=== PATIENT | female | born 1940 | race Caucasian/White ===

== ENCOUNTER → 2020-07-03 14:51 | Outpatient (CLI) | payer MEDICARE, SELFPAY ==
--- NOTE | ~2020-07-03 | XR_ITS ---
XR hip RT min 3V w AP pelvis DATE: 07/03/2020 15:17 INDICATION: Unspecified hip pain for 2 weeks, worsening. No known injury. TECHNIQUE: AP views of the pelvis. AP, lateral and crosstable lateral views of right hip. COMPARISON: None FINDINGS: There is mild dextro scoliosis and severe degenerative disc disease throughout the lumbar a nd lumbosacral spine. The pubic symphysis and sacroiliac joints are normally aligned. No pelvic fracture or bone destructio n is detected. Hip joint spaces are symmetric and relatively preserved. No fracture or dislocation, avascular necrosis or bone destruction of the right hip is detected. IMPRESSION: Mild dextro scoliosis and severe degenerative disease throughout the lumbar and lumbosacr al spine Reviewed, dictated and finalized at location A. L WORD PROCESSOR IMPRESSION: Mild dextro scoliosis and severe degenerative disease throughout th e lumbar and lumbosacral spine
== END ==
PROVIDERS: PCP Family Medicine; Visit Provider Family Medicine
DX: M47.817 Spondylosis without myelopathy or radiculopathy, lumbosacral region (principal); M41.9 Scoliosis, unspecified
CPT/HCPCS: 73502

== ENCOUNTER 2020-07-11 12:27 | Outpatient (CLI) | payer MEDICARE, SELFPAY ==
--- NOTE | ~2020-07-11 | MR_ITS ---
EXAMINATION: MR hip RT wo con DATE: 07/11/2020 14:11 INDICATION: Right hip pain TECHNIQUE: Magnetic resonance imaging (MRI) of the right hip was performed without intravenous contr ast. Sequences included full-field axial PD-weighted FS FSE and T1-weighted FSE, coronal of the pelvi s with PD-weighted FS FSE, small field of view of the right hip with axial PD-weighted FS FSE, sagit jack PD-weighted FS FSE and coronal PD weighted FS FSE. Additional radial T1-weighted FGR oriented ort hogonal to the acetabular rim were obtained for evaluation of the labrum. COMPARISON: None FINDINGS: Bones/labrum/cartilage: Alignment is normal. No fracture, avascular necrosis or pathologic marrow replacing process. Degener ation of the posterior superior right acetabular labrum which demonstrates a rounded free edge, irreg ular margins and mild increased signal and which is partially replaced by marginal osteophyte arising from the rim of the acetabulum. There is mild osteoarthritis at the right hip with mild partial thic kness cartilage loss with smooth chondral surface. Minimal subarticular cystic change along the poste rior inferior aspect of the acetabulum. Severe lumbar spondylosis. Mild bilateral sacroiliac osteoart hritis. Fluid: Symmetric physiologic amount of fluid within both hip joints. There is mild right gluteus medius medi us bursitis. Small amount of likely physiologic free fluid in the cul-de-sac. Soft tissues: There is a mild partial thickness tear along the deep aspect of the superior facet footplate of the r ight gluteus medias tendon with corresponding small region of mild fatty atrophy at the deep central portion of the muscle belly. Mild tendinopathy without discrete tear at the ischial tuberosity origin s of the bilateral proximal hamstring tendons. The bilateral iliopsoas tendons are normal. Limited ev aluation of visceral organs of the pelvis is unremarkable. No pathologically enlarged pelvic/inguina l lymphadenopathy. IMPRESSION: 1. Mild right hip osteoarthritis with degeneration of the posterosuperior acetabular labrum. 2. Mild partial-thickness undersurface tear of the distal right gluteus medius tendon with mild assoc iated gluteus medius bursitis. 3. Severe lumbar spondylosis. Reviewed, dictated and finalized at location H. AL CARETAKER SUPERVISOR IMPRESSION: 1. Mild right hip osteoarthritis with degeneration of the posterosuperior aceta bular labrum. 2. Mild partial-thickness undersurface tear of the distal right gluteus medius tendon with mild associated gluteus medius bursitis. 3. Severe lumbar spondylosis.
== END 2020-07-11 12:28 | disposition home or self-care (01) ==
PROVIDERS: PCP Family Medicine; Visit Provider Family Medicine
DX: M16.11 Unilateral primary osteoarthritis, right hip (principal); S76.911A Strain of unspecified muscles, fascia and tendons at thigh level, right thigh, initial encounter; M47.816 Spondylosis without myelopathy or radiculopathy, lumbar region
CPT/HCPCS: 73721

== ENCOUNTER 2021-12-12 11:19 | Emergency (ER) | payer MEDICARE, SELFPAY ==
--- NOTE | ~2021-12-12 | XR_ITS ---
EXAMINATION: XR finger 2nd RT min 2V DATE: 12/12/2021 12:16 INDICATION: Right hand second digit pain. Fall. TECHNIQUE: 4 views of right hand second digit were obtained. COMPARISON: None. FINDINGS: Bone alignment is normal. No fracture. There is mild osteoarthritis of second metacarpophal angeal joint and proximal interphalangeal joint and moderate osteoarthritis of distal interphalangeal joint. IMPRESSION: 1. Polyarticular osteoarthritis. Reviewed, dictated and finalized at location B.
--- NOTE | ~2021-12-12 | XR_ITS ---
EXAMINATION: XR hand LT min 3V DATE: 12/12/2021 12:16 INDICATION: Left hand pain. TECHNIQUE: 3 views of left hand were obtained. COMPARISON: None. FINDINGS: There is an oblique fracture of diaphysis of fifth metacarpal. The distal fracture fragment demonstrates 3 mm radial displacement and 4 mm shortening. There is moderate osteoarthritis of trisc aphe joint and mild osteoarthritis of first carpometacarpal joint and most of the metacarpophalangeal joints and interphalangeal joints. IMPRESSION: 1. Oblique fracture of diaphysis of fifth metacarpal. Reviewed, dictated and finalized at location B.
--- NOTE | 2021-12-12 11:36 | ED.UPPEXIN ---
HPI - Extremity Injury (Upper) General Chief Complaint: Extremity Injury, Upper Stated Complaint: fall/bilateral hand injury Time Seen by Provider: 12/12/21 11:58 Source: patient and RN notes reviewed Mode of arrival: ambulatory Limitations: no limitations History of Present Illness HPI narrative: 81-year-old female resents with concern for injury to the left hand and right second digit. She reports yesterday she was pulling wild onions by [employer] when she slipped and fell on rocks on her outstretched hands. She reports pain and bruising to the distal second digit of the right hand, reports left hand pain. She reports she used ice. She denies decreased sensation, strength, range of motion in the hands or digits. She denies lacerations or abrasions. She reports swelling and bruising to the left hand MD complaint: injury to: left (Hand) and right (Finger) Related Data Home Medications Medication Instructions Recorded Confirmed aspirin 325 mg PO DAILY 12/12/21 12/12/21 fluoxetine [Prozac] 10 mg PO DAILY 12/12/21 12/12/21 glimepiride 4 mg PO DAILY 12/12/21 12/12/21 levothyroxine 125 mcg PO DAILY 12/12/21 12/12/21 lisinopril 20 mg PO DAILY 12/12/21 12/12/21 lovastatin 40 mg PO DAILY 12/12/21 12/12/21 metformin 100 mg PO BID 12/12/21 12/12/21 Allergies Allergy/AdvReac Type Severity Reaction Status Date / Time prednisone Allergy Unknown nauseated, Verified 12/12/21 12:20 felt bad, bp up, sugar up, Review of Systems Review of Systems: CONSTITUTIONAL: Denies malaise, chills, sweats, or fever. CARDIOVASCULAR: Denies chest pain, palpitations, or edema. RESPIRATORY: Denies cough or dyspnea. SKIN: Denies rash or itching, redness, laceration, abrasion, warmth MUSCULOSKELETAL: Reports pain, swelling and bruising to the distal end of the second digit of the right hand. Reports pain, swelling and bruising to the left hand NEUROLOGIC: Denies numbness, weakness All systems reviewed & are unremarkable except as noted in HPI and below PMFSH Surgical History Surgical History Hx of appendectomy Family History Family History Father Family history of cardiovascular disease Mother Family history of cardiovascular disease Diabetes mellitus Sibling Family history of malignant neoplasm of cervix Social History Social History Smoking status: Smoker, status unknown Alcohol intake: current Gender identity (if verbalized by the patient): Female Comments At time of signature, agree with nursing past medical, surgical, social and family history. There is no relevant family history pertinent to the presenting complaint Exam Narrative: GENERAL: Well-appearing, well-nourished, and in no acute distress. HEAD: Normocephalic, atraumatic. EYES: PERRLA, conjunctivae clear NECK: Supple. CHEST: Speaks in full sentences. No respiratory distress. HEART: Regular rate and rhythm. Normal and equal peripheral pulses. EXTREMITIES: Right & Left hands and digits of hand have normal strength and sensation. 5/5 strength with digit flexion, extension. Range of motion normal. No clubbing, cyanosis, noted. Tenderness, swelling, bruising noted to the lateral left hand beneath the fifth digit. Swelling, bruising noted to the distal second digit of the right hand. Skin intact. Normal digital cascade with flexion of fingers, median, ulnar and radial nerve intact. Normal sensation of each side of finger. Can perform 'okay' sign, 'cross over finger test of index and middle fingers' and 'thumbs up' sign. No scissoring. Normal thumb opposition. Good capillary refill and radial pulse. Distal capillary refill less than 3 seconds. SKIN: Warm, dry, no rash. NEURO: Alert and oriented x3. PSYCH: Normal mood and affect Course Course Emergency Course: Patient is aware of diagnosis, unde
[2021-12-12 11:47] VITALS: BP 166/58; PULSE 60; RESP 18; TEMP 36.4; O2SAT 100
== END 2021-12-12 12:58 | disposition home or self-care (01) ==
PROVIDERS: Emergency Provider Nurse Practitioner; PCP Family Medicine
DX: S62.307A Unspecified fracture of fifth metacarpal bone, left hand, initial encounter for closed fracture (principal); S63.610A Unspecified sprain of right index finger, initial encounter; W01.0XXA Fall on same level from slipping, tripping and stumbling without subsequent striking against object, initial encounter; Z79.82 Long term (current) use of aspirin; I10 Essential (primary) hypertension; E11.9 Type 2 diabetes mellitus without complications
CPT/HCPCS: 29125; 29130; 73130; 73140; 99214; A4565; G0463

== ENCOUNTER 2021-12-17 08:25 | Outpatient (CLI) | payer MEDICARE, SELFPAY ==
--- NOTE | 2021-12-17 08:40 | ECG_ITS ---
Measurements Intervals Kinsey Rate: 63 P: -80 WI: 170 QRS: 22 QRSD: 101 T: 66 QT: 430 QTc: 443 Interpretive Statements SINUS RHYTHM POOR R-WAVE PROGRESSION MINOR ST-T AFTER ABNORMAL ECG NO PREVIOUS ECG AVAILABLE FOR COMPARISON Electronically Signed On 12-17-2021 16:21:41 CDT by Dhruv Coleman M.D.
[2021-12-17 09:20] LABS: Anion Gap 8 mmol/L (8-16); Blood Urea Nitrogen 13 mg/dL (7-17); Calcium 9.4 mg/dL (8.4-10.2); Carbon Dioxide 23 mmol/L (22-30); Chloride 106 mmol/L (98-107); Estimated Glomerular Filt Rate > 60; Glucose 190 mg/dL (65-110); Potassium 4.2 mmol/L (3.4-5.0); Sodium 137 mmol/L (137-145)
== END 2021-12-17 08:26 | disposition home or self-care (01) ==
PROVIDERS: Anesthesiology; PCP Family Medicine; Visit Provider Plastic Surgery
DX: E11.9 Type 2 diabetes mellitus without complications (principal); I10 Essential (primary) hypertension; Z01.812 Encounter for preprocedural laboratory examination
CPT/HCPCS: 36415; 80048; 93005

== ENCOUNTER 2021-12-19 01:37 | Day surgery (SDC) | payer MEDICARE, SELFPAY ==
[2021-12-14 13:00] VITALS: BMI 25.2
--- NOTE | 2021-12-14 13:13 | PC.NURSE ---
Report to the Outpatient Waiting Room, entrance under the green pavilion located off [facility], at time _0700_ on date _12/19/21_. OR Time: _0900_. - You and your visitor will be asked a series of questions to screen for COVID 19 for your protection. - A mask is required within the hospital. One visitor will be allowed to accompany the patient into the hospital. Patients visitor will be instructed to remain with patient at all times or leave the building. We will allow the visitor to come back to the postoperative area when patient is ready. Preoperative COVID Testing Requirements: NONE Patients may have clear liquids (water, carbonated beverages, clear teas, apple juice) until 3 hours prior to surgery (0600 AM) with a maximum of 20 ounces. - No food from midnight until time of surgery Take the following medications with a SIP of water the morning of surgery: _FLUOXETINE, LEVOTHYROXINE_ Medications to discontinue _ ASPIRIN 5 DAYS PRIOR TO SURGERY PER DR. GOODWIN, Date to take last dose 12/13/21_ Please no make-up, nail lithuanian, hairspray, perfume, deodorant, or body powder the day of surgery. No jewelry (including any body piercings) or valuables the day of surgery, leave them at home. Please take a shower or bath the night before, or the morning of, surgery with an antibacterial soap. Wear comfortable, loose fitting clothing. - Jewelry must be removed prior to entering the operating room. Rings and piercings that are not removed may be cut off. - The hospital will not accept responsibility for valuables. - Please leave all valuables, including medications, at home the day of surgery. If you are going home after surgery, a licensed commercial driver must drive you home. - NO public transportation without another adult. - We recommend that an adult stay with you for 24 hours following discharge. - We also recommend that you do not drive, make important decision, drink alcoholic beverages, or take any drugs that were not prescribed by your health care provider for at least 24 hours after your discharge time. Follow any additional instructions given to you from your surgeon. Telephone instructions given to ___PT and asked if any additional questions and then verbalized understanding. Patient advised to call surgeon office or pre surgery nurse liaison [phone] if any additional questions.
--- NOTE | 2021-12-18 10:51 | P.PNAN_ITS ---
Anes - Initial Pre Proc Eval Procedure: Operation Date: 12/19/21 09:00 Proposed Procedures p Open Reduction Internal Fixation Left Fifth Metacarpal Shaft Fracture - Dino Rm MD Date/Time: 12/18/21 10:51 Surgeon: Dino Rm MD Pre Op Diagnosis: Lt Fifth Metacarpal Shaft Fx Patient Data Age: 81 Gender: F Height: 1.74 m Weight: 76.36 kg Allergies Allergy/AdvReac Type Severity Reaction Status Date / Time prednisone Allergy Unknown nauseated, Verified 12/19/21 06:29 felt bad, bp up, sugar up, Home Medications Medication Instructions Recorded Confirmed Type aspirin 325 mg PO DAILY 12/12/21 12/19/21 History glimepiride 4 mg PO DAILY 12/12/21 12/19/21 History levothyroxine 125 mcg PO DAILY 12/12/21 12/19/21 History lisinopril 20 mg PO DAILY 12/12/21 12/19/21 History lovastatin 40 mg PO DAILY 12/12/21 12/19/21 History metformin 100 mg PO BID 12/12/21 12/19/21 History fluoxetine 10 mg DAILY 12/14/21 12/19/21 History Patient hx anesthesia problems: none Family hx anesthesia problems: none Results Review: All pre-operative results and documents have been reviewed as part of the pre-operative evaluation. [facility] Past Medical History Medical History (Updated 12/18/21 @ 10:52 by Raul Christianson MD) Anxiety disorder, unspecified Benign essential HTN Depression Hypothyroidism Mixed hyperlipidemia Type 2 diabetes mellitus without complications Surgical History Surgical History Hx of appendectomy Family History Family History Father Family history of cardiovascular disease Mother Family history of cardiovascular disease Diabetes mellitus Sibling Family history of malignant neoplasm of cervix Social History Social History Smoking status: Smoker, status unknown Tobacco type: cigarettes Second hand tobacco smoke exposure: No Additional smoking assessment comments: PT STATE SMOKED YEARS & YEARS AGO , UNALBE TO RECALL HOW MUCH OR HOW LONG Alcohol intake: current Substance use: never Living arrangements: alone Gender identity (if verbalized by the patient): Female Spiritual care concerns: No Anes - Eval Final PreProcedure Day of Procedure 12/18/21 10:51 Patient weight: normal Heart: regular rate and rhythm Lungs: clear to auscultation and normal air movement Airway: Mallampati scale Neurological: alert and oriented Last oral intake: >/= 8 hours ASA classification: III Emergent: no Anesthetic plan: proceed Anesthesia type and monitoring: general LMA Results Review: All pre-operative results and documents have been reviewed as part of the pre-operative evaluation. Informed Consent: The patient's anesthetic plan and its attendant risks and benefits were discussed with the patient/family/POA. Questions were solicited and answers provided to the satisfaction of the patient/family/POA.
[2021-12-19] VITALS (9 sets, daily range): BP systolic 124–176; BP diastolic 47–74; PULSE 60–68; RESP 14–18; TEMP 36.2–36.8; O2SAT 94–100
--- NOTE | ~2021-12-19 | XR_ITS ---
EXAMINATION: XR surgery orthopedic DATE: 12/19/2021 09:49 INDICATION: ORIF of a fracture of the left fifth metatarsal TECHNIQUE: 3 fluoroscopic images of the left hand were obtained during procedure performed by Dr. Bo shields. Radiologist was not present for the imaging or procedure. The amount of fluoroscopy time used dur ing this procedure was 1.3 minutes. COMPARISON: 12/12/2021 FINDINGS: Interval open reduction and internal fixation of the oblique extra articular metaphyseal fracture of the fifth metacarpal with a single screw. Alignment post fixation appears essentially anatomic. Expec jessica small amount of postoperative gas in the surrounding soft tissues. Moderate osteoarthritis at the triscaphe joint. IMPRESSION: 1. Essentially anatomic alignment post open reduction internal fixation of a diaphyseal fracture of t he left fifth metacarpal. Reviewed, dictated and finalized at location B. IMPRESSION: 1. Essentially anatomic alignment post open reduction internal fixation of a di aphyseal fracture of the left fifth metacarpal.
[2021-12-19] MEDS: ACETAMINOPHEN 500 MG TABLET 1000 MG PO (06:34)
[2021-12-19] MEDS: KETOROLAC 15 MG/ML VIAL (*BKC) IV PUSH (06:46)
[2021-12-19] MEDS: LACTATED RINGERS 1,000 ML 30 ML IV CONT ×2 (06:47→09:55)
[2021-12-19 06:50] LABS: Glucose Point of Care 100 mg/dl (65-105)
--- NOTE | 2021-12-19 07:04 | WPDHPUPDATE1 ---
History and Physical Update Update Date/Time: 12/19/21 07:04 History and Physical has been reviewed, including an updated exam of the patient. There are NO changes in the patient's condition. Risks, benefits, and alternatives have been discussed and questions answered. Patient agrees to proceed with procedure.
[2021-12-19] MEDS: ceFAZolin 2 GM/D5W 50 ML 2 GM/50 ML BAG IVPB (07:28)
[2021-12-19] MEDS: LIDO 1%/EPINEPHRINE 1:100,000 50 ML VIAL 30 ML INFILTRATE (07:51)
[2021-12-19] MEDS: BUPIVACAINE HCL 0.5% PF 30 ML VIAL INFILTRATE (09:39)
[2021-12-19] MEDS: BACITRACIN OINTMENT 15 GM TUBE 1 APPLIC TOPICAL (09:40)
[2021-12-19 10:41] LABS: Glucose Point of Care 103 mg/dl (65-105)
--- NOTE | 2021-12-19 10:47 | W.PM.PROC2 ---
Procedure Note - Detailed Date of Procedure 12/19/21 Pre-op Diagnosis Lt Fifth Metacarpal Shaft Fx Post-op Diagnosis Same Procedure Performed Open reduction and internal fixation of closed displaced left 5th metacarpal shaft fracture Surgeon Dino Rm MD Surgical First Assistant Bri S Anesthesia General Description of Procedure The left 5th metacarpal was marked on the patient's hand in the holding area. She was then taken to the operating room where she was placed supine on the operating table. She was given general endotracheal anesthesia and the left upper extremity was prepped and draped in usual fashion. The site was marked for incision and locally infiltrated with 1% lidocaine with epinephrine. The tourniquet was inflated to 250 mmHg. The image intensifier was brought in and the fracture site visualized. The incision was made as marked and dissection ulnar to the extensor tendons was performed to expose the fracture site. The periosteum was dissected away from the fracture line, the fracture gap was cleared of clot. There was noted a small amount of comminution at the ulnar distal tip the proximal fracture fragment. The bone of the shaft more distally was fairly soft and cracked in a place or 2. A bone tenaculum was placed after reduction. A drill hole roughly perpendicular to the fracture line near the proximal extent of the fracture was placed planning for a lag screw technique. This utilized a 1.5 mm glide hole and a 1.3 mm threaded hole. The lateral cortex was countersunk. The measured length was 9 mm. The screw was fairly easily positioned. It however did not hold very well and was removed 3 times and finally replaced with a 2 mm x 10 mm screw that in the end provided all of the stability for this repair. It was not possible to position a 2nd screw due to the soft bone and the position of the 1st screw. We went ahead to irrigate the site and close the skin wound with running 5 0 nylon. Soft bandage was applied and the ring and small fingers were marito taped with 1 in pliable tape. The region had been infiltrated with 0.5% Marcaine prior to application of the bandage. The tourniquet was up for 90 minutes Estimated Blood Loss -2.02 Tourniquet Time 9 Drains No Packing No Pathology None sent Complications No immediate complications Condition Stable Disposition PACU
== END 2021-12-19 12:23 | disposition home or self-care (01) ==
PROVIDERS: PCP Family Medicine; Visit Provider Plastic Surgery
PROC: (CPT 26615; principal; 2021-12-19 07:30)
DX: S62.327A Displaced fracture of shaft of fifth metacarpal bone, left hand, initial encounter for closed fracture (principal); W01.0XXA Fall on same level from slipping, tripping and stumbling without subsequent striking against object, initial encounter; I10 Essential (primary) hypertension; E78.2 Mixed hyperlipidemia; E11.9 Type 2 diabetes mellitus without complications; E03.9 Hypothyroidism, unspecified; F41.8 Other specified anxiety disorders; Z79.84 Long term (current) use of oral hypoglycemic drugs; Z79.82 Long term (current) use of aspirin; Z87.891 Personal history of nicotine dependence
CPT/HCPCS: 26615; 36415; 80048; 82948; 93005; A9270; C1713; J0690; J1885; J2405; J2704; J3010; J7120

== ENCOUNTER 2022-04-11 17:22 | Emergency (ER) | payer MEDICARE, SELFPAY ==
--- NOTE | ~2022-04-11 | XR_ITS ---
EXAMINATION: XR hand RT 2V DATE: 04/11/2022 17:44 INDICATION: Right hand injury. TECHNIQUE: 2 views of right hand were obtained. COMPARISON: None. FINDINGS: There is medial dislocation of fourth middle phalanx with respect to the proximal phalanx. No fracture. There is severe osteoarthritis of triscaphe joint and mild osteoarthritis of most of the metacarpophalangeal joints and interphalangeal joints. IMPRESSION: 1. Dislocation of fourth proximal interphalangeal joint. Reviewed, dictated and finalized at location A.
--- NOTE | ~2022-04-11 | XR_ITS ---
EXAMINATION: XR finger 4th RT min 2V DATE: 04/11/2022 18:06 INDICATION: Right hand fourth digit dislocation status post reduction. TECHNIQUE: 3 views of right hand fourth digit were obtained. COMPARISON: Right hand radiographs 5:40 PM FINDINGS: Bone alignment is normal. There is an old avulsion fracture of radial sided base of fourth middle phalanx with 2.5 mm distraction. There is mild osteoarthritis of fourth metacarpophalangeal mary int. There is soft tissue swelling. IMPRESSION: 1. Avulsion fracture of radial sided base of fourth middle phalanx. Reviewed, dictated and finalized at location A.
[2022-04-11 17:23] VITALS: BP 159/114; PULSE 72; RESP 18; TEMP 36.4
--- NOTE | 2022-04-11 17:58 | ED.GENADULT ---
HPI - General Adult General Chief complaint: Extremity Injury, Upper Stated complaint: R. finger injury Time Seen by Provider: 04/11/22 17:30 History of Present Illness HPI narrative: 81-year-old female presented to the emergency department for evaluation of a right hand injury. Patient states she tripped and fell and injured her fourth right finger. Finger was displaced upon arrival to the ED. Related Data Home Medications Medication Instructions Recorded Confirmed aspirin 325 mg tablet 325 mg PO DAILY 12/12/21 03/13/22 glimepiride 4 mg tablet 4 mg PO DAILY 12/12/21 03/13/22 levothyroxine 125 mcg tablet 125 mcg PO DAILY 12/12/21 03/13/22 lisinopril 20 mg tablet 20 mg PO DAILY 12/12/21 03/13/22 lovastatin 40 mg tablet 40 mg PO DAILY 12/12/21 03/13/22 fluoxetine 10 mg capsule 10 mg DAILY 12/14/21 03/13/22 vitamins A,C,B-[id number] 14,320 1 cap PO BID 03/13/22 03/13/22 unit-226 mg-200 unit capsule (PreserVision AREDS) Allergies Allergy/AdvReac Type Severity Reaction Status Date / Time prednisone Allergy Unknown nauseated, Verified 03/13/22 14:29 felt bad, bp up, sugar up, Review of Systems Review of Systems: CONSTITUTIONAL: Denies fever, chills, or sweats. EYES: Denies visual changes, redness, or discharge. ENT: Denies rhinorrhea, congestion, sore throat, or otalgia. CARDIOVASCULAR: Denies chest pain, palpitations, or edema. RESPIRATORY: Denies cough or dyspnea. GASTROINTESTINAL: Denies abdominal pain, nausea, vomiting, or diarrhea. GENITOURINARY: Denies dysuria or hematuria. SKIN: Denies rash or itching. MUSCULOSKELETAL: See HPI NEUROLOGIC: Denies headache, numbness, or weakness. PSYCHIATRIC: Denies anxiety or depression. [facility] Past Medical History Medical History Anxiety disorder, unspecified Benign essential HTN Depression Hypothyroidism Mixed hyperlipidemia Type 2 diabetes mellitus without complications Surgical History Surgical History Hx of appendectomy Family History Family History Father Family history of cardiovascular disease Mother Family history of cardiovascular disease Diabetes mellitus Sibling Family history of malignant neoplasm of cervix Social History Social History Smoking status: Former smoker Tobacco type: cigarettes Second hand tobacco smoke exposure: No Additional smoking assessment comments: PT STATE SMOKED YEARS & YEARS AGO , UNALBE TO RECALL HOW MUCH OR HOW LONG Alcohol intake: current Substance use: never Gender identity (if verbalized by the patient): Female Spiritual care concerns: No Exam Narrative: APPEARANCE: Well appearing, no pain, no distress, well-nourished. HEAD: normocephalic, atraumatic. EYES: PERRLA/EOMI, conjunctivae clear. NOSE: Normal no drainage EARS:TMS clear with good light reflex. THROAT: Pharynx clear, no exudate. NECK: Supple. No adenopathy, no masses. RESPIRATORY: Airway patent, respirations nonlabored. Clear to auscultation bilaterally, no rales, rhonchi, wheezing. CARDIOVASCULAR: Regular rate and rhythm without murmurs rubs or gallops. ABDOMINAL: Soft, nontender, nondistended, normal bowel sounds MUSCULOSKELETAL: Moves all extremities. Deformity of right fourth finger. Normal anatomy after reduction. NEURO: Alert. Cranial nerves II through XII intact. Grossly intact SKIN: Warm, dry. Normal Color PSYCHIATRIC: Normal affect/mood. Course Vital Signs Vital signs: Vital Signs Temperature 97.6 F 04/11/22 17:23 Pulse Rate 72 04/11/22 17:23 Respiratory Rate 18 04/11/22 17:23 Blood Pressure 159/114 H 04/11/22 17:23 Temperature 97.6 F 04/11/22 17:23 Pulse Rate 72 04/11/22 17:23 Respiratory Rate 18 04/11/22 17:23 Blood Pressure 159/114 H 04/11/22 17:23
== END 2022-04-11 18:30 | disposition home or self-care (01) ==
PROVIDERS: Emergency Provider Emergency Medicine; PCP Family Medicine
DX: S62.624A Displaced fracture of middle phalanx of right ring finger, initial encounter for closed fracture (principal); E03.9 Hypothyroidism, unspecified; E78.2 Mixed hyperlipidemia; E11.9 Type 2 diabetes mellitus without complications; F41.9 Anxiety disorder, unspecified; F32.A Depression, unspecified; Z79.84 Long term (current) use of oral hypoglycemic drugs; Z79.82 Long term (current) use of aspirin; Z87.891 Personal history of nicotine dependence; W01.0XXA Fall on same level from slipping, tripping and stumbling without subsequent striking against object, initial encounter
CPT/HCPCS: 26755; 26770; 73120; 73140; 99285

== ENCOUNTER 2022-04-19 13:20 | Outpatient (CLI) | payer MEDICARE, SELFPAY ==
--- NOTE | 2022-04-19 13:32 | ECHO_ITS ---
Patient Info Name: Beverly Castro Age: 81 years : 1940 Gender: Female Ht: 67 in Wt: 165 lbs BSA: 1.89 m2 HR: 69 bpm BP: 189 / 76 mmHg Technical Quality: Good Exam Date: 04/19/2022 1:52 PM Exam Location: [facility] Patient Status: Outpatient Admit Date: 04/19/2022 Staff Ordering Physician: Julia Brandon DO Agronomy Research Manager: Whitley Kendall RDCS Attending Provider: Julia Brandon DO Referring Physician: Aleksandr ARMENTA; Exam Type: CA echo doppler color flow Study Info Indications R01.1 - Cardiac murmur, unspecified Complete two-dimensional, color flow and Doppler transthoracic echocardiogram is performed. Summary 1. Complete two-dimensional, color flow and Doppler transthoracic echocardiogram is performed. 2. Left ventricular chamber dimension is normal. 3. Left ventricular systolic function is normal, estimated at 60-65%. 4. There is mildly increased left ventricular wall thickness. 5. The left ventricular diastolic function is grade II diastolic dysfunction. 6. E/e' 16 is elevated. 7. Global longitudinal strain is abnormal at -12.5%. 8. Left atrial chamber dimension is moderately enlarged. 9. There is moderate mitral valve regurgitation. 10. No pulmonary hypertension, estimated pulmonary arterial systolic pressure is 34 mmHg. Left Ventricle E/e' 16 is elevated. Global longitudinal strain is abnormal at -12.5%. Left ventricular chamber dimension is normal. Left ventricular systolic function is normal, estimated at 60-65%. There is mildly increased left ventricular wall thickness. The left ventricular diastolic function is grade II diastolic dysfunction. Right Ventricle Right ventricular systolic function is normal and with normal TAPSE 2.8 cm. Right ventricular chamber dimension is normal. Left Atria Left atrial chamber dimension is moderately enlarged. Right Atria Right atrial chamber dimension is normal. Aortic Valve The aortic valve is trileaflet. There is no aortic valve stenosis. There is no aortic valve regurgitation. Pulmonic Valve There is no pulmonic regurgitation. Mitral Valve There is no mitral valve stenosis. There is moderate mitral valve regurgitation. Tricuspid Valve There is no tricuspid valve regurgitation. No pulmonary hypertension, estimated pulmonary arterial systolic pressure is 34 mmHg. Pericardium/Pleural There is no pericardial effusion. Inferior Vena Cava Normal inferior vena cava with >50% collapse upon inspiration consistent with normal right atrial pressure, 5 mmHg. Aorta The aortic root size at the sinus of Valsalva is normal. Left Ventricular Outflow Tract Name Value Normal LVOT 2D LVOT Diameter 1.9 cm LVOT Doppler LVOT Peak Gradient 6 mmHg LVOT Mean Gradient 4 mmHg LVOT VTI 29 cm LVOT VTI/AV VTI Ratio 0.8 LVOT Stroke Volume 82 ml LVOT CO 5.4 l/min LVOT CI 2.9 l/min/m2 Pulmonic Valve
== END 2022-04-19 13:21 | disposition home or self-care (01) ==
PROVIDERS: PCP Family Medicine; Visit Provider Family Medicine
DX: R01.1 Cardiac murmur, unspecified (principal); I34.0 Nonrheumatic mitral (valve) insufficiency
CPT/HCPCS: 93306

== ENCOUNTER 2022-12-18 13:15 | Outpatient (RCR) | payer MEDICARE, SELFPAY ==
--- NOTE | 2022-10-22 17:16 | PTOPEVAL1 ---
Assessment and note entered by Jamie Orozco, PT, DPT Evaluation Information Assessment Status Evaluation Diagnosis repeated fall, decreased mobility Subjective Information Pt states her balance is off, she reports 7-8 large falls in the last 2 years, the last one about a month ago. Pt states she does a lot of sitting and watching television. Reported Pain Level Pain Score 0: Self Report Assessment PT Clinical Summary Beverly presents to therapy today for her initial evaluation with a diagnosis of repeated falls. Today she reports no pain, demonstrates good LE ROM, and fair LE strength. She has decreased functional endurance and decreased balance with functional tasks. Her scores on both the Tinetti balance assessment and the 5xSTS place her at an increased risk of falls. Skilled physical therapy services are indicated to address the deficits noted above, to introduce a regular exercise program, to minimize fall risk, and to improve functional mobility. Plan of Care Interventions Gait Training,Manual Therapy,Neuro Re-education, Patient/Caregiver Educati,Therapeutic Activities, Therapeutic Exercise PT Services Indicated Yes Treatment Frequency and 2x/wk for 4 wks Duration These treatments will address the objective and functional deficits as defined above. The patient will be advanced safely and appropriately in order for the patient to progress towards his/her prior level of function. Additional exercises will be introduced and as well as a comprehensive home exercise program upon discharge, if needed, ?to ensure carryover of functional gains achieved in the clinic. This treatment plan has been reviewed and agreement upon by the patient.
--- NOTE | 2022-11-20 15:25 | PTOPPROG ---
Assessment and note entered by Jamie Orozco, PT, DPT Evaluation Information Assessment Status Discharge Diagnosis repeated fall, decreased mobility Subjective Information Pt states she thinks she is doing really well with therapy. She states she went to the gym yesterday and did some walking and biking. She states she has been going to the gym 2 days a week in addition to therapy and also does a few exercises at home. Pt states she feels 100% better but knows that is not a realistic number. She states she feels more secure, more independent, and less fearful of falling. Assessment PT Clinical Summary Beverly presents to therapy today for her progress report following 8 visits of skilled therapy to treat her balance deficits leading to increased falls. She reports 1 fall in the last month. Today she demonstrates a decreased gait speed during the 2 min walk test, and requires increased time to complete the 5xSTS test, she does demonstrate an improved score on the Tinetti from 22/28 to 26/28. Pt demonstrates good days and bad days during therapy. At times she requires additional cueing and redirection to remember what task she is doing and well as demonstrates differing amount of effort with exercises. It is recommended that she continue with therapy to further address her balance deficits and safety concerns. Plan of Care Interventions Gait Training,Manual Therapy,Neuro Re-education, Patient/Caregiver Educati,Therapeutic Activities, Therapeutic Exercise PT Services Indicated No Treatment Frequency and to be discharged Duration These treatments will address the objective and functional deficits as defined above. The patient will be advanced safely and appropriately in order for the patient to progress towards his/her prior level of function. Additional exercises will be introduced and as well as a comprehensive home exercise program upon discharge, if needed, ?to ensure carryover of functional gains achieved in the clinic. This treatment plan has been reviewed and agreement upon by the patient.
--- NOTE | 2022-12-18 13:58 | PTOPDC ---
Assessment and note entered by Jamie Orozco, PT, DPT Evaluation Information Assessment Status Discharge Diagnosis repeated fall, decreased mobility Subjective Information Pt states she is feeling good, she feels like her balance has improved. She states occasionally she will feel a little off balance but is able to regain without assist. She states she has not followed up at the [facility] like previously discussed. Reported Pain Level Pain Score 0: Self Report Assessment PT Clinical Summary Beverly presents to therapy today for her progress report following 12 visits of skilled therapy to treat her gait and balance deficts. Today she demonstrates improved LE strength with functional assessments and has decreased her 5xSTS time from 26s to 17s. She increased her gait speed as well with less deviations. She has progressed well towards her therapy goals. It was recommended that she continue silver sneakers classes at the [facility], continue her HEP, and start a low walking program. She is to be discharged from skilled therapy services at this time. Plan of Care PT Services Indicated No
== END 2022-12-18 16:10 | disposition home or self-care (01) ==
LOC: ANHGOSHPT 13:15
PROVIDERS: PCP Family Medicine; Visit Provider Family Medicine
DX: R26.81 Unsteadiness on feet (principal); R53.81 Other malaise; R29.6 Repeated falls
CPT/HCPCS: 97110; 97112; 97161; 97530

== ENCOUNTER → 2023-04-10 14:44 | Outpatient (CLI) | payer MEDICARE, SELFPAY ==
--- NOTE | ~2023-04-10 | MR_ITS ---
EXAMINATION: MR brain/brain stem wo con DATE: 04/10/2023 15:28 INDICATION: Multiple falls. Prior transient ischemic episode. TECHNIQUE: Magnetic resonance imaging (MRI) of the brain and brainstem was performed without intraven ous contrast. Sequences included sagittal and axial T1-weighted SE, axial diffusion-weighted FS SE, a xial T2*-weighted GRE, axial T2-weighted FLAIR, and axial T2-weighted FSE. Postcontrast axial and cor onal T1-weighted SE was obtained. Apparent diffusion coefficient (ADC) maps were created. COMPARISON: Brain MR dated 05/21/2018 FINDINGS: There are no areas of restricted diffusion to suggest acute infarction. No intracranial hemorrhage or abnormal intracranial mass lesion. There are scattered areas of nonspecific increased T2-weighted si gnal intensity in the cerebral white matter, predominantly involving the deep and periventricular whi te matter which is within normal limits for age. There are no intraparenchymal signal abnormalities s een on the other pulse sequences. The ventricles are symmetric and normal in size. There are no abnor mal extra-axial fluid collections. Flow voids are seen in the cerebral arteries on the T2-weighted se quences consistent with their expected patency. Persistent right mastoid effusion. Changes of bilater al intraocular lens replacement. Visualized orbits and soft tissues are otherwise unremarkable. IMPRESSION: 1. Normal aging brain. No acute intracranial process. Reviewed, dictated and finalized at location A.
== END ==
PROVIDERS: PCP Family Medicine; Visit Provider Family Medicine
DX: R29.6 Repeated falls (principal); Z86.73 Personal history of transient ischemic attack (TIA), and cerebral infarction without residual deficits
CPT/HCPCS: 70551

== ENCOUNTER 2023-04-11 11:16 | Emergency (ER) | payer MEDICARE, SELFPAY ==
--- NOTE | ~2023-04-11 | CT_ITS ---
EXAMINATION: CT brain wo con DATE: 04/11/2023 13:02 INDICATION: Head injury. TECHNIQUE: Computed tomography (CT) of the head was performed without intravenous contrast. The mA wa s adjusted according to patient size. Iterative reconstruction technique was employed. The dose-lengt h product was 605.33 mGy-cm. COMPARISON: Brain MRI 04/10/2023 FINDINGS: There are scattered areas of low attenuation in the cerebral white matter, which is within normal limits for the patient's age. There is no intracranial hemorrhage, acute infarction, or abnorm al intracranial mass lesion. The ventricles are normal in size. There are likely changes of ocular le ns replacement surgeries. There is a right frontal lateral scalp hematoma. There is a small right mas toid effusion. IMPRESSION: 1. Normal aging brain. Reviewed, dictated and finalized at location A. IMPRESSION: 1. Normal aging brain.
--- NOTE | ~2023-04-11 | CT_ITS ---
EXAMINATION: CT facial & cervical spine wo DATE: 04/11/2023 13:02 INDICATION: Head injury. TECHNIQUE: Computed tomography (CT) of the maxillofacial region and cervical spine was performed with out intravenous contrast. Automated exposure control and iterative reconstruction technique were empl oyed. The dose-length product was 401.97 mGy-cm. COMPARISON: None FINDINGS: MAXILLOFACIAL CT: There is a right frontal lateral scalp hematoma. There are likely changes of ocular lens replacement surgeries. There is mild mucosal thickening in the paranasal sinuses. There is a small right mastoid effusion. There is leftward deviation of the nasal septum. CERVICAL SPINE CT: There is mild emphysema. There is a 10 x 17 mm left supraclavicular lymph node bone alignment is norm al. Vertebral body heights are normal. There is mildly decreased disc height at C4-C5. The following disc levels are specifically discussed: C2-C3: There is no uncovertebral joint osteoarthritis. There is mild right and moderate left facet mary int osteoarthritis. There is no neural foraminal stenosis. There is no central canal stenosis. C3-C4: There is mild left uncovertebral joint osteoarthritis. There is mild right and moderate left f acet joint osteoarthritis. There is mild left neural foraminal stenosis. There is no central canal st enosis. C4-C5: There is mild bilateral uncovertebral joint osteoarthritis. There is mild bilateral facet join t osteoarthritis. There is no neural foraminal stenosis. There is no central canal stenosis. C5-C6: There is severe right uncovertebral joint osteoarthritis. There is mild bilateral facet joint osteoarthritis. There is mild right neural foraminal stenosis. There is no central canal stenosis. C6-C7: There is no uncovertebral joint osteoarthritis. There is severe right and mild left facet join t osteoarthritis. There is mild right neural foraminal stenosis. There is no central canal stenosis. C7-T1: There is mild left uncovertebral joint osteoarthritis. There is severe bilateral facet joint o steoarthritis. There is mild bilateral neural foraminal stenosis. There is no central canal stenosis. IMPRESSION: 1. No fracture. 2. Mild cervical spondylosis. 3. Mildly enlarged left supraclavicular lymph node. Reviewed, dictated and finalized at location A.
[2023-04-11 11:41] VITALS: BP 199/62; PULSE 65; RESP 14; TEMP 36.6; O2SAT 99
[2023-04-11 11:59] VITALS: BP 179/87; PULSE 56; RESP 15; O2SAT 100
[2023-04-11 12:31] VITALS: BP 157/145; PULSE 57; RESP 15; O2SAT 100
--- NOTE | 2023-04-11 12:38 | ECG_ITS ---
Measurements Intervals [place] Rate: 60 P: 24 WI: 227 QRS: -6 QRSD: 106 T: 76 QT: 455 QTc: 456 Interpretive Statements SINUS RHYTHM WITH SINUS ARRHYTHMIA WITH FIRST DEGREE AV BLOCK LEFT VENTRICULAR HYPERTROPHY AND ST-T CHANGE [VOLTAGE CRITERIA PLUS ST/T ABNORMALITY] POSSIBLE ANTERIOR MYOCARDIAL INFARCTION , OF INDETERMINATE AGE [30 ms Q WAVE IN V3/V4, OR R < 0.2 mV IN V4] INFERIOR MYOCARDIAL INFARCTION , PROBABLY OLD [40+ ms Q WAVE AND/OR ST/T ABNORMALITY IN II/aVF] COMPARED TO ECG 12/17/2021 08:59:09 SINUS ARRHYTHMIA NOW PRESENT FIRST DEGREE AV BLOCK NOW PRESENT LEFT VENTRICULAR HYPERTROPHY NOW PRESENT Q-WAVE HIS SEEN IN LEAD AVF Electronically Signed On 04-11-2023 16:06:56 CDT by Dhruv Coleman M.D.
--- NOTE | 2023-04-11 12:40 | ED.GENADULT ---
HPI - General Adult General Chief complaint: Fall Stated complaint: fall Time Seen by Provider: 04/11/23 11:58 History of Present Illness HPI narrative: 82-year-old female presented the emergency department for evaluation after having a ground-level fall. Patient reports she had an MRI yesterday due to her having frequent falls. Patient states she did receive some Valium for the MRI. Patient reports going to bed early last night because she was still feeling the effects of the Valium. Patient remembers waking up last night but denies having any falls or injuries. Patient reports that she woke up this morning she noticed there was blood on her pillow and when she went to check herself in the mirror she saw that she had a laceration on her right forehead and contusion around the right eye. Patient states she does have some tenderness at the site of a laceration but denies any other pain or injury. Patient denies any change in vision out of the right eye. Patient states she does have frequent falls and has been told to use a walker but does not. Related Data Home Medications Medication Instructions Recorded Confirmed vitamins A,C,P-fcen-raazzo 4,296 1 cap PO BID 03/13/22 02/19/23 mcg-226 mg-90 mg capsule (PreserVision AREDS) ascorbic acid (vitamin C) 500 mg mg PO 10/03/22 02/19/23 capsule Allergies Allergy/AdvReac Type Severity Reaction Status Date / Time prednisone Allergy Unknown nauseated, Verified 04/11/23 12:26 felt bad, bp up, sugar up, Review of Systems Review of Systems: All systems reviewed & are unremarkable except as noted in HPI and below PMFSH Past Medical History Medical History Anxiety disorder, unspecified Benign essential HTN Depression Hypothyroidism Mixed hyperlipidemia Type 2 diabetes mellitus without complications Surgical History Surgical History Hx of appendectomy Family History Family History Father Family history of cardiovascular disease Mother Family history of cardiovascular disease Diabetes mellitus Sibling Family history of malignant neoplasm of cervix Social History Social History Smoking status: Former smoker Tobacco type: cigarettes Second hand tobacco smoke exposure: No Additional smoking assessment comments: PT STATE SMOKED YEARS & YEARS AGO , UNALBE TO RECALL HOW MUCH OR HOW LONG Alcohol intake: current Substance use: never Lack of Transportation: No Lack of Food: Never True Current Housing: I Have Housing Concerned About Future Housing: No Difficulty Paying Gas/Electric Bills: No Difficulty Paying for Meds: No Currently Unemployed: No Education: High School Diploma/GED Difficulty w/ Childcare or Family Care: No Living arrangements: alone Occupation/Education: retired Gender identity (if verbalized by the patient): Female Spiritual care concerns: No Exam Narrative: APPEARANCE: Well appearing, no pain, no distress, well-nourished. HEAD: normocephalic, atraumatic. EYES: PERRLA/EOMI, conjunctivae clear. NOSE: Normal no drainage EARS:TMS clear with good light reflex. THROAT: Pharynx clear, no exudate. NECK: Supple. No adenopathy, no masses. RESPIRATORY: Airway patent, respirations nonlabored. Clear to auscultation bilaterally, no rales, rhonchi, wheezing. CARDIOVASCULAR: Regular rate and rhythm without murmurs rubs or gallops. ABDOMINAL: Soft, nontender, nondistended, normal bowel sounds MUSCULOSKELETAL: Moves all extremities. Strength/ROM intact, No edema, No calf tenderness. NEURO: Alert. Cranial nerves II through XII intact. Good gait. Good coordination SKIN: Right-sided facial contusion and laceration Course Course Emergency Course: 82-year-old female presente
[2023-04-11 12:47] VITALS: BP 158/64; PULSE 57; RESP 13; O2SAT 99
[2023-04-11 13:00] LABS: Basophils Percent Auto 0.5 % (0.2-1.2); Eosinophils Absolute Auto 0.2 K/mm3 (0-0.3); Eosinophils Percent Auto 3.4 % (0-4.4); Hematocrit 36.5 % (37.0-47.0); Hemoglobin 11.5 g/dL (12.0-15.0); Immature Granulocyte Absolute 0.01 K/mm3 (0.00-0.031); Immature Granulocyte Percent A 0.2 % (0-0.5); Lymphocytes Absolute Auto 1.02 K/mm3 (0.9-3.2); Lymphocytes Percent Auto 23.2 % (18.3-44.2); Mean Corpuscular HGB Conc 31.5 g/dl (32-36); Mean Corpuscular Hemoglobin 29.1 pg (26-34); Mean Corpuscular Volume 92.4 fl (80-100); Mean Platelet Volume 11.5 fl (7.4-10.4); Monocytes Absolute Auto 0.5 K/mm3 (0.1-0.6); Monocytes Percent Auto 11.2 % (2.6-8.5); Neutrophils Absolute Auto 2.7 K/mm3 (1.3-6.7); Neutrophils Percent Auto 61.5 % (45.5-73.1); Platelet Count Result 107 k/mm3 (150-375); Red Blood Count 3.95 M/mm3 (4.2-5.4); Red Cell Distribution Width 15.3 % (11.5-14.5); White Blood Count 4.4 K/mm3 (4.5-10.0)
[2023-04-11 13:11] LABS: Alanine Aminotransferase 28 U/L (6-35); Albumin Level 3.4 g/dL (3.5-5.1); Alkaline Phosphatase 72 U/L (38-126); Anion Gap 5 mmol/L (8-16); Aspartate Amino Transferase 35 U/L (14-36); Bilirubin,Total 1.2 mg/dL (0.2-1.3); Blood Urea Nitrogen 14 mg/dL (7-17); Calcium 9.6 mg/dL (8.4-10.2); Carbon Dioxide 26 mmol/L (22-30); Chloride 107 mmol/L (98-107); Estimated CRCL calculation 48 ml/min; Estimated Glomerular Filt Rate > 60; Glucose 103 mg/dL (65-110); Potassium 4.7 mmol/L (3.4-5.0); Sodium 138 mmol/L (137-145)
== END 2023-04-11 14:42 | disposition home or self-care (01) ==
PROVIDERS: Emergency Provider Emergency Medicine; PCP Family Medicine
DX: S01.81XA Laceration without foreign body of other part of head, initial encounter (principal); S00.11XA Contusion of right eyelid and periocular area, initial encounter; R29.6 Repeated falls; I10 Essential (primary) hypertension; E03.9 Hypothyroidism, unspecified; E78.2 Mixed hyperlipidemia; E11.9 Type 2 diabetes mellitus without complications; Z87.891 Personal history of nicotine dependence; Z79.84 Long term (current) use of oral hypoglycemic drugs; Z79.82 Long term (current) use of aspirin; M47.812 Spondylosis without myelopathy or radiculopathy, cervical region; I49.3 Ventricular premature depolarization; I44.0 Atrioventricular block, first degree; R94.31 Abnormal electrocardiogram [ECG] [EKG]; W18.30XA Fall on same level, unspecified, initial encounter
CPT/HCPCS: 36415; 70450; 70486; 72125; 80053; 85025; 93005; 99284

== ENCOUNTER 2023-11-12 12:19 | Outpatient (CLI) | payer MEDICARE, SELFPAY ==
--- NOTE | 2023-11-12 12:29 | ECHO_ITS ---
Patient Info Name: Beverly Castro Age: 83 years : 1940 Gender: Female Ht: 68 in Wt: 163 lbs BSA: 1.89 m2 HR: 56 bpm BP: 140 / 80 mmHg Technical Quality: Good Exam Date: 11/12/2023 12:36 PM Exam Location: [facility] Patient Status: Outpatient Admit Date: 11/12/2023 Staff Ordering Physician: Julia Brandon DO Scientologist: Attending Provider: Julia Brandon DO Referring Physician: Aleksandr ARMENTA; Exam Type: CA echo doppler color flow Study Info Indications - lightheadedness Summary 1. Left ventricular chamber dimension is normal. 2. Left ventricular systolic function is normal, estimated at 65-70%. 3. There is moderate concentric increased left ventricular wall thickness. 4. The left ventricular diastolic function is abnormal. 5. E/e' 24 is elevated. 6. Left atrial chamber dimension is moderately enlarged. 7. Right atrial chamber dimension is mildly enlarged. 8. There is mild aortic valve sclerosis. 9. There is trace aortic valve regurgitation. 10. The mitral valve has moderately calcified leaflets and mildly calcified annulus. 11. There is moderate mitral valve regurgitation. 12. There is mild tricuspid valve regurgitation. 13. Mild pulmonary hypertension, estimated pulmonary arterial systolic pressure is 42 mmHg. 14. Dilated inferior vena cava with >50% collapse upon inspiration consistent with elevated right atrial pressure, 10 mmHg. Left Ventricle E/e' 24 is elevated. Left ventricular chamber dimension is normal. Left ventricular systolic function is normal, estimated at 65-70%. There is moderate concentric increased left ventricular wall thickness. The left ventricular diastolic function is abnormal. Right Ventricle Right ventricular chamber dimension is normal. Right ventricular systolic function is normal. Left Atria Left atrial chamber dimension is moderately enlarged. Right Atria Right atrial chamber dimension is mildly enlarged. Aortic Valve The aortic valve is trileaflet. There is mild aortic valve sclerosis. There is no aortic valve stenosis. There is trace aortic valve regurgitation. Pulmonic Valve There is no pulmonic regurgitation. Mitral Valve The mitral valve has moderately calcified leaflets and mildly calcified annulus. There is no mitral valve stenosis. There is moderate mitral valve regurgitation. Tricuspid Valve There is mild tricuspid valve regurgitation. Mild pulmonary hypertension, estimated pulmonary arterial systolic pressure is 42 mmHg. Pericardium/Pleural There is no pericardial effusion. Inferior Vena Cava Dilated inferior vena cava with >50% collapse upon inspiration consistent with elevated right atrial pressure, 10 mmHg. Aorta The aortic root size at the sinus of Valsalva is normal. Left Ventricular Outflow Tract Name Value Normal LVOT 2D LVOT Diameter 1.9 cm LVOT Doppler LVOT Peak Gradient 4 mmHg LVOT Mean Gradient 2 mmHg LVOT VTI 23 cm LVOT VTI/AV VTI Ratio 0.5 LVOT Stroke Volume 69 ml LVOT CO 4.5 l/min LVOT CI
== END 2023-11-12 12:20 | disposition home or self-care (01) ==
PROVIDERS: PCP Family Medicine; Visit Provider Family Medicine
DX: R01.1 Cardiac murmur, unspecified (principal); R29.6 Repeated falls; R26.81 Unsteadiness on feet
CPT/HCPCS: 93306

== ENCOUNTER 2023-12-27 17:19 | Inpatient (IN) | payer MEDICARE, SELFPAY ==
--- NOTE | ~2023-12-27 | XR_ITS ---
EXAMINATION: XR chest 1V portable Exam Date/Time: 12/27/2023 18:52 CDT HISTORY: fall Comparison: None. RESULT: Lines, tubes, and devices: None. Lungs and pleura: Mild diffuse reticular opacities. Granulomatous calcifications. Cardiomediastinal silhouette: Stable. Other: No acute osseous or upper abdominal finding. IMPRESSION: Mild interstitial edema and/or senescent change. Reviewed, dictated and finalized at location K.
--- NOTE | ~2023-12-27 | XR_ITS ---
EXAM: XR wrist RT min 3V DATE: 12/27/2023 19:05 HISTORY: fall . COMPARISON: X-ray right hand 04/11/2022. FINDINGS: Decreased mineralization. No fracture or dislocation. No lytic or blastic lesion. Moderate degenerative change at the first CMC joint and triscaphe joint. No erosion or periosteal change. Sof t tissues within normal limits. IMPRESSION: No acute osseous finding in the right wrist. Reviewed, dictated and finalized at location K.
--- NOTE | ~2023-12-27 | CT_ITS ---
EXAMINATION: CT brain wo con DATE: 12/27/2023 18:53 INDICATION: fall . TECHNIQUE: Computed tomography (CT) of the head was performed without intravenous contrast. The mA wa s adjusted according to patient size. Iterative reconstruction technique was employed. The dose-lengt h product was 605.33 mGy-cm. COMPARISON: 04/11/2023. FINDINGS: No acute intracranial hemorrhage or extra-axial fluid collection. No hydrocephalus, mass, or herniation. No acute ischemic infarct. Unremarkable dural venous sinus attenuation. No acute osseous abnormality. Right mastoid fluid, the remaining aerated spaces are clear. Mild atrophy and chronic white matter change. Atherosclerotic intracranial calcification. Bilateral l ens replacements. IMPRESSION: No acute intracranial process. Reviewed, dictated and finalized at location K.
--- NOTE | ~2023-12-27 | XR_ITS ---
EXAMINATION: XR hip RT min 2V DATE: 12/28/2023 13:04 INDICATION: Bipolar right hip hemiarthroplasty. Postop. TECHNIQUE: 2 views of right hip were obtained. COMPARISON: Right hip radiographs 12/27/2023 FINDINGS: There is a bipolar right hip hemiarthroplasty in near-anatomic alignment. No fracture. Ther e is gas in the soft tissues, consistent with recent surgery. Skin adair are noted. IMPRESSION: 1. Bipolar right hip hemiarthroplasty in near-anatomic alignment. Reviewed, dictated and finalized at location A.
--- NOTE | ~2023-12-27 | CT_ITS ---
EXAMINATION: CT cervical spine wo con DATE: 12/27/2023 18:53 INDICATION: fall TECHNIQUE: Computed tomography (CT) of the cervical spine was performed without intravenous contrast. Automated exposure control and iterative reconstruction technique were employed. The dose-length pro duct was 401.07 mGy-cm. COMPARISON: 04/11/2023. FINDINGS: Vertebral Body Alignment: Intact. Craniocervical and atlantoaxial alignment: Moderate degenerative change. Alignment intact. Osseous structures/fracture: No evidence of a lytic or blastic process in the visualized spine. No e vidence of acute fracture. Cervical soft tissues: The paraspinal soft tissues planes are maintained. Left supraclavicular lympha denopathy. Emphysematous changes in the lung apices. Degenerative changes: Degenerative changes, without severe neural foraminal or central canal narrowin g. IMPRESSION: No acute fracture or traumatic malalignment in the cervical spine. Persistent left supraclavicular lymphadenopathy. Reviewed, dictated and finalized at location K.
--- NOTE | ~2023-12-27 | XR_ITS ---
EXAM: XR hip RT 2V w AP pelvis DATE: 12/27/2023 19:05 HISTORY: fall . COMPARISON: None available. FINDINGS: Decreased mineralization. Obliquely oriented transcervical fracture of the right femoral n corbin, with 1.5 cm superior displacement. No lytic or blastic lesion. Lumbar degenerative disc disease. Mild bilateral hip osteoarthritis. Scattered enthesopathy. No erosion or periosteal change. Soft tis sues within normal limits. IMPRESSION: Mildly displaced transcervical right femoral neck fracture. Reviewed, dictated and finalized at location K.
[2023-12-27 17:21] VITALS: BP 178/71; PULSE 68; RESP 18; TEMP 36.3; O2SAT 100
--- NOTE | 2023-12-27 18:03 | ECG_ITS ---
SEE SCANNED COPY FOR CONFIRMED REPORT MTDD
--- NOTE | 2023-12-27 18:03 | ED.FALL ---
HPI - Fall General Chief Complaint: Fall Stated Complaint: fall Time Seen by Provider: 12/27/23 17:47 Source: patient Mode of arrival: ambulatory Limitations: no limitations History of Present Illness HPI Narrative: This is an 83-year-old female with PMH of T2DM, hypothyroid, HLD, HTN who presents to the ED with chief complaint of a fall that occurred around 1530 today. Patient reports that she was going out of the kitchen door with her leaf blower to blow the deck when this happened. She reports that she stumbled on the lip of the door and fell onto her right side. Patient reports significant right hip pain and difficulty with weight-bearing due to the fall. She reports minor right wrist pain. Denies preceding chest pain, shortness of breath, weakness or dizziness. Reports she has a resting tremor at baseline but has been told that she does not have Parkinson's. Denies LOC, neck pain, numbness, focal weakness, fevers, chills, abdominal pain, chest pain, back pain. Reports patient's granddaughter is here and reports that patient has had multiple falls over the last year. She states that when the patient tries to over do it she is more prone to fall. She is supposed to use her walker however, it she has not been very consistent with this. She did not have the walker when she fell today. Related Data Home Medications Medication Instructions Recorded Confirmed vitamins A,C,X-xarl-ihvpdv 4,296 1 cap PO BID 03/13/22 12/27/23 mcg-226 mg-90 mg capsule (PreserVision AREDS) ascorbic acid (vitamin C) 500 mg 500 mg PO DAILY 10/03/22 12/27/23 capsule Allergies Allergy/AdvReac Type Severity Reaction Status Date / Time No Known Allergies Allergy Verified 12/27/23 22:40 Review of Systems Review of Systems: All systems as dictated in [facility] Past Medical History Medical History (Updated 12/27/23 @ 23:58 by Jasbir Mariscal PA-C) Anxiety disorder, unspecified Benign essential HTN Depression Diabetic nephropathy Diabetic peripheral neuropathy Diastolic dysfunction Femoral neck fracture Hypothyroidism Mixed hyperlipidemia Moderate mitral valve regurgitation Pulmonary hypertension Type 2 diabetes mellitus without complications Surgical History Surgical History Hx of appendectomy Family History Family History Father Family history of cardiovascular disease Mother Family history of cardiovascular disease Diabetes mellitus Sibling Family history of malignant neoplasm of cervix Social History Social History Smoking packs per day: 0.5 Smoking cigarettes per day: 10.0 Years smoked: 35 Smoking pack-years: 17.50 Smoking status: Former smoker Tobacco type: cigarettes Second hand tobacco smoke exposure: No Smoking end date: 08/25/94 Additional smoking assessment comments: PT STATE SMOKED YEARS & YEARS AGO , UNALBE TO RECALL HOW MUCH OR HOW LONG Alcohol intake: never Substance use: never Do You Feel Safe in your Home?: Yes Lack of Transportation: No Lack of Food: Never True Current Housing: I Have Housing Concerned About Future Housing: No Difficulty Paying Gas/Electric Bills: No Difficulty Paying for Meds: No Currently Unemployed: No Education: High School Diploma/GED Difficulty w/ Childcare or Family Care: No Living arrangements: alone Occupation/Education: retired Gender identity (if verbalized by the patient): Female Spiritual care concerns: No Exam Narrative: GENERAL: Well-appearing, well-nourished, and in no acute distress. HEAD: Normocephalic, atraumatic. EYES: PERRLA and EOMI. ENT: Nares clear, no rhinorrhea or epistaxis. Mucous membranes moist. Oropharynx without tonsillar hypertrophy exudate or other lesions. NECK: Supple. No adenopathy or masses. CHEST: No respirator
[2023-12-27 18:34] LABS: Basophils Percent Auto 0.3 % (0.2-1.2); Eosinophils Absolute Auto 0.1 K/mm3 (0-0.3); Eosinophils Percent Auto 0.9 % (0-4.4); Hematocrit 38.9 % (37.0-47.0); Hemoglobin 12.5 g/dL (12.0-15.0); Immature Granulocyte Absolute 0.06 K/mm3 (0.00-0.031); Immature Granulocyte Percent A 0.6 % (0-0.5); Immature Platelet Fraction Pct 3.9 % (0.9-11.2); Lymphocytes Percent Auto 7.4 % (18.3-44.2); Mean Corpuscular HGB Conc 32.1 g/dl (32-36); Mean Corpuscular Hemoglobin 29.3 pg (26-34); Mean Corpuscular Volume 91.1 fl (80-100); Mean Platelet Volume 11.5 fl (7.4-10.4); Monocytes Absolute Auto 0.7 K/mm3 (0.1-0.6); Monocytes Percent Auto 7.6 % (2.6-8.5); Neutrophils Absolute Auto 7.9 K/mm3 (1.3-6.7); Neutrophils Percent Auto 83.2 % (45.5-73.1); Platelet Count Result 117 k/mm3 (150-375); Red Blood Count 4.27 M/mm3 (4.2-5.4); Red Cell Distribution Width 15.1 % (11.5-14.5); White Blood Count 9.5 K/mm3 (4.5-10.0)
--- NOTE | 2023-12-27 18:39 | PC.NURSE ---
Bruising & abrasions to right hip & right flank. no right leg rotation noted. Skin tear to right forearm
[2023-12-27 18:42] LABS: INR 1.1; Prothrombin Time 15.3 Seconds (11.1-14.7)
[2023-12-27 18:43] LABS: Alanine Aminotransferase 29 U/L (6-35); Alkaline Phosphatase 109 U/L (38-126); Anion Gap 7 mmol/L (4-12); Aspartate Amino Transferase 41 U/L (14-36); Bilirubin,Total 1.9 mg/dL (0.2-1.3); Blood Urea Nitrogen 17 mg/dL (7-17); Calcium 10.2 mg/dL (8.4-10.2); Carbon Dioxide 21 mmol/L (22-30); Chloride 107 mmol/L (98-107); Estimated CRCL calculation 42 ml/min; Estimated Glomerular Filt Rate 60; Glucose 115 mg/dL (65-110); Partial Thromboplastin Time 33.9 Seconds (22.3-36.8); Potassium 4.3 mmol/L (3.4-5.0); Sodium 135 mmol/L (137-145)
--- NOTE | 2023-12-27 19:12 | PC.NURSE ---
Assumed care of pt from DONAL Roe at this time. Pt placed on bedpan by this RN. Pt to call out when done. Call light within reach.
[2023-12-27 20:32] LABS: Appearance Urine Clear (Clear); Bacteria Urine None Seen /hpf; Bilirubin Urine Negative (Negative); Blood Urine Negative (Negative); Color Urine Dark Yellow (Yellow); Glucose Urine UA Negative (Negative); Ketones Urine 1+ mg/dL (Negative); Leukocyte Esterase Ur Negative LEU/UL (Negative); Need Manual Microscopic Reviewed; Nitrate Urine Negative (Negative); Non Pathogenic Casts 0-2; Protein Urine 3+ mg/dL (Negative); RBC Urine 0-2 /hpf (0-2); Specific Grav Ur 1.021 (1.001-1.035); Squamous Epithelial Cell Urine None Seen /hpf (Few); WBC Urine 0-5 /hpf (0-3); pH Urine 5.5 (5.0-9.0)
[2023-12-27 20:33] LABS: Add Urine Microscopic? YES
--- NOTE | 2023-12-27 20:48 | PM.IMHP ---
H&P: HPI History of Present Illness Date/Time: 12/27/23 20:48 Chief Complaint: Falll, unable to stand Narrative: 83-year-old female past medical history of essential hypertension, diabetes, hyperlipidemia, diastolic dysfunction, mild pulmonary hypertension, moderate mitral valve regurgitation and hypothyroidism who presented to the ER from home via EMS after fall none of was unable to stand due to right hip pain. The patient reports that she was going outside to blow off her porch with a leaf blower. She thinks that she may have tripped over the ledge of the door frame. She did not hit her head but did have an abrasion to her right wrist. She complained of right hip pain and was unable to stand due to the pain in her hip. X-rays in the ER demonstrated mildly displaced transcervical right femoral neck fracture. The patient does live alone. She does not have a history of osteoporosis or osteopenia her last DEXA scan was approximately 5 years ago and she is due to have a repeat DEXA scan soon. She denies any headache or vision changes since the fall. Her pain is a 3/10 in intensity if she is still but with any movement of the right lower extremity she reports severe pain. She was unable to produce a urine specimen in ER in [place] catheter was placed. She her family reports the patient has a long history of gait instability and has had 3 falls in the last 3 weeks. She does have a diabetic peripheral neuropathy which is likely contributing to her falls. She did have a fall previously that resulted in a left wrist fracture that required surgery. She has also had a fall not too long after that that resulted in dislocation of the fingers of her right hand which all occurred in 2001.She denies any history of dyspnea on exertion, chest pain or palpitations. She occasionally will have minimal bilateral lower extremity edema that has not been an issue recently. She is independent activities of daily living at home and her goal is to return to home after rehabilitation. The patient's daughter and granddaughter were at bedside. They help provide history and information with the patient's permission. All questions were answered. Review of Systems Review of Systems: 12 systems were reviewed with pertinent positives and negatives per HPI. Except as documented in the HPI, all other systems were reviewed and are negative. [facility] Past Medical History Medical History (Updated 12/28/23 @ 03:28 by Adali Moy DO) Anxiety disorder, unspecified Benign essential HTN Depression Diabetic nephropathy Diabetic peripheral neuropathy Diastolic dysfunction Femoral neck fracture Hypothyroidism Mixed hyperlipidemia Moderate mitral valve regurgitation Pulmonary hypertension Type 2 diabetes mellitus without complications Surgical History Surgical History (Updated 12/28/23 @ 03:20 by Adali Moy DO) History of tubal ligation Hx of appendectomy Status post open reduction with internal fixation of fracture (~2021) Left wrist fracture and 5th metatarsal fracture Family History Family History Father Family history of cardiovascular disease Mother Family history of cardiovascular disease Diabetes mellitus Sibling Family history of malignant neoplasm of cervix Social History Social History (Updated 12/28/23 @ 03:21 by Adali Moy DO) Social History: Code status: DNR/DNI (per patient request) Surrogate decision maker: Faith Gloria (daughter) Smoking packs per day: 0.5 Smoking cigarettes per day: 10.0 Years smoked: 35 Smoking pack-years: 17.50 Smoking status: Former smoker Tobacco type: cigarettes Second hand tobacco smoke exposure: No Smoking end date: 08/25/94 Additional smoking assessment comments: PT STATE SMOKED YEARS & YEARS AGO , UNALBE TO RECALL HOW MUCH OR HOW LONG Alcohol intake: never Substance use: never Do You Feel Safe in your
[2023-12-27] MEDS: SODIUM CHLORIDE 0.9% IV 1,000 ML 125 ML IV CONT (21:42)
[2023-12-27] MEDS: KETOROLAC 15 MG/ML VIAL (*BKC) IV PUSH (21:43)
[2023-12-27 22:01] VITALS: BP 167/72; PULSE 91; RESP 20; O2SAT 96
[2023-12-27] MEDS: MORPHINE SULFATE (*CRX) 2 MG/ML INJ IV PUSH (22:15)
--- NOTE | 2023-12-27 22:17 | PM.CNOR ---
Assessment and Plan Assessment and plan (1) Femoral neck fracture: Qualifiers: Encounter type: initial encounter Fracture type: closed Laterality: right Qualified Code(s): S72.001A - Fracture of unspecified part of neck of right femur, initial encounter for closed fracture Code(s): S72.009A - Fracture of unspecified part of neck of unspecified femur, initial encounter for closed fracture Status: Acute Assessment and Plan: New patient evaluation for chief complaint right hip fracture. History, physical exam and radiographs reviewed with the patient. Discussed the condition, nature, etiology and course of natural history with the patient. Treatment options including surgical and nonoperative treatment were reviewed. Risks and benefits of each as well as alternatives reviewed. The patient's questions were answered. Conservative treatment ice, pain control, SCDs Plan Discussed nonoperative and operative treatment options with the patient. Risks and benefits of each as well as alternatives were reviewed. All of the patient's questions were answered. The risks of surgery reviewed including but not limited to: Neurovascular damage, wound complication, infection, blood clot, pulmonary embolus, stroke, myocardial infarction, and anesthetic risks up to and including . Continued pain and possible dysfunction were explained. Specific risks of the procedure including later recurrence of deformity. No guarantees were offered. If hardware used, discussed risk of failure/ breakage and possible need for removal. If complications occur, the patient understands the need for further treatment, possible further surgery. Patient verbalizes understanding and wishes to proceed. PLAN: RT hip pinning History of Present Illness HPI Consult date: 12/28/23 Requesting physician: Jasbir Mariscal PA-C Chief complaint: Right hip fracture Narrative: 83yo woman fall at home after tripping. Right hip fracture. Denies other injury. Denies LOC. Lives alone. Independent ambulator with walker. No prior hip complaints/ problems Review of Systems Constitutional: Constitutional: Denies fever(s) Eyes: Eyes: Denies blurry vision ENT: Reports Normal hearing present Cardiovascular: Cardiovascular: Denies chest pain and Denies dyspnea Respiratory: Respiratory: Denies dyspnea and Denies wheezing Gastrointestinal: Gastrointestinal: Denies abdominal pain Genitourinary: Genitourinary: Denies urinary urgency Musculoskeletal: Musculoskeletal: Reports as per HPI and Denies numbness Integumentary/Breasts: Skin/Breast: Denies changing lesions and Denies sores Neurologic: Reports Normal hearing present, Denies behavioral changes, Denies confusion, Denies numbness and Denies convulsions Psychiatric: Psychiatric: Denies behavioral changes, Denies confusion and Denies hallucinations Endocrine: Endocrine: Denies heat intolerance Hematologic/Lymphatic: Hematologic/Lymphatic: Denies easy bleeding Allergic/Immunologic: Allergic/Immunologic: Denies wheezing [facility] Past Medical History Medical History Anxiety disorder, unspecified Benign essential HTN Depression Diabetic nephropathy Diabetic peripheral neuropathy Diastolic dysfunction Femoral neck fracture Hypothyroidism Mixed hyperlipidemia Moderate mitral valve regurgitation Pulmonary hypertension Type 2 diabetes mellitus without complications Surgical History Surgical History History of tubal ligation Hx of appendectomy Status post open reduction with internal fixation of fracture (~2021) Left wrist fracture and 5th metatarsal fracture Family History Family History Father Family history of cardiovascular disease Mother Family history of cardiovascular disease Diabetes mellitus Sibling Family history of ma
[2023-12-27 22:19] VITALS: BP 158/72; PULSE 72; RESP 19; O2SAT 96
--- NOTE | 2023-12-27 22:24 | ADMGEN ---
This patient, Beverly Castro, was admitted to 2 Medical Room 254-01. Patient/family oriented to hospital policies and general routines including ID bracelet, bed and alarms, visiting hours, pain management, procedures, bathroom and other care routines, personal items, smoking policy, room service/diet, and visiting hours. Information on how to activate the Rapid Response Team has been discussed. Patient/Family are encouraged to report perceived risks to care and to ask questions if they do not understand what they are told or what they should do.
[2023-12-27 22:35] VITALS: BMI 24.8
[2023-12-27 22:38] VITALS: BP 182/62; PULSE 81; RESP 20; TEMP 36.4; O2SAT 95; BMI 24.8
[2023-12-27 22:40] VITALS: BP 182/62; PULSE 81; RESP 20; TEMP 36.4; O2SAT 95
[2023-12-28] VITALS (15 sets, daily range): BP systolic 138–171; BP diastolic 49–73; PULSE 69–666; RESP 12–20; TEMP 36.2–36.7; O2SAT 94–100
[2023-12-28] MEDS: LEVOTHYROXINE SODIUM INJ 100 MCG/5 ML VIAL 62.5 MCG IV PUSH (05:40)
[2023-12-28 07:52] LABS: Glucose Point of Care 130 mg/dl (65-105)
[2023-12-28] MEDS: FLUoxetine HCL 10 MG CAPSULE PO (08:23)
--- NOTE | 2023-12-28 08:24 | P.PNIM_ITS ---
Progress Note: A&P Assessment and Plan (1) Femoral neck fracture: Qualifiers: Encounter type: initial encounter Fracture type: closed Laterality: right Qualified Code(s): S72.001A - Fracture of unspecified part of neck of right femur, initial encounter for closed fracture Code(s): S72.009A - Fracture of unspecified part of neck of unspecified femur, initial encounter for closed fracture Status: Acute Assessment and Plan: 12/28/23: * Status post ground level fall onto right hip * X-ray of the hip and pelvis showed minimally displaced transcervical right femoral neck fracture * Orthopedic surgeon consulted * Plan for OR today * Continue NPO status * Continue pain control with tramadol * Continue maintenance IV fluids * Continue fall precautions * PT and OT will be ordered for evaluation and treatment tomorrow * SCDs for DVT prophylaxis * Incentive spirometry q.2 hours immediately postop * Continue SCDs for DVT prophylaxis * Continue urinary catheter until tomorrow (2) Gait instability: Code(s): R26.81 - Unsteadiness on feet Status: Acute Assessment and Plan: See above (3) Multiple falls: Code(s): R29.6 - Repeated falls Status: Acute Assessment and Plan: See above (4) Hypothyroidism: Qualifiers: Hypothyroidism type: unspecified Qualified Code(s): E03.9 - Hypothyroidism, unspecified Code(s): E03.9 - Hypothyroidism, unspecified Status: Acute Assessment and Plan: 12/28/23: * Continue Synthroid * Will order a TSH for the morning (5) Type 2 diabetes mellitus without complications: Qualifiers: Diabetes mellitus termite inspector insulin use: without termite inspector use Qualifie d Code(s): E11.9 - Type 2 diabetes mellitus without complications Code(s): E11.9 - Type 2 diabetes mellitus without complications Status: Acute Assessment and Plan: 12/28/23: * Blood sugars ranging 115-130 * Hemoglobin A1c 6.3 on 10/20/2023 * Accu-Cheks q.6 hours while NPO, may switch to AC/ HS Accu-Cheks immediately postop * Moderate dose sliding scale insulin ordered * Hypoglycemic protocol in place * Will start diabetic diet after surgery today (6) Benign essential HTN: Code(s): I10 - Essential (primary) hypertension Status: Acute Assessment and Plan: 12/28/23: * Blood pressure ranging 142/60 to 182/62 * Continue lisinopril and hydralazine (7) Diastolic dysfunction: Code(s): I51.89 - Other ill-defined heart diseases Status: Acute Assessment and Plan: 12/28/23: * Echo from 11/12/2023 reviewed and showed normal LV systolic function with an estimated EF of 65-70%, with abnormal diastolic function and mild pulmonary hypertension, normal RV systolic function, moderate mitral valve regurgitation. (8) Hyperlipidemia: Code(s): E78.5 - Hyperlipidemia, unspecified Status: Acute Assessment and Plan: 12/28/23: * Continue lovastatin Time Spent With Patient Time with patient: Greater than 35 minutes Subjective Date/time seen: 12/28/23 08:24 Interval history: This is an 83-year-old female who presented to the hospital on 12/27/2023 her sustaining a fall. She was brought to the ER for via EMS and was found not to be able to stand up due to right hip pain. Patient states that she was outside trying to blow seeds off of her porch with a leaf blower and she tripped over the edge of the door frame causing her fall. She does have abrasions to her right wrist and right knee which are open t
--- NOTE | 2023-12-28 08:24 | PM.IMPN ---
Progress Note: A&P Assessment and Plan (1) Femoral neck fracture: Qualifiers: Encounter type: initial encounter Fracture type: closed Laterality: right Qualified Code(s): S72.001A - Fracture of unspecified part of neck of right femur, initial encounter for closed fracture Code(s): S72.009A - Fracture of unspecified part of neck of unspecified femur, initial encounter for closed fracture Status: Acute Assessment and Plan: 12/28/23: Status post ground level fall onto right hip X-ray of the hip and pelvis showed minimally displaced transcervical right femoral neck fracture Orthopedic surgeon consulted Plan for OR today Continue NPO status Continue pain control with tramadol Continue maintenance IV fluids Continue fall precautions PT and OT will be ordered for evaluation and treatment tomorrow SCDs for DVT prophylaxis Incentive spirometry q.2 hours immediately postop Continue SCDs for DVT prophylaxis Continue urinary catheter until tomorrow (2) Gait instability: Code(s): R26.81 - Unsteadiness on feet Status: Acute Assessment and Plan: See above (3) Multiple falls: Code(s): R29.6 - Repeated falls Status: Acute Assessment and Plan: See above (4) Hypothyroidism: Qualifiers: Hypothyroidism type: unspecified Qualified Code(s): E03.9 - Hypothyroidism, unspecified Code(s): E03.9 - Hypothyroidism, unspecified Status: Acute Assessment and Plan: 12/28/23: Continue Synthroid Will order a TSH for the morning (5) Type 2 diabetes mellitus without complications: Qualifiers: Diabetes mellitus correction insulin use: without intermediate card tender use Qualified Code(s): E11.9 - Type 2 diabetes mellitus without complications Code(s): E11.9 - Type 2 diabetes mellitus without complications Status: Acute Assessment and Plan: 12/28/23: Blood sugars ranging 115-130 Hemoglobin A1c 6.3 on 10/20/2023 Accu-Cheks q.6 hours while NPO, may switch to AC/ HS Accu-Cheks immediately postop Moderate dose sliding scale insulin ordered Hypoglycemic protocol in place Will start diabetic diet after surgery today (6) Benign essential HTN: Code(s): I10 - Essential (primary) hypertension Status: Acute Assessment and Plan: 12/28/23: Blood pressure ranging 142/60 to 182/62 Continue lisinopril and hydralazine (7) Diastolic dysfunction: Code(s): I51.89 - Other ill-defined heart diseases Status: Acute Assessment and Plan: 12/28/23: Echo from 11/12/2023 reviewed and showed normal LV systolic function with an estimated EF of 65-70%, with abnormal diastolic function and mild pulmonary hypertension, normal RV systolic function, moderate mitral valve regurgitation. (8) Hyperlipidemia: Code(s): E78.5 - Hyperlipidemia, unspecified Status: Acute Assessment and Plan: 12/28/23: Continue lovastatin Time Spent With Patient Time with patient: Greater than 35 minutes Subjective Date/time seen: 12/28/23 08:24 Interval history: This is an 83-year-old female who presented to the hospital on 12/27/2023 her sustaining a fall. She was brought to the ER for via EMS and was found not to be able to stand up due to right hip pain. Patient states that she was outside trying to blow seeds off of her porch with a leaf blower and she tripped over the edge of the door frame causing her fall. She does have abrasions to her right wrist and right knee which are open to air at this time. She also has bruising to her right hip and buttock. Workup in the hospital includes chest x-ray which showed mild interstitial edema. Hip and pelvis x-ray which showed mildly displaced transcervical right femoral neck fracture. Right wrist x-ray was negative for any fracture. Cervical spine CT shown persistent left supraclavicular lymphedema [place], no acute fracture or malalignment. Head CT was negative for any acut
--- NOTE | 2023-12-28 08:26 | WPDANESEPPF ---
Anes - Initial Pre Proc Eval Procedure: Right Bipolar Date/Time: 12/28/23 08:26 Surgeon: Samantha Pre Op Diagnosis: right hip fracture Pre Op Diagnosis: Right hip fracture Patient Data Age: 83 Gender: F Height: 1.73 m Weight: 74.2 kg Last Vital Signs Temp 36.6 C 12/28/23 07:00 Pulse 72 12/28/23 07:00 Resp 16 12/28/23 07:00 BP 142/60 H 12/28/23 07:00 Pulse Ox 98 12/28/23 07:00 O2 Del Method Room Air 12/27/23 17:21 Allergies Allergy/AdvReac Type Severity Reaction Status Date / Time No Known Allergies Allergy Verified 12/27/23 22:40 Home Medications Medication Instructions Recorded Confirmed Type vitamins A,C,[id number] 4,296 1 cap PO BID 03/13/22 12/27/23 History mcg-226 mg-90 mg capsule (PreserVision AREDS) aspirin 81 mg tablet,delayed 81 mg PO DAILY #90 tabs 07/29/22 12/27/23 Rx release (Adult Low Dose Aspirin) ascorbic acid (vitamin C) 500 mg 500 mg PO DAILY 10/03/22 12/27/23 History capsule ergocalciferol (vitamin D2) 1,250 See Rx Instructions .Route 03/26/23 12/27/23 Rx mcg (50,000 unit) capsule .COMPLEX #12 caps Walker #1 ea 06/03/23 12/27/23 Rx fluoxetine 10 mg capsule 10 mg PO DAILY #90 caps 07/14/23 12/27/23 Rx levothyroxine 125 mcg tablet See Rx Instructions .Route 07/14/23 12/27/23 Rx .COMPLEX #90 tabs metformin 1,000 mg tablet 1,000 mg PO BID #180 tabs 07/14/23 12/27/23 Rx lovastatin 40 mg tablet 40 mg PO QPM #90 tabs 07/15/23 12/27/23 Rx blood sugar diagnostic (OneTouch #100 strips 09/09/23 12/27/23 Rx Ultra Test strips) glimepiride 4 mg tablet 4 mg PO QAM #90 tabs 09/15/23 12/27/23 Rx lisinopril 20 mg tablet 20 mg PO DAILY #90 tabs 10/06/23 12/27/23 Rx Laboratory Tests 12/27/23 12/27/23 12/27/23 18:25 20:10 22:56 WBC 9.5 K/mm3 (4.5-10.0) RBC 4.27 M/mm3 (4.2-5.4) Hgb 12.5 g/dL (12.0-15.0) Hct 38.9 % (37.0-47.0) MCV 91.1 fl (80-100) MCH 29.3 pg (26-34) MCHC 32.1 g/dl (32-36) RDW 15.1 H % (11.5-14.5) Plt Count 117 L k/mm3 (150-375) MPV 11.5 H fl (7.4-10.4) Immature Gran % (Auto) 0.6 H % (0-0.5) Neut % (Auto) 83.2 H % (45.5-73.1) Lymph % (Auto) 7.4 L % (18.3-44.2) [place] % (Auto) 7.6 % (2.6-8.5) Eos % (Auto) 0.9 % (0-4.4) Baso % (Auto) 0.3 % (0.2-1.2) Lymph # (Auto) 0.70 L K/mm3 (0.9-3.2) [place] # (Auto) 0.7 H K/mm3 (0.1-0.6) Eos # (Auto) 0.1 K/mm3 (0-0.3) Baso # (Auto) 0.0 K/mm3 (0.0-0.1) Abs Immat Gran (auto) 0.06 H K/mm3 (0.00-0.031) Absolute Neuts (auto) 7.9 H K/mm3 (1.3-6.7) Absolute Nucleated RBC 0.000 K/mm3 (0.0-0.012) Nucleated RBC % 0.0 % (0.0-0.2) % Immature Plt Fraction 3.9 % (0.9-11.2) PT 15.3 H Seconds (11.1-14.7) INR 1.1 APTT 33.9 Seconds (22.3-36.8) Sodium 135 L mmol/L (137-145) Potassium 4.3 mmol/L (3.4-5.0) Chloride 107 mmol/L (98-107) Carbon Dioxide 21 L mmol/L (22-30) Anion Gap 7 mmol/L (4-12) BUN 17 mg/dL (7-17) Creatinine 0.90 mg/dL (0.7-1.0) Estim Creat Clear Calc 42 ml/min Estimated GFR 60 (59 - ) Glucose 115 H mg/dL (65-110) POC Capillary Glucose Calcium 10.2 mg/dL (8.4-10.2) Total Bilirubin 1.9 H mg/dL (0.2-1.3) AST 41 H U/L (14-36) ALT 29 U/L (6-35) Alkaline Phosphatase 109 U/L (38-126) Total Protein 7.0 g/dL (6.3-8.2) Albumin 4.0 g/dL (3.5-5.1) Urine Color Dark yellow (Yellow) Urine Appearance Clear (Clear) Urine pH 5.5 (5.0-9.0) Ur Specific [place] 1.021 (1.001-1.035) Urine Protein 3+ H mg/dL (Negative) Urin
--- NOTE | 2023-12-28 08:40 | PC.NURSE ---
Patient taken down to surgery
[2023-12-28] MEDS: ACETAMINOPHEN 500 MG TABLET 1000 MG PO (09:14)
[2023-12-28] MEDS: KETOROLAC 15 MG/ML VIAL (*BKC) IV PUSH (09:15)
[2023-12-28] MEDS: TRANEXAMIC ACID 1,000MG/ISO100 1,000 MG/100 ML BAG 200 MG IVPB (09:16)
--- NOTE | 2023-12-28 10:10 | WPDHPUPDATE1 ---
History and Physical Update Update Date/Time: 12/28/23 10:10 History and Physical has been reviewed, including an updated exam of the patient. There are NO changes in the patient's condition. Risks, benefits, and alternatives have been discussed and questions answered. Patient agrees to proceed with procedure. plan for right hip bipolar arthroplasty
--- NOTE | 2023-12-28 10:27 | W.PM.PROC2 ---
Procedure Note - Detailed Date of Procedure 12/28/23 Pre-op Diagnosis Right hip fracture Post-op Diagnosis Same Procedure Performed Right hip bipolar Surgeon Mateo Singh MD Product Test Engineer 1st assistant foreman Anesthesia General Indications 83-year-old woman who fell onto her right hip. Sustained a femoral neck fracture. Presents now for bipolar hemiarthroplasty. Description of Procedure After informed consent was given, the operative extremity was marked in the preoperative holding area. The patient received intravenous antibiotics. Patient was brought to the operating room where they underwent a general anesthetic. Positioned in the lateral decubitus position nonop side down and the operative hip up. The right hip was then prepped and draped in the usual sterile surgical fashion using ChloraPrep skin solution. Time-out performed confirming the patient, side of the surgery, and the plan. A longitudinal incision was then made over the lateral side of the hip with the 10-blade knife. Hemostasis was controlled with electrocautery. Dissection was carried down through the fascia, which was incised in line with the skin incision. Subfascial retractor was placed. The abductor musculature was then elevated off the lateral side of the femur leaving a cuff of tissue for repair. The short abductor musculature was then elevated off the capsule and retention sutures were placed at the corner. The capsule was then incised in line with the femoral neck and T'd at the base. This allowed exposure of the fracture. The fracture hematoma was evacuated. Proximal femoral cutting guide was used to make a femoral neck cut at 2 cm above the lesser trochanter. This bone was removed with a rongeur. We then removed the head with a corkscrew. This was measured on the back table. Trialing of the acetabulum was done and a size 46 mm had excellent fit. The acetabulum was thoroughly irrigated and suctioned. Part of the fovea was removed with cautery. The rest of the acetabulum was inspected and noted to be with minimal degenerative changes. The proximal femur was then prepared. A posterior femoral retractor elevator was placed and a box cutting chisel was used to enter the femoral canal. We then used the canal finder. Broaching was then performed sequentially in 1 mm increments from a size 5 up to a size 14. This was noted to have excellent fit. We then trialed the hip. Excellent fit, stability with external and internal rotation at full extension and flexion of his hip and leg shuck were noted. The trial components were then removed. There was thorough irrigation with antibiotic solution of the proximal femur, acetabulum, and the wound. The femoral stem was then impacted into place. Good fit was noted. Trialing was once again performed and a -3 stem with a 46mm acetabular cup had excellent stability and range of motion. The trial components were removed and the 28 mm head acetabular cup were then impacted onto the femoral stem. The hip was then reduced once again, taken through full range of motion and noted to be stable with the leg extended in full external and internal rotation with the hip flexed to 90 degrees with internal and external rotation. There was equal leg length noted. Wound was thoroughly irrigated with antibiotic solution. The capsule was repaired with #1 Vicryl interrupted suture. The abductors were repaired back with #1 Vicryl interrupted suture. The fascia was repaired with 0 Vicryl running suture. Subcutaneous tissue was repaired in layers with 2-0 Vicryl interrupted suture. Skin repaired with adair. A sterile dressing was placed. A hip abduction stave T pillow was applied. The patient was then returned supine, extubated after awakening from anesthesia, and taken to the recovery room in stable condition. All sponge and instrument counts were correct at the end of the case. Implants Biomet Press-Fit size 14 femoral stem, 28mm -3
[2023-12-28] MEDS: ceFAZolin 2 GM/D5W 50 ML 2 GM/50 ML BAG IVPB ×2 (10:52→18:29)
[2023-12-28] MEDS: BUPIVACAINE/EPINEPHRINE 0.5% 50 ML VIAL 30 ML INFILTRATE (11:41)
--- NOTE | 2023-12-28 12:51 | SUR.OPER ---
75mL clear yellow urine drained from weinstein, intraop
[2023-12-28] MEDS: LACTATED RINGERS 1,000 ML 30 ML IV CONT ×2 (12:56)
[2023-12-28 13:20] LABS: Glucose Point of Care 136 mg/dl (65-105)
--- NOTE | 2023-12-28 14:18 | PC.NURSE ---
pt returned to room from surgery. Report received from Kalpesh MANSFIELD
--- NOTE | 2023-12-28 15:14 | PCOTNOTE ---
Attempted OT evaluation 1:30pm; pt. out of room still in surgery. Will attempt tomorrow as able.
--- NOTE | 2023-12-28 15:16 | PCPTNOTE ---
OT spoke with nursing at 1:30, pt was not up on the floor yet. PT will re-attempt evaluation at a later time.
[2023-12-28 16:41] LABS: Glucose Point of Care 168 mg/dl (65-105)
[2023-12-28] MEDS: lisinopriL 20 MG TABLET PO (18:25)
[2023-12-28] MEDS: SENNA/DOCUSATE SODIUM TABLET 2 TAB PO (18:25)
[2023-12-28] MEDS: LOVASTATIN 20 MG TABLET 40 MG PO (18:25)
[2023-12-28] MEDS: SODIUM CHLORIDE 0.9% IV 1,000 ML 75 ML IV CONT (18:26)
[2023-12-28] MEDS: OPTI-GEN TAB 1 TABLET PO (18:26)
[2023-12-28] MEDS: INSULIN ASPART (*BKC) 100 UNITS/ML SUB-Q (20:53)
[2023-12-28] MEDS: ASPIRIN 325 MG ENTERIC TABLET PO (20:54)
[2023-12-28 21:31] LABS: Glucose Point of Care 202 mg/dl (65-105)
[2023-12-29] VITALS: BP 123/55; PULSE 69; RESP 20; TEMP 36.1; O2SAT 97
[2023-12-29] MEDS: ceFAZolin 2 GM/D5W 50 ML 2 GM/50 ML BAG IVPB ×2 (02:42→10:06)
[2023-12-29 04:50] LABS: Basophils Percent Auto 0.2 % (0.2-1.2); Eosinophils Absolute Auto 0.1 K/mm3 (0-0.3); Eosinophils Percent Auto 1.2 % (0-4.4); Hematocrit 29.5 % (37.0-47.0); Hemoglobin 9.2 g/dL (12.0-15.0); Immature Granulocyte Absolute 0.03 K/mm3 (0.00-0.031); Immature Granulocyte Percent A 0.3 % (0-0.5); Lymphocytes Absolute Auto 0.86 K/mm3 (0.9-3.2); Lymphocytes Percent Auto 9.9 % (18.3-44.2); Mean Corpuscular HGB Conc 31.2 g/dl (32-36); Mean Corpuscular Hemoglobin 29.2 pg (26-34); Mean Corpuscular Volume 93.7 fl (80-100); Mean Platelet Volume 11.7 fl (7.4-10.4); Monocytes Absolute Auto 0.9 K/mm3 (0.1-0.6); Monocytes Percent Auto 10.5 % (2.6-8.5); Neutrophils Absolute Auto 6.8 K/mm3 (1.3-6.7); Neutrophils Percent Auto 77.9 % (45.5-73.1); Platelet Count Result 119 k/mm3 (150-375); Red Blood Count 3.15 M/mm3 (4.2-5.4); Red Cell Distribution Width 15.1 % (11.5-14.5); White Blood Count 8.7 K/mm3 (4.5-10.0)
[2023-12-29 05:00] VITALS: BP 143/56; PULSE 72; RESP 18; TEMP 36.4; O2SAT 96
[2023-12-29 05:11] LABS: Anion Gap 4 mmol/L (4-12); Blood Urea Nitrogen 24 mg/dL (7-17); Calcium 8.7 mg/dL (8.4-10.2); Carbon Dioxide 22 mmol/L (22-30); Chloride 108 mmol/L (98-107); Estimated CRCL calculation 35 ml/min; Estimated Glomerular Filt Rate 47; Glucose 123 mg/dL (65-110); Potassium 4.8 mmol/L (3.4-5.0); Sodium 134 mmol/L (137-145)
[2023-12-29] MEDS: LEVOTHYROXINE SODIUM 125 MCG TABLET PO (05:59)
[2023-12-29 08:02] LABS: Glucose Point of Care 112 mg/dl (65-105)
--- NOTE | 2023-12-29 08:17 | P.PNIM_ITS ---
Progress Note: A&P Assessment and Plan (1) Femoral neck fracture: Qualifiers: Encounter type: initial encounter Fracture type: closed Laterality: right Qualified Code(s): S72.001A - Fracture of unspecified part of neck of right femur, initial encounter for closed fracture Code(s): S72.009A - Fracture of unspecified part of neck of unspecified femur, initial encounter for closed fracture Status: Acute Assessment and Plan: 12/28/23: * Status post ground level fall onto right hip * X-ray of the hip and pelvis showed minimally displaced transcervical right femoral neck fracture * Orthopedic surgeon consulted * Plan for OR today * Continue NPO status * Continue pain control with tramadol * Continue maintenance IV fluids * Continue fall precautions * PT and OT will be ordered for evaluation and treatment tomorrow * SCDs for DVT prophylaxis * Incentive spirometry q.2 hours immediately postop * Continue SCDs for DVT prophylaxis * Continue urinary catheter until tomorrow 12/29/23: * Patient is postop day 1 from a right bipolar hip replacement * Continue pain control * PT and OT to see patient today * Continue with SCDs * Continue with incentive spirometry * Will start Lovenox today for DVT prophylaxis * Will discontinue urinary catheter today (2) Gait instability: Code(s): R26.81 - Unsteadiness on feet Status: Acute Assessment and Plan: See above (3) Multiple falls: Code(s): R29.6 - Repeated falls Status: Acute Assessment and Plan: See above (4) Hypothyroidism: Qualifiers: Hypothyroidism type: unspecified Qualified Code(s): E03.9 - Hypothyroidism, unspecified Code(s): E03.9 - Hypothyroidism, unspecified Status: Acute Assessment and Plan: 12/28/23: * Continue Synthroid * Will order a TSH for the morning 12/29/23: * No change to current treatment plan (5) Type 2 diabetes mellitus without complications: Qualifiers: Diabetes mellitus longterm insulin use: without longterm use Qualified Code(s): E11.9 - Type 2 diabetes mellitus without complications Code(s): E11.9 - Type 2 diabetes mellitus without complications Status: Acute Assessment and Plan: 12/28/23: * Blood sugars ranging 115-130 * Hemoglobin A1c 6.3 on 10/20/2023 * Accu-Cheks q.6 hours while NPO, may switch to AC/ HS Accu-Cheks immediately postop * Moderate dose sliding scale insulin ordered * Hypoglycemic protocol in place * Will start diabetic diet after surgery today 12/29/23: * Continue with current treatment plan (6) Benign essential HTN: Code(s): I10 - Essential (primary) hypertension Status: Acute Assessment and Plan: 12/28/23: * Blood pressure ranging 142/60 to 182/62 * Continue lisinopril and hydralazine 12/29/23: * Blood pressures ranging 123/55-143/56 * Continue with current treatment plan (7) Diastolic dysfunction: Code(s): I51.89 - Other ill-defined heart diseases Status: Acute Assessment and Plan: 12/28/23: * Echo from 11/12/2023 reviewed and showed normal LV systolic function with an estimated EF of 65-70%, with abnormal diastolic function and mild pulmonary hypertension, normal RV systolic function, moderate mitral valve regurgitation. 12/29/23: * No change (8) Hyperlipidemia: Code(s): E78.5 - Hyperlipidemia, unspecified Status: Acute Assessment and Plan: 12/28/23: * Continue lovastatin 12/29/23: * No change to cur
--- NOTE | 2023-12-29 08:17 | PM.IMPN ---
Progress Note: A&P Assessment and Plan (1) Femoral neck fracture: Qualifiers: Encounter type: initial encounter Fracture type: closed Laterality: right Qualified Code(s): S72.001A - Fracture of unspecified part of neck of right femur, initial encounter for closed fracture Code(s): S72.009A - Fracture of unspecified part of neck of unspecified femur, initial encounter for closed fracture Status: Acute Assessment and Plan: 12/28/23: Status post ground level fall onto right hip X-ray of the hip and pelvis showed minimally displaced transcervical right femoral neck fracture Orthopedic surgeon consulted Plan for OR today Continue NPO status Continue pain control with tramadol Continue maintenance IV fluids Continue fall precautions PT and OT will be ordered for evaluation and treatment tomorrow SCDs for DVT prophylaxis Incentive spirometry q.2 hours immediately postop Continue SCDs for DVT prophylaxis Continue urinary catheter until tomorrow 12/29/23: Patient is postop day 1 from a right bipolar hip replacement Continue pain control PT and OT to see patient today Continue with SCDs Continue with incentive spirometry Will start Lovenox today for DVT prophylaxis Will discontinue urinary catheter today (2) Gait instability: Code(s): R26.81 - Unsteadiness on feet Status: Acute Assessment and Plan: See above (3) Multiple falls: Code(s): R29.6 - Repeated falls Status: Acute Assessment and Plan: See above (4) Hypothyroidism: Qualifiers: Hypothyroidism type: unspecified Qualified Code(s): E03.9 - Hypothyroidism, unspecified Code(s): E03.9 - Hypothyroidism, unspecified Status: Acute Assessment and Plan: 12/28/23: Continue Synthroid Will order a TSH for the morning 12/29/23: No change to current treatment plan (5) Type 2 diabetes mellitus without complications: Qualifiers: Diabetes mellitus correction insulin use: without correction use Qualified Code(s): E11.9 - Type 2 diabetes mellitus without complications Code(s): E11.9 - Type 2 diabetes mellitus without complications Status: Acute Assessment and Plan: 12/28/23: Blood sugars ranging 115-130 Hemoglobin A1c 6.3 on 10/20/2023 Accu-Cheks q.6 hours while NPO, may switch to AC/ HS Accu-Cheks immediately postop Moderate dose sliding scale insulin ordered Hypoglycemic protocol in place Will start diabetic diet after surgery today 12/29/23: Continue with current treatment plan (6) Benign essential HTN: Code(s): I10 - Essential (primary) hypertension Status: Acute Assessment and Plan: 12/28/23: Blood pressure ranging 142/60 to 182/62 Continue lisinopril and hydralazine 12/29/23: Blood pressures ranging 123/55-143/56 Continue with current treatment plan (7) Diastolic dysfunction: Code(s): I51.89 - Other ill-defined heart diseases Status: Acute Assessment and Plan: 12/28/23: Echo from 11/12/2023 reviewed and showed normal LV systolic function with an estimated EF of 65-70%, with abnormal diastolic function and mild pulmonary hypertension, normal RV systolic function, moderate mitral valve regurgitation. 12/29/23: No change (8) Hyperlipidemia: Code(s): E78.5 - Hyperlipidemia, unspecified Status: Acute Assessment and Plan: 12/28/23: Continue lovastatin 12/29/23: No change to current treatment plan Time Spent With Patient Time with patient: 15 - 25 minutes Subjective Date/time seen: 12/29/23 08:17 Interval history: 12/28/23: This is an 83-year-old female who presented to the hospital on 12/27/2023 her sustaining a fall. She was brought to the ER for via EMS and was found not to be able to stand up due to right hip pain. Patient states that she was outside trying to blow seeds off of her porch with a leaf blower and she tripped over the edge of the door frame ca
[2023-12-29] MEDS: ENOXAPARIN 40 MG/0.4 ML SYRINGE SUB-Q (08:48)
[2023-12-29] MEDS: FLUoxetine HCL 10 MG CAPSULE PO (08:48)
[2023-12-29] MEDS: ASCORBIC ACID 500 MG TABLET PO (08:48)
[2023-12-29] MEDS: ASPIRIN 325 MG ENTERIC TABLET PO ×2 (08:48→20:54)
[2023-12-29] MEDS: OPTI-GEN TAB 1 TABLET PO ×2 (08:48→16:42)
[2023-12-29] MEDS: lisinopriL 20 MG TABLET PO (08:48)
[2023-12-29] MEDS: SENNA/DOCUSATE SODIUM TABLET 2 TAB PO ×2 (08:48→16:41)
[2023-12-29] MEDS: CELECOXIB 200 MG CAPSULE PO (08:48)
[2023-12-29] MEDS: polyethylene glycoL 3350 17 GM POWD.PACK PO (08:49)
--- NOTE | 2023-12-29 11:34 | PM.PNORT ---
Progress Note: A&P Assessment and Plan (1) Closed fracture of right hip: Qualifiers: Encounter type: subsequent encounter Fracture healing: with routine healing Qualified Code(s): S72.001D - Fracture of unspecified part of neck of right femur, subsequent encounter for closed fracture with routine healing Code(s): S72.001A - Fracture of unspecified part of neck of right femur, initial encounter for closed fracture Status: Acute Assessment and Plan: Postoperative day 1 right hip hemiarthroplasty. Operative treatment findings reviewed with the patient. Patient up in chair, comfortable. PT/OT with weight-bearing as tolerated right leg. Lab stable at this time. Continue to monitor. Disposition when medically stable. Subjective Subjective Date/Time Seen: 12/29/23 11:34 Post Op day: 1 Principal diagnosis: Right hip fracture Interval history: Patient resting comfortably. Awake and alert. Less confused today. Oriented to person, place and time. Complains of minimal pain right hip. Up in chair Exam Const: General: comfortable; No acute distress Resp: Effort & Inspection: normal respiratory effort and no audible wheezes Extrem: Right lower extremity: lower leg ( Negative Homans sign), ankle Details: normal ROM ( dorsiflexion and plantar flexion intact) and foot Details: vascular exam Details: dorsalis pedis pulse present and normal capillary refill, tendon exam Details: active flexion normal and active extension normal and motor-sensory exam Details: light-touch normal Location: in all toes; no edema Left lower extremity: normal to inspection, ankle Details: normal ROM and foot Details: vascular exam Details: dorsalis pedis pulse present and normal capillary refill and motor-sensory exam light-touch normal in all toes; no edema Objective Data Vital Signs Vital Signs: Vital Signs - 24 hr 12/28/23 12:56 12/28/23 13:00 12/28/23 13:15 Temperature 97.1 F L Pulse Rate 81 83 88 Respiratory Rate 13 12 18 Blood Pressure 149/57 H 151/59 H 169/67 H Pulse Oximetry 100 100 100 Oxygen Delivery Simple Face Mask Simple Face Mask Simple Face Mask Oxygen Flow Rate 10 10 10 12/28/23 13:30 12/28/23 13:45 12/28/23 14:00 Temperature Pulse Rate 93 83 80 Respiratory Rate 20 15 16 Blood Pressure 162/73 H 162/65 H 159/65 H Pulse Oximetry 100 100 100 Oxygen Delivery Room Air Nasal Cannula Nasal Cannula Oxygen Flow Rate 2 2 12/28/23 14:21 12/28/23 14:36 12/28/23 15:06 Temperature 97.6 F 97.6 F 97.6 F Pulse Rate 82 82 77 Respiratory Rate 18 18 18 Blood Pressure 161/55 H 171/67 H 153/56 H Pulse Oximetry 99 100 100 Oxygen Delivery Oxygen Flow Rate 12/28/23 14:35 12/28/23 16:06 12/28/23 18:40 Temperature 97.6 F Pulse Rate 69 Respiratory Rate 14 Blood Pressure 138/54 L Pulse Oximetry 98 100 95 Oxygen Delivery Nasal Cannula Room Air Oxygen Flow Rate 2 12/28/23 19:00 12/28/23 20:36 12/29/23 00:00 Temperature 98.1 F 97.0 F L Pulse Rate 666 H 69 Respiratory Rate 16 20 Blood Pressure 145/49 H 123/55 L Pulse Oximetry 96 94 97 Oxygen Delivery Room Air Oxygen Flow Rate 12/29/23 05:00 12/29/23 09:20 12/29/23 08:00 Temperature 97.6 F Pulse Rate 72 Respiratory Rate 18 Blood Pressure 143/56 H Pulse Oximetry 96 Oxygen Delivery Room Air Room Air Oxygen Flow Rate Intake/Output Intake/Output: Intake & Output 12/26/23 12/27/23 12/28/23 12/29/23 23:59 23:59 23:59 23:59 Intake Total 68.8 1531.2 450 Output Total 400 250 Balance 68.8 1131.2 200 Meds/Results Medications: Active Medications Generic Name Dose Route Start Last Admin Trade Name Calvinq PRN Reason Stop Dose Admin Acetaminophen 650 mg 12/27/23 20:53 Acetaminophen 325 Mg Tablet PO Q4H PRN Mild Pain (1-3) or Fever Ascorbic Acid 500 mg 12/29/23 09:00 12/29/23 08:48 Ascorbic Acid 500 Mg Tablet PO 500 mg DAILY JESSICA Administration Aspirin 325
[2023-12-29 11:54] LABS: Glucose Point of Care 213 mg/dl (65-105)
[2023-12-29] MEDS: INSULIN ASPART (*BKC) 100 UNITS/ML SUB-Q ×2 (12:05→20:54)
[2023-12-29 13:24] LABS: Magnesium 1.8 mg/dL (1.6-2.3)
[2023-12-29 16:10] VITALS: BP 130/67; PULSE 76; RESP 18; TEMP 36.6; O2SAT 99
[2023-12-29] MEDS: LOVASTATIN 20 MG TABLET 40 MG PO (16:42)
[2023-12-29 17:05] LABS: Glucose Point of Care 181 mg/dl (65-105)
[2023-12-29 20:47] LABS: Glucose Point of Care 214 mg/dl (65-105)
[2023-12-29 20:55] VITALS: PULSE 82; RESP 16; O2SAT 100
[2023-12-29 20:57] VITALS: BP 151/61; PULSE 82; RESP 16; TEMP 36.8; O2SAT 100
[2023-12-30 00:20] VITALS: BP 149/51; PULSE 82; RESP 16; TEMP 36.8; O2SAT 97
[2023-12-30 05:40] LABS: Basophils Percent Auto 0.4 % (0.2-1.2); Eosinophils Absolute Auto 0.2 K/mm3 (0-0.3); Eosinophils Percent Auto 4.1 % (0-4.4); Hematocrit 25.7 % (37.0-47.0); Hemoglobin 7.9 g/dL (12.0-15.0); Immature Granulocyte Absolute 0.02 K/mm3 (0.00-0.031); Immature Granulocyte Percent A 0.4 % (0-0.5); Lymphocytes Absolute Auto 0.64 K/mm3 (0.9-3.2); Lymphocytes Percent Auto 11.9 % (18.3-44.2); Mean Corpuscular HGB Conc 30.7 g/dl (32-36); Mean Corpuscular Volume 94.5 fl (80-100); Mean Platelet Volume 11.5 fl (7.4-10.4); Monocytes Absolute Auto 0.7 K/mm3 (0.1-0.6); Monocytes Percent Auto 13.3 % (2.6-8.5); Neutrophils Absolute Auto 3.8 K/mm3 (1.3-6.7); Neutrophils Percent Auto 69.9 % (45.5-73.1); Platelet Count Result 86 k/mm3 (150-375); Red Blood Count 2.72 M/mm3 (4.2-5.4); Red Cell Distribution Width 15.3 % (11.5-14.5); White Blood Count 5.4 K/mm3 (4.5-10.0)
[2023-12-30 05:46] LABS: Alanine Aminotransferase 16 U/L (6-35); Albumin Level 2.6 g/dL (3.5-5.1); Alkaline Phosphatase 67 U/L (38-126); Anion Gap 3 mmol/L (4-12); Aspartate Amino Transferase 38 U/L (14-36); Blood Urea Nitrogen 26 mg/dL (7-17); Calcium 8.6 mg/dL (8.4-10.2); Carbon Dioxide 20 mmol/L (22-30); Chloride 110 mmol/L (98-107); Estimated CRCL calculation 42 ml/min; Estimated Glomerular Filt Rate 60; Glucose 149 mg/dL (65-110); Potassium 4.3 mmol/L (3.4-5.0); Sodium 133 mmol/L (137-145)
[2023-12-30 06:17] VITALS: BP 143/55; PULSE 72; RESP 18; TEMP 36.9; O2SAT 95
[2023-12-30] MEDS: LEVOTHYROXINE SODIUM 125 MCG TABLET PO (06:22)
[2023-12-30] MEDS: traMADol HCL (*CRX) 50 MG TABLET PO (06:42)
[2023-12-30 07:43] LABS: Glucose Point of Care 146 mg/dl (65-105)
--- NOTE | 2023-12-30 09:02 | PM.PNORT ---
Progress Note: A&P Assessment and Plan (1) Closed fracture of right hip: Qualifiers: Encounter type: subsequent encounter Fracture healing: with routine healing Qualified Code(s): S72.001D - Fracture of unspecified part of neck of right femur, subsequent encounter for closed fracture with routine healing Code(s): S72.001A - Fracture of unspecified part of neck of right femur, initial encounter for closed fracture Status: Acute Assessment and Plan: POD #2: Right hip hemiarthroplasty Continue PT/OT. WBAT. Walker. HIGH FALL RISK. Continue pain control. Ice Hip. Protect skin. DVT prophylaxis with Aspirin. SCDs. Incentive Spirometry Use reviewed. Monitor Dressing. Change today to Mepilex Silver. Bowel Regimen. Dispo: [facility] vs. SNF for PT/OT pending progress with PT/OT Time Spent With Patient Time: Reviewed history, exam, radiographs and current labs with attending MD and covering surgeon, Dr. Singh, who agrees with current plan as indicated above. No further recommendations from Dr. Singh at this time. Subjective Subjective Date/Time Seen: 12/30/23 09:02 Post Op day: 2 Principal diagnosis: Right hip fracture Interval history: POD #2: Right hip bipolar Patient working with PT/OT at time of exam. Slow progress. Pain of the right hip reported, well controlled however with medication. Alert and oriented. Review of Systems Constitutional: Constitutional: Denies fever(s) Eyes: Eyes: Denies blurry vision ENT: Reports Normal hearing present Cardiovascular: Cardiovascular: Denies chest pain and Denies dyspnea Respiratory: Respiratory: Denies dyspnea and Denies wheezing Gastrointestinal: Gastrointestinal: Denies abdominal pain Genitourinary: Genitourinary: Denies urinary urgency Musculoskeletal: Musculoskeletal: Reports as per HPI and Denies numbness Integumentary/Breasts: Skin/Breast: Denies changing lesions and Denies sores Neurologic: Reports Normal hearing present, Denies behavioral changes, Denies confusion, Denies numbness and Denies convulsions Psychiatric: Psychiatric: Denies behavioral changes, Denies confusion and Denies hallucinations Endocrine: Endocrine: Denies heat intolerance Hematologic/Lymphatic: Hematologic/Lymphatic: Denies easy bleeding Allergic/Immunologic: Allergic/Immunologic: Denies wheezing Exam Const: General: comfortable; No acute distress Resp: Effort & Inspection: normal respiratory effort and no audible wheezes Extrem: Right lower extremity: lower leg ( Negative Homans sign), ankle Details: normal ROM ( dorsiflexion and plantar flexion intact) and foot Details: vascular exam Details: dorsalis pedis pulse present and normal capillary refill, tendon exam Details: active flexion normal and active extension normal and motor-sensory exam Details: light-touch normal Location: in all toes; no edema Left lower extremity: normal to inspection, ankle Details: normal ROM and foot Details: vascular exam Details: dorsalis pedis pulse present and normal capillary refill and motor-sensory exam light-touch normal in all toes; no edema Other: Dressing right hip with sanguinous drainage. To be changed today. Objective Data Vital Signs Vital Signs: Vital Signs - 24 hr 12/29/23 09:20 12/29/23 16:10 12/29/23 20:57 Temperature 36.6 C 36.8 C Pulse Rate 76 82 Respiratory Rate 18 16 Blood Pressure 130/67 151/61 H Pulse Oximetry 99 100 Oxygen Delivery Room Air 12/29/23 20:55 12/30/23 00:20 12/30/23 06:17 Temperature 36.8 C 36.9 C Pulse Rate 82 82 72 Respiratory Rate 16 16 18 Blood Pressure 149/51 H 143/55 H Pulse Oximetry 100 97 95 Oxygen Delivery Room Air Intake/Output Intake/Output: Intake & Output 12/27/23 12/28/23 12/29/23 12/30/23 23:59 23:59 23:59 23:59 Intake Total 68.8 1531.2 930 700 Output Total 400 250 Balance 68.8 1131.2 680 700 Meds/Results Medications: Active Medications Generic Name Dose Route
[2023-12-30] MEDS: ASPIRIN 325 MG ENTERIC TABLET PO (09:19)
[2023-12-30] MEDS: CELECOXIB 200 MG CAPSULE PO (09:19)
[2023-12-30] MEDS: ASCORBIC ACID 500 MG TABLET PO (09:19)
[2023-12-30] MEDS: lisinopriL 20 MG TABLET PO (09:21)
[2023-12-30] MEDS: FLUoxetine HCL 10 MG CAPSULE PO (09:21)
[2023-12-30] MEDS: OPTI-GEN TAB 1 TABLET PO (09:21)
--- NOTE | 2023-12-30 10:23 | PM.DS ---
DS: Admitting Diagnosis Discharge Date 12/30/23 Admitting Diagnosis Femoral neck fracture Multiple falls Gait instability hypothyroidism Type 2 DM without complication Benign essential HTN moderate mitral valve regurgitation Diastolic dysfunction DS: Discharge Diagnosis Discharge Diagnosis (1) Femoral neck fracture: Qualifiers: Encounter type: initial encounter Fracture type: closed Laterality: right Qualified Code(s): S72.001A - Fracture of unspecified part of neck of right femur, initial encounter for closed fracture Code(s): S72.009A - Fracture of unspecified part of neck of unspecified femur, initial encounter for closed fracture Status: Acute (2) Gait instability: Code(s): R26.81 - Unsteadiness on feet Status: Acute (3) Multiple falls: Code(s): R29.6 - Repeated falls Status: Acute (4) Hypothyroidism: Qualifiers: Hypothyroidism type: unspecified Qualified Code(s): E03.9 - Hypothyroidism, unspecified Code(s): E03.9 - Hypothyroidism, unspecified Status: Acute (5) Type 2 diabetes mellitus without complications: Qualifiers: Diabetes mellitus remote computer terminal operator insulin use: without assisted use Qualified Code(s): E11.9 - Type 2 diabetes mellitus without complications Code(s): E11.9 - Type 2 diabetes mellitus without complications Status: Acute (6) Benign essential HTN: Code(s): I10 - Essential (primary) hypertension Status: Acute (7) Diastolic dysfunction: Code(s): I51.89 - Other ill-defined heart diseases Status: Acute (8) Hyperlipidemia: Code(s): E78.5 - Hyperlipidemia, unspecified Status: Acute DS: Summary Hospital Course Reason for hospitalization: Femoral neck fracture Multiple falls Gait instability hypothyroidism Type 2 DM without complication Benign essential HTN moderate mitral valve regurgitation Diastolic dysfunction Hospital Course: 12/28/23: This is an 83-year-old female who presented to the hospital on 12/27/2023 her sustaining a fall.? She was brought to the ER for via EMS and was found not to be able to stand up due to right hip pain.? Patient states that she was outside trying to blow seeds off of her porch with a leaf blower and she tripped over the edge of the door frame causing her fall.? She does have abrasions to her right wrist and right knee which are open to air at this time.? She also has bruising to her right hip and buttock.? Workup in the hospital includes chest x-ray which showed mild interstitial edema.? Hip and pelvis x-ray which showed mildly displaced transcervical right femoral neck fracture.? Right wrist x-ray was negative for any fracture.? Cervical spine CT shown persistent left supraclavicular lymphedema Passy, no acute fracture or malalignment.? Head CT was negative for any acute intracranial process.? Initial labs showed a normal white blood cell count of 9.5, INR 1.1, sodium 135, bicarb 21, AST 41, total bili 1.9.? A UA was also performed which showed 3+ urine protein, 1+ ketone, otherwise normal.? No cultures were obtained.? Patient was given pain medication, cefazolin, and tranexamic acid while in the ED. ortho was consulted for further evaluation. On examination today patient is alert oriented x3, lying in the bed.? She denies any pain at this time.? She also denies any fever, chills, nausea, vomiting, diarrhea, abdominal pain, chest pain, shortness a breath.? Her vital signs are stable, she is on room air, she is afebrile.? Plan today is for her to go to the OR with Orthopedic surgery.? She will remain NPO. 12/29/23: Patient denies any new complaints today.? She does rate her pain as a 7/10 whenever she is moving around with therapy otherwise she states her pain is 0. Labs today show a hemoglobin of 9.2, platelet count 119, sodium 134, creatinine 1.1, EGFR 47, blood sugars ranging 112 to 123.? Plan for PT and OT to evaluate today.? Continue with pain control.?
[2023-12-30 12:32] LABS: Glucose Point of Care 236 mg/dl (65-105)
[2023-12-30] MEDS: INSULIN ASPART (*BKC) 100 UNITS/ML SUB-Q (12:35)
[2023-12-30 14:33] VITALS: BP 138/44; PULSE 69; RESP 18; TEMP 36.3; O2SAT 93
[2023-12-30 16:20] LABS: SARS-CoV-2 RNA PCR Negative (Negative)
[2023-12-30 16:52] LABS: Glucose Point of Care 161 mg/dl (65-105)
== END 2023-12-30 17:13 | DRG 522 ==
LOC: ANHED 18:09 → ANH2MED 21:49
PROVIDERS: Orthopaedic Surgery; Admitting Provider Internal Medicine; Emergency Provider Physician Assistant; PCP Family Medicine; Visit Provider Nurse Practitioner Acute Care
PROC: 0SRR01A Replacement of Right Hip Joint, Femoral Surface with Metal Synthetic Substitute, Uncemented, Open Approach (ICD-10-PCS; CPT 27125; principal; 2023-12-28 11:00)
DX: S72.031A Displaced midcervical fracture of right femur, initial encounter for closed fracture (principal); W18.09XA Striking against other object with subsequent fall, initial encounter; E11.42 Type 2 diabetes mellitus with diabetic polyneuropathy; I10 Essential (primary) hypertension; E03.9 Hypothyroidism, unspecified; E78.2 Mixed hyperlipidemia; I34.0 Nonrheumatic mitral (valve) insufficiency; F41.9 Anxiety disorder, unspecified; E11.21 Type 2 diabetes mellitus with diabetic nephropathy; F32.A Depression, unspecified; I51.89 Other ill-defined heart diseases; R26.81 Unsteadiness on feet; R29.6 Repeated falls; Z90.49 Acquired absence of other specified parts of digestive tract; Z87.891 Personal history of nicotine dependence; Z79.82 Long term (current) use of aspirin; Z79.84 Long term (current) use of oral hypoglycemic drugs
CPT/HCPCS: 36415; 70450; 71045; 72125; 73110; 73502; 80048; 80053; 81001; 82948; 83735; 85025; 85055; 85610; 85730; 86850; 86900; 86901; 87635; 93005; 96374; 96375; 97110; 97116; 97161; 97166; 97530; 97535; 99285; A9270; C1776; G0378; J0650; J0690; J1100; J1170; J1650; J1815; J1885; J2270; J2405; J2704; J3010; J7030; J7120

== ENCOUNTER 2024-07-16 09:30 | Outpatient (RCR) | payer MEDICARE, SELFPAY ==
--- NOTE | 2024-07-01 16:12 | PTOPEVAL1 ---
Assessment and note entered by Jamie Orozco, PT, DPT Evaluation Information Assessment Status Evaluation Onset 12/28/23 Subjective Information Pt states she fell in December and broke her hip, she had a replacement secondary to this. Pt states her hip is doing well. She did therapy at [facility], and also did home health. Pt states she get occasional pain while she is walking but feels balance is a bigger issue for her. Pt is currently walking with a walker, she would like to get rid of this. Pt reports at least 5 falls since December. Reported Pain Level Pain Score 0: Self Report Assessment PT Clinical Summary Pt presents to therapy today for her initial evaluation following a fall with R hip fracture on 12/28/23. Today she demonstrates milla hip ROM that is WNL with only minor deficits on the R. Her strength is significantly limited globally, worse in her R hip. She ambulates with a significantly decreased gait speed and has lateral pelvic motion during R single leg stance. Her gait speed and Tinetti score place her at an increased risk for falls. Skilled therapy services are indicated to address the deficits noted above, to improved strength, and to minimize fall risk. Plan of Care Interventions Electrical Stimulation,Gait Training,Hot Pack/Cold Pack,Manual Therapy,Neuro Re-education,Patient/ Caregiver Educati,Therapeutic Activities, Therapeutic Exercise PT Services Indicated Yes Treatment Frequency and 2x/wk for 20 visits Duration These treatments will address the objective and functional deficits as defined above. The patient will be advanced safely and appropriately in order for the patient to progress towards his/her prior level of function. Additional exercises will be introduced and as well as a comprehensive home exercise program upon discharge, if needed, ?to ensure carryover of functional gains achieved in the clinic. This treatment plan has been reviewed and agreement upon by the patient.
--- NOTE | 2024-07-01 16:12 | OPREHPOC ---
Outpatient Therapy Plan of Care This is a Multidisciplinary Plan of Care that may contain components documented by all disciplines (PT, OT, and ST.) PT Problem 1 PT Problem #1 Knowledge Deficit PT Goal 1 Goal / Goal Update Pt to be IND with issued HEP Target Visit 10 PT Problem 2 PT Problem #2 Impaired Safety Awareness PT Goal 1 Goal / Goal Update 1. Pt to report no fall in the last month. 2. Pt to demonstrate good walker safety throughout therapy treatment. Target Visit 10 PT Problem 3 PT Problem #3 Impaired Strength PT Goal 1 Goal / Goal Update 1. Pt to demonstrate 5xSTS without UE support in 30s. 2. Pt to demonstrate lateral hip strength of 3/5. Target Visit 10 PT Problem 4 PT Problem #4 Impaired Gait PT Goal 1 Goal / Goal Update 1. Pt to improve 2 min walk distance from 70ft to 150ft. 2. Pt to maintain hip alignment during ambulation PT Problem 5 PT Problem #5 Impaired Balance PT Goal 1 Goal / Goal Update 1. Pt to improve Tinetti score from 06/21 to Target Visit 10
--- NOTE | 2024-07-20 08:32 | PCPTNOTE ---
Patient called & cancelled scheduled appointment this date due to being ill.
--- NOTE | 2024-07-23 10:11 | PCPTNOTE ---
Patient no showed to appointment this date. Called and left voicemail.
--- NOTE | 2024-07-23 10:16 | PCPTNOTE ---
Daughter called to say patient is in hospital and needs therapy to be on hold from here on out.
--- NOTE | 2024-08-02 09:48 | PCPTNOTE ---
Patient did not show up for scheduled appointment this date. Called and LVM for pt and her daughter to try to get an update as pt was recently hospitalized.
--- NOTE | 2024-08-02 09:56 | PTOPDC ---
Assessment and note entered by Jamie Orozco, PT, DPT Evaluation Information Assessment Status Discharge - Pt Not Presen Onset 12/28/23 Subjective Information Per chart review pt was admitted to the hospital from 07/20 to 07/29 and is currently admitted to a SNF. Pt will be discharged at this time from OP therapy services and when need a new order when she is able to resume OP therapy. Assessment PT Clinical Summary Discharge d/t decreased medical status.
== END 2024-08-02 10:13 | disposition home or self-care (01) ==
LOC: ANHGOSHPT 09:30
PROVIDERS: PCP Family Medicine; Visit Provider Family Medicine
DX: S72.001D Fracture of unspecified part of neck of right femur, subsequent encounter for closed fracture with routine healing (principal); R26.81 Unsteadiness on feet
CPT/HCPCS: 97110; 97161; 97530

== ENCOUNTER 2024-07-20 14:53 | Inpatient (IN) | payer MEDICARE, SELFPAY ==
--- NOTE | ~2024-07-20 | MR_ITS ---
EXAMINATION: MR shoulder RT wo con DATE: 07/26/2024 14:32 INDICATION: Right shoulder pain. TECHNIQUE: Magnetic resonance imaging (MRI) of the right shoulder was performed without intravenous c ontrast. Sequences included axial PD-weighted FS FSE, coronal oblique PD-weighted FS FSE and T2-weigh jessica FS FSE, and sagittal oblique T2-weighted FS FSE and T1-weighted FSE. COMPARISON: Right shoulder CT 07/24/2024 FINDINGS: Coracoacromial arch: The acromion undersurface is flat in morphology (type I). There is severe acromioclavicular joint ost eoarthritis. There is moderate subacromial/subdeltoid bursitis. Rotator cuff: There is a full-thickness tear of supraspinatus and infraspinatus tendons measuring 3.6 cm anterior t o posterior by 4.0 cm proximal to distal. Teres minor tendon is normal. There is mild subscapularis t endinopathy. There is mild fatty atrophy of supraspinatus muscle belly. Biceps tendon and glenoid labrum: Biceps tendon is in bicipital groove. There is mild intra-articular biceps tendinopathy. There is deg eneration of superior glenoid labrum without well-defined tear. Fluid: There is a small glenohumeral joint effusion. Bones/cartilage: There is partial-thickness cartilage loss of glenoid and humeral head. There is mild subchondral deb a-like marrow signal intensity of the glenoid. Osteophytes are noted. IMPRESSION: 1. Full-thickness rotator cuff tear. 2. Mild glenohumeral joint chondrosis. 3. Severe acromioclavicular joint osteoarthritis. 4. Mild intra-articular biceps tendinopathy. 5. Small glenohumeral joint effusion and moderate subacromial/subdeltoid bursitis. Reviewed, dictated and finalized at location A. ARE CASE WORKER IMPRESSION: 1. Full-thickness rotator cuff tear. 2. Mild glenohumeral joint chondrosis. 3. Severe acromioclavicular joint osteoarthritis. 4. Mild intra-articular biceps tendinopathy. 5. Small glenohumeral joint effusion and moderate subacromial/subdeltoid bursit is.
--- NOTE | ~2024-07-20 | XR_ITS ---
EXAMINATION: XR chest 1V portable DATE: 07/25/2024 09:56 INDICATION: Shortness of breath. TECHNIQUE: A single frontal view of the chest was obtained. COMPARISON: Chest 2 views 07/22/2024 FINDINGS: The patient is rotated to her left. There is mild atelectasis at left lung base. Calcified right lung nodules are consistent with old granulomatous disease. No pleural effusion or pneumothorax . Cardiomegaly is noted. IMPRESSION: 1. Mild atelectasis at left lung base. 2. Cardiomegaly. Reviewed, dictated and finalized at location A. DATION CONSULTANT
--- NOTE | ~2024-07-20 | US_ITS ---
EXAMINATION: US carotid duplex BI DATE: 07/26/2024 14:56 INDICATION: Left carotid bruit. TECHNIQUE: Grayscale, color Doppler, and pulsed Doppler images of the cervical carotid arteries were obtained. The degree of vessel stenosis is placed in one of the following categories: normal, <50%, 5 0-69%, >=70% but less than near-occlusion, near-occlusion, or total occlusion. Note that percent sten osis relative to normal distal artery lumen diameter is indirectly measured from velocity measurement s as described by Palomo, et al. Radiology 2003; 229:340-346. COMPARISON: Ultrasound 09/01/2017 FINDINGS: RIGHT: The right common carotid artery (CCA) peak systolic velocity (PSV) is 77 cm/s. The right internal car otid artery (ICA) PSV is 132 cm/s. The right ICA end-diastolic velocity (EDV) is 10 cm/s. The right I CA/CCA PSV ratio is 1.7. Grayscale and color Doppler images yield an estimate of <50% diameter reduct ion from plaque in the ICA. There is antegrade flow in the right vertebral artery. LEFT: The left CCA PSV is 72 cm/s. The left ICA PSV is 198 cm/s. The left ICA EDV is 21 cm/s. The left ICA/ CCA PSV ratio is 2.7. Grayscale and color Doppler images yield an estimate of <50% diameter reduction from plaque in the ICA. There is antegrade flow in the left vertebral artery. IMPRESSION: 1. <50% stenosis in the right internal carotid artery. 2. <50% stenosis in the left internal carotid artery. Reviewed, dictated and finalized at location A. LY INTERVENTION SPECIALIST
--- NOTE | ~2024-07-20 | XR_ITS ---
EXAMINATION: XR shoulder RT min 2V DATE: 07/20/2024 16:37 INDICATION: Right shoulder injury post fall TECHNIQUE: AP internally and externally rotated and transscapular Y views of the right shoulder were obtained. COMPARISON: None FINDINGS: Normal alignment. No fracture.Severe acromioclavicular osteoarthritis with small inferiorly directed osteophytes. There is also at least mild osteoarthritis at the right humeral joint with small margin al osteophytes along the posterior glenoid. Soft tissues are unremarkable. At the few small calcified nodules in the right lung consistent with old granulomatous disease. IMPRESSION: 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 No acute osseous abnormality . Reviewed, dictated and finalized at location A. K SEXER IMPRESSION: 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 No acu te osseous abnormality.
--- NOTE | ~2024-07-20 | MR_ITS ---
EXAMINATION: MR brain/brain stem wo/w con DATE: 07/26/2024 14:33 INDICATION: Confusion. TECHNIQUE: Magnetic resonance imaging (MRI) of the brain and brainstem was performed without and with 15 mL MultiHance intravenous contrast. COMPARISON: Brain MRI 04/10/2023, head CT 07/25/2024 FINDINGS: There is diffuse brain volume loss. There are scattered areas of nonspecific increased T2-w eighted signal intensity in the cerebral white matter, which is within normal limits for the patient' s age. There is an old lacunar infarct in the left basal ganglia. There is no intracranial hemorrhage , acute infarction, or abnormal intracranial mass lesion. The ventricles are normal in size. There ar e likely changes of ocular lens replacement surgeries. There is mild mucosal thickening in the parana darrion sinuses. There is a trace right mastoid effusion. IMPRESSION: 1. Old lacunar infarct in the left basal ganglia. Reviewed, dictated and finalized at location A. ONNEL SECURITY ASSISTANT
--- NOTE | ~2024-07-20 | XR_ITS ---
EXAMINATION: XR chest 2V DATE: 07/22/2024 11:46 INDICATION: Pneumonia TECHNIQUE: frontal and lateral views of the chest were obtained. COMPARISON: Chest radiograph dated 07/20/2024 FINDINGS: Small left pleural effusion and associated compressive atelectasis with blunting at the left costophr enic posterior sulcus. Linear opacities at the lateral left lung base likely related to associated at electasis. Cluster of small calcified nodule at the right midlung zone consistent with old granulomat ous disease. The prior mild interstitial pattern in the left mid and bilateral lower lung zones which could represent mild pulmonary edema or pneumonia has resolved. No pneumothorax or definitive right- sided pleural effusion. Cardiomegaly. IMPRESSION: 1. Improvement in the prior pulmonary edema or pneumonia in the left mid and bilateral lower lung zon es. 2. Small left pleural effusion with some compressive and streaky atelectasis at the left lung base. 3. Cardiomegaly. Reviewed, dictated and finalized at location A. PRESS OPERATOR IMPRESSION: 1. Improvement in the prior pulmonary edema or pneumonia in the left mid and bi lateral lower lung zones. 2. Small left pleural effusion with some compressive and streaky atelectasis at the left lung base. 3. Cardiomegaly.
--- NOTE | ~2024-07-20 | CT_ITS ---
EXAMINATION: CT brain wo con DATE: 07/25/2024 13:34 INDICATION: Confusion. TECHNIQUE: Computed tomography (CT) of the head was performed without intravenous contrast. The mA wa s adjusted according to patient size. Iterative reconstruction technique was employed. The dose-lengt h product was 605.33 mGy-cm. COMPARISON: Head CT 12/27/2023 FINDINGS: There are scattered areas of low attenuation in the cerebral white matter, which is within normal limits for the patient's age. There is no intracranial hemorrhage, acute infarction, or abnor mal intracranial mass lesion. The ventricles are normal in size. There are likely changes of ocular l ens replacement surgeries. There is mild mucosal thickening in the ethmoid sinuses. The mastoid air c ells are normal. IMPRESSION: 1. Normal aging brain. Reviewed, dictated and finalized at location A. MBLY ADJUSTER IMPRESSION: 1. Normal aging brain.
--- NOTE | ~2024-07-20 | CT_ITS ---
CT OF right shoulder EXAMINATION: CT shoulder RT wo con DATE: 07/24/2024 12:47 INDICATION: Pain. TECHNIQUE: Computed tomography (CT) of the right shoulder was performed without intravenous contrast. Automated exposure control and iterative reconstruction technique were employed. The dose-length pro duct was 213.01 mGy-cm. COMPARISON: X-ray right shoulder 07/20/2024 FINDINGS: Osteopenia. Moderate AC joint osteoarthritis. Mild osteoarthritis at the glenohumeral joint. No fract ure or dislocation. Mild subacromial narrowing. Granulomatous calcification in the right lung. Depend ent atelectasis. Moderate volume right pleural fluid collection. Mild septal thickening. IMPRESSION: No acute osseous finding in the right shoulder. Mild interstitial edema. Moderate right pleural effusion. Reviewed, dictated and finalized at location K. ISSIONING SPECIALIST
--- NOTE | ~2024-07-20 | XR_ITS ---
EXAMINATION: XR chest 2V Exam Date/Time: 07/20/2024 17:53 QUILL FIXER HISTORY: weakness, cough Comparison: 12/27/2023. RESULT: Lines, tubes, and devices: None. Lungs and pleura: Subsegmental left lower lobe airspace disease. Moderate diffuse reticulonodular op acities. Granulomatous calcifications Cardiomediastinal silhouette: Stable. Other: No acute osseous or upper abdominal finding. IMPRESSION: Subsegmental left basilar atelectasis/consolidation. Moderate interstitial edema versus respiratory b ronchiolitis. Reviewed, dictated and finalized at location K. L FIXER IMPRESSION: Subsegmental left basilar atelectasis/consolidation. Moderate interstitial deb a versus respiratory bronchiolitis.
[2024-07-20 15:01] VITALS: BP 143/67; PULSE 75; RESP 19; TEMP 36.3; O2SAT 99
--- NOTE | 2024-07-20 16:16 | ECG_ITS ---
Test Date: 2024-07-20 16:27:50 Measurements Intervals [place] Rate: 71 P: 0 OK: 0 QRS: 13 QRSD: 101 T: 27 QT: 372 QTc: 406 Interpretive Statements ATRIAL FIBRILLATION ANTEROSEPTAL INFARCT, AGE INDETERMINATE BORDERLINE ST-T WAVE ABNORMALITY- INF/LAT LEADS BASELINE ARTIFACT- I, II, III, AVR, AVL, AVF ABNORMAL ECG No previous ECG available for comparison Electronically Signed On 07-20-2024 19:03:09 STRANDING SUPERVISOR by Darien Robertson D.O.
--- NOTE | 2024-07-20 16:17 | ED_ITS ---
HPI - Extremity Injury (Upper) General Chief Complaint: Extremity Injury, Upper <Shannon Newton FACTORY ENGINEER - Last Filed: 07/21/24 15:03> Stated Complaint: R shoulder pain after fall <Shannon Newton APRN - Last Filed: 07/21/24 15:03> Time Seen by Provider: 07/20/24 16:00 <Shannon Newton APRN - Last Filed: 07/21/24 15:03> Focused HPI: patient is an 83-year-old female who presents to the ER with with right shoulder pain and weakness. Patient reports she started feeling weak and low energy approximately 3 days ago. She ended up falling she was walking up the steps and landed on her right shoulder. Patient continues to right shoulder pain. She reports she did hit her head but is not on blood thinners and does not have a headache or neck pain. Patient endorses having mild diarrhea over the last 3 days. She has also had decreased p.o. intake. Patient's family member reports she has had no mental status changes. She denies any neck pain, chest pain, shortness of breath, recent fevers, signs/ symptoms of infection. Patient does endorse a history of diabetes. GENERAL: Well-appearing, well-nourished, and in no acute distress. HEAD: Normocephalic, atraumatic. CHEST: Clear to auscultation. ?No respiratory distress. HEART: Regular rate and rhythm.? NEURO: ?Alert and oriented x3. Shoulder pain with any small amount of manipulation of R shoulder joint. Patient screened in triage and initial orders placed.? ?Additional care and disposition to be based upon?diagnostic testing and treatment. <Shannon Newton APRN - Last Filed: 07/21/24 15:03> Focused HPI: patient is an 83-year-old female who presents to the ER with with right shoulder pain and weakness. Patient reports she started feeling weak and low energy approximately 3 days ago. She ended up falling she was walking up the steps and landed on her right shoulder. Patient continues to right shoulder pain. She reports she did not hit her head, is not on blood thinners and does not have a headache or neck pain. Patient endorses having mild diarrhea over the last 3 days. She has also had decreased p.o. intake. Patient's family member reports she has had no mental status changes. She denies any neck pain, chest pain, shortness of breath, recent fevers, signs/ symptoms of infection. Patient does endorse a history of diabetes. GENERAL: Well-appearing, well-nourished, and in no acute distress. HEAD: Normocephalic, atraumatic. CHEST: Clear to auscultation. ?No respiratory distress. HEART: Regular rate and rhythm.? NEURO: ?Alert and oriented x3. Shoulder pain with any small amount of manipulation of R shoulder joint. Patient screened in triage and initial orders placed.? ?Additional care and disposition to be based upon?diagnostic testing and treatment. <Shantelle Mckeon PA-C - Last Filed: 07/21/24 18:13> Related Data Home Medications: Home Medications Medication Instructions Recorded Confirmed vitamins A,C,[id number] 4,296 1 cap PO BID 03/13/22 07/20/24 mcg-226 mg-90 mg capsule (PreserVision AREDS) ascorbic acid (vitamin C) 500 mg 500 mg PO DAILY 10/03/22 07/20/24 capsule levothyroxine 125 mcg tablet 125 mcg PO DAILY 07/20/24 07/20/24 <Shannon Newton APRN - Last Filed: 07/21/24 15:03> Allergies/Adverse Reactions: Allergies Allergy/AdvReac Type Severity Reaction Status Date / Time No Known Allergies Allergy Verified 07/16/24 15:02 <Shannon Newton APRN - Last Filed: 07/21/24 15:03> Review of Systems Review of Systems: CONSTITUTIONAL: Denies fever CARDIOVASCULAR: Denies chest pain, or edema. RESPIRATORY: Denies cough or dyspnea. GASTROINTESTINAL: Reports abdominal pain, and diarrhea. MUSCULOSKELETAL: Reports joint pain, and myalgia. NEUROLOGIC: Denies numbness, or weakness. <Shantelle Mckeon PA-C - Last Filed: 07/21/24 18:13> All systems reviewed & are unremarkable except as noted in HPI and below <Shantelle Mckeon PA-C - Last Filed: 07/21/24 18:13> PMFSH Past Medical History Medical History: Medical History Anxiety disorder, unspecified Benign essential HTN Depression Diabetic nephropathy Diabetic peripheral neuropathy Diastolic dysfunction Femoral neck fracture Hypothyroidism Lumbar spondylosis Mixed hyperlipidemia Moderate mitral valve regurgitation Pulmonary hypertension Type 2 diabetes mellitus without complications <Shannon Newton APRN - Last Filed: 07/21/24 15:03> Surgical History Surgical History: Surgical History History of tubal ligation Hx of appendectomy Status post open reduction with internal fixation of fracture (~2021) Left wrist fracture and 5th metatarsal fracture <Shannon Newton APRN - Last Filed: 07/21/24 15:03> Family History Family History: Family History Father Family history of cardiovascular disease Mother Family history of cardiovascular disease Diabetes mellitus Sibling Family history of malignant neoplasm of cervix <Shannon Newton APRN - Last Filed: 07/21/24 15:03> Social History Social History: Social History (Updated 07/21/24 @ 08:39 by Adali Moy DO) Social History: Code status: DNR/DNI Surrogate decision maker: Faith Castro (daughter) Smoking packs per day: 0.5 Smoking cigarettes per day: 10.0 Years smoked: 35 Smoking pack-years: 17.50 Smoking status: Former smoker Second hand tobacco smoke exposure: No Additional smoking assessment comments: PT STATE SMOKED YEARS & YEARS AGO , UNALBE TO RECALL HOW MUCH OR HOW LONG Alcohol intake: never Substance use: never Do You Feel Safe in your Home?: Yes Lack of Transportation: No Lack of Food: Never True Current Housing: I Have Housing Concerned About Future Housing: No Difficulty Paying Gas/Electric Bills: No Difficulty Paying for Meds: No Currently Unemployed: No Education: High School Diploma/GED Difficulty w/ Childcare or Family Care: No Living arrangements: alone Occupation/Education: retired Gender identity (if verbalized by the patient): Female Spiritual care concerns: No <Shannon Newton APRN - Last Filed: 07/21/24 15:03> Exam Narrative: GENERAL: Elderly, well-nourished, and in no acute distress. HEAD: Normocephalic, atraumatic. EYES: PERRLA and EOMI. ENT: Nares clear, no rhinorrhea or epistaxis. Mucous membranes moist. Oropharynx without tonsillar hypertrophy exudate or other lesions. Bilateral TMs pearly kendall non-bulging NECK: Supple. No adenopathy or masses. CHEST: No respiratory distress. Rales in the bilateral lower lobes. No wheezes or rhonchi HEART: Regular rate and rhythm. No murmur heard. Normal peripheral pulses. ABDOMEN: Soft, nontender, nondistended, normal active bowel sounds. EXTREMITIES: Normal range of motion. No edema or obvious deformity. SKIN: Warm, dry, no rash. NEURO: No focal deficits. Alert and oriented x3. CN II-XII grossly intact PSYCH: Normal mood and affect <Shantelle Mckeon PA-C - Last Filed: 07/21/24 18:13> Course Consultations Consultation #1: Spoke with hospitalist about patient and workup who accepts admit <Shantelle Mckeon PA-C - Last Filed: 07/21/24 18:13> Date: 07/20/24 <Shantelle Mckeon PA-C - Last Filed: 07/21/24 18:13> Vital Signs Vital signs: Vital Signs Temperature 97.4 F L 07/20/24 15:01 Pulse Rate 75 07/20/24 15:01 Respiratory Rate 19 07/20/24 15:01 Blood Pressure 143/67 H 07/20/24 15:01 Pulse Oximetry 99 07/20/24 15:01 Temperature 98.4 F 07/21/24 16:00 Pulse Rate 76 07/21/24 18:00 Respiratory Rate 2 L 07/21/24 16:00 Blood Pressure 172/78 H 07/21/24 16:00 Pulse Oximetry 98 07/21/24 16:00 Oxygen Delivery Room Air 07/21/24 16:00 Fraction of Inspired Oxygen 21 07/21/24 08:10 <Shannon Newton APRN - Last Filed: 07/21/24 15:03> Vital Signs Temperature 97.4 F L 07/20/24 15:01 Pulse Rate 75 07/20/24 15:01 Respiratory Rate 19 07/20/24 15:01 Blood Pressure 143/67 H 07/20/24 15:01 Pulse Oximetry 99 07/20/24 15:01 Temperature 98.4 F 07/21/24 16:00 Pulse Rate 76 07/21/24 18:00 Respiratory Rate 2 L 07/21/24 16:00 Blood Pressure 172/78 H 07/21/24 16:00 Pulse Oximetry 98 07/21/24 16:00 Oxygen Delivery Room Air 07/21/24 16:00 Fraction of Inspired Oxygen 21 07/21/24 08:10 <Shantelle Mckeon PA-C - Last Filed: 07/21/24 18:13> MDM - Extremity Injury (Upper) MDM Narrative Medical decision making narrative: Patient presents to the ER for generalized weakness, reporting a fall with shoulder injury. She is afebrile and nontoxic appearing. Her vitals are stable. CBC with leukocytosis to 11.6. Metabolic panel with some evidence of deh ydration. Chest x-ray showing possible pneumonia as well as interstitial edema. BNP is greater than 30,000, although patient does clinically seem dry. Baseline troponin elevated at 0.171, this did down trend. She is not having any chest pain. Right shoulder x-ray without acute osseous abnormalities. Influenza, RSV and COVID screens are negative. Patient and family updated on workup and recommendation for admission. Spoke with hospitalist about patient and workup who accepts admit <Shantelle Mckeon PA-C - Last Filed: 07/21/24 18:13> Differential Diagnosis Differential diagnosis: Likely dislocation of shoulder and other (shoulder sprain, contusion, proximal humerus fracture, viral syndrome, dehydration, electrolyte derangement, UTI, pneumonia) <Shantelle Mckeon PA-C - Last Filed: 07/21/24 18:13> Lab Data Attestation: I reviewed the patient's lab results. <Shantelle Mckeon PA-C - Last Filed: 07/21/24 18:13> Result diagrams: 07/21/24 04:24 07/21/24 04:25 <Shannon Newton APRN - Last Filed: 07/21/24 15:03> Labs: Lab Results 07/20/24 Range/Units 16:29 WBC 14.2 H (4.5-10.0) K/mm3 RBC 3.72 L (4.2-5.4) M/mm3 Hgb 11.4 L D (12.0-15.0) g/dL Hct 35.0 L (37.0-47.0) % MCV 94.1 (80-100) fl MCH 30.6 (26-34) pg MCHC 32.6 (32-36) g/dl RDW 14.7 H (11.5-14.5) % Plt Count 127 L (150-375) k/mm3 MPV 11.0 H (7.4-10.4) fl Immature Gran % (Auto) 0.2 (0-0.5) % Neut % (Auto) 91.1 H (45.5-73.1) % Lymph % (Auto) 3.2 L (18.3-44.2) % [place] % (Auto) 4.8 (2.6-8.5) % Eos % (Auto) 0.1 (0-4.4) % Baso % (Auto) 0.6 (0.2-1.2) % Lymph # (Auto) 0.46 L (0.9-3.2) K/mm3 [place] # (Auto) 0.7 H (0.1-0.6) K/mm3 Eos # (Auto) 0.0 (0-0.3) K/mm3 Baso # (Auto) 0.1 (0.0-0.1) K/mm3 Abs Immat Gran (auto) 0.03 (0.00-0.031) K/mm3 Absolute Neuts (auto) 13.0 H (1.3-6.7) K/mm3 Absolute Nucleated RBC 0.000 (0.0-0.012) K/mm3 Nucleated RBC % 0.0 (0.0-0.2) % PT 19.0 H (11.1-14.7) Seconds INR 1.6 APTT 34.8 (22.3-36.8) Seconds Sodium 129 L (137-145) mmol/L Potassium 4.1 (3.4-5.0) mmol/L Chloride 99 (98-107) mmol/L Carbon Dioxide 21 L (22-30) mmol/L Anion Gap 9 (4-12) mmol/L BUN 45 H D (7-17) mg/dL Creatinine 1.10 H (0.7-1.0) mg/dL Estim Creat Clear Calc Not Reportable Estimated GFR 47 L (59 - ) Glucose 239 H (65-110) mg/dL Calcium 9.2 (8.4-10.2) mg/dL Magnesium 1.6 (1.6-2.3) mg/dL Total Bilirubin 2.2 H (0.2-1.3) mg/dL AST 37 H (14-36) U/L ALT 30 (6-35) U/L Alkaline Phosphatase 107 (38-126) U/L Troponin I 0.171 H* (0.000-0.034) ng/mL NT-Pro-B Natriuret Pep > 51407 H (19.9-100) pg/mL Total Protein 6.0 L (6.3-8.2) g/dL Albumin 3.1 L (3.5-5.1) g/dL Influenza A (RT-PCR) Negative (Negative) Influenza B (RT-PCR) Negative (Negative) RSV (RT-PCR) Negative (Negative) SARS-CoV-2 RNA (RT-PCR) Negative (Negative) <Shannon Newton, FACTORY ENGINEER - Last Filed: 07/21/24 15:03> Lab Results 07/20/24 Range/Units 16:29 WBC 14.2 H (4.5-10.0) K/mm3 RBC 3.72 L (4.2-5.4) M/mm3 Hgb 11.4 L D (12.0-15.0) g/dL Hct 35.0 L (37.0-47.0) % MCV 94.1 (80-100) fl MCH 30.6 (26-34) pg MCHC 32.6 (32-36) g/dl RDW 14.7 H (11.5-14.5) % Plt Count 127 L (150-375) k/mm3 MPV 11.0 H (7.4-10.4) fl Immature Gran % (Auto) 0.2 (0-0.5) % Neut % (Auto) 91.1 H (45.5-73.1) % Lymph % (Auto) 3.2 L (18.3-44.2) % [place] % (Auto) 4.8 (2.6-8.5) % Eos % (Auto) 0.1 (0-4.4) % Baso % (Auto) 0.6 (0.2-1.2) % Lymph # (Auto) 0.46 L (0.9-3.2) K/mm3 [place] # (Auto) 0.7 H (0.1-0.6) K/mm3 Eos # (Auto) 0.0 (0-0.3) K/mm3 Baso # (Auto) 0.1 (0.0-0.1) K/mm3 Abs Immat Gran (auto) 0.03 (0.00-0.031) K/mm3 Absolute Neuts (auto) 13.0 H (1.3-6.7) K/mm3 Absolute Nucleated RBC 0.000 (0.0-0.012) K/mm3 Nucleated RBC % 0.0 (0.0-0.2) % PT 19.0 H (11.1-14.7) Seconds INR 1.6 APTT 34.8 (22.3-36.8) Seconds Sodium 129 L (137-145) mmol/L Potassium 4.1 (3.4-5.0) mmol/L Chloride 99 (98-107) mmol/L Carbon Dioxide 21 L (22-30) mmol/L Anion Gap 9 (4-12) mmol/L BUN 45 H D (7-17) mg/dL Creatinine 1.10 H (0.7-1.0) mg/dL Estim Creat Clear Calc Not Reportable Estimated GFR 47 L (59 - ) Glucose 239 H (65-110) mg/dL Calcium 9.2 (8.4-10.2) mg/dL Magnesium 1.6 (1.6-2.3) mg/dL Total Bilirubin 2.2 H (0.2-1.3) mg/dL AST 37 H (14-36) U/L ALT 30 (6-35) U/L Alkaline Phosphatase 107 (38-126) U/L Troponin I 0.171 H* (0.000-0.034) ng/mL NT-Pro-B Natriuret Pep > 91123 H (19.9-100) pg/mL Total Protein 6.0 L (6.3-8.2) g/dL Albumin 3.1 L (3.5-5.1) g/dL Influenza A (RT-PCR) Negative (Negative) Influenza B (RT-PCR) Negative (Negative) RSV (RT-PCR) Negative (Negative) SARS-CoV-2 RNA (RT-PCR) Negative (Negative) <Shantelle Mckeon PA-C - Last Filed: 07/21/24 18:13> Imaging Data Radiologist's impression: ITS Impressions Shoulder X-Ray 07/20/24 16:39 IMPRESSION: 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 No acute osseous abnormality. Chest X-Ray 07/20/24 18:03 IMPRESSION: Subsegmental left basilar atelectasis/consolidation. Moderate interstitial edema versus respiratory bronchiolitis. <Shantelle Mckeon PA-C - Last Filed: 07/21/24 18:13> Critical Care Time Critical Care Time Critical Care Time: Yes <Shantelle Mckeon PA-C - Last Filed: 07/21/24 18:13> Total Critical Care Time: 35 <Shantelle Mckeon PA-C - Last Filed: 07/21/24 18:13> Discharge Plan Discharge Clinical Impression: Ground-level fall Pneumonia Qualifiers: Pneumonia type: due to unspecified organism Laterality: left Lung location: lower lobe of lung Qualified Code(s): J18.9 - Pneumonia, unspecified organism <Shannon Newton APRN - Last Filed: 07/21/24 15:03> Patient Disposition: Still a Patient <Shannon Newton APRN - Last Filed: 07/21/24 15:03> Condition: Improved <Shannon Newton APRN - Last Filed: 07/21/24 15:03>
[2024-07-20 16:35] LABS: Basophils Absolute Auto 0.1 K/mm3 (0.0-0.1); Basophils Percent Auto 0.6 % (0.2-1.2); Eosinophils Percent Auto 0.1 % (0-4.4); Hemoglobin 11.4 g/dL (12.0-15.0); Immature Granulocyte Absolute 0.03 K/mm3 (0.00-0.031); Immature Granulocyte Percent A 0.2 % (0-0.5); Lymphocytes Absolute Auto 0.46 K/mm3 (0.9-3.2); Lymphocytes Percent Auto 3.2 % (18.3-44.2); Mean Corpuscular HGB Conc 32.6 g/dl (32-36); Mean Corpuscular Hemoglobin 30.6 pg (26-34); Mean Corpuscular Volume 94.1 fl (80-100); Monocytes Absolute Auto 0.7 K/mm3 (0.1-0.6); Monocytes Percent Auto 4.8 % (2.6-8.5); Neutrophils Percent Auto 91.1 % (45.5-73.1); Platelet Count Result 127 k/mm3 (150-375); Red Blood Count 3.72 M/mm3 (4.2-5.4); Red Cell Distribution Width 14.7 % (11.5-14.5); White Blood Count 14.2 K/mm3 (4.5-10.0)
[2024-07-20 16:48] LABS: INR 1.6; Partial Thromboplastin Time 34.8 Seconds (22.3-36.8)
[2024-07-20 16:51] LABS: Albumin Level 3.1 g/dL (3.5-5.1); Alkaline Phosphatase 107 U/L (38-126); Anion Gap 9 mmol/L (4-12); Aspartate Amino Transferase 37 U/L (14-36); Bilirubin,Total 2.2 mg/dL (0.2-1.3); Blood Urea Nitrogen 45 mg/dL (7-17); Calcium 9.2 mg/dL (8.4-10.2); Carbon Dioxide 21 mmol/L (22-30); Chloride 99 mmol/L (98-107); Estimated Glomerular Filt Rate 47; Glucose 239 mg/dL (65-110); Magnesium 1.6 mg/dL (1.6-2.3); Potassium 4.1 mmol/L (3.4-5.0); Sodium 129 mmol/L (137-145)
[2024-07-20 17:06] LABS: Troponin I 0.171 ng/mL (0.000-0.034)
[2024-07-20 17:07] LABS: NT Pro B Type Natriuretic Pept > 30000 pg/mL (19.9-100)
[2024-07-20 17:12] LABS: Influenza A QL RT-PCR Negative (Negative); Influenza B QL RT-PCR Negative (Negative); RSV RNA, RT-PCR Negative (Negative); SARS-CoV-2 RNA PCR Negative (Negative)
[2024-07-20 17:15] LABS: Alanine Aminotransferase 30 U/L (6-35)
[2024-07-20 18:31] VITALS: BP 146/71; PULSE 77; RESP 28; O2SAT 97
[2024-07-20] MEDS: SODIUM CHLORIDE 0.9% IV 500 ML 999 ML IV CONT (20:12)
[2024-07-20] MEDS: ACETAMINOPHEN 500 MG TABLET 1000 MG PO (20:21)
--- NOTE | 2024-07-20 20:38 | PC.NURSE ---
2nd set of cultures take from left AC from this RN. Tyree device used
[2024-07-20 21:00] VITALS: PULSE 68; RESP 17; O2SAT 99
--- NOTE | 2024-07-20 21:21 | PC.NURSE ---
received care and report from DONAL Underwood @[id number]. all questions answered.
[2024-07-20 21:45] VITALS: BP 143/74; PULSE 71; RESP 21; O2SAT 99
--- NOTE | 2024-07-20 21:48 | ECG_ITS ---
Test Date: 2024-07-20 21:58:37 Measurements Intervals [place] Rate: 68 P: 0 NC: 0 QRS: 16 QRSD: 98 T: -28 QT: 395 QTc: 421 Interpretive Statements ATRIAL FIBRILLATION WITH VENTRICULAR PREMATURE COMPLEX LEFT VENTRICULAR HYPERTROPHY WITH ST-T CHANGE ANTERIOR INFARCT, AGE INDETERMINATE CONSIDER INFERIOR INFARCT, AGE INDETERMINATE BORDERLINE ST-T WAVE ABNORMALITY- LATERAL LEADS BASELINE ARTIFACT- I, II, AVR ABNORMAL ECG Compared to ECG 07/20/2024 16:27:50 NO SIGNIFICANT CHANGE Electronically Signed On 07-21-2024 06:22:47 AGRICULTURAL SYSTEMS SPECIALIST by Darien Robertson D.O.
[2024-07-20] MEDS: AZITHROMYCIN 500 MG/NS 250 ML 500 MG/250 ML BAG 250 MG IVPB (21:52)
[2024-07-20 22:00] VITALS: TEMP 36.9
--- NOTE | 2024-07-20 22:31 | PC.NURSE ---
Admission report given to DONAL Shukla.
[2024-07-20 22:38] LABS: Troponin I 0.166 ng/mL (0.000-0.034)
[2024-07-20 22:41] VITALS: BP 150/60; PULSE 77; RESP 20; TEMP 36.6; O2SAT 99; BMI 23.0
[2024-07-21] VITALS (23 sets, daily range): BP systolic 143–179; BP diastolic 59–96; PULSE 68–102; RESP 2–24; TEMP 36.9–37.6; O2SAT 95–99; BMI 23.0
--- NOTE | 2024-07-21 | ECHO_ITS ---
Patient Info Name: Beverly Castro Age: 83 years : 1940 Gender: Female Ht: 68 in Wt: 151 lbs BSA: 1.82 m2 HR: 84 bpm BP: 179 / 96 mmHg Heart Rhythm: Atrial Fibrillation Technical Quality: Good Exam Date: 07/21/2024 2:01 PM Exam Location: Echo Lab Patient Status: Outpatient Admit Date: 07/20/2024 Staff Ordering Physician: Darien Robertson DO Managed Care Analyst: Amber Bernabe RDCS Attending Provider: Adali Moy DO Referring Physician: Marcelo MARTINEZ; Exam Type: CA echo doppler color flow Study Info Indications - elevated troponin, a fib Complete two-dimensional, color flow and Doppler transthoracic echocardiogram is performed. Summary 1. Complete two-dimensional, color flow and Doppler transthoracic echocardiogram is performed. 2. Left ventricular chamber dimension is normal. 3. Left ventricular systolic function is normal, estimated at 60-65%. 4. There is moderate concentric increased left ventricular wall thickness. 5. The left ventricular diastolic function is abnormal. 6. E/e' 32 is significantly elevated. 7. Atrial fibrillation. 8. Left atrial chamber dimension is moderately enlarged. 9. Right atrial chamber dimension is moderately enlarged. 10. There is mild aortic valve sclerosis. 11. There is mild aortic valve regurgitation. 12. The mitral valve has mildly calcified leaflets. 13. There is moderate mitral valve regurgitation. 14. There is moderate tricuspid valve regurgitation. 15. Moderate pulmonary hypertension, estimated pulmonary arterial systolic pressure is 51 mmHg. 16. There is mild pulmonic regurgitation. Left Ventricle E/e' 32 is significantly elevated. Atrial fibrillation. Left ventricular chamber dimension is normal. Left ventricular systolic function is normal, estimated at 60-65%. There is moderate concentric increased left ventricular wall thickness. The left ventricular diastolic function is abnormal. Right Ventricle Right ventricular systolic function is normal and with normal TAPSE 3.1 cm. Right ventricular chamber dimension is normal. Left Atria Left atrial chamber dimension is moderately enlarged. Right Atria Right atrial chamber dimension is moderately enlarged. Aortic Valve The aortic valve is trileaflet. There is mild aortic valve sclerosis. There is no aortic valve stenosis. There is mild aortic valve regurgitation. Pulmonic Valve There is mild pulmonic regurgitation. Mitral Valve The mitral valve has mildly calcified leaflets. There is no mitral valve stenosis. There is moderate mitral valve regurgitation. Tricuspid Valve There is moderate tricuspid valve regurgitation. Moderate pulmonary hypertension, estimated pulmonary arterial systolic pressure is 51 mmHg. Pericardium/Pleural There is no pericardial effusion. Inferior Vena Cava Normal inferior vena cava with >50% collapse upon inspiration consistent with normal right atrial pressure, 5 mmHg. Aorta The aortic root size at the sinus of Valsalva is normal. Left Ventricular Outflow Tract Name Value Normal LVOT 2D LVOT Diameter 2.0 cm LVOT Doppler LVOT Peak Gradient 5 mmHg LVOT Mean Gradient 3 mmHg LVOT VTI 20 cm LVOT VTI/AV VTI Ratio 1.0 LVOT Stroke Volume 60 ml LVOT CO 4.5 l/min LVOT CI 2.5 l/min/m2 Pulmonic Valve Name Value Normal PV Regurgitation Doppler MT Peak End Diastolic Velocity 96 cm/s Mitral Valve Name Value Normal MV Doppler MV Decel [place] 641 cm/s2 MV PHT 54 ms MV Area (PHT) 4.0 cm2 4.0-5.0 MV Regurgitation Doppler MR Peak Gradient 68 mmHg MV Diastolic Function MV E Peak Velocity 120 cm/s MV A Peak Velocity 85 cm/s MV E/A 1.4 MV Decel Time 188 ms MV Annular TDI MV E/e' (Septal) 58.9 <=8.0 MV E/e' (Lateral) 22.4 <=8.0 MV E/e' (Average) 40.6 Tricuspid Valve Name Value Normal TV Regurgitation Doppler TR Peak Velocity 341 cm/s TR Peak Gradient 46 mmHg Estimated PAP/RSVP RA Pressure 5 mmHg <=5 PA Systolic Pressure 51 mmHg <36 RV Systolic Pressure 51 mmHg <36 Aortic Valve Name Value Normal AV Doppler AV Peak Velocity 115 cm/s AV Peak Gradient 5 mmHg AV Mean Gradient 3 mmHg AV VTI 20 cm AV Area (Cont Eq VTI) 3.0 cm2 >=3.0 AV Area (Cont Eq Leif) 2.8 cm2 AV Regurgitation 2D LVOT Area 3.0 cm2 Ventricles Name Value Normal LV Dimensions 2D/MM IVS Diastolic Thickness (2D) 1.6 cm 0.6-1.0 LVID Diastole (2D) 5.1 cm 3.8-5.2 LVIW Diastolic Thickness (2D) 1.3 cm 0.6-0.9 LVID Systole (2D) 3.6 cm 2.2-3.5 LVOT Diameter 2.0 cm LV Mass (2D Cubed) 326.28 g 67.00-162.00 LV Mass Index (2D Cubed) 180 g/m2 43-95 Relative Wall Thickness (2D) 0.52 LV Fractional Shortening/Ejection Fraction 2D/MM LV Fractional Shortening (2D) 29 % 27-45 LV EF (2D Teicholz) 56 % 54-74 LV Diastolic Volume (4C MOD) 84 ml LV EF (4C MOD) 64 % LV Diastolic Volume (2C MOD) 144 ml LV EF (2C MOD) 68 % LV Diastolic Volume (BP MOD) 113 ml 46-106 LV Diastolic Volume Index (BP MOD) 62 ml/m2 29-61 LV Systolic Volume (BP MOD) 38 ml 14-42 LV Systolic Volume Index (BP MOD) 21 ml/m2 8-24 LV EF (BP MOD) 66 % 54-74 LV Diastolic Length (4C) 7.9 cm LV Systolic Length (4C) 5.8 cm LV Stroke Volume (4C MOD) 54 ml Atria Name Value Normal LA Dimensions LA Volume (4C A-L) 62 ml LA Volume (BP A-L) 65 ml RA Dimensions RA Area (4C) 21.2 cm2 <=18.0 Report Signatures
--- NOTE | 2024-07-21 01:28 | ADMGEN ---
This patient, Beverly Castro, was admitted to IMU Room 201-01. Patient/family oriented to hospital policies and general routines including ID bracelet, bed and alarms, visiting hours, pain management, procedures, bathroom and other care routines, personal items, smoking policy, room service/diet, and visiting hours. Information on how to activate the Rapid Response Team has been discussed. Patient/Family are encouraged to report perceived risks to care and to ask questions if they do not understand what they are told or what they should do.
--- NOTE | 2024-07-21 04:09 | PM.IMHP ---
H&P: HPI History of Present Illness Date/Time: 07/21/24 05:15 Chief Complaint: Right shoulder pain after falling Narrative: 83-year-old female known to me from prior hospitalization with past medical history of essential hypertension, hyperlipidemia, diabetes, diastolic dysfunction, mild pulmonary hypertension, moderate mitral valve regurgitation and hypothyroidism who presented to the ER after having intractable right shoulder pain after a fall. Majority information comes from review of past medical records, ER physician report and nursing report. The patient was lethargic at the time my evaluation and had to be woke up several times to answer questions. The patient reports severe 10/10 pain in her right shoulder but this does not seem to be reproducible on palpation. However patient guards the arm before I can attempt range of motion. Imaging in the ER did not demonstrate evidence of fracture. Patient's daughter reported the staff that the patient has had increasing number of falls in the patient states that she lives in a split-level home. The patient had a very flat affect and was answering questions in 1-2 word sentences. Patient's demeanor had changed compared to when I had seen the patient in December for hip fracture. On further questioning the patient does admit that she is quite depressed due to her decreased ability to take care of herself and her increasing number of falls. She states that she does not intend to hurt herself. She would not answer any further questions upon further questioning and avoided further eye contact. Imaging in the ER suggest patient may have pneumonia with associated leukocytosis and intermittent tachypnea. The patient's hemoglobin improved to 11.4 compared to prior values. 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 Patient reports just being generally fatigued and weak. She denies any dizziness, lightheadedness and denies sitting head or having any loss of consciousness. Imaging in the ER demonstrated no evidence of intercranial process, cervical fracture or fracture of the arm or shoulder. However did demonstrate marked osteoarthritis of the AC joint. The patient's family had reported the patient had been having diarrhea. The patient did not confirm the symptoms with me. She did report chronic low appetite and no desire to eat which she partially attributes to her mood. Review of Systems Review of Systems: Unable to obtain full review of systems is patient repeatedly fell asleep during evaluation. ON LICENSE OF [facility] Past Medical History Medical History Anxiety disorder, unspecified Benign essential HTN Depression Diabetic nephropathy Diabetic peripheral neuropathy Diastolic dysfunction Femoral neck fracture Hypothyroidism Lumbar spondylosis Mixed hyperlipidemia Moderate mitral valve regurgitation Pulmonary hypertension Type 2 diabetes mellitus without complications Surgical History Surgical History History of tubal ligation Hx of appendectomy Status post open reduction with internal fixation of fracture (~2021) Left wrist fracture and 5th metatarsal fracture Family History Family History Father Family history of cardiovascular disease Mother Family history of cardiovascular disease Diabetes mellitus Sibling Family history of malignant neoplasm of cervix Social History Social History (Updated 07/21/24 @ 08:39 by Adali Moy DO) Social History: Code status: DNR/DNI Surrogate decision maker: Faith Castro (daughter) Smoking packs per day: 0.5 Smoking cigarettes per day: 10.0 Years smoked: 35 Smoking pack-years: 17.50 Smoking status: Former smoker Second hand tobacco smoke exposure: No Additional smoking assessment comments: PT STATE SMOKED YEARS & YEARS AGO , UNALBE TO RECALL HOW MUCH OR HOW LONG Alcohol intake: never Substance use: never Do You Feel Safe in your Home?: Yes Lack of Transportation: No Lack of Food: Never True Current Housing: I Have Housing Concerned About Future Housing: No Difficulty Paying Gas/Electric Bills: No Difficulty Paying for Meds: No Currently Unemployed: No Education: High School Diploma/GED Difficulty w/ Childcare or Family Care: No Living arrangements: alone Occupation/Education: retired Gender identity (if verbalized by the patient): Female Spiritual care concerns: No Meds Home Medications and Allergies Home Medications Medication Instructions Recorded Confirmed Type vitamins A,C,W-dmzk-jzatzx 4,296 1 cap PO BID 03/13/22 07/20/24 History mcg-226 mg-90 mg capsule (PreserVision AREDS) aspirin 81 mg tablet,delayed 81 mg PO DAILY #90 tabs 07/29/22 07/20/24 Rx release (Adult Low Dose Aspirin) ascorbic acid (vitamin C) 500 mg 500 mg PO DAILY 10/03/22 07/20/24 History capsule Walker #1 ea 06/03/23 07/20/24 Rx blood sugar diagnostic (OneTouch #100 strips 09/09/23 07/20/24 Rx Ultra Test strips) glimepiride 4 mg tablet 4 mg PO QAM #90 tabs 09/15/23 07/20/24 Rx fluoxetine 10 mg capsule 10 mg PO DAILY #90 caps 01/06/24 07/20/24 Rx metformin 1,000 mg tablet 1,000 mg PO BID #180 tabs 01/06/24 07/20/24 Rx lovastatin 40 mg tablet 40 mg PO QPM #90 tabs 03/05/24 07/20/24 Rx lisinopril 20 mg tablet 20 mg PO BID #180 tabs 07/16/24 07/20/24 Rx levothyroxine 125 mcg tablet 125 mcg PO DAILY 07/20/24 07/20/24 History Allergies Allergy/AdvReac Type Severity Reaction Status Date / Time No Known Allergies Allergy Verified 07/16/24 15:02 Vital Signs Vital Signs - 24 hr 07/20/24 15:01 07/20/24 18:31 07/20/24 21:00 Temperature 97.4 F L Pulse Rate 75 77 68 Respiratory Rate 19 28 H 17 Blood Pressure 143/67 H 146/71 H Pulse Oximetry 99 97 99 Oxygen Delivery 07/20/24 21:45 07/20/24 22:00 07/20/24 22:41 Temperature 98.4 F 97.9 F Pulse Rate 71 77 Respiratory Rate 21 H 20 Blood Pressure 143/74 H 150/60 H Pulse Oximetry 99 99 Oxygen Delivery 07/21/24 00:31 07/21/24 00:00 07/21/24 00:00 Temperature 98.9 F Pulse Rate 72 68 68 Respiratory Rate 20 20 Blood Pressure 156/62 H Pulse Oximetry 99 99 Oxygen Delivery Room Air 07/21/24 02:00 07/21/24 03:56 07/21/24 03:56 Temperature Pulse Rate 78 68 68 Respiratory Rate 20 Blood Pressure Pulse Oximetry 99 Oxygen Delivery Room Air Exam Narrative: Weight 68.6 kg BMI 23 Const: Other: No acute distress, lying in bed with head of bed at 20? HENMT: Other: Head is normocephalic atraumatic, mucous membranes are tacky, no oral pharyngeal erythema Eyes: Other: Pupils are equal and reactive, extraocular movements seem to be intact but exam limited Neck: Other: No JVD, supple Resp: Other: Clear to auscultation bilaterally, no increased work of breathing Cardio: Other: Regular rate, regular rhythm, 2+ bilateral radial pedal pulses GI: Other: Soft, nontender, nondistended, positive bowel sounds Skin: Other: Generalized pallor, non jaundice, no large areas of bruising to posterior of skin Neuro: Other: Patient is alert oriented person place and time, speech is clear but limited responses, no localizing deficits noted during the course of limited exam Extrem: Other: Tenderness over the right AC joint and proximal humerus Psych: Other: Flat affect, depressed mood, avoids eye contact H&P: Results Labs Labs: Laboratory Tests 07/20/24 16:29 07/20/24 16:29 07/20/24 07/20/24 16:29 21:29 WBC 14.2 H RBC 3.72 L Hgb 11.4 L D Hct 35.0 L MCV 94.1 MCH 30.6 MCHC 32.6 RDW 14.7 H Plt Count 127 L MPV 11.0 H Immature Gran % (Auto) 0.2 Neut % (Auto) 91.1 H Lymph % (Auto) 3.2 L Ralls % (Auto) 4.8 Eos % (Auto) 0.1 Baso % (Auto) 0.6 Lymph # (Auto) 0.46 L Ralls # (Auto) 0.7 H Eos # (Auto) 0.0 Baso # (Auto) 0.1 Abs Immat Gran (auto) 0.03 Absolute Neuts (auto) 13.0 H Absolute Nucleated RBC 0.000 Nucleated RBC % 0.0 PT 19.0 H INR 1.6 APTT 34.8 Sodium 129 L Potassium 4.1 Chloride 99 Carbon Dioxide 21 L Anion Gap 9 BUN 45 H D Creatinine 1.10 H Estim Creat Clear Calc Not Reportable Estimated GFR 47 L Glucose 239 H Calcium 9.2 Magnesium 1.6 Total Bilirubin 2.2 H AST 37 H ALT 30 Alkaline Phosphatase 107 Troponin I 0.171 H* 0.166 H* NT-Pro-B Natriuret Pep > 52364 H Total Protein 6.0 L Albumin 3.1 L Influenza A (RT-PCR) Negative Influenza B (RT-PCR) Negative RSV (RT-PCR) Negative SARS-CoV-2 RNA (RT-PCR) Negative Impressions Shoulder X-Ray 07/20/24 16:39 IMPRESSION: 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 No acute osseous abnormality. Chest X-Ray 07/20/24 18:03 IMPRESSION: Subsegmental left basilar atelectasis/consolidation. Moderate interstitial edema versus respiratory bronchiolitis. Assessment and Plan Assessment and plan (1) Pneumonia: Qualifiers: Laterality: left Lung location: lower lobe of lung Pneumonia type: due to unspecified organism Qualified Code(s): J18.9 - Pneumonia, unspecified organism Code(s): J18.9 - Pneumonia, unspecified organism Status: Acute (2) Fall: Qualifiers: Encounter type: initial encounter Qualified Code(s): W19.XXXA - Unspecified fall, initial encounter Code(s): W19.XXXA - Unspecified fall, initial encounter Status: Acute (3) Elevated troponin: Code(s): R79.89 - Other specified abnormal findings of blood chemistry Status: Acute (4) Diastolic dysfunction: Code(s): I51.89 - Other ill-defined heart diseases Status: Acute (5) Diarrhea: Qualifiers: Diarrhea type: unspecified type Qualified Code(s): R19.7 - Diarrhea, unspecified Code(s): R19.7 - Diarrhea, unspecified Status: Acute (6) Acute hyponatremia: Code(s): E87.1 - Hypo-osmolality and hyponatremia Status: Acute (7) Acute uremia: Code(s): N19 - Unspecified kidney failure Status: Acute Plan Patient has had progressive weakness and multiple falls. She appears overall the condition. Will request PT and OT evaluation. Patient does have leukocytosis and abnormal x-ray findings with some tachypnea. She had some underlying pneumonia. Patient been started empiric antibiotic therapy with Rocephin and azithromycin. Blood cultures have been obtained and are pending. Given patient's report of loose stools will check urine Legionella antigen. For completeness sake will also check urine pneumococcal antigen. Patient also recently received antibiotics May 25 so will check C diff to rule out infectious colitis. Patient has mild worsening hyponatremia from baseline. Patient did receive 1 L of IV fluids as initially was thought the patient may be hemoconcentrated as she does have tacky mucous membranes and no evidence of peripheral edema or swelling despite a elevated BNP greater than 30,000. Will check urine electrolytes. Nursing staff reports that the patient has urinated but she is completely incontinent of urine. Nursing staff had been unable to obtain a urine specimen with pure wick. As the patient still has not had significant amount of urine output will attempt gentle IV fluid hydration. Patient's BUN has almost doubled from her baseline. Is on certain if this is due to low perfusion from volume status versus heart failure. Will repeat electrolyte panel in a.m. and obtain urine electrolytes as discussed. Patient does have diabetes with hyperglycemia. Will hold the patient's metformin given reported history of diarrhea. Initially I continued glimepiride but given that her a.m. glucoses were down below 150 will hold the patient's glimepiride. Will continue sliding scale insulin with Accu-Cheks a.c. HS and hypoglycemia protocol as needed. Quality VTE Prophylaxis VTE prophylaxis: pharmacologic ordered (Lovenox 30 mg subQ daily.) Hospitalist [facility] Advance Care Plan I have confirmed that the patient's Advanced Care Plan is present, code status is documented, or surrogate decision maker is listed in patient medical record.: Yes Medication Reconciliation I have utilized all available resources to obtain, update and review the patients current medications (includes all prescriptions, OTC, herbals, cannabis, and nutritional supplements).: Yes
[2024-07-21 04:36] LABS: Glucose Point of Care 142 mg/dl (65-105)
[2024-07-21 05:25] LABS: Basophils Absolute Auto 0.1 K/mm3 (0.0-0.1); Basophils Percent Auto 0.5 % (0.2-1.2); Eosinophils Absolute Auto 0.1 K/mm3 (0-0.3); Eosinophils Percent Auto 0.4 % (0-4.4); Hematocrit 34.4 % (37.0-47.0); Hemoglobin 11.4 g/dL (12.0-15.0); Immature Granulocyte Absolute 0.05 K/mm3 (0.00-0.031); Immature Granulocyte Percent A 0.4 % (0-0.5); Lymphocytes Absolute Auto 0.43 K/mm3 (0.9-3.2); Lymphocytes Percent Auto 3.7 % (18.3-44.2); Mean Corpuscular HGB Conc 33.1 g/dl (32-36); Mean Corpuscular Hemoglobin 30.3 pg (26-34); Mean Corpuscular Volume 91.5 fl (80-100); Mean Platelet Volume 11.3 fl (7.4-10.4); Monocytes Absolute Auto 0.7 K/mm3 (0.1-0.6); Monocytes Percent Auto 6.2 % (2.6-8.5); Neutrophils Absolute Auto 10.2 K/mm3 (1.3-6.7); Neutrophils Percent Auto 88.8 % (45.5-73.1); Platelet Count Result 114 k/mm3 (150-375); Red Blood Count 3.76 M/mm3 (4.2-5.4); Red Cell Distribution Width 14.5 % (11.5-14.5); White Blood Count 11.6 K/mm3 (4.5-10.0)
[2024-07-21 05:32] LABS: Alanine Aminotransferase 20 U/L (6-35); Albumin Level 2.6 g/dL (3.5-5.1); Alkaline Phosphatase 102 U/L (38-126); Anion Gap 4 mmol/L (4-12); Aspartate Amino Transferase 28 U/L (14-36); Bilirubin,Total 1.5 mg/dL (0.2-1.3); Blood Urea Nitrogen 43 mg/dL (7-17); Calcium 8.8 mg/dL (8.4-10.2); Carbon Dioxide 24 mmol/L (22-30); Chloride 101 mmol/L (98-107); Estimated CRCL calculation 35 ml/min; Estimated Glomerular Filt Rate 47; Glucose 146 mg/dL (65-110); Potassium 3.9 mmol/L (3.4-5.0); Sodium 129 mmol/L (137-145)
[2024-07-21] MEDS: ACETAMINOPHEN 325 MG TABLET 650 MG PO ×2 (05:56→21:29)
[2024-07-21] MEDS: LEVOTHYROXINE SODIUM 125 MCG TABLET PO (05:56)
[2024-07-21] MEDS: ASCORBIC ACID 500 MG TABLET PO (08:27)
[2024-07-21] MEDS: ASPIRIN 81 MG ENTERIC TABLET PO (08:27)
[2024-07-21] MEDS: FLUoxetine HCL 10 MG CAPSULE PO (08:27)
[2024-07-21] MEDS: GLIMEPIRIDE 2 MG TABLET 4 MG PO (08:27)
[2024-07-21] MEDS: lisinopriL 20 MG TABLET PO ×2 (08:27→17:14)
[2024-07-21] MEDS: OPTI-GEN TAB 1 TABLET PO ×2 (08:28→17:14)
[2024-07-21] MEDS: ENOXAPARIN 40 MG/0.4 ML SYRINGE SUB-Q (08:28)
[2024-07-21] MEDS: LIDOCAINE 5% PATCH 1 PATCH TRANSDERM (08:48)
[2024-07-21 08:59] LABS: Glucose Point of Care 148 mg/dl (65-105)
[2024-07-21] MEDS: SODIUM CHLORIDE 0.9% IV 1,000 ML 70 ML IV CONT (10:15)
--- NOTE | 2024-07-21 10:43 | PCPTNOTE ---
Attempted PT evaluation, pt with nursing at this time for bedside procedure. Will follow.
[2024-07-21 11:24] LABS: Add Urine Microscopic? YES; Appearance Urine Clear (Clear); Bacteria Urine None Seen /hpf; Bilirubin Urine 1+ (Negative); Blood Urine Negative (Negative); Color Urine Dark Yellow (Yellow); Glucose Urine UA Negative (Negative); Ketones Urine Trace mg/dL (Negative); Leukocyte Esterase Ur Negative LEU/UL (Negative); Nitrate Urine Negative (Negative); Protein Urine 2+ mg/dL (Negative); RBC Urine 0-2 /hpf (0-2); Specific Grav Ur 1.029 (1.001-1.035); Squamous Epithelial Cell Urine None Seen /hpf (Few); WBC Urine 0-5 /hpf (0-3); pH Urine 5.5 (5.0-9.0)
[2024-07-21 11:31] LABS: Creatinine Urine 193.2 mg/dL
[2024-07-21 11:33] LABS: Sodium Urine Random < 5 meq/L
[2024-07-21 12:57] LABS: Glucose Point of Care 162 mg/dl (65-105)
--- NOTE | 2024-07-21 13:09 | P.CONCA_ITS ---
Assessment and Plan Assessment and plan (1) PAF (paroxysmal atrial fibrillation): Code(s): I48.0 - Paroxysmal atrial fibrillation Status: Acute Assessment and Plan: Probably due to pneumonia and age. [id number]. Rate is normal. If no invasive procedures anticipated then recommend starting Eliquis or Xarelt o. (2) Pneumonia: Qualifiers: Pneumonia type: due to unspecified organism Laterality: left Lung location: lower lobe of lung Qualified Code(s): J18.9 - Pneumonia, unspecified organism Code(s): J18.9 - Pneumonia, unspecified organism Status: Acute Assessment and Plan: On antibiotics as per hospitalist. (3) Elevated troponin: Code(s): R79.89 - Other specified abnormal findings of blood chemistry Status: Acute Assessment and Plan: Moderately elevated and trending down at peak 0.171. Probably due to pneumonia. Obtain echo. (4) Diastolic dysfunction: Code(s): I51.89 - Other ill-defined heart diseases Status: Acute Assessment and Plan: Gentle hydration to prevent volume overload. (5) Moderate mitral valve regurgitation: Code(s): I34.0 - Nonrheumatic mitral (valve) insufficiency Status: Acute Assessment and Plan: Stable. (6) Benign essential HTN: Code(s): I10 - Essential (primary) hypertension Status: Acute Assessment and Plan: Stable. (7) Mixed hyperlipidemia: Code(s): E78.2 - Mixed hyperlipidemia Status: Acute Assessment and Plan: Check Lipid panel. History of Present Illness History of Present Illness Consult date/time: 07/21/24 13:10 Reason For Visit: Pneumonia Narrative: 83 yr old woman who is my cardiology patient and a patient of Dr. Brandon presents to ER for weakness. She has a history of mitral regurgitation, DM, hypertension, dyslipidemia. Reports she fell on Friday which was 5 days ago and injured her right shoulder and she has a lot of pain there. She had cough with sputum production. She was found to have pneumonia and new onset atrial fibrillation. No fever or chills. She is walking with a walker and has DÍAZ at walking short distance. She does fall 20 times in a year due to balance issues. Denies chest pain, sob, orthopnea, PND, edema, dizziness, palpitations. Previously, she fell and fractured her right hip and had surgery. Cardiovascular Procedures Echo/MUGA:: 11/12/23 Echo: EF 65-70%, mod LVH, mod LAE, mild ROEL, trace AI, mod MR, mild TR, RVSP 42 mmHg. Electrophysiology:: 10/09/23 EKG: Sinus rhythm, LVH with ST-T changes. Review of Systems Review of Systems: All systems reviewed & are unremarkable except as noted in HPI and below Constitutional: Constitutional: Denies chills and Denies fever(s) Cardiovascular: Cardiovascular: Reports as per HPI, Denies chest pain and Denies irregular heart rhythm Respiratory: Respiratory: Reports as per HPI, Reports cough and Reports excessive phlegm production Gastrointestinal: Gastrointestinal: Reports as per HPI and Denies abdominal pain Genitourinary: Genitourinary: Reports as per HPI Musculoskeletal: Musculoskeletal: Reports as per HPI and Reports arthralgias Neurologic: Reports as per HPI, Denies dizziness and Denies syncope [facility] Past Medical History Medical History Anxiety disorder, unspecified Benign essential HTN Depression Diabetic nephropathy Diabetic peripheral neuropathy Diastolic dysfunction Femoral neck fracture Hypothyroidism Lumbar spondylosis Mixed hyperlipidemia Moderate mitral valve regurgitation Pulmonary hypertension Type 2 diabetes mellitus without complications Surgical History Surgical History History of tubal ligation Hx of appendectomy Status post open reduction with internal fixation of fracture (~2021) Left wrist fracture and 5th metatarsal fracture Family History Family History Father Family history of cardiovascular disease Mother Family history of cardiovascular disease Diabetes mellitus Sibling Family history of malignant neoplasm of cervix Social History Social History (Updated 07/21/24 @ 08:39 by Adali Moy DO) Social History: Code status: DNR/DNI Surrogate decision maker: Faith Castro (daughter) Smoking packs per day: 0.5 Smoking cigarettes per day: 10.0 Years smoked: 35 Smoking pack-years: 17.50 Smoking status: Former smoker Second hand tobacco smoke exposure: No Additional smoking assessment comments: PT STATE SMOKED YEARS & YEARS AGO , UNALBE TO RECALL HOW MUCH OR HOW LONG Alcohol intake: never Substance use: never Do You Feel Safe in your Home?: Yes Lack of Transportation: No Lack of Food: Never True Current Housing: I Have Housing Concerned About Future Housing: No Difficulty Paying Gas/Electric Bills: No Difficulty Paying for Meds: No Currently Unemployed: No Education: High School Diploma/GED Difficulty w/ Childcare or Family Care: No Living arrangements: alone Occupation/Education: retired Gender identity (if verbalized by the patient): Female Spiritual care concerns: No Meds Home Medications and Allergies Home Medications Medication Instructions Recorded Confirmed Type vitamins A,C,H-ybxa-mzajdt 4,296 1 cap PO BID 03/13/22 07/20/24 History mcg-226 mg-90 mg capsule (PreserVision AREDS) aspirin 81 mg tablet,delayed 81 mg PO DAILY #90 tabs 07/29/22 07/20/24 Rx release (Adult Low Dose Aspirin) ascorbic acid (vitamin C) 500 mg 500 mg PO DAILY 10/03/22 07/20/24 History capsule Walker #1 ea 06/03/23 07/20/24 Rx blood sugar diagnostic (OneTouch #100 strips 09/09/23 07/20/24 Rx Ultra Test strips) glimepiride 4 mg tablet 4 mg PO QAM #90 tabs 09/15/23 07/20/24 Rx fluoxetine 10 mg capsule 10 mg PO DAILY #90 caps 01/06/24 07/20/24 Rx metformin 1,000 mg tablet 1,000 mg PO BID #180 tabs 01/06/24 07/20/24 Rx lovastatin 40 mg tablet 40 mg PO QPM #90 tabs 03/05/24 07/20/24 Rx lisinopril 20 mg tablet 20 mg PO BID #180 tabs 07/16/24 07/20/24 Rx levothyroxine 125 mcg tablet 125 mcg PO DAILY 07/20/24 07/20/24 History Allergies Allergy/AdvReac Type Severity Reaction Status Date / Time No Known Allergies Allergy Verified 07/16/24 15:02 Vital Signs Vital Signs - 24 hr 07/20/24 15:01 07/20/24 18:31 07/20/24 21:00 Temperature 97.4 F L Pulse Rate 75 77 68 Respiratory Rate 19 28 H 17 Blood Pressure 143/67 H 146/71 H Pulse Oximetry 99 97 99 Oxygen Delivery Fraction of Inspired Oxygen 07/20/24 21:45 07/20/24 22:00 07/20/24 22:41 Temperature 98.4 F 97.9 F Pulse Rate 71 77 Respiratory Rate 21 H 20 Blood Pressure 143/74 H 150/60 H Pulse Oximetry 99 99 Oxygen Delivery Fraction of Inspired Oxygen 07/21/24 00:31 07/21/24 00:00 07/21/24 00:00 Temperature 98.9 F Pulse Rate 72 68 68 Respiratory Rate 20 20 Blood Pressure 156/62 H Pulse Oximetry 99 99 Oxygen Delivery Room Air Fraction of Inspired Oxygen 07/21/24 02:00 07/21/24 03:56 07/21/24 03:56 Temperature Pulse Rate 78 68 68 Respiratory Rate 20 Blood Pressure Pulse Oximetry 99 Oxygen Delivery Room Air Fraction of Inspired Oxygen 07/21/24 04:14 07/21/24 06:00 07/21/24 08:10 Temperature 98.7 F Pulse Rate 75 68 Respiratory Rate 20 Blood Pressure 143/59 H Pulse Oximetry 96 95 Oxygen Delivery Room Air Fraction of Inspired Oxygen 21 07/21/24 08:00 07/21/24 08:00 07/21/24 12:00 Temperature 98.4 F 98.4 F Pulse Rate 68 75 Respiratory Rate 24 H 24 H Blood Pressure 152/64 H 179/96 H Pulse Oximetry 96 99 Oxygen Delivery Room Air Fraction of Inspired Oxygen 07/21/24 12:00 Temperature Pulse Rate Respiratory Rate Blood Pressure Pulse Oximetry Oxygen Delivery Room Air Fraction of Inspired Oxygen Exam Const: General: cooperative, healthy appearing and comfortable Resp: Auscultation: clear to auscultation bilaterally, no crackles, no rales, no rhonchi and no wheezes Cardio: Rate: regular rate Rhythm: abnormal rhythm Heart sounds: no murmurs Peripheral pulses: dorsalis pedis present GI: GI Palp: No abdominal tenderness and Yes Soft to palpation Neuro: General: oriented to person, oriented to place and oriented to time Extrem: Right lower extremity: no edema Left lower extremity: no edema Results Labs and Meds 07/21/24 04:24 07/21/24 04:25 Lab results: Cardiac Enzymes 07/20/24 07/20/24 07/21/24 Range/Units 16:29 21:29 04:25 AST 37 H 28 (14-36) U/L Troponin I 0.171 H* 0.166 H* (0.000-0.034) ng/mL Coagulation 07/20/24 Range/Units 16:29 PT 19.0 H (11.1-14.7) Seconds APTT 34.8 (22.3-36.8) Seconds CBC 07/20/24 07/21/24 Range/Units 16:29 04:24 WBC 14.2 H 11.6 H (4.5-10.0) K/mm3 RBC 3.72 L 3.76 L (4.2-5.4) M/mm3 Hgb 11.4 L D 11.4 L (12.0-15.0) g/dL Hct 35.0 L 34.4 L (37.0-47.0) % Plt Count 127 L 114 L (150-375) k/mm3 Lymph # (Auto) 0.46 L 0.43 L (0.9-3.2) K/mm3 [place] # (Auto) 0.7 H 0.7 H (0.1-0.6) K/mm3 Eos # (Auto) 0.0 0.1 (0-0.3) K/mm3 Baso # (Auto) 0.1 0.1 (0.0-0.1) K/mm3 Comprehensive Metabolic Panel 07/20/24 07/21/24 Range/Units 16:29 04:25 Sodium 129 L 129 L (137-145) mmol/L Potassium 4.1 3.9 (3.4-5.0) mmol/L Chloride 99 101 (98-107) mmol/L Carbon Dioxide 21 L 24 (22-30) mmol/L BUN 45 H D 43 H (7-17) mg/dL Creatinine 1.10 H 1.10 H (0.7-1.0) mg/dL Glucose 239 H 146 H (65-110) mg/dL Calcium 9.2 8.8 (8.4-10.2) mg/dL AST 37 H 28 (14-36) U/L ALT 30 20 (6-35) U/L Alkaline Phosphatase 107 102 (38-126) U/L Total Protein 6.0 L 5.0 L (6.3-8.2) g/dL Albumin 3.1 L 2.6 L (3.5-5.1) g/dL Intake and Output 07/20/24 07/21/24 07/21/24 23:59 07:59 15:59 Intake Total 800 240 Output Total 0 400 Balance 800 240 -400 Intake: IV 800 Sodium Chloride 0.9% IV 500 ml 500 @ 999 mls/hr IV CONT .Q31M STA Rx#:[id number] Azithromycin 500 mg/Ns 250 ml 250 500 mg In 250 ml @ 250 mls/hr IVPB ONCE STA Rx#:[id number] cefTRIAXone 1 GM/NS 50 ML 1 gm 50 In 50 ml @ 100 mls/hr IVPB ONCE STA Rx#:[id number] Oral 240 Output: Urine 0 Straight Cath Amount 400 Patient Weight 07/21/24 23:59 Weight 68.6 kg
--- NOTE | 2024-07-21 13:30 | PM.IMPN ---
Progress Note: A&P Assessment and Plan (1) Pneumonia: Qualifiers: Pneumonia type: due to unspecified organism Laterality: left Lung location: lower lobe of lung Qualified Code(s): J18.9 - Pneumonia, unspecified organism Code(s): J18.9 - Pneumonia, unspecified organism Status: Acute Assessment and Plan: Will continue with IV antibiotics. Repeat chest x-ray in the morning (2) Fall: Qualifiers: Encounter type: initial encounter Qualified Code(s): W19.XXXA - Unspecified fall, initial encounter Code(s): W19.XXXA - Unspecified fall, initial encounter Status: Acute Assessment and Plan: Start physical therapy when patient is more stable (3) Elevated troponin: Code(s): R79.89 - Other specified abnormal findings of blood chemistry Status: Acute Assessment and Plan: Cardiology consult (4) Diastolic dysfunction: Code(s): I51.89 - Other ill-defined heart diseases Status: Acute Assessment and Plan: Stable on current medication, continue current treatment (5) Diarrhea: Qualifiers: Diarrhea type: unspecified type Qualified Code(s): R19.7 - Diarrhea, unspecified Code(s): R19.7 - Diarrhea, unspecified Status: Acute Assessment and Plan: Better (6) Acute hyponatremia: Code(s): E87.1 - Hypo-osmolality and hyponatremia Status: Acute Assessment and Plan: Will monitor closely (7) Acute uremia: Code(s): N19 - Unspecified kidney failure Status: Acute Assessment and Plan: Repeat labs and monitor closely Plan Patient has had progressive weakness and multiple falls. She appears overall the condition. Will request PT and OT evaluation. Patient does have leukocytosis and abnormal x-ray findings with some tachypnea. She had some underlying pneumonia. Patient been started empiric antibiotic therapy with Rocephin and azithromycin. Blood cultures have been obtained and are pending. Given patient's report of loose stools will check urine Legionella antigen. For completeness sake will also check urine pneumococcal antigen. Patient also recently received antibiotics May 25 so will check C diff to rule out infectious colitis. Patient has mild worsening hyponatremia from baseline. Patient did receive 1 L of IV fluids as initially was thought the patient may be hemoconcentrated as she does have tacky mucous membranes and no evidence of peripheral edema or swelling despite a elevated BNP greater than 30,000. Will check urine electrolytes. Nursing staff reports that the patient has urinated but she is completely incontinent of urine. Nursing staff had been unable to obtain a urine specimen with pure wick. As the patient still has not had significant amount of urine output will attempt gentle IV fluid hydration. Patient's BUN has almost doubled from her baseline. Is on certain if this is due to low perfusion from volume status versus heart failure. Will repeat electrolyte panel in a.m. and obtain urine electrolytes as discussed. Patient does have diabetes with hyperglycemia. Will hold the patient's metformin given reported history of diarrhea. Initially I continued glimepiride but given that her a.m. glucoses were down below 150 will hold the patient's glimepiride. Will continue sliding scale insulin with Accu-Cheks a.c. HS and hypoglycemia protocol as needed. Subjective Date/time seen: 07/21/24 13:30 Patient was seen during the morning rounds today. Mild shortness of breath. No chest pain. No abdominal pain, nausea, no vomiting. Review of Systems Review of Systems: All systems reviewed & are unremarkable except as noted in HPI and below (the history and physical exam.) Exam Narrative: Weight 68.6 kg BMI 23 Const: Other: No acute distress, lying in bed with head of bed at 20? HENMT: Other: Head is normocephalic atraumatic, mucous membranes are tacky, no oral pharyngeal erythema Eyes: Other: Pupils are equal and reactive, extraocular movements seem to be intact but exam limited Neck: Other: No JVD, supple Resp: Other: Air entry is better Cardio: Other: irregular rate, irregular rhythm, 2+ bilateral radial pedal pulses GI: Other: Soft, nontender, nondistended, positive bowel sounds Skin: Other: Generalized pallor, non jaundice, no large areas of bruising to posterior of skin Neuro: Other: Patient is alert oriented person place and time, speech is clear but limited responses, no localizing deficits noted during the course of limited exam Extrem: Other: Tenderness over the right AC joint and proximal humerus Psych: Other: Flat affect, depressed mood, avoids eye contact Objective Data Vital Signs Vital Signs: Vital Signs - 24 hr 07/20/24 15:01 07/20/24 18:31 07/20/24 21:00 Temperature 36.3 C L Pulse Rate 75 77 68 Respiratory Rate 19 28 H 17 Blood Pressure 143/67 H 146/71 H Pulse Oximetry 99 97 99 Oxygen Delivery Fraction of Inspired Oxygen 07/20/24 21:45 07/20/24 22:00 07/20/24 22:41 Temperature 36.9 C 36.6 C Pulse Rate 71 77 Respiratory Rate 21 H 20 Blood Pressure 143/74 H 150/60 H Pulse Oximetry 99 99 Oxygen Delivery Fraction of Inspired Oxygen 07/21/24 00:31 07/21/24 00:00 07/21/24 00:00 Temperature 37.2 C Pulse Rate 72 68 68 Respiratory Rate 20 20 Blood Pressure 156/62 H Pulse Oximetry 99 99 Oxygen Delivery Room Air Fraction of Inspired Oxygen 07/21/24 02:00 07/21/24 03:56 07/21/24 03:56 Temperature Pulse Rate 78 68 68 Respiratory Rate 20 Blood Pressure Pulse Oximetry 99 Oxygen Delivery Room Air Fraction of Inspired Oxygen 07/21/24 04:14 07/21/24 06:00 07/21/24 08:10 Temperature 37.1 C Pulse Rate 75 68 Respiratory Rate 20 Blood Pressure 143/59 H Pulse Oximetry 96 95 Oxygen Delivery Room Air Fraction of Inspired Oxygen 21 07/21/24 08:00 07/21/24 08:00 07/21/24 12:00 Temperature 36.9 C 36.9 C Pulse Rate 68 75 Respiratory Rate 24 H 24 H Blood Pressure 152/64 H 179/96 H Pulse Oximetry 96 99 Oxygen Delivery Room Air Fraction of Inspired Oxygen 07/21/24 12:00 Temperature Pulse Rate Respiratory Rate Blood Pressure Pulse Oximetry Oxygen Delivery Room Air Fraction of Inspired Oxygen Intake/Output Intake/Output: Intake & Output 07/18/24 07/19/24 07/20/24 07/21/24 23:59 23:59 23:59 23:59 Intake Total 800 240 Output Total 400 Balance 800 -160 Meds/Results Medications: Active Medications Generic Name Dose Route Start Last Admin Trade Name Freq PRN Reason Stop Dose Admin Acetaminophen 650 mg 07/21/24 04:55 07/21/24 05:56 Acetaminophen 325 Mg Tablet PO 650 mg Q4H PRN Administration Pain Rated 1-3 Apixaban 2.5 mg 07/21/24 21:00 Apixaban 2.5 Mg Tablet PO Q12HR [facility] Ascorbic Acid 500 mg 07/21/24 09:00 07/21/24 08:27 Ascorbic Acid 500 Mg Tablet PO 500 mg DAILY JESSICA Administration Aspirin 81 mg 07/21/24 09:00 07/21/24 08:27 Aspirin 81 Mg Enteric Tablet PO 81 mg DAILY JESSICA Administration Azithromycin 250 mg 07/22/24 09:00 Azithromycin 250 Mg Tablet PO 07/25/24 09:01 DAILY JESSICA Dextrose 12.5 gm 07/21/24 04:23 Dextrose 50% 25 Gm/50 Ml Syringe IV PUSH PRN PRN Hypoglycemia Protocol Fluoxetine HCl 10 mg 07/21/24 09:00 07/21/24 08:27 Fluoxetine Hcl 10 Mg Capsule PO 10 mg DAILY JESSICA Administration Glucagon 1 mg 07/21/24 04:23 Glucagon For Inj 1 Mg Vial IM PRN PRN Hypoglycemia Protocol Glucose 15 gm 07/21/24 04:23 Glucose Oral Gel 15 Gm Of Glucse In 37.5 Gm Tube PO PRN PRN Hypoglycemia Protocol Dextrose 1,000 mls @ 100 mls/hr 07/21/24 04:23 Dextrose 5% 1,000 Ml IVPB PRN PRN Hypoglycemia Protocol Sodium Chloride 1,000 mls @ 70 mls/hr 07/21/24 08:50 07/21/24 10:15 Normal Saline Iv IV CONT 70 mls/hr .[id number] JESSICA Administration Ceftriaxone Sodium 1 gm in 50 mls @ 100 mls/hr 07/21/24 21:00 Rocephin 1 Gm/Ns 50 Ml IVPB Q24H [facility] Insulin Aspart 3 - 6 units 07/21/24 08:00 07/21/24 11:49 Insulin Aspart (*Bkc) 100 Units/Ml SUB-Q Not Given TIDWM [facility] Protocol Insulin Aspart 1 - 3 units 07/21/24 21:00 Insulin Aspart (*Bkc) 100 Units/Ml SUB-Q HS [facility] Protocol Levothyroxine Sodium 125 mcg 07/21/24 06:30 07/21/24 05:56 Levothyroxine Sodium 125 Mcg Tablet PO 125 mcg DAILY@0630 [facility] Administration Lidocaine 1 patch 07/21/24 09:00 07/21/24 08:48 Lidocaine 5% Patch TRANSDERM 1 patch DAILY JESSICA Administration Lisinopril 20 mg 07/21/24 09:00 07/21/24 08:27 Lisinopril 20 Mg Tablet PO 20 mg BID JESSICA Administration Lovastatin 40 mg 07/21/24 18:00 Lovastatin 20 Mg Tablet PO QPM [facility] Multivitamins/Minerals 1 tablet 07/21/24 09:00 07/21/24 08:28 Opti-Gen Tab PO 1 tablet BID JESSICA Administration Perflutren Lipid Microsphere 0 ml 07/21/24 13:17 Perflutren Lipid Microspheres 1.5 Ml Vial Diluted To 10 Ml Total Volume IV PUSH 07/24/24 13:17 ONCE PRN adequate visualization Protocol Radiology Results: ITS Impressions Shoulder X-Ray 07/20/24 16:39 IMPRESSION: 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 No acute osseous abnormality. Chest X-Ray 07/20/24 18:03 IMPRESSION: Subsegmental left basilar atelectasis/consolidation. Moderate interstitial edema versus respiratory bronchiolitis. Labs Labs: Laboratory Results - last 24 hr 07/20/24 07/20/24 07/21/24 16:29 21:29 04:24 WBC 14.2 H 11.6 H RBC 3.72 L 3.76 L Hgb 11.4 L D 11.4 L Hct 35.0 L 34.4 L MCV 94.1 91.5 MCH 30.6 30.3 MCHC 32.6 33.1 RDW 14.7 H 14.5 Plt Count 127 L 114 L MPV 11.0 H 11.3 H Immature Gran % (Auto) 0.2 0.4 Neut % (Auto) 91.1 H 88.8 H Lymph % (Auto) 3.2 L 3.7 L [place] % (Auto) 4.8 6.2 Eos % (Auto) 0.1 0.4 Baso % (Auto) 0.6 0.5 Lymph # (Auto) 0.46 L 0.43 L [place] # (Auto) 0.7 H 0.7 H Eos # (Auto) 0.0 0.1 Baso # (Auto) 0.1 0.1 Abs Immat Gran (auto) 0.03 0.05 H Absolute Neuts (auto) 13.0 H 10.2 H Absolute Nucleated RBC 0.000 0.000 Nucleated RBC % 0.0 0.0 PT 19.0 H INR 1.6 APTT 34.8 Sodium 129 L Potassium 4.1 Chloride 99 Carbon Dioxide 21 L Anion Gap 9 BUN 45 H D Creatinine 1.10 H Estim Creat Clear Calc Not Reportable Estimated GFR 47 L Glucose 239 H POC Capillary Glucose Calcium 9.2 Magnesium 1.6 Total Bilirubin 2.2 H AST 37 H ALT 30 Alkaline Phosphatase 107 Troponin I 0.171 H* 0.166 H* NT-Pro-B Natriuret Pep > 64454 H Total Protein 6.0 L Albumin 3.1 L Urine Color Urine Appearance Urine pH Ur Specific [place] Urine Protein Urine Glucose (UA) Urine Ketones Ur Blood (Man) Urine Nitrate Urine Bilirubin Urine Urobilinogen Leukocyte Esterase Rfl Urine RBC Urine WBC Ur Squamous Epith Cells Urine Bacteria Urine Casts Ur Random Sodium Urine Creatinine Influenza A (RT-PCR) Negative Influenza B (RT-PCR) Negative RSV (RT-PCR) Negative SARS-CoV-2 RNA (RT-PCR) Negative 07/21/24 07/21/24 07/21/24 04:25 04:32 08:03 WBC RBC Hgb Hct MCV MCH MCHC RDW Plt Count MPV Immature Gran % (Auto) Neut % (Auto) Lymph % (Auto) [place] % (Auto) Eos % (Auto) Baso % (Auto) Lymph # (Auto) [place] # (Auto) Eos # (Auto) Baso # (Auto) Abs Immat Gran (auto) Absolute Neuts (auto) Absolute Nucleated RBC Nucleated RBC % PT INR APTT Sodium 129 L Potassium 3.9 Chloride 101 Carbon Dioxide 24 Anion Gap 4 BUN 43 H Creatinine 1.10 H Estim Creat Clear Calc 35 Estimated GFR 47 L Glucose 146 H POC Capillary Glucose 142 H 148 H Calcium 8.8 Magnesium Total Bilirubin 1.5 H AST 28 ALT 20 Alkaline Phosphatase 102 Troponin I NT-Pro-B Natriuret Pep Total Protein 5.0 L Albumin 2.6 L Urine Color Urine Appearance Urine pH Ur Specific [place] Urine Protein Urine Glucose (UA) Urine Ketones Ur Blood (Man) Urine Nitrate Urine Bilirubin Urine Urobilinogen Leukocyte Esterase Rfl Urine RBC Urine WBC Ur Squamous Epith Cells Urine Bacteria Urine Casts Ur Random Sodium Urine Creatinine Influenza A (RT-PCR) Influenza B (RT-PCR) RSV (RT-PCR) SARS-CoV-2 RNA (RT-PCR) 07/21/24 07/21/24 07/21/24 11:14 11:15 11:27 WBC RBC Hgb Hct MCV MCH MCHC RDW Plt Count MPV Immature Gran % (Auto) Neut % (Auto) Lymph % (Auto) [place] % (Auto) Eos % (Auto) Baso % (Auto) Lymph # (Auto) [place] # (Auto) Eos # (Auto) Baso # (Auto) Abs Immat Gran (auto) Absolute Neuts (auto) Absolute Nucleated RBC Nucleated RBC % PT INR APTT Sodium Potassium Chloride Carbon Dioxide Anion Gap BUN Creatinine Estim Creat Clear Calc Estimated GFR Glucose POC Capillary Glucose 162 H Calcium Magnesium Total Bilirubin AST ALT Alkaline Phosphatase Troponin I NT-Pro-B Natriuret Pep Total Protein Albumin Urine Color Dark yellow Urine Appearance Clear Urine pH 5.5 Ur Specific [place] 1.029 Urine Protein 2+ H Urine Glucose (UA) Negative Urine Ketones Trace H Ur Blood (Man) Negative Urine Nitrate Negative Urine Bilirubin 1+ H Urine Urobilinogen 1.0 Leukocyte Esterase Rfl Negative Urine RBC 0-2 Urine WBC 0-5 Ur Squamous Epith Cells None seen Urine Bacteria None seen Urine Casts 3-5 Ur Random Sodium < 5 Urine Creatinine 193.2 Influenza A (RT-PCR) Influenza B (RT-PCR) RSV (RT-PCR) SARS-CoV-2 RNA (RT-PCR)
[2024-07-21 13:31] LABS: Cholesterol 108 mg/dL (0-200); HDL Direct 39 mg/dL; Magnesium 1.6 mg/dL (1.6-2.3); Triglycerides 108 mg/dL (<150)
[2024-07-21 14:07] LABS: LDL Cholesterol Direct < 30 mg/dL
[2024-07-21] MEDS: AMIODARONE 150 MG/D5W 100 ML 150 MG/100 ML BAG 600 MG IV CONT (14:54)
[2024-07-21] MEDS: AMIODARONE 360 MG/D5W 200 ML 360 MG/200 ML BAG 33.33 MG IV CONT (15:12)
[2024-07-21] MEDS: MAGNESIUM SULF 2 GM/WATER 50ML 2 GM/50 ML BAG IVPB (15:29)
[2024-07-21 16:52] LABS: Glucose Point of Care 194 mg/dl (65-105)
[2024-07-21] MEDS: LOVASTATIN 20 MG TABLET 40 MG PO (17:14)
[2024-07-21] MEDS: AMIODARONE 360 MG/D5W 200 ML 360 MG/200 ML BAG 16.67 MG IV CONT (20:34)
[2024-07-21] MEDS: APIXABAN 2.5 MG TABLET PO (20:35)
[2024-07-21 20:44] LABS: Glucose Point of Care 276 mg/dl (65-105)
[2024-07-21] MEDS: INSULIN ASPART (*BKC) 100 UNITS/ML SUB-Q (21:30)
[2024-07-22] VITALS (17 sets, daily range): BP systolic 151–176; BP diastolic 64–83; PULSE 6–80; RESP 12–22; TEMP 36.4–36.9; O2SAT 9–100
[2024-07-22] MEDS: ACETAMINOPHEN 325 MG TABLET 650 MG PO ×2 (05:15→20:50)
[2024-07-22] MEDS: LEVOTHYROXINE SODIUM 125 MCG TABLET PO (05:16)
[2024-07-22 05:30] LABS: Troponin I 0.078 ng/mL (0.000-0.034)
--- NOTE | 2024-07-22 08:00 | ECG_ITS ---
Test Date: 2024-07-22 08:24:43 Measurements Intervals Kite Rate: 67 P: 57 NV: 187 QRS: 31 QRSD: 97 T: 93 QT: 412 QTc: 437 Interpretive Statements SINUS RHYTHM LEFT VENTRICULAR HYPERTROPHY WITH ST-T CHANGE POSSIBLE ANTERIOR MYOCARDIAL INFARCTION , OF INDETERMINATE AGE BASELINE ARTIFACT- I, III, AVR, AVL ABNORMAL ECG Compared to ECG 07/20/2024 21:58:37 Atrial fibrillation no longer present Electronically Signed On 07-22-2024 11:57:46 NET DEVELOPER by Darien Robertson D.O.
--- NOTE | 2024-07-22 08:14 | PM.PNCARD ---
Progress Note: A&P Assessment and Plan (1) PAF (paroxysmal atrial fibrillation): Code(s): I48.0 - Paroxysmal atrial fibrillation Status: Acute Assessment and Plan: Back in sinus rhythm on Amiodarone drip. Probably due to pneumonia and age. [id number]. Rate is normal. On Eliquis. After 24 hours, change Amiodarone 200 mg daily. (2) Pneumonia: Qualifiers: Pneumonia type: due to unspecified organism Laterality: left Lung location: lower lobe of lung Qualified Code(s): J18.9 - Pneumonia, unspecified organism Code(s): J18.9 - Pneumonia, unspecified organism Status: Acute Assessment and Plan: On antibiotics as per hospitalist. (3) Elevated troponin: Code(s): R79.89 - Other specified abnormal findings of blood chemistry Status: Acute Assessment and Plan: Moderately elevated and trending down at peak 0.171. Probably due to pneumonia. 07/21/24 Echo: EF 60-65%, mod LVH, grade I diastolic dysfunction (E/e' 32, mod biatrial enlargement, mild AI/PI, mod MR/TR, RVSP 51 mmHg. (4) Diastolic dysfunction: Code(s): I51.89 - Other ill-defined heart diseases Status: Acute Assessment and Plan: Gentle hydration to prevent volume overload. (5) Moderate mitral valve regurgitation: Code(s): I34.0 - Nonrheumatic mitral (valve) insufficiency Status: Acute Assessment and Plan: Stable. (6) Benign essential HTN: Code(s): I10 - Essential (primary) hypertension Status: Acute Assessment and Plan: Stable. (7) PVT (paroxysmal ventricular tachycardia): Code(s): I47.20 - Ventricular tachycardia, unspecified Status: Acute Assessment and Plan: NSVT up to 16 beats. On Amiodarone drip and after 24 hours change to Amiodarone 200 mg daily. Check EKG this AM for QT interval. Subjective Date/time seen: 07/22/24 08:14 Interval history: Denies chest pain or sob. Exam Const: General: cooperative, healthy appearing and comfortable Orientation/consciousness: oriented to person, oriented to place and oriented to time Resp: Auscultation: clear to auscultation bilaterally, no crackles, no rales, no rhonchi and no wheezes Cardio: Rate: regular rate Rhythm: regular rhythm Heart sounds: no murmurs Peripheral pulses: dorsalis pedis present Neuro: General: oriented to person, oriented to place and oriented to time Extrem: Right lower extremity: no edema Left lower extremity: no edema Objective Data Vital Signs Vital Signs: Vital Signs - 24 hr 07/21/24 12:00 07/21/24 12:00 07/21/24 10:00 Temperature 98.4 F Pulse Rate 75 80 Respiratory Rate 24 H Blood Pressure 179/96 H Pulse Oximetry 99 Oxygen Delivery Room Air Fraction of Inspired Oxygen 07/21/24 12:00 07/21/24 14:00 07/21/24 14:54 Temperature Pulse Rate 98 83 79 Respiratory Rate Blood Pressure 155/75 H Pulse Oximetry Oxygen Delivery Fraction of Inspired Oxygen 07/21/24 15:12 07/21/24 15:12 07/21/24 16:00 Temperature 98.4 F Pulse Rate 79 79 78 Respiratory Rate 2 L Blood Pressure 172/78 H Pulse Oximetry 98 Oxygen Delivery Fraction of Inspired Oxygen 07/21/24 16:00 07/21/24 16:00 07/21/24 18:00 Temperature Pulse Rate 75 76 Respiratory Rate Blood Pressure Pulse Oximetry Oxygen Delivery Room Air Fraction of Inspired Oxygen 07/21/24 16:00 07/21/24 18:00 07/21/24 18:00 Temperature 99.2 F Pulse Rate 80 102 H 79 Respiratory Rate 22 H Blood Pressure 172/78 H 149/65 H 149/65 H Pulse Oximetry 96 Oxygen Delivery Fraction of Inspired Oxygen 07/21/24 20:00 07/21/24 20:34 07/21/24 20:00 Temperature 99.7 F H Pulse Rate 79 78 78 Respiratory Rate 20 20 Blood Pressure 161/71 H 167/71 H Pulse Oximetry 96 96 Oxygen Delivery Room Air Fraction of Inspired Oxygen 21 07/21/24 20:00 07/21/24 22:00 07/21/24 22:16 Temperature Pulse Rate 78 76 74 Respiratory Rate Blood Pressure 160/72 H Pulse Oximetry Oxygen Delivery Fraction of Inspired Oxygen 07/21/24 22:20 07/21/24 23:44 07/21/24 23:56 Temperature 99.5 F Pulse Rate 72 74 72 Respiratory Rate 20 20 Blood Pressure 160/72 H 157/61 H Pulse Oximetry 95 96 96 Oxygen Delivery Room Air Fraction of Inspired Oxygen 21 07/21/24 23:56 07/21/24 23:58 07/22/24 01:50 Temperature Pulse Rate 72 72 66 Respiratory Rate Blood Pressure 157/61 H 151/69 H Pulse Oximetry 96 Oxygen Delivery Fraction of Inspired Oxygen 07/22/24 02:00 07/22/24 02:00 07/22/24 04:00 Temperature 98.1 F Pulse Rate 66 66 68 Respiratory Rate 20 Blood Pressure 156/69 H 158/73 H Pulse Oximetry 97 Oxygen Delivery Fraction of Inspired Oxygen 07/22/24 04:00 07/22/24 04:00 07/22/24 04:00 Temperature Pulse Rate 70 70 70 Respiratory Rate 20 Blood Pressure 158/73 H Pulse Oximetry 97 Oxygen Delivery Room Air Fraction of Inspired Oxygen 07/22/24 06:00 07/22/24 06:00 Temperature Pulse Rate 68 68 Respiratory Rate Blood Pressure 157/65 H Pulse Oximetry Oxygen Delivery Fraction of Inspired Oxygen Intake/Output Intake/Output: Intake & Output 07/19/24 07/20/24 07/21/24 07/22/24 23:59 23:59 23:59 23:59 Intake Total 800 1215.0 307.2 Output Total 400 300 Balance 800 815.0 7.2 Meds/Results Medications: Active Medications Generic Name Dose Route Start Last Admin Trade Name Freq PRN Reason Stop Dose Admin Acetaminophen 650 mg 07/21/24 04:55 07/22/24 05:15 Acetaminophen 325 Mg Tablet PO 650 mg Q4H PRN Administration Pain Rated 1-3 Apixaban 2.5 mg 07/21/24 21:00 07/21/24 20:35 Apixaban 2.5 Mg Tablet PO 2.5 mg Q12HR JESSICA Administration Ascorbic Acid 500 mg 07/21/24 09:00 07/21/24 08:27 Ascorbic Acid 500 Mg Tablet PO 500 mg DAILY JESSICA Administration Azithromycin 250 mg 07/22/24 09:00 Azithromycin 250 Mg Tablet PO 07/25/24 09:01 DAILY JESSICA Dextrose 12.5 gm 07/21/24 04:23 Dextrose 50% 25 Gm/50 Ml Syringe IV PUSH PRN PRN Hypoglycemia Protocol Fluoxetine HCl 10 mg 07/21/24 09:00 07/21/24 08:27 Fluoxetine Hcl 10 Mg Capsule PO 10 mg DAILY JESSICA Administration Glucagon 1 mg 07/21/24 04:23 Glucagon For Inj 1 Mg Vial IM PRN PRN Hypoglycemia Protocol Glucose 15 gm 07/21/24 04:23 Glucose Oral Gel 15 Gm Of Glucse In 37.5 Gm Tube PO PRN PRN Hypoglycemia Protocol Dextrose 1,000 mls @ 100 mls/hr 07/21/24 04:23 Dextrose 5% 1,000 Ml IVPB PRN PRN Hypoglycemia Protocol Ceftriaxone Sodium 1 gm in 50 mls @ 100 mls/hr 07/21/24 21:00 07/21/24 21:05 Rocephin 1 Gm/Ns 50 Ml IVPB Infused Q24H JESSICA Infusion Amiodarone HCl/Dextrose 360 mg in 200 mls @ 16.667 mls/hr 07/21/24 19:54 07/22/24 04:00 Nexterone 360 Mg/D5w 200 Ml IV CONT 0.5 mg/min .Q12H JESSICA 16.67 mls/hr Infusion 0.5 MG/MIN Insulin Aspart 3 - 6 units 07/21/24 08:00 07/21/24 16:49 Insulin Aspart (*Bkc) 100 Units/Ml SUB-Q Not Given TIDWM JESSICA Protocol Insulin Aspart 1 - 3 units 07/21/24 21:00 07/21/24 21:30 Insulin Aspart (*Bkc) 100 Units/Ml SUB-Q 2 units HS JESSICA Administration Protocol Levothyroxine Sodium 125 mcg 07/21/24 06:30 07/22/24 05:16 Levothyroxine Sodium 125 Mcg Tablet PO 125 mcg DAILY@0630 JESSICA Administration Lidocaine 1 patch 07/21/24 09:00 07/21/24 08:48 Lidocaine 5% Patch TRANSDERM 1 patch DAILY JESSICA Administration Lisinopril 20 mg 07/21/24 09:00 07/21/24 17:14 Lisinopril 20 Mg Tablet PO 20 mg BID JESSICA Administration Lovastatin 40 mg 07/21/24 18:00 07/21/24 17:14 Lovastatin 20 Mg Tablet PO 40 mg QPM JESSICA Administration Multivitamins/Minerals 1 tablet 07/21/24 09:00 07/21/24 17:14 Opti-Gen Tab PO 1 tablet BID JESSICA Administration Perflutren Lipid Microsphere 0 ml 07/21/24 13:17 Perflutren Lipid Microspheres 1.5 Ml Vial Diluted To 10 Ml Total Volume IV PUSH 07/24/24 13:17 ONCE PRN adequate visualization Protocol Radiology Results: ITS Impressions Shoulder X-Ray 07/20/24 16:39 IMPRESSION: 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 No acute osseous abnormality. Chest X-Ray 07/20/24 18:03 IMPRESSION: Subsegmental left basilar atelectasis/consolidation. Moderate interstitial edema versus respiratory bronchiolitis. Labs Labs: Laboratory Results - last 24 hr 07/21/24 07/21/24 07/21/24 04:25 08:03 11:14 POC Capillary Glucose 148 H Magnesium 1.6 Troponin I Triglycerides 108 Cholesterol 108 LDL Cholesterol Direct < 30 HDL Direct 39 TSH 3.240 Urine Color Dark yellow Urine Appearance Clear Urine pH 5.5 Ur Specific [place] 1.029 Urine Protein 2+ H Urine Glucose (UA) Negative Urine Ketones Trace H Ur Blood (Man) Negative Urine Nitrate Negative Urine Bilirubin 1+ H Urine Urobilinogen 1.0 Leukocyte Esterase Rfl Negative Urine RBC 0-2 Urine WBC 0-5 Ur Squamous Epith Cells None seen Urine Bacteria None seen Urine Casts 3-5 Ur Random Sodium Urine Creatinine 07/21/24 07/21/24 07/21/24 11:15 11:27 16:26 POC Capillary Glucose 162 H 194 H Magnesium Troponin I Triglycerides Cholesterol LDL Cholesterol Direct HDL Direct TSH Urine Color Urine Appearance Urine pH Ur Specific [place] Urine Protein Urine Glucose (UA) Urine Ketones Ur Blood (Man) Urine Nitrate Urine Bilirubin Urine Urobilinogen Leukocyte Esterase Rfl Urine RBC Urine WBC Ur Squamous Epith Cells Urine Bacteria Urine Casts Ur Random Sodium < 5 Urine Creatinine 193.2 07/21/24 07/22/24 20:30 04:20 POC Capillary Glucose 276 H Magnesium Troponin I 0.078 H* Triglycerides Cholesterol LDL Cholesterol Direct HDL Direct TSH Urine Color Urine Appearance Urine pH Ur Specific [place] Urine Protein Urine Glucose (UA) Urine Ketones Ur Blood (Man) Urine Nitrate Urine Bilirubin Urine Urobilinogen Leukocyte Esterase Rfl Urine RBC Urine WBC Ur Squamous Epith Cells Urine Bacteria Urine Casts Ur Random Sodium Urine Creatinine
[2024-07-22 08:33] LABS: Glucose Point of Care 126 mg/dl (65-105)
[2024-07-22 08:37] LABS: Anion Gap 7 mmol/L (4-12); Blood Urea Nitrogen 34 mg/dL (7-17); Calcium 8.7 mg/dL (8.4-10.2); Carbon Dioxide 21 mmol/L (22-30); Chloride 101 mmol/L (98-107); Estimated CRCL calculation 47 ml/min; Estimated Glomerular Filt Rate > 60; Glucose 101 mg/dL (65-110); Potassium 3.8 mmol/L (3.4-5.0); Sodium 129 mmol/L (137-145)
[2024-07-22] MEDS: AMIODARONE 360 MG/D5W 200 ML 360 MG/200 ML BAG 16.67 MG IV CONT (09:47)
--- NOTE | 2024-07-22 09:57 | PM.IMPN ---
Progress Note: A&P Assessment and Plan (1) Bacterial UTI: Code(s): N39.0 - Urinary tract infection, site not specified; A49.9 - Bacterial infection, unspecified Status: Acute Assessment and Plan: Urine culture shows gram negative variable is. Antibiotic adjusted (2) Pneumonia: Qualifiers: Pneumonia type: due to unspecified organism Laterality: left Lung location: lower lobe of lung Qualified Code(s): J18.9 - Pneumonia, unspecified organism Code(s): J18.9 - Pneumonia, unspecified organism Status: Acute Assessment and Plan: Patient breathing is better. Plan is to continue current treatment. Monitor closely (3) Fall: Qualifiers: Encounter type: initial encounter Qualified Code(s): W19.XXXA - Unspecified fall, initial encounter Code(s): W19.XXXA - Unspecified fall, initial encounter Status: Acute Assessment and Plan: Start physical therapy when patient is more stable (4) Elevated troponin: Code(s): R79.89 - Other specified abnormal findings of blood chemistry Status: Acute Assessment and Plan: Cardiology consult noted. No intervention is needed. (5) Diastolic dysfunction: Code(s): I51.89 - Other ill-defined heart diseases Status: Acute Assessment and Plan: Stable on current medication, continue current treatment (6) Diarrhea: Qualifiers: Diarrhea type: unspecified type Qualified Code(s): R19.7 - Diarrhea, unspecified Code(s): R19.7 - Diarrhea, unspecified Status: Acute Assessment and Plan: Better (7) Acute hyponatremia: Code(s): E87.1 - Hypo-osmolality and hyponatremia Status: Acute Assessment and Plan: Will repeat sodium was 129 Will monitor closely (8) Acute uremia: Code(s): N19 - Unspecified kidney failure Status: Acute Assessment and Plan: Repeat labs and monitor closely Plan Patient is gradually improving. Patient urine culture shows Gram-negative variable bacilli. Ceftriaxone increase to 2 g. Will monitor cultures and sodium. Subjective Date/time seen: 07/22/24 09:57 Patient was seen during the morning rounds today. Patient is feeling slightly better. No shortness of breath or chest pain. Abdominal pain, nausea, no vomiting. Review of Systems Review of Systems: Unable to obtain full review of systems is patient repeatedly fell asleep during evaluation. All systems reviewed & are unremarkable except as noted in HPI and below (the history and physical exam.) Exam Narrative: Weight 68.6 kg BMI 23 Const: Other: No acute distress, lying in bed with head of bed at 20? HENMT: Other: Head is normocephalic atraumatic, mucous membranes are tacky, no oral pharyngeal erythema Eyes: Other: Pupils are equal and reactive, extraocular movements seem to be intact but exam limited Neck: Other: No JVD, supple Resp: Other: Air entry is better Cardio: Other: irregular rate, irregular rhythm, 2+ bilateral radial pedal pulses GI: Other: Soft, nontender, nondistended, positive bowel sounds Skin: Other: Generalized pallor, non jaundice, no large areas of bruising to posterior of skin Neuro: Other: Patient is alert oriented person place and time, speech is clear but limited responses, no localizing deficits noted during the course of limited exam Extrem: Other: Tenderness over the right AC joint and proximal humerus Psych: Other: Flat affect, depressed mood, avoids eye contact Objective Data Vital Signs Vital Signs: Vital Signs - 24 hr 07/21/24 12:00 07/21/24 12:00 07/21/24 10:00 Temperature 36.9 C Pulse Rate 75 80 Respiratory Rate 24 H Blood Pressure 179/96 H Pulse Oximetry 99 Oxygen Delivery Room Air Fraction of Inspired Oxygen 07/21/24 12:00 07/21/24 14:00 07/21/24 14:54 Temperature Pulse Rate 98 83 79 Respiratory Rate Blood Pressure 155/75 H Pulse Oximetry Oxygen Delivery Fraction of Inspired Oxygen 07/21/24 15:12 07/21/24 15:12 07/21/24 16:00 Temperature 36.9 C Pulse Rate 79 79 78 Respiratory Rate 2 L Blood Pressure 172/78 H Pulse Oximetry 98 Oxygen Delivery Fraction of Inspired Oxygen 07/21/24 16:00 07/21/24 16:00 07/21/24 18:00 Temperature Pulse Rate 75 76 Respiratory Rate Blood Pressure Pulse Oximetry Oxygen Delivery Room Air Fraction of Inspired Oxygen 07/21/24 16:00 07/21/24 18:00 07/21/24 18:00 Temperature 37.3 C Pulse Rate 80 102 H 79 Respiratory Rate 22 H Blood Pressure 172/78 H 149/65 H 149/65 H Pulse Oximetry 96 Oxygen Delivery Fraction of Inspired Oxygen 07/21/24 20:00 07/21/24 20:34 07/21/24 20:00 Temperature 37.6 C H Pulse Rate 79 78 78 Respiratory Rate 20 20 Blood Pressure 161/71 H 167/71 H Pulse Oximetry 96 96 Oxygen Delivery Room Air Fraction of Inspired Oxygen 21 07/21/24 20:00 07/21/24 22:00 07/21/24 22:16 Temperature Pulse Rate 78 76 74 Respiratory Rate Blood Pressure 160/72 H Pulse Oximetry Oxygen Delivery Fraction of Inspired Oxygen 07/21/24 22:20 07/21/24 23:44 07/21/24 23:56 Temperature 37.5 C Pulse Rate 72 74 72 Respiratory Rate 20 20 Blood Pressure 160/72 H 157/61 H Pulse Oximetry 95 96 96 Oxygen Delivery Room Air Fraction of Inspired Oxygen 21 07/21/24 23:56 07/21/24 23:58 07/22/24 01:50 Temperature Pulse Rate 72 72 66 Respiratory Rate Blood Pressure 157/61 H 151/69 H Pulse Oximetry 96 Oxygen Delivery Fraction of Inspired Oxygen 07/22/24 02:00 07/22/24 02:00 07/22/24 04:00 Temperature 36.7 C Pulse Rate 66 66 68 Respiratory Rate 20 Blood Pressure 156/69 H 158/73 H Pulse Oximetry 97 Oxygen Delivery Fraction of Inspired Oxygen 07/22/24 04:00 07/22/24 04:00 07/22/24 04:00 Temperature Pulse Rate 70 70 70 Respiratory Rate 20 Blood Pressure 158/73 H Pulse Oximetry 97 Oxygen Delivery Room Air Fraction of Inspired Oxygen 21 07/22/24 06:00 07/22/24 06:00 07/22/24 08:00 Temperature 36.8 C Pulse Rate 68 68 66 Respiratory Rate 22 H Blood Pressure 157/65 H 154/68 H Pulse Oximetry 96 Oxygen Delivery Fraction of Inspired Oxygen 07/22/24 08:35 07/22/24 09:47 Temperature Pulse Rate 67 69 Respiratory Rate Blood Pressure Pulse Oximetry Oxygen Delivery Fraction of Inspired Oxygen Intake/Output Intake/Output: Intake & Output 07/19/24 07/20/24 07/21/24 07/22/24 23:59 23:59 23:59 23:59 Intake Total 800 1215.0 383.4 Output Total 400 300 Balance 800 815.0 83.4 Meds/Results Medications: Active Medications Generic Name Dose Route Start Last Admin Trade Name Freq PRN Reason Stop Dose Admin Acetaminophen 650 mg 07/21/24 04:55 07/22/24 05:15 Acetaminophen 325 Mg Tablet PO 650 mg Q4H PRN Administration Pain Rated 1-3 Amiodarone HCl 200 mg 07/22/24 17:00 Amiodarone Hcl 200 Mg Tablet PO BID JESSICA Apixaban 2.5 mg 07/21/24 21:00 07/21/24 20:35 Apixaban 2.5 Mg Tablet PO 2.5 mg Q12HR JESSICA Administration Ascorbic Acid 500 mg 07/21/24 09:00 07/21/24 08:27 Ascorbic Acid 500 Mg Tablet PO 500 mg DAILY JESSICA Administration Azithromycin 250 mg 07/22/24 09:00 Azithromycin 250 Mg Tablet PO 07/25/24 09:01 DAILY JESSICA Dextrose 12.5 gm 07/21/24 04:23 Dextrose 50% 25 Gm/50 Ml Syringe IV PUSH PRN PRN Hypoglycemia Protocol Fluoxetine HCl 10 mg 07/21/24 09:00 07/21/24 08:27 Fluoxetine Hcl 10 Mg Capsule PO 10 mg DAILY JESSICA Administration Glucagon 1 mg 07/21/24 04:23 Glucagon For Inj 1 Mg Vial IM PRN PRN Hypoglycemia Protocol Glucose 15 gm 07/21/24 04:23 Glucose Oral Gel 15 Gm Of Glucse In 37.5 Gm Tube PO PRN PRN Hypoglycemia Protocol Dextrose 1,000 mls @ 100 mls/hr 07/21/24 04:23 Dextrose 5% 1,000 Ml IVPB PRN PRN Hypoglycemia Protocol Amiodarone HCl/Dextrose 360 mg in 200 mls @ 16.667 mls/hr 07/21/24 19:54 07/22/24 09:47 Nexterone 360 Mg/D5w 200 Ml IV CONT 0.5 mg/min .Q12H JESSICA 16.67 mls/hr Administration 0.5 MG/MIN Ceftriaxone Sodium 2 gm in 100 mls @ 200 mls/hr 07/22/24 09:00 Rocephin 2 Gm/Ns 100 Ml IVPB DAILY [facility] Insulin Aspart 3 - 6 units 07/21/24 08:00 07/22/24 09:41 Insulin Aspart (*Bkc) 100 Units/Ml SUB-Q Not Given TIDWM [facility] Protocol Insulin Aspart 1 - 3 units 07/21/24 21:00 07/21/24 21:30 Insulin Aspart (*Bkc) 100 Units/Ml SUB-Q 2 units HS JESSICA Administration Protocol Levothyroxine Sodium 125 mcg 07/21/24 06:30 07/22/24 05:16 Levothyroxine Sodium 125 Mcg Tablet PO 125 mcg DAILY@0630 JESSICA Administration Lidocaine 1 patch 07/21/24 09:00 07/21/24 08:48 Lidocaine 5% Patch TRANSDERM 1 patch DAILY JESSICA Administration Lisinopril 20 mg 07/21/24 09:00 07/21/24 17:14 Lisinopril 20 Mg Tablet PO 20 mg BID JESSICA Administration Lovastatin 40 mg 07/21/24 18:00 07/21/24 17:14 Lovastatin 20 Mg Tablet PO 40 mg QPM JESSICA Administration Multivitamins/Minerals 1 tablet 07/21/24 09:00 07/21/24 17:14 Opti-Gen Tab PO 1 tablet BID JESSICA Administration Perflutren Lipid Microsphere 0 ml 07/21/24 13:17 Perflutren Lipid Microspheres 1.5 Ml Vial Diluted To 10 Ml Total Volume IV PUSH 07/24/24 13:17 ONCE PRN adequate visualization Protocol Radiology Results: ITS Impressions Shoulder X-Ray 07/20/24 16:39 IMPRESSION: 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 No acute osseous abnormality. Chest X-Ray 07/20/24 18:03 IMPRESSION: Subsegmental left basilar atelectasis/consolidation. Moderate interstitial edema versus respiratory bronchiolitis. Labs Labs: Laboratory Results - last 24 hr 07/21/24 07/21/24 07/21/24 04:25 11:14 11:15 Sodium Potassium Chloride Carbon Dioxide Anion Gap BUN Creatinine Estim Creat Clear Calc Estimated GFR Glucose POC Capillary Glucose Calcium Magnesium 1.6 Troponin I Triglycerides 108 Cholesterol 108 LDL Cholesterol Direct < 30 HDL Direct 39 TSH 3.240 Urine Color Dark yellow Urine Appearance Clear Urine pH 5.5 Ur Specific [place] 1.029 Urine Protein 2+ H Urine Glucose (UA) Negative Urine Ketones Trace H Ur Blood (Man) Negative Urine Nitrate Negative Urine Bilirubin 1+ H Urine Urobilinogen 1.0 Leukocyte Esterase Rfl Negative Urine RBC 0-2 Urine WBC 0-5 Ur Squamous Epith Cells None seen Urine Bacteria None seen Urine Casts 3-5 Ur Random Sodium < 5 Urine Creatinine 193.2 07/21/24 07/21/24 07/21/24 11:27 16:26 20:30 Sodium Potassium Chloride Carbon Dioxide Anion Gap BUN Creatinine Estim Creat Clear Calc Estimated GFR Glucose POC Capillary Glucose 162 H 194 H 276 H Calcium Magnesium Troponin I Triglycerides Cholesterol LDL Cholesterol Direct HDL Direct TSH Urine Color Urine Appearance Urine pH Ur Specific [place] Urine Protein Urine Glucose (UA) Urine Ketones Ur Blood (Man) Urine Nitrate Urine Bilirubin Urine Urobilinogen Leukocyte Esterase Rfl Urine RBC Urine WBC Ur Squamous Epith Cells Urine Bacteria Urine Casts Ur Random Sodium Urine Creatinine 07/22/24 07/22/24 07/22/24 04:11 04:20 08:20 Sodium 129 L Potassium 3.8 Chloride 101 Carbon Dioxide 21 L Anion Gap 7 BUN 34 H Creatinine 0.80 Estim Creat Clear Calc 47 Estimated GFR > 60 Glucose 101 POC Capillary Glucose 126 H Calcium 8.7 Magnesium 2.0 Troponin I 0.078 H* Triglycerides Cholesterol LDL Cholesterol Direct HDL Direct TSH Urine Color Urine Appearance Urine pH Ur Specific [place] Urine Protein Urine Glucose (UA) Urine Ketones Ur Blood (Man) Urine Nitrate Urine Bilirubin Urine Urobilinogen Leukocyte Esterase Rfl Urine RBC Urine WBC Ur Squamous Epith Cells Urine Bacteria Urine Casts Ur Random Sodium Urine Creatinine Quality VTE Prophylaxis VTE prophylaxis: pharmacologic ordered (Lovenox 30 mg subQ daily.)
[2024-07-22] MEDS: FLUoxetine HCL 10 MG CAPSULE PO (11:28)
[2024-07-22] MEDS: lisinopriL 20 MG TABLET PO ×2 (11:28→18:35)
[2024-07-22] MEDS: ASCORBIC ACID 500 MG TABLET PO (11:29)
[2024-07-22] MEDS: OPTI-GEN TAB 1 TABLET PO ×2 (11:29→18:35)
[2024-07-22] MEDS: AZITHROMYCIN 250 MG TABLET PO (11:29)
[2024-07-22] MEDS: APIXABAN 2.5 MG TABLET PO ×2 (11:29→20:50)
[2024-07-22] MEDS: cefTRIAXone 2 GM/NS 100 ML 2 GM/100 ML BAG IVPB (11:40)
[2024-07-22] MEDS: LIDOCAINE 5% PATCH 1 PATCH TRANSDERM (11:41)
[2024-07-22 12:36] LABS: Glucose Point of Care 167 mg/dl (65-105)
[2024-07-22] MEDS: LOVASTATIN 20 MG TABLET 40 MG PO (17:39)
[2024-07-22] MEDS: AMIODARONE HCL 200 MG TABLET PO (17:39)
[2024-07-22 18:03] LABS: Glucose Point of Care 153 mg/dl (65-105)
[2024-07-22 20:48] LABS: Glucose Point of Care 154 mg/dl (65-105)
[2024-07-23] VITALS (14 sets, daily range): BP systolic 149–163; BP diastolic 56–63; PULSE 64–72; RESP 12–20; TEMP 36.2–36.7; O2SAT 97–100
[2024-07-23 05:05] LABS: Hematocrit 38.6 % (37.0-47.0); Hemoglobin 12.4 g/dL (12.0-15.0); Mean Corpuscular HGB Conc 32.1 g/dl (32-36); Mean Corpuscular Hemoglobin 29.2 pg (26-34); Mean Corpuscular Volume 90.8 fl (80-100); Mean Platelet Volume 10.7 fl (7.4-10.4); Platelet Count Result 166 k/mm3 (150-375); Red Blood Count 4.25 M/mm3 (4.2-5.4); White Blood Count 12.3 K/mm3 (4.5-10.0)
[2024-07-23 05:18] LABS: Alanine Aminotransferase 20 U/L (6-35); Albumin Level 2.4 g/dL (3.5-5.1); Alkaline Phosphatase 97 U/L (38-126); Anion Gap 3 mmol/L (4-12); Aspartate Amino Transferase 27 U/L (14-36); Bilirubin,Total 1.1 mg/dL (0.2-1.3); Blood Urea Nitrogen 26 mg/dL (7-17); Calcium 8.5 mg/dL (8.4-10.2); Carbon Dioxide 25 mmol/L (22-30); Chloride 101 mmol/L (98-107); Estimated CRCL calculation 53 ml/min; Estimated Glomerular Filt Rate > 60; Glucose 105 mg/dL (65-110); Potassium 4.4 mmol/L (3.4-5.0); Sodium 129 mmol/L (137-145)
[2024-07-23] MEDS: ACETAMINOPHEN 325 MG TABLET 650 MG PO (06:02)
[2024-07-23] MEDS: LEVOTHYROXINE SODIUM 125 MCG TABLET PO (06:02)
--- NOTE | 2024-07-23 07:50 | PM.PNCARD ---
Progress Note: A&P Assessment and Plan (1) PAF (paroxysmal atrial fibrillation): Code(s): I48.0 - Paroxysmal atrial fibrillation Status: Acute Assessment and Plan: Back in sinus rhythm on Amiodarone drip. Probably due to pneumonia and age. [id number] 6. Rate is normal. On Eliquis. Decrease Amiodarone 200 mg daily. No further cardiac workup is needed. Will sign off, please call with any questions. Upon discharge have her f/u with me in 2 weeks. (2) Pneumonia: Qualifiers: Pneumonia type: due to unspecified organism Laterality: left Lung location: lower lobe of lung Qualified Code(s): J18.9 - Pneumonia, unspecified organism Code(s): J18.9 - Pneumonia, unspecified organism Status: Acute Assessment and Plan: On antibiotics as per hospitalist. (3) Elevated troponin: Code(s): R79.89 - Other specified abnormal findings of blood chemistry Status: Acute Assessment and Plan: Moderately elevated and trending down at peak 0.171. Probably due to pneumonia. 07/21/24 Echo: EF 60-65%, mod LVH, grade I diastolic dysfunction (E/e' 32, mod biatrial enlargement, mild AI/PI, mod MR/TR, RVSP 51 mmHg. (4) Diastolic dysfunction: Code(s): I51.89 - Other ill-defined heart diseases Status: Acute Assessment and Plan: Gentle hydration to prevent volume overload. (5) Moderate mitral valve regurgitation: Code(s): I34.0 - Nonrheumatic mitral (valve) insufficiency Status: Acute Assessment and Plan: Stable. (6) Benign essential HTN: Code(s): I10 - Essential (primary) hypertension Status: Acute Assessment and Plan: High. Start Amlodipine 5 mg daily. (7) PVT (paroxysmal ventricular tachycardia): Code(s): I47.20 - Ventricular tachycardia, unspecified Status: Acute Assessment and Plan: Stable. NSVT up to 16 beats. On Amiodarone. Subjective Date/time seen: 07/23/24 07:50 Interval history: Denies chest pain or sob. Exam Const: General: cooperative, healthy appearing and comfortable Orientation/consciousness: oriented to person, oriented to place and oriented to time Resp: Auscultation: clear to auscultation bilaterally, no crackles, no rales, no rhonchi and no wheezes Cardio: Rate: regular rate Rhythm: regular rhythm Heart sounds: no murmurs Peripheral pulses: dorsalis pedis present Neuro: General: oriented to person, oriented to place and oriented to time Extrem: Right lower extremity: no edema Left lower extremity: no edema Objective Data Vital Signs Vital Signs: Vital Signs - 24 hr 07/22/24 08:00 07/22/24 08:35 07/22/24 09:47 Temperature 98.2 F Pulse Rate 66 67 69 Respiratory Rate 22 H Blood Pressure 154/68 H Pulse Oximetry 96 Oxygen Delivery Fraction of Inspired Oxygen 07/22/24 12:00 07/22/24 10:00 07/22/24 08:00 Temperature 97.5 F L 97.9 F Pulse Rate 64 64 Respiratory Rate 22 H 20 Blood Pressure 176/64 H 174/71 H Pulse Oximetry 100 98 Oxygen Delivery Room Air Fraction of Inspired Oxygen 07/22/24 08:00 07/22/24 10:00 07/22/24 14:00 Temperature 98.1 F Pulse Rate 64 64 6 L Respiratory Rate 20 Blood Pressure 158/68 H Pulse Oximetry 97 Oxygen Delivery Fraction of Inspired Oxygen 07/22/24 12:00 07/22/24 14:00 07/22/24 16:00 Temperature Pulse Rate 66 Respiratory Rate Blood Pressure Pulse Oximetry Oxygen Delivery Room Air Room Air Fraction of Inspired Oxygen 07/22/24 16:00 07/22/24 17:39 07/22/24 16:00 Temperature 98.2 F Pulse Rate 69 70 67 Respiratory Rate 22 H Blood Pressure 158/70 H Pulse Oximetry 99 Oxygen Delivery Fraction of Inspired Oxygen 07/22/24 18:00 07/22/24 19:44 07/22/24 20:00 Temperature 97.8 F Pulse Rate 73 71 72 Respiratory Rate 22 H 22 H Blood Pressure 153/72 H Pulse Oximetry 9 L 97 Oxygen Delivery Room Air Fraction of Inspired Oxygen 07/22/24 20:00 07/22/24 22:00 07/22/24 23:05 Temperature 98.4 F Pulse Rate 72 80 71 Respiratory Rate 12 Blood Pressure 156/83 H Pulse Oximetry 97 Oxygen Delivery Fraction of Inspired Oxygen 07/23/24 00:00 07/23/24 00:00 07/23/24 02:00 Temperature Pulse Rate 66 66 68 Respiratory Rate 12 Blood Pressure Pulse Oximetry 97 Oxygen Delivery Room Air Fraction of Inspired Oxygen 07/23/24 03:41 07/23/24 04:00 07/23/24 04:00 Temperature 98.0 F Pulse Rate 66 66 66 Respiratory Rate 14 14 Blood Pressure 153/60 H Pulse Oximetry 98 98 Oxygen Delivery Room Air Fraction of Inspired Oxygen 07/23/24 06:00 07/23/24 07:28 Temperature 97.7 F Pulse Rate 68 64 Respiratory Rate 20 Blood Pressure 162/63 H Pulse Oximetry 97 Oxygen Delivery Fraction of Inspired Oxygen Intake/Output Intake/Output: Intake & Output 07/20/24 07/21/24 07/22/24 07/23/24 23:59 23:59 23:59 23:59 Intake Total 800 1215.0 1323.4 150 Output Total 400 300 500 Balance 800 815.0 1023.4 -350 Meds/Results Medications: Active Medications Generic Name Dose Route Start Last Admin Trade Name Freq PRN Reason Stop Dose Admin Acetaminophen 650 mg 07/21/24 04:55 07/23/24 06:02 Acetaminophen 325 Mg Tablet PO 650 mg Q4H PRN Administration Pain Rated 1-3 Amiodarone HCl 200 mg 07/22/24 17:00 07/22/24 17:39 Amiodarone Hcl 200 Mg Tablet PO 200 mg BID JESSICA Administration Amlodipine Besylate 5 mg 07/23/24 09:00 Amlodipine Besylate 5 Mg Tablet PO DAILY JESSICA Apixaban 2.5 mg 07/21/24 21:00 07/22/24 20:50 Apixaban 2.5 Mg Tablet PO 2.5 mg Q12HR JESSICA Administration Ascorbic Acid 500 mg 07/21/24 09:00 07/22/24 11:29 Ascorbic Acid 500 Mg Tablet PO 500 mg DAILY JESSICA Administration Azithromycin 250 mg 07/22/24 09:00 07/22/24 11:29 Azithromycin 250 Mg Tablet PO 07/25/24 09:01 250 mg DAILY JESSICA Administration Dextrose 12.5 gm 07/21/24 04:23 Dextrose 50% 25 Gm/50 Ml Syringe IV PUSH PRN PRN Hypoglycemia Protocol Fluoxetine HCl 10 mg 07/21/24 09:00 07/22/24 11:28 Fluoxetine Hcl 10 Mg Capsule PO 10 mg DAILY JESSICA Administration Glucagon 1 mg 07/21/24 04:23 Glucagon For Inj 1 Mg Vial IM PRN PRN Hypoglycemia Protocol Glucose 15 gm 07/21/24 04:23 Glucose Oral Gel 15 Gm Of Glucse In 37.5 Gm Tube PO PRN PRN Hypoglycemia Protocol Dextrose 1,000 mls @ 100 mls/hr 07/21/24 04:23 Dextrose 5% 1,000 Ml IVPB PRN PRN Hypoglycemia Protocol Ceftriaxone Sodium 2 gm in 100 mls @ 200 mls/hr 07/22/24 09:00 07/22/24 11:40 Rocephin 2 Gm/Ns 100 Ml IVPB 200 mls/hr DAILY JESSICA Administration Insulin Aspart 3 - 6 units 07/21/24 08:00 07/22/24 17:32 Insulin Aspart (*Bkc) 100 Units/Ml SUB-Q Not Given TIDWM JESSICA Protocol Insulin Aspart 1 - 3 units 07/21/24 21:00 07/22/24 20:51 Insulin Aspart (*Bkc) 100 Units/Ml SUB-Q Not Given HS JESSICA Protocol Levothyroxine Sodium 125 mcg 07/21/24 06:30 07/23/24 06:02 Levothyroxine Sodium 125 Mcg Tablet PO 125 mcg DAILY@0630 JESSICA Administration Lidocaine 1 patch 07/21/24 09:00 07/22/24 11:41 Lidocaine 5% Patch TRANSDERM 1 patch DAILY JESSICA Administration Lisinopril 20 mg 07/21/24 09:00 07/22/24 18:35 Lisinopril 20 Mg Tablet PO 20 mg BID JESSICA Administration Lovastatin 40 mg 07/21/24 18:00 07/22/24 17:39 Lovastatin 20 Mg Tablet PO 40 mg QPM JESSICA Administration Multivitamins/Minerals 1 tablet 07/21/24 09:00 07/22/24 18:35 Opti-Gen Tab PO 1 tablet BID JESSICA Administration Perflutren Lipid Microsphere 0 ml 07/21/24 13:17 Perflutren Lipid Microspheres 1.5 Ml Vial Diluted To 10 Ml Total Volume IV PUSH 07/24/24 13:17 ONCE PRN adequate visualization Protocol Radiology Results: ITS Impressions Shoulder X-Ray 07/20/24 16:39 IMPRESSION: 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 No acute osseous abnormality. Chest X-Ray 07/22/24 11:58 IMPRESSION: 1. Improvement in the prior pulmonary edema or pneumonia in the left mid and bilateral lower lung zones. 2. Small left pleural effusion with some compressive and streaky atelectasis at the left lung base. 3. Cardiomegaly. Labs Labs: Laboratory Results - last 24 hr 07/22/24 07/22/24 07/22/24 04:11 08:20 12:11 WBC RBC Hgb Hct MCV MCH MCHC RDW Plt Count MPV Sodium 129 L Potassium 3.8 Chloride 101 Carbon Dioxide 21 L Anion Gap 7 BUN 34 H Creatinine 0.80 Estim Creat Clear Calc 47 Estimated GFR > 60 Glucose 101 POC Capillary Glucose 126 H 167 H Calcium 8.7 Magnesium 2.0 Total Bilirubin AST ALT Alkaline Phosphatase Total Protein Albumin 07/22/24 07/22/24 07/23/24 16:29 20:44 04:08 WBC 12.3 H RBC 4.25 Hgb 12.4 Hct 38.6 MCV 90.8 MCH 29.2 MCHC 32.1 RDW 14.0 Plt Count 166 MPV 10.7 H Sodium 129 L Potassium 4.4 Chloride 101 Carbon Dioxide 25 Anion Gap 3 L BUN 26 H Creatinine 0.70 Estim Creat Clear Calc 53 Estimated GFR > 60 Glucose 105 POC Capillary Glucose 153 H 154 H Calcium 8.5 Magnesium Total Bilirubin 1.1 AST 27 ALT 20 Alkaline Phosphatase 97 Total Protein 6.0 L Albumin 2.4 L
[2024-07-23 08:18] LABS: Glucose Point of Care 102 mg/dl (65-105)
[2024-07-23] MEDS: OPTI-GEN TAB 1 TABLET PO ×2 (08:24→17:37)
[2024-07-23] MEDS: AMIODARONE HCL 200 MG TABLET PO (08:24)
[2024-07-23] MEDS: APIXABAN 2.5 MG TABLET PO ×2 (08:24→20:56)
[2024-07-23] MEDS: ASCORBIC ACID 500 MG TABLET PO (08:24)
[2024-07-23] MEDS: amLODIPine BESYLATE 5 MG TABLET PO (08:24)
[2024-07-23] MEDS: FLUoxetine HCL 10 MG CAPSULE PO (08:24)
[2024-07-23] MEDS: AZITHROMYCIN 250 MG TABLET PO (08:24)
[2024-07-23] MEDS: lisinopriL 20 MG TABLET PO ×2 (08:24→17:37)
[2024-07-23] MEDS: cefTRIAXone 2 GM/NS 100 ML 2 GM/100 ML BAG IVPB (08:25)
[2024-07-23] MEDS: LIDOCAINE 5% PATCH 1 PATCH TRANSDERM (08:25)
[2024-07-23 11:52] LABS: Glucose Point of Care 195 mg/dl (65-105)
--- NOTE | 2024-07-23 12:23 | P.PNIM_ITS ---
Progress Note: A&P Assessment and Plan (1) Bacterial UTI: Code(s): N39.0 - Urinary tract infection, site not specified; A49.9 - Bacterial infection, unspecified Status: Acute Assessment and Plan: Urine culture shows gram negative variable is. Antibiotic adjusted (2) Pneumonia: Qualifiers: Pneumonia type: due to unspecified organism Laterality: left Lung location: lower lobe of lung Qualified Code(s): J18.9 - Pneumonia, unspecified organism Code(s): J18.9 - Pneumonia, unspecified organism Status: Acute Assessment and Plan: Patient breathing is better. Plan is to continue current treatment. Monitor closely (3) Fall: Qualifiers: Encounter type: initial encounter Qualified Code(s): W19.XXXA - Unspecified fall, initial encounter Code(s): W19.XXXA - Unspecified fall, initial encounter Status: Acute Assessment and Plan: Start physical therapy when patient is more stable (4) Elevated troponin: Code(s): R79.89 - Other specified abnormal findings of blood chemistry Status: Acute Assessment and Plan: Cardiology consult noted. No intervention is needed. (5) Diastolic dysfunction: Code(s): I51.89 - Other ill-defined heart diseases Status: Acute Assessment and Plan: Stable on current medication, continue current treatment (6) Diarrhea: Qualifiers: Diarrhea type: unspecified type Qualified Code(s): R19.7 - Diarrhea, unspecified Code(s): R19.7 - Diarrhea, unspecified Status: Acute Assessment and Plan: Better (7) Acute hyponatremia: Code(s): E87.1 - Hypo-osmolality and hyponatremia Status: Acute Assessment and Plan: Will repeat sodium was 129 Will monitor closely (8) Acute uremia: Code(s): N19 - Unspecified kidney failure Status: Acute Assessment and Plan: Repeat labs and monitor closely Plan 83-year-old female with past medical history of essential hypertension, hyperlipidemia, diabetes, diastolic dysfunction, mild pulmonary hypertension, moderate mitral valve regurgitation and hypothyroidism who presented to the ER after having intractable right shoulder pain after a fall. Imaging in the ER did not demonstrate evidence of fracture. Patient's daughter reported the staff that the patient has had increasing number of falls in the patient states that she lives in a split-level home. Imaging in the ER suggest patient may have pneumonia with associated leukocytosis and intermittent tachypnea. The patient's hemoglobin improved to 11.4 compared to prior values. 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 Patient reports just being generally fatigued and weak. She denies any dizziness, lightheadedness and denies sitting head or having any loss of consciousness. Imaging in the ER demonstrated no evidence of intracranial process, cervical fracture or fracture of the arm or shoulder. However did demonstrate marked osteoarthritis of the AC joint. The patient's family had reported the patient had been having diarrhea. The patient did not confirm the symptoms with me. She did report chronic low appetite and no desire to eat which she partially attributes to her mood. Patient presented with progressive weakness as noted above and multiple falls. She does demonstrate evidence of immune pneumonia on presentation. Blood culture also came back positive for Haemophilus influenzae x2. Worsening hyponatremia from baseline remains stable. Was also noted to be in AFib with RVR. Back to sinus rhythm was treated with amiodarone. Chads vas score 6 and was started on Eliquis. Bacteremia repeat blood culture Pneumonia Multiple falls Elevated troponin Diastolic dysfunction Diarrhea Hyponatremia DVT prophylaxis on Eliquis Code status is do not resuscitate. Subjective Date/time seen: 07/23/24 12:23 Interval history: Chart reviewed. Still feels weak. Not able to eat. Back to sinus rhythm. Denies shortness of breath or chest pain. Review of Systems Review of Systems: All systems reviewed & are unremarkable except as noted in HPI and below (the history and physical exam.) Exam Narrative: GENERAL: Elderly, well-nourished, and in no acute distress. HEAD: Normocephalic, atraumatic. EYES: PERRLA and EOMI. ENT: Nares clear, no rhinorrhea or epistaxis. Mucous membranes moist. NECK: Supple. No adenopathy or masses. CHEST: No respiratory distress. Coarse breath sounds bilaterally No wheezes or rhonchi HEART: Regular rate and rhythm. No murmur heard. Normal peripheral pulses. ABDOMEN: Soft, nontender, nondistended, normal active bowel sounds. EXTREMITIES: Normal range of motion. No edema or obvious deformity. SKIN: Warm, dry, no rash. NEURO: No focal deficits. Alert and oriented x3. CN II-XII grossly intact PSYCH: Normal mood and affect Objective Data Vital Signs Vital Signs: Vital Signs - 24 hr 07/22/24 14:00 07/22/24 14:00 07/22/24 16:00 Temperature 98.1 F Pulse Rate 6 L 66 Respiratory Rate 20 Blood Pressure 158/68 H Pulse Oximetry 97 Oxygen Delivery Room Air Fraction of Inspired Oxygen 07/22/24 16:00 07/22/24 17:39 07/22/24 16:00 Temperature 98.2 F Pulse Rate 69 70 67 Respiratory Rate 22 H Blood Pressure 158/70 H Pulse Oximetry 99 Oxygen Delivery Fraction of Inspired Oxygen 07/22/24 18:00 07/22/24 19:44 07/22/24 20:00 Temperature 97.8 F Pulse Rate 73 71 72 Respiratory Rate 22 H 22 H Blood Pressure 153/72 H Pulse Oximetry 9 L 97 Oxygen Delivery Room Air Fraction of Inspired Oxygen 21 07/22/24 20:00 07/22/24 22:00 07/22/24 23:05 Temperature 98.4 F Pulse Rate 72 80 71 Respiratory Rate 12 Blood Pressure 156/83 H Pulse Oximetry 97 Oxygen Delivery Fraction of Inspired Oxygen 07/23/24 00:00 07/23/24 00:00 07/23/24 02:00 Temperature Pulse Rate 66 66 68 Respiratory Rate 12 Blood Pressure Pulse Oximetry 97 Oxygen Delivery Room Air Fraction of Inspired Oxygen 21 07/23/24 03:41 07/23/24 04:00 07/23/24 04:00 Temperature 98.0 F Pulse Rate 66 66 66 Respiratory Rate 14 14 Blood Pressure 153/60 H Pulse Oximetry 98 98 Oxygen Delivery Room Air Fraction of Inspired Oxygen 21 07/23/24 06:00 07/23/24 07:28 07/23/24 08:24 Temperature 97.7 F Pulse Rate 68 64 66 Respiratory Rate 20 Blood Pressure 162/63 H Pulse Oximetry 97 Oxygen Delivery Fraction of Inspired Oxygen 07/23/24 08:25 07/23/24 08:00 07/23/24 08:00 Temperature Pulse Rate 65 Respiratory Rate Blood Pressure Pulse Oximetry Oxygen Delivery Room Air Room Air Fraction of Inspired Oxygen 07/23/24 10:00 07/23/24 12:00 Temperature Pulse Rate 72 67 Respiratory Rate Blood Pressure Pulse Oximetry Oxygen Delivery Fraction of Inspired Oxygen Intake/Output Intake/Output: Intake & Output 07/20/24 07/21/24 07/22/24 07/23/24 23:59 23:59 23:59 23:59 Intake Total 800 1215.0 1423.4 730 Output Total 400 300 500 Balance 800 815.0 1123.4 230 Meds/Results Medications: Active Medications Generic Name Dose Route Start Last Admin Trade Name Freq PRN Reason Stop Dose Admin Acetaminophen 650 mg 07/21/24 04:55 07/23/24 06:02 Acetaminophen 325 Mg Tablet PO 650 mg Q4H PRN Administration Pain Rated 1-3 Amiodarone HCl 200 mg 07/23/24 09:00 07/23/24 08:24 Amiodarone Hcl 200 Mg Tablet PO 200 mg DAILY JESSICA Administration Amlodipine Besylate 5 mg 07/23/24 09:00 07/23/24 08:24 Amlodipine Besylate 5 Mg Tablet PO 5 mg DAILY JESSICA Administration Apixaban 2.5 mg 07/21/24 21:00 07/23/24 08:24 Apixaban 2.5 Mg Tablet PO 2.5 mg Q12HR JESSICA Administration Ascorbic Acid 500 mg 07/21/24 09:00 07/23/24 08:24 Ascorbic Acid 500 Mg Tablet PO 500 mg DAILY JESSICA Administration Azithromycin 250 mg 07/22/24 09:00 07/23/24 08:24 Azithromycin 250 Mg Tablet PO 07/25/24 09:01 250 mg DAILY JESSICA Administration Dextrose 12.5 gm 07/21/24 04:23 Dextrose 50% 25 Gm/50 Ml Syringe IV PUSH PRN PRN Hypoglycemia Protocol Fluoxetine HCl 10 mg 07/21/24 09:00 07/23/24 08:24 Fluoxetine Hcl 10 Mg Capsule PO 10 mg DAILY JESSICA Administration Glucagon 1 mg 07/21/24 04:23 Glucagon For Inj 1 Mg Vial IM PRN PRN Hypoglycemia Protocol Glucose 15 gm 07/21/24 04:23 Glucose Oral Gel 15 Gm Of Glucse In 37.5 Gm Tube PO PRN PRN Hypoglycemia Protocol Dextrose 1,000 mls @ 100 mls/hr 07/21/24 04:23 Dextrose 5% 1,000 Ml IVPB PRN PRN Hypoglycemia Protocol Ceftriaxone Sodium 2 gm in 100 mls @ 200 mls/hr 07/22/24 09:00 07/23/24 08:55 Rocephin 2 Gm/Ns 100 Ml IVPB Infused DAILY JESSICA Infusion Insulin Aspart 3 - 6 units 07/21/24 08:00 07/23/24 11:30 Insulin Aspart (*Bkc) 100 Units/Ml SUB-Q Not Given TIDWM [facility] Protocol Insulin Aspart 1 - 3 units 07/21/24 21:00 07/22/24 20:51 Insulin Aspart (*Bkc) 100 Units/Ml SUB-Q Not Given HS [facility] Protocol Levothyroxine Sodium 125 mcg 07/21/24 06:30 07/23/24 06:02 Levothyroxine Sodium 125 Mcg Tablet PO 125 mcg DAILY@0630 JESSICA Administration Lidocaine 1 patch 07/21/24 09:00 07/23/24 08:25 Lidocaine 5% Patch TRANSDERM 1 patch DAILY JESSICA Administration Lisinopril 20 mg 07/21/24 09:00 07/23/24 08:24 Lisinopril 20 Mg Tablet PO 20 mg BID JESSICA Administration Lovastatin 40 mg 07/21/24 18:00 07/22/24 17:39 Lovastatin 20 Mg Tablet PO 40 mg QPM JESSICA Administration Multivitamins/Minerals 1 tablet 07/21/24 09:00 07/23/24 08:24 Opti-Gen Tab PO 1 tablet BID JESSICA Administration Perflutren Lipid Microsphere 0 ml 07/21/24 13:17 Perflutren Lipid Microspheres 1.5 Ml Vial Diluted To 10 Ml Total Volume IV PUSH 07/24/24 13:17 ONCE PRN adequate visualization Protocol Radiology Results: ITS Impressions Shoulder X-Ray 07/20/24 16:39 IMPRESSION: 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 No acute osseous abnormality. Chest X-Ray 07/22/24 11:58 IMPRESSION: 1. Improvement in the prior pulmonary edema or pneumonia in the left mid and bilateral lower lung zones. 2. Small left pleural effusion with some compressive and streaky atelectasis at the left lung base. 3. Cardiomegaly. Labs Labs: Laboratory Results - last 24 hr 07/22/24 07/22/24 07/22/24 12:11 16:29 20:44 WBC RBC Hgb Hct MCV MCH MCHC RDW Plt Count MPV Sodium Potassium Chloride Carbon Dioxide Anion Gap BUN Creatinine Estim Creat Clear Calc Estimated GFR Glucose POC Capillary Glucose 167 H 153 H 154 H Calcium Total Bilirubin AST ALT Alkaline Phosphatase Total Protein Albumin 07/23/24 07/23/24 07/23/24 04:08 07:26 11:28 WBC 12.3 H RBC 4.25 Hgb 12.4 Hct 38.6 MCV 90.8 MCH 29.2 MCHC 32.1 RDW 14.0 Plt Count 166 MPV 10.7 H Sodium 129 L Potassium 4.4 Chloride 101 Carbon Dioxide 25 Anion Gap 3 L BUN 26 H Creatinine 0.70 Estim Creat Clear Calc 53 Estimated GFR > 60 Glucose 105 POC Capillary Glucose 102 195 H Calcium 8.5 Total Bilirubin 1.1 AST 27 ALT 20 Alkaline Phosphatase 97 Total Protein 6.0 L Albumin 2.4 L
--- NOTE | 2024-07-23 12:33 | PC.NURSE ---
This RN gave report to receiving RNHoma. Pt will transfer to second medical room 255.
[2024-07-23] MEDS: HYDROcodone/acetaminophen (*CRX) 5-325 MG TABLET 1 TAB PO ×2 (12:43→18:17)
--- NOTE | 2024-07-23 12:57 | PC.NURSE ---
Pt transferred to second medical room 255.
--- NOTE | 2024-07-23 13:15 | PC.NURSE ---
pt transferred in to room 255 via wheelchair, assisted to bed using walker and gait belt, reviewed plan of care with family members at bedside, pt on telemetry per MD orders
[2024-07-23 17:08] LABS: Glucose Point of Care 183 mg/dl (65-105)
[2024-07-23] MEDS: LOVASTATIN 20 MG TABLET 40 MG PO (17:37)
[2024-07-23] MEDS: INSULIN ASPART (*BKC) 100 UNITS/ML SUB-Q (22:06)
[2024-07-23 22:08] LABS: Glucose Point of Care 211 mg/dl (65-105)
[2024-07-24] VITALS (11 sets, daily range): BP systolic 132–166; BP diastolic 60–63; PULSE 70–85; RESP 16; TEMP 36.4–36.7; O2SAT 95–100
[2024-07-24 06:02] LABS: Basophils Percent Auto 0.3 % (0.2-1.2); Eosinophils Absolute Auto 0.2 K/mm3 (0-0.3); Eosinophils Percent Auto 1.9 % (0-4.4); Hematocrit 39.7 % (37.0-47.0); Hemoglobin 13.2 g/dL (12.0-15.0); Immature Granulocyte Absolute 0.11 K/mm3 (0.00-0.031); Immature Granulocyte Percent A 1.1 % (0-0.5); Lymphocytes Absolute Auto 0.89 K/mm3 (0.9-3.2); Lymphocytes Percent Auto 8.9 % (18.3-44.2); Mean Corpuscular HGB Conc 33.2 g/dl (32-36); Mean Corpuscular Hemoglobin 29.9 pg (26-34); Mean Corpuscular Volume 89.8 fl (80-100); Mean Platelet Volume 10.7 fl (7.4-10.4); Monocytes Absolute Auto 0.9 K/mm3 (0.1-0.6); Monocytes Percent Auto 9.1 % (2.6-8.5); Neutrophils Absolute Auto 7.9 K/mm3 (1.3-6.7); Neutrophils Percent Auto 78.7 % (45.5-73.1); Platelet Count Result 193 k/mm3 (150-375); Red Blood Count 4.42 M/mm3 (4.2-5.4); Red Cell Distribution Width 14.4 % (11.5-14.5)
[2024-07-24 06:25] LABS: Alanine Aminotransferase 21 U/L (6-35); Albumin Level 2.5 g/dL (3.5-5.1); Alkaline Phosphatase 113 U/L (38-126); Anion Gap 2 mmol/L (4-12); Aspartate Amino Transferase 28 U/L (14-36); Bilirubin,Total 1.1 mg/dL (0.2-1.3); Blood Urea Nitrogen 23 mg/dL (7-17); Calcium 8.9 mg/dL (8.4-10.2); Carbon Dioxide 28 mmol/L (22-30); Chloride 99 mmol/L (98-107); Estimated CRCL calculation 53 ml/min; Estimated Glomerular Filt Rate > 60; Glucose 130 mg/dL (65-110); Magnesium 1.8 mg/dL (1.6-2.3); Potassium 4.2 mmol/L (3.4-5.0); Sodium 129 mmol/L (137-145)
[2024-07-24] MEDS: LEVOTHYROXINE SODIUM 125 MCG TABLET PO (07:01)
[2024-07-24 07:54] LABS: Glucose Point of Care 134 mg/dl (65-105)
[2024-07-24] MEDS: FLUoxetine HCL 10 MG CAPSULE PO (09:22)
[2024-07-24] MEDS: ASCORBIC ACID 500 MG TABLET PO (09:22)
[2024-07-24] MEDS: APIXABAN 2.5 MG TABLET PO ×2 (09:22→20:59)
[2024-07-24] MEDS: AMIODARONE HCL 200 MG TABLET PO (09:23)
[2024-07-24] MEDS: OPTI-GEN TAB 1 TABLET PO ×2 (09:24→17:14)
[2024-07-24] MEDS: lisinopriL 20 MG TABLET PO ×2 (09:24→17:14)
[2024-07-24] MEDS: amLODIPine BESYLATE 5 MG TABLET PO (09:24)
[2024-07-24] MEDS: LIDOCAINE 5% PATCH 1 PATCH TRANSDERM (09:24)
[2024-07-24] MEDS: AZITHROMYCIN 250 MG TABLET PO (09:24)
[2024-07-24] MEDS: cefTRIAXone 2 GM/NS 100 ML 2 GM/100 ML BAG IVPB (09:24)
[2024-07-24] MEDS: HYDROcodone/acetaminophen (*CRX) 5-325 MG TABLET 1 TAB PO (09:35)
--- NOTE | 2024-07-24 10:42 | PCPTNOTE ---
Patient declined therapy services at this time stating she needs to rest and she is having pain. Nursing aware of pain in right shoulder and of therapy refusal. Will attempt at later time.
--- NOTE | 2024-07-24 10:50 | PM.IMPN ---
Progress Note: A&P Assessment and Plan (1) Bacterial UTI: Code(s): N39.0 - Urinary tract infection, site not specified; A49.9 - Bacterial infection, unspecified Status: Acute (2) Pneumonia: Qualifiers: Pneumonia type: due to unspecified organism Laterality: left Lung location: lower lobe of lung Qualified Code(s): J18.9 - Pneumonia, unspecified organism Code(s): J18.9 - Pneumonia, unspecified organism Status: Acute (3) Fall: Qualifiers: Encounter type: initial encounter Qualified Code(s): W19.XXXA - Unspecified fall, initial encounter Code(s): W19.XXXA - Unspecified fall, initial encounter Status: Acute (4) Elevated troponin: Code(s): R79.89 - Other specified abnormal findings of blood chemistry Status: Acute (5) Diastolic dysfunction: Code(s): I51.89 - Other ill-defined heart diseases Status: Acute (6) Diarrhea: Qualifiers: Diarrhea type: unspecified type Qualified Code(s): R19.7 - Diarrhea, unspecified Code(s): R19.7 - Diarrhea, unspecified Status: Acute (7) Acute hyponatremia: Code(s): E87.1 - Hypo-osmolality and hyponatremia Status: Acute (8) Acute uremia: Code(s): N19 - Unspecified kidney failure Status: Acute Plan 83-year-old female with past medical history of essential hypertension, hyperlipidemia, diabetes, diastolic dysfunction, mild pulmonary hypertension, moderate mitral valve regurgitation and hypothyroidism who presented to the ER after having intractable right shoulder pain after a fall. Imaging in the ER did not demonstrate evidence of fracture. Patient's daughter reported the staff that the patient has had increasing number of falls in the patient states that she lives in a split-level home. Imaging in the ER suggest patient may have pneumonia with associated leukocytosis and intermittent tachypnea. The patient's hemoglobin improved to 11.4 compared to prior values. 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 Patient reports just being generally fatigued and weak. She denies any dizziness, lightheadedness and denies sitting head or having any loss of consciousness. Imaging in the ER demonstrated no evidence of intracranial process, cervical fracture or fracture of the arm or shoulder. However did demonstrate marked osteoarthritis of the AC joint. The patient's family had reported the patient had been having diarrhea. The patient did not confirm the symptoms with me. She did report chronic low appetite and no desire to eat which she partially attributes to her mood. Patient presented with progressive weakness as noted above and multiple falls. She does demonstrate evidence of immune pneumonia on presentation. Blood culture also came back positive for Haemophilus influenzae x2. Worsening hyponatremia from baseline remains stable. Was also noted to be in AFib with RVR. Back to sinus rhythm was treated with amiodarone. Chads vas score 6 and was started on Eliquis. Bacteremia repeat blood culture pending Right shoulder pain will get CT to further evaluate with ongoing pain Pneumonia Multiple falls Elevated troponin Diastolic dysfunction Diarrhea Hyponatremia DVT prophylaxis on Eliquis Code status is do not resuscitate. Subjective Date/time seen: 07/24/24 10:50 Interval history: Right shoulder still bothers her. Had a fall and landed on her shoulder. Initial x-ray was negative. Still feels weak. Did work with therapy. Minimum to moderate assistance. Review of Systems Review of Systems: All systems reviewed & are unremarkable except as noted in HPI and below (the history and physical exam.) Exam Narrative: GENERAL: Elderly, well-nourished, and in no acute distress. HEAD: Normocephalic, atraumatic. EYES: PERRLA and EOMI. ENT: Nares clear, no rhinorrhea or epistaxis. Mucous membranes moist. NECK: Supple. No adenopathy or masses. CHEST: No respiratory distress. Coarse breath sounds bilaterally No wheezes or rhonchi HEART: Regular rate and rhythm. No murmur heard. Normal peripheral pulses. ABDOMEN: Soft, nontender, nondistended, normal active bowel sounds. EXTREMITIES: Normal range of motion. No edema or obvious deformity. Right shoulder with local tenderness and limited range of motion SKIN: Warm, dry, no rash. NEURO: No focal deficits. Alert and oriented x3. CN II-XII grossly intact PSYCH: Normal mood and affect Objective Data Vital Signs Vital Signs: Vital Signs - 24 hr 07/23/24 12:00 07/23/24 14:29 07/23/24 16:00 Temperature 97.2 F L Pulse Rate 67 72 67 Respiratory Rate 18 Blood Pressure 163/56 H Pulse Oximetry 100 07/23/24 20:00 07/23/24 21:54 07/24/24 00:00 Temperature 97.9 F Pulse Rate 70 68 71 Respiratory Rate 14 Blood Pressure 149/62 H Pulse Oximetry 97 07/24/24 04:00 07/24/24 05:08 07/24/24 09:23 Temperature 97.6 F Pulse Rate 70 72 73 Respiratory Rate 16 Blood Pressure 154/61 H Pulse Oximetry 96 Intake/Output Intake/Output: Intake & Output 07/21/24 07/22/24 07/23/24 07/24/24 23:59 23:59 23:59 23:59 Intake Total 1215.0 1423.4 830 390 Output Total 400 300 900 Balance 815.0 1123.4 -70 390 Meds/Results Medications: Active Medications Generic Name Dose Route Start Last Admin Trade Name Freq PRN Reason Stop Dose Admin Acetaminophen 650 mg 07/21/24 04:55 07/23/24 06:02 Acetaminophen 325 Mg Tablet PO 650 mg Q4H PRN Administration Pain Rated 1-3 Hydrocodone Bitart/Acetaminophen 1 tab 07/23/24 12:30 07/24/24 09:35 Hydrocodone/Acetaminophen (*Crx) 5-325 Mg Tablet PO 1 tab Q6H PRN Administration Pain Rated 4-6 Amiodarone HCl 200 mg 07/23/24 09:00 07/24/24 09:23 Amiodarone Hcl 200 Mg Tablet PO 200 mg DAILY JESSICA Administration Amlodipine Besylate 5 mg 07/23/24 09:00 07/24/24 09:24 Amlodipine Besylate 5 Mg Tablet PO 5 mg DAILY JESSICA Administration Apixaban 2.5 mg 07/21/24 21:00 07/24/24 09:22 Apixaban 2.5 Mg Tablet PO 2.5 mg Q12HR JESSICA Administration Ascorbic Acid 500 mg 07/21/24 09:00 07/24/24 09:22 Ascorbic Acid 500 Mg Tablet PO 500 mg DAILY JESSICA Administration Azithromycin 250 mg 07/22/24 09:00 07/24/24 09:24 Azithromycin 250 Mg Tablet PO 07/25/24 09:01 250 mg DAILY JESSICA Administration Dextrose 12.5 gm 07/21/24 04:23 Dextrose 50% 25 Gm/50 Ml Syringe IV PUSH PRN PRN Hypoglycemia Protocol Fluoxetine HCl 10 mg 07/21/24 09:00 07/24/24 09:22 Fluoxetine Hcl 10 Mg Capsule PO 10 mg DAILY JESSICA Administration Glucagon 1 mg 07/21/24 04:23 Glucagon For Inj 1 Mg Vial IM PRN PRN Hypoglycemia Protocol Glucose 15 gm 07/21/24 04:23 Glucose Oral Gel 15 Gm Of Glucse In 37.5 Gm Tube PO PRN PRN Hypoglycemia Protocol Dextrose 1,000 mls @ 100 mls/hr 07/21/24 04:23 Dextrose 5% 1,000 Ml IVPB PRN PRN Hypoglycemia Protocol Ceftriaxone Sodium 2 gm in 100 mls @ 200 mls/hr 07/22/24 09:00 07/24/24 09:24 Rocephin 2 Gm/Ns 100 Ml IVPB 100 mls/hr DAILY JESSICA Administration Insulin Aspart 3 - 6 units 07/21/24 08:00 07/24/24 09:18 Insulin Aspart (*Bkc) 100 Units/Ml SUB-Q Not Given TIDWM JESSICA Protocol Insulin Aspart 1 - 3 units 07/21/24 21:00 07/23/24 22:06 Insulin Aspart (*Bkc) 100 Units/Ml SUB-Q 1 units HS JESSICA Administration Protocol Levothyroxine Sodium 125 mcg 07/21/24 06:30 07/24/24 07:01 Levothyroxine Sodium 125 Mcg Tablet PO 125 mcg DAILY@0630 JESSICA Administration Lidocaine 1 patch 07/21/24 09:00 07/24/24 09:24 Lidocaine 5% Patch TRANSDERM 1 patch DAILY JESSICA Administration Lisinopril 20 mg 07/21/24 09:00 07/24/24 09:24 Lisinopril 20 Mg Tablet PO 20 mg BID JESSICA Administration Lovastatin 40 mg 07/21/24 18:00 07/23/24 17:37 Lovastatin 20 Mg Tablet PO 40 mg QPM JESSICA Administration Multivitamins/Minerals 1 tablet 07/21/24 09:00 07/24/24 09:24 Opti-Gen Tab PO 1 tablet BID JESSICA Administration Perflutren Lipid Microsphere 0 ml 07/21/24 13:17 Perflutren Lipid Microspheres 1.5 Ml Vial Diluted To 10 Ml Total Volume IV PUSH 07/24/24 13:17 ONCE PRN adequate visualization Protocol Radiology Results: ITS Impressions Shoulder X-Ray 07/20/24 16:39 IMPRESSION: 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 No acute osseous abnormality. Chest X-Ray 07/22/24 11:58 IMPRESSION: 1. Improvement in the prior pulmonary edema or pneumonia in the left mid and bilateral lower lung zones. 2. Small left pleural effusion with some compressive and streaky atelectasis at the left lung base. 3. Cardiomegaly. Labs Labs: Laboratory Results - last 24 hr 07/23/24 07/23/24 07/23/24 11:28 17:00 21:44 WBC RBC Hgb Hct MCV MCH MCHC RDW Plt Count MPV Immature Gran % (Auto) Neut % (Auto) Lymph % (Auto) [place] % (Auto) Eos % (Auto) Baso % (Auto) Lymph # (Auto) [place] # (Auto) Eos # (Auto) Baso # (Auto) Abs Immat Gran (auto) Absolute Neuts (auto) Absolute Nucleated RBC Nucleated RBC % Sodium Potassium Chloride Carbon Dioxide Anion Gap BUN Creatinine Estim Creat Clear Calc Estimated GFR Glucose POC Capillary Glucose 195 H 183 H 211 H Calcium Magnesium Total Bilirubin AST ALT Alkaline Phosphatase Total Protein Albumin 07/24/24 07/24/24 05:07 07:44 WBC 10.0 RBC 4.42 Hgb 13.2 Hct 39.7 MCV 89.8 MCH 29.9 MCHC 33.2 RDW 14.4 Plt Count 193 MPV 10.7 H Immature Gran % (Auto) 1.1 H Neut % (Auto) 78.7 H Lymph % (Auto) 8.9 L [place] % (Auto) 9.1 H Eos % (Auto) 1.9 Baso % (Auto) 0.3 Lymph # (Auto) 0.89 L [place] # (Auto) 0.9 H Eos # (Auto) 0.2 Baso # (Auto) 0.0 Abs Immat Gran (auto) 0.11 H Absolute Neuts (auto) 7.9 H Absolute Nucleated RBC 0.000 Nucleated RBC % 0.0 Sodium 129 L Potassium 4.2 Chloride 99 Carbon Dioxide 28 Anion Gap 2 L BUN 23 H Creatinine 0.70 Estim Creat Clear Calc 53 Estimated GFR > 60 Glucose 130 H POC Capillary Glucose 134 H Calcium 8.9 Magnesium 1.8 Total Bilirubin 1.1 AST 28 ALT 21 Alkaline Phosphatase 113 Total Protein 6.0 L Albumin 2.5 L
[2024-07-24 11:57] LABS: Glucose Point of Care 196 mg/dl (65-105)
--- NOTE | 2024-07-24 12:31 | PCPTNOTE ---
Attempted therapy however patient was out of room for other service.
[2024-07-24 16:54] LABS: Glucose Point of Care 152 mg/dl (65-105)
[2024-07-24] MEDS: LOVASTATIN 20 MG TABLET 40 MG PO (17:14)
[2024-07-24] MEDS: INSULIN ASPART (*BKC) 100 UNITS/ML SUB-Q (21:14)
[2024-07-24 22:13] LABS: Glucose Point of Care 250 mg/dl (65-105)
[2024-07-25] VITALS (9 sets, daily range): BP systolic 136–186; BP diastolic 48–70; PULSE 66–79; RESP 16–20; TEMP 36.6; O2SAT 96–100
[2024-07-25] MEDS: HYDROcodone/acetaminophen (*CRX) 5-325 MG TABLET 1 TAB PO (01:51)
[2024-07-25 05:09] LABS: Basophils Percent Auto 0.3 % (0.2-1.2); Eosinophils Absolute Auto 0.2 K/mm3 (0-0.3); Eosinophils Percent Auto 1.3 % (0-4.4); Hemoglobin 12.2 g/dL (12.0-15.0); Immature Granulocyte Absolute 0.12 K/mm3 (0.00-0.031); Immature Granulocyte Percent A 0.9 % (0-0.5); Lymphocytes Absolute Auto 1.09 K/mm3 (0.9-3.2); Lymphocytes Percent Auto 8.3 % (18.3-44.2); Mean Corpuscular Hemoglobin 29.8 pg (26-34); Mean Corpuscular Volume 90.2 fl (80-100); Mean Platelet Volume 9.9 fl (7.4-10.4); Monocytes Absolute Auto 1.2 K/mm3 (0.1-0.6); Monocytes Percent Auto 9.1 % (2.6-8.5); Neutrophils Absolute Auto 10.5 K/mm3 (1.3-6.7); Neutrophils Percent Auto 80.1 % (45.5-73.1); Platelet Count Result 205 k/mm3 (150-375); Red Cell Distribution Width 14.3 % (11.5-14.5); White Blood Count 13.1 K/mm3 (4.5-10.0)
[2024-07-25 05:27] LABS: Alanine Aminotransferase 21 U/L (6-35); Albumin Level 2.5 g/dL (3.5-5.1); Alkaline Phosphatase 102 U/L (38-126); Anion Gap 0 mmol/L (4-12); Aspartate Amino Transferase 26 U/L (14-36); Bilirubin,Total 1.2 mg/dL (0.2-1.3); Blood Urea Nitrogen 19 mg/dL (7-17); Calcium 8.8 mg/dL (8.4-10.2); Carbon Dioxide 29 mmol/L (22-30); Chloride 98 mmol/L (98-107); Estimated CRCL calculation 47 ml/min; Estimated Glomerular Filt Rate > 60; Glucose 129 mg/dL (65-110); Magnesium 1.8 mg/dL (1.6-2.3); Potassium 4.4 mmol/L (3.4-5.0); Sodium 127 mmol/L (137-145)
[2024-07-25] MEDS: LEVOTHYROXINE SODIUM 125 MCG TABLET PO (07:17)
[2024-07-25 08:36] LABS: Glucose Point of Care 132 mg/dl (65-105)
[2024-07-25] MEDS: SODIUM CHLORIDE 0.9% IV 1,000 ML 75 ML IV CONT (09:59)
[2024-07-25] MEDS: cefTRIAXone 2 GM/NS 100 ML 2 GM/100 ML BAG IVPB (10:00)
[2024-07-25] MEDS: APIXABAN 2.5 MG TABLET PO ×2 (10:05→20:51)
[2024-07-25] MEDS: FLUoxetine HCL 10 MG CAPSULE PO (10:05)
[2024-07-25] MEDS: AMIODARONE HCL 200 MG TABLET PO (10:06)
[2024-07-25] MEDS: OPTI-GEN TAB 1 TABLET PO ×2 (10:06→18:41)
[2024-07-25] MEDS: lisinopriL 20 MG TABLET PO ×2 (10:07→18:41)
[2024-07-25] MEDS: amLODIPine BESYLATE 5 MG TABLET PO (10:07)
[2024-07-25] MEDS: ASCORBIC ACID 500 MG TABLET PO (10:07)
[2024-07-25] MEDS: AZITHROMYCIN 250 MG TABLET PO (10:07)
[2024-07-25] MEDS: LIDOCAINE 5% PATCH 1 PATCH TRANSDERM (10:08)
[2024-07-25 11:11] LABS: Alveolar/Arterial O2 Gradient 41.7 mmHg; Base Excess ABG 0.1 mEq/l (+/-2.0); Fractional Inspired Oxygen 21 %; HCO3 ABG 23.5 mEq/l (22.0-26.0); Oxygen Content ABG 16.8 %vol (16.0-22.0); Oxygen Saturation ABG 94.3 % (95.0-100.0); PCO2 ABG 34.3 mmHg (35.0-45.0); PO2 FiO2 Ratio Arterial Blood 3.19 %; Total Hemoglobin 12.8 g/dL (12.0-18.0); pH ABG 7.454 (7.350-7.450)
[2024-07-25 11:12] LABS: Device ROOM AIR; Modified Allen's Test Pass; Site Drawn LEFT RADIAL
[2024-07-25 11:12] LABS: NT Pro B Type Natriuretic Pept 6860 pg/mL (19.9-100)
[2024-07-25 11:17] LABS: Ammonia < 9 umol/L (9-30)
[2024-07-25 11:41] LABS: Glucose Point of Care 147 mg/dl (65-105)
--- NOTE | 2024-07-25 11:47 | PM.IMPN ---
Progress Note: A&P Assessment and Plan (1) Bacterial UTI: Code(s): N39.0 - Urinary tract infection, site not specified; A49.9 - Bacterial infection, unspecified Status: Acute (2) Pneumonia: Qualifiers: Pneumonia type: due to unspecified organism Laterality: left Lung location: lower lobe of lung Qualified Code(s): J18.9 - Pneumonia, unspecified organism Code(s): J18.9 - Pneumonia, unspecified organism Status: Acute (3) Fall: Qualifiers: Encounter type: initial encounter Qualified Code(s): W19.XXXA - Unspecified fall, initial encounter Code(s): W19.XXXA - Unspecified fall, initial encounter Status: Acute (4) Elevated troponin: Code(s): R79.89 - Other specified abnormal findings of blood chemistry Status: Acute (5) Diastolic dysfunction: Code(s): I51.89 - Other ill-defined heart diseases Status: Acute (6) Diarrhea: Qualifiers: Diarrhea type: unspecified type Qualified Code(s): R19.7 - Diarrhea, unspecified Code(s): R19.7 - Diarrhea, unspecified Status: Acute (7) Acute hyponatremia: Code(s): E87.1 - Hypo-osmolality and hyponatremia Status: Acute (8) Acute uremia: Code(s): N19 - Unspecified kidney failure Status: Acute Plan 83-year-old female with past medical history of essential hypertension, hyperlipidemia, diabetes, diastolic dysfunction, mild pulmonary hypertension, moderate mitral valve regurgitation and hypothyroidism who presented to the ER after having intractable right shoulder pain after a fall. Imaging in the ER did not demonstrate evidence of fracture. Patient's daughter reported the staff that the patient has had increasing number of falls in the patient states that she lives in a split-level home. Imaging in the ER suggest patient may have pneumonia with associated leukocytosis and intermittent tachypnea. The patient's hemoglobin improved to 11.4 compared to prior values. 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 Patient reports just being generally fatigued and weak. She denies any dizziness, lightheadedness and denies sitting head or having any loss of consciousness. Imaging in the ER demonstrated no evidence of intracranial process, cervical fracture or fracture of the arm or shoulder. However did demonstrate marked osteoarthritis of the AC joint. The patient's family had reported the patient had been having diarrhea. The patient did not confirm the symptoms with me. She did report chronic low appetite and no desire to eat which she partially attributes to her mood. Patient presented with progressive weakness as noted above and multiple falls. She does demonstrate evidence of immune pneumonia on presentation. Blood culture also came back positive for Haemophilus influenzae x2. Worsening hyponatremia from baseline remains stable. Was also noted to be in AFib with RVR. Back to sinus rhythm was treated with amiodarone. Chads vas score 6 and was started on Eliquis. Bacteremia repeat blood culture no growth to date. Remains on IV ceftriaxone. Confusion: Worsening. Will get CT head. ABG ammonia. Chest x-ray. Check UA and urine culture. Will gentle hydrate Right shoulder pain CT shoulder with no acute findings Pneumonia on ceftriaxone azithromycin. Multiple falls Elevated troponin Diastolic dysfunction Diarrhea Hyponatremia DVT prophylaxis on Eliquis Code status is do not resuscitate. Subjective Date/time seen: 07/25/24 11:47 Interval history: Patient More confused today. Still able to answer most of my questions. Family at bedside. Discussed with her. Labs reviewed. Review of Systems Review of Systems: All systems reviewed & are unremarkable except as noted in HPI and below (the history and physical exam.) Exam Narrative: GENERAL: Elderly, well-nourished, and in no acute distress. HEAD: Normocephalic, atraumatic. EYES: PERRLA and EOMI. ENT: Nares clear, no rhinorrhea or epistaxis. Mucous membranes moist. NECK: Supple. No adenopathy or masses. CHEST: No respiratory distress. Coarse breath sounds bilaterally No wheezes or rhonchi HEART: Regular rate and rhythm. No murmur heard. Normal peripheral pulses. ABDOMEN: Soft, nontender, nondistended, normal active bowel sounds. EXTREMITIES: Normal range of motion. No edema or obvious deformity. Right shoulder with local tenderness and limited range of motion SKIN: Warm, dry, no rash. NEURO: Somnolent confused looking No focal deficits. Oriented to time and person not to place CN II-XII grossly intact PSYCH: Lethargic Objective Data Vital Signs Vital Signs: Vital Signs - 24 hr 07/24/24 12:00 07/24/24 14:40 07/24/24 16:36 Temperature 98.1 F Pulse Rate 74 72 85 Respiratory Rate 16 16 Blood Pressure 132/62 155/60 H Pulse Oximetry 95 100 07/24/24 16:00 07/24/24 21:14 07/24/24 20:00 Temperature 97.7 F Pulse Rate 74 76 75 Respiratory Rate 16 Blood Pressure 166/63 H Pulse Oximetry 97 07/25/24 00:00 07/25/24 04:00 07/25/24 07:01 Temperature 97.8 F Pulse Rate 74 70 67 Respiratory Rate 16 Blood Pressure 136/52 L Pulse Oximetry 96 07/25/24 09:57 07/25/24 10:06 Temperature Pulse Rate 69 71 Respiratory Rate Blood Pressure 186/70 H Pulse Oximetry 96 Intake/Output Intake/Output: Intake & Output 07/22/24 07/23/24 07/24/24 07/25/24 23:59 23:59 23:59 23:59 Intake Total 1423.4 830 1150 200 Output Total 300 900 Balance 1123.4 -70 1150 200 Meds/Results Medications: Active Medications Generic Name Dose Route Start Last Admin Trade Name Freq PRN Reason Stop Dose Admin Acetaminophen 650 mg 07/21/24 04:55 07/23/24 06:02 Acetaminophen 325 Mg Tablet PO 650 mg Q4H PRN Administration Pain Rated 1-3 Amiodarone HCl 200 mg 07/23/24 09:00 07/25/24 10:06 Amiodarone Hcl 200 Mg Tablet PO 200 mg DAILY JESSICA Administration Amlodipine Besylate 5 mg 07/23/24 09:00 07/25/24 10:07 Amlodipine Besylate 5 Mg Tablet PO 5 mg DAILY JESSICA Administration Apixaban 2.5 mg 07/21/24 21:00 07/25/24 10:05 Apixaban 2.5 Mg Tablet PO 2.5 mg Q12HR JESSICA Administration Ascorbic Acid 500 mg 07/21/24 09:00 07/25/24 10:07 Ascorbic Acid 500 Mg Tablet PO 500 mg DAILY JESSICA Administration Dextrose 12.5 gm 07/21/24 04:23 Dextrose 50% 25 Gm/50 Ml Syringe IV PUSH PRN PRN Hypoglycemia Protocol Fluoxetine HCl 10 mg 07/21/24 09:00 07/25/24 10:05 Fluoxetine Hcl 10 Mg Capsule PO 10 mg DAILY JESSICA Administration Glucagon 1 mg 07/21/24 04:23 Glucagon For Inj 1 Mg Vial IM PRN PRN Hypoglycemia Protocol Glucose 15 gm 07/21/24 04:23 Glucose Oral Gel 15 Gm Of Glucse In 37.5 Gm Tube PO PRN PRN Hypoglycemia Protocol Dextrose 1,000 mls @ 100 mls/hr 07/21/24 04:23 Dextrose 5% 1,000 Ml IVPB PRN PRN Hypoglycemia Protocol Ceftriaxone Sodium 2 gm in 100 mls @ 200 mls/hr 07/22/24 09:00 07/25/24 10:00 Rocephin 2 Gm/Ns 100 Ml IVPB 100 mls/hr DAILY JESSICA Administration Sodium Chloride 1,000 mls @ 75 mls/hr 07/25/24 09:40 07/25/24 09:59 Normal Saline Iv IV CONT 75 mls/hr .[id number] JESSICA Administration Insulin Aspart 3 - 6 units 07/21/24 08:00 07/25/24 08:45 Insulin Aspart (*Bkc) 100 Units/Ml SUB-Q Not Given TIDWM JESSICA Protocol Insulin Aspart 1 - 3 units 07/21/24 21:00 07/24/24 21:14 Insulin Aspart (*Bkc) 100 Units/Ml SUB-Q 1 units HS JESSICA Administration Protocol Levothyroxine Sodium 125 mcg 07/21/24 06:30 07/25/24 07:17 Levothyroxine Sodium 125 Mcg Tablet PO 125 mcg DAILY@0630 JESSICA Administration Lidocaine 1 patch 07/21/24 09:00 07/25/24 10:08 Lidocaine 5% Patch TRANSDERM 1 patch DAILY JESSICA Administration Lisinopril 20 mg 07/21/24 09:00 07/25/24 10:07 Lisinopril 20 Mg Tablet PO 20 mg BID JESSICA Administration Lovastatin 40 mg 07/21/24 18:00 07/24/24 17:14 Lovastatin 20 Mg Tablet PO 40 mg QPM JESSICA Administration Multivitamins/Minerals 1 tablet 07/21/24 09:00 07/25/24 10:06 Opti-Gen Tab PO 1 tablet BID JESSICA Administration Radiology Results: ITS Impressions Shoulder X-Ray 07/20/24 16:39 IMPRESSION: 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 No acute osseous abnormality. Shoulder CT 07/24/24 16:59 IMPRESSION: No acute osseous finding in the right shoulder. Mild interstitial edema. Moderate right pleural effusion. Chest X-Ray 07/25/24 10:08 IMPRESSION: 1. Mild atelectasis at left lung base. 2. Cardiomegaly. Labs Labs: Laboratory Results - last 24 hr 07/24/24 07/24/24 07/24/24 11:39 16:45 21:10 WBC RBC Hgb Hct MCV MCH MCHC RDW Plt Count MPV Immature Gran % (Auto) Neut % (Auto) Lymph % (Auto) [place] % (Auto) Eos % (Auto) Baso % (Auto) Lymph # (Auto) [place] # (Auto) Eos # (Auto) Baso # (Auto) Abs Immat Gran (auto) Absolute Neuts (auto) Absolute Nucleated RBC Nucleated RBC % Puncture Site ABG pH ABG pCO2 ABG pO2 ABG PO2/FiO2 Ratio ABG HCO3 ABG O2 Saturation ABG O2 Content ABG Base Excess A-a Gradient Oxyhemoglobin Total Hemoglobin O2 Delivery Device O2 Liters/Min FiO2 Sodium Potassium Chloride Carbon Dioxide Anion Gap BUN Creatinine Estim Creat Clear Calc Estimated GFR Glucose POC Capillary Glucose 196 H 152 H 250 H Lactic Acid Calcium Magnesium Total Bilirubin AST ALT Alkaline Phosphatase Ammonia NT-Pro-B Natriuret Pep Total Protein Albumin 07/25/24 07/25/24 07/25/24 04:49 04:54 08:12 WBC 13.1 H RBC 4.10 L Hgb 12.2 Hct 37.0 MCV 90.2 MCH 29.8 MCHC 33.0 RDW 14.3 Plt Count 205 MPV 9.9 Immature Gran % (Auto) 0.9 H Neut % (Auto) 80.1 H Lymph % (Auto) 8.3 L [place] % (Auto) 9.1 H Eos % (Auto) 1.3 Baso % (Auto) 0.3 Lymph # (Auto) 1.09 [place] # (Auto) 1.2 H Eos # (Auto) 0.2 Baso # (Auto) 0.0 Abs Immat Gran (auto) 0.12 H Absolute Neuts (auto) 10.5 H Absolute Nucleated RBC 0.000 Nucleated RBC % 0.0 Puncture Site ABG pH ABG pCO2 ABG pO2 ABG PO2/FiO2 Ratio ABG HCO3 ABG O2 Saturation ABG O2 Content ABG Base Excess A-a Gradient Oxyhemoglobin Total Hemoglobin O2 Delivery Device O2 Liters/Min FiO2 Sodium 127 L Potassium 4.4 Chloride 98 Carbon Dioxide 29 Anion Gap 0 L BUN 19 H Creatinine 0.80 Estim Creat Clear Calc 47 Estimated GFR > 60 Glucose 129 H POC Capillary Glucose 132 H Lactic Acid Calcium 8.8 Magnesium 1.8 Total Bilirubin 1.2 AST 26 ALT 21 Alkaline Phosphatase 102 Ammonia NT-Pro-B Natriuret Pep 6860 H Total Protein 5.0 L Albumin 2.5 L 07/25/24 07/25/24 07/25/24 11:01 11:05 11:37 WBC RBC Hgb Hct MCV MCH MCHC RDW Plt Count MPV Immature Gran % (Auto) Neut % (Auto) Lymph % (Auto) [place] % (Auto) Eos % (Auto) Baso % (Auto) Lymph # (Auto) [place] # (Auto) Eos # (Auto) Baso # (Auto) Abs Immat Gran (auto) Absolute Neuts (auto) Absolute Nucleated RBC Nucleated RBC % Puncture Site Left radial ABG pH 7.454 H ABG pCO2 34.3 L ABG pO2 67.0 L ABG PO2/FiO2 Ratio 3.19 ABG HCO3 23.5 ABG O2 Saturation 94.3 L ABG O2 Content 16.8 ABG Base Excess 0.1 A-a Gradient 41.7 Oxyhemoglobin 93.0 Total Hemoglobin 12.8 O2 Delivery Device Room air O2 Liters/Min Not Reportable FiO2 21 Sodium Potassium Chloride Carbon Dioxide Anion Gap BUN Creatinine Estim Creat Clear Calc Estimated GFR Glucose POC Capillary Glucose 147 H Lactic Acid 1.0 Calcium Magnesium Total Bilirubin AST ALT Alkaline Phosphatase Ammonia < 9 L NT-Pro-B Natriuret Pep Total Protein Albumin
[2024-07-25 17:21] LABS: Glucose Point of Care 148 mg/dl (65-105)
[2024-07-25] MEDS: LOVASTATIN 20 MG TABLET 40 MG PO (18:41)
[2024-07-25 20:36] LABS: Glucose Point of Care 126 mg/dl (65-105)
[2024-07-26] VITALS (7 sets, daily range): BP systolic 147–155; BP diastolic 54–56; PULSE 62–70; RESP 14–20; TEMP 36.4–36.7; O2SAT 94–99
[2024-07-26] MEDS: SODIUM CHLORIDE 0.9% IV 1,000 ML 75 ML IV CONT ×2 (03:34→20:17)
[2024-07-26 05:56] LABS: Basophils Percent Auto 0.3 % (0.2-1.2); Eosinophils Absolute Auto 0.2 K/mm3 (0-0.3); Eosinophils Percent Auto 2.2 % (0-4.4); Hematocrit 33.5 % (37.0-47.0); Hemoglobin 11.1 g/dL (12.0-15.0); Immature Granulocyte Absolute 0.11 K/mm3 (0.00-0.031); Lymphocytes Absolute Auto 1.05 K/mm3 (0.9-3.2); Lymphocytes Percent Auto 9.6 % (18.3-44.2); Mean Corpuscular HGB Conc 33.1 g/dl (32-36); Mean Corpuscular Hemoglobin 29.9 pg (26-34); Mean Corpuscular Volume 90.3 fl (80-100); Mean Platelet Volume 9.7 fl (7.4-10.4); Monocytes Absolute Auto 0.8 K/mm3 (0.1-0.6); Monocytes Percent Auto 7.5 % (2.6-8.5); Neutrophils Absolute Auto 8.7 K/mm3 (1.3-6.7); Neutrophils Percent Auto 79.4 % (45.5-73.1); Platelet Count Result 221 k/mm3 (150-375); Red Blood Count 3.71 M/mm3 (4.2-5.4); Red Cell Distribution Width 14.3 % (11.5-14.5); White Blood Count 10.9 K/mm3 (4.5-10.0)
[2024-07-26 06:12] LABS: Alanine Aminotransferase 18 U/L (6-35); Albumin Level 2.2 g/dL (3.5-5.1); Alkaline Phosphatase 89 U/L (38-126); Anion Gap 1 mmol/L (4-12); Aspartate Amino Transferase 25 U/L (14-36); Blood Urea Nitrogen 16 mg/dL (7-17); Calcium 8.6 mg/dL (8.4-10.2); Carbon Dioxide 27 mmol/L (22-30); Chloride 101 mmol/L (98-107); Estimated CRCL calculation 47 ml/min; Estimated Glomerular Filt Rate > 60; Glucose 100 mg/dL (65-110); Magnesium 1.8 mg/dL (1.6-2.3); Potassium 4.2 mmol/L (3.4-5.0); Sodium 129 mmol/L (137-145)
[2024-07-26] MEDS: LEVOTHYROXINE SODIUM 125 MCG TABLET PO (06:34)
[2024-07-26 07:43] LABS: Glucose Point of Care 110 mg/dl (65-105)
--- NOTE | 2024-07-26 08:43 | PCOTNOTE ---
Patient refused treatment this session due to feeling to tired. Patient's daughter was present and attempted to encouraged as well.
[2024-07-26] MEDS: cefTRIAXone 2 GM/NS 100 ML 2 GM/100 ML BAG IVPB ×2 (10:16→20:19)
[2024-07-26] MEDS: amLODIPine BESYLATE 5 MG TABLET PO (10:17)
[2024-07-26] MEDS: OPTI-GEN TAB 1 TABLET PO ×2 (10:17→17:30)
[2024-07-26] MEDS: APIXABAN 2.5 MG TABLET PO ×2 (10:17→20:19)
[2024-07-26] MEDS: lisinopriL 20 MG TABLET PO ×2 (10:17→17:30)
[2024-07-26] MEDS: ASCORBIC ACID 500 MG TABLET PO (10:18)
[2024-07-26] MEDS: AMIODARONE HCL 200 MG TABLET PO (10:18)
[2024-07-26] MEDS: FLUoxetine HCL 10 MG CAPSULE PO (10:18)
--- NOTE | 2024-07-26 11:16 | P.CONNEU_ITS ---
Assessment and Plan Assessment and plan (1) Metabolic encephalopathy: Code(s): G93.41 - Metabolic encephalopathy Status: Acute Assessment and Plan: Patient has been diagnosed to have urinary tract infection and pneumonia and is being treated for that at this time. If there is any component of underlying mild cognitive impairment it certainly should be evaluated once the things clear up. She does appear to be exhausted but given her age and stage with the current medical problems may well be due to medical problems and should be followed up. A repeat mini-mental status examination in 4 weeks after she gets discharged would be helpful chief I if the any other underlying features to suggest dementia or cognitive impairment. I would however suggest checking a B12 and folic acid level and vitamin-D. (2) Multiple falls: Code(s): R29.6 - Repeated falls Status: Acute Assessment and Plan: This of course is a concern since he has had injury to the right shoulder and has had a hip fracture in the past. She may have diabetic polyneuropathy. As he gets better from her current medical problem I would like to see her and more detail with regard to ambulation. Evaluation by Physical therapy may be helpful for gait strengthening exercises and fall prevention Particularly since he lives by herself. EMG nerve can study of the lower limbs can be arranged as an outpatient. I noted that CT scan of brain did not show evidence for new stroke or heart clothes. An MRI of the brain was performed any significant abnormal findings. I did not find any significant focal deficit to indicate a new deficit on this examination. She will require some follow-up. (3) Diabetes mellitus: Code(s): E11.9 - Type 2 diabetes mellitus without complications Status: Acute (4) Diabetic polyneuropathy: Code(s): E11.42 - Type 2 diabetes mellitus with diabetic polyneuropathy Status: Acute (5) Left carotid bruit: Code(s): R09.89 - Other specified symptoms and signs involving the circulatory and respiratory systems Status: Acute Assessment and Plan: Carotid Doppler studies to recommended. (6) Coronary artery disease: Code(s): I25.10 - Atherosclerotic heart disease of [place] coronary artery without angina pectoris Status: Acute Assessment and Plan: Patient is under care of [facility]. I noted that her BNP was over 30,000. she also has intermittent atrial fibrillation. (7) PAF (paroxysmal atrial fibrillation): Code(s): I48.0 - Paroxysmal atrial fibrillation Status: Acute (8) Right shoulder pain: Code(s): M25.511 - Pain in right shoulder Status: Acute Assessment and Plan: you may consider an orthopedic opinion regarding this pain Plan Out suggest continued management of her multiple medical problems and safety precautions and physical therapy as discussed above. Consult date: 07/26/24 HPI: Beverly Castro is a 83 year old female admitted to the hospital on 07/20/2024 with complaints of right shoulder pain and weakness in addition to generalized weakness and low energy for almost 3 days prior to that. She has been having falls.. One of the fall led to she lives by herself but has 2 grown-up children for supportive. The history of mellitus and nephropathy the she also complains of feeling short of breath on exertion. She states that she can take care of her own personal hygiene but she does not go out for shopping or Dr. and her children help her with that. The workup has shown hemiplegia, RSV COVID screens were negative. WBC count was elevated at 14.2. BUN and creatinine were mildly high. Her BNP was. Chest x-ray has shown possible pneumonia and interstitial edema. X-ray of the right shoulder shows mild right glenohumeral and severe acromial clinical osteoarthritis. Nose dislocation or fractures. During the course of examination patient did want something for the pain in the right shoulder. EKG has shown atrial fibrillation. It was noted that she also has had a hip fracture to a fall in the past. Her records also indicate this is feeling depressed this is on account of her decreased ability to take care herself and increasing number of falls. She used to work as a seamstress. She does not smoke or drink any alcohol. She did smoke long time ago. Minute came to see her she has just gone to the bathroom and that in room was too much for her and she was feeling extremely exhausted with that. According to [facility] she has paroxysmal atrial fibrillation. She is advised to start on anticoagulation. Other cardiac diastolic dysfunction moderate mitral valve regurgitation and hypertension and mixed hyperlipidemia. Echocardiogram on 11/12/2023 showed ejection fraction of 65-70%. Moderate left ventricular hypertrophy. Moderate left atrial enlargement. Moderate mitral regurgitation. See has been reported to be incontinent of urine. Her urine cul ture has also shown bacterial UTI. She is being treated for these. Review of Systems Review of Systems: Complaints of exhaustion and shortness of breath on exertion. She denies any headache or diplopia or difficulty speech or swallowing. She denies any specific weakness in upper lower limbs. She does not think that she has any unusual problem with memory and her family members also have not commented about loss of memory. All systems reviewed & are unremarkable except as noted in HPI and below PMFSH Past Medical History Medical History (Updated 07/26/24 @ 11:50 by Ayden Causey MD) Anxiety disorder, unspecified Benign essential HTN Coronary artery disease Depression Diabetes mellitus Diabetic nephropathy Diabetic peripheral neuropathy Diabetic polyneuropathy Diastolic dysfunction Femoral neck fracture Hypothyroidism Left carotid bruit Lumbar spondylosis Metabolic encephalopathy Mixed hyperlipidemia Moderate mitral valve regurgitation Multiple falls Pulmonary hypertension Right shoulder pain Type 2 diabetes mellitus without complications Surgical History Surgical History History of tubal ligation Hx of appendectomy Status post open reduction with internal fixation of fracture (~2021) Left wrist fracture and 5th metatarsal fracture Family History Family History Father Family history of cardiovascular disease Mother Family history of cardiovascular disease Diabetes mellitus Sibling Family history of malignant neoplasm of cervix Social History Social History Social History: Code status: DNR/DNI Surrogate decision maker: Faith Castro (daughter) Smoking packs per day: 0.5 Smoking cigarettes per day: 10.0 Years smoked: 35 Smoking pack-years: 17.50 Smoking status: Former smoker Second hand tobacco smoke exposure: No Additional smoking assessment comments: PT STATE SMOKED YEARS & YEARS AGO , UNALBE TO RECALL HOW MUCH OR HOW LONG Alcohol intake: never Substance use: never Do You Feel Safe in your Home?: Yes Lack of Transportation: No Lack of Food: Never True Current Housing: I Have Housing Concerned About Future Housing: No Difficulty Paying Gas/Electric Bills: No Difficulty Paying for Meds: No Currently Unemployed: No Education: High School Diploma/GED Difficulty w/ Childcare or Family Care: No Living arrangements: alone Occupation/Education: retired Gender identity (if verbalized by the patient): Female Spiritual care concerns: No Meds Home Medications and Allergies Home Medications Medication Instructions Recorded Confirmed Type vitamins A,C,X-pmxk-vevdlm 4,296 1 cap PO BID 03/13/22 07/20/24 History mcg-226 mg-90 mg capsule (PreserVision AREDS) aspirin 81 mg tablet,delayed 81 mg PO DAILY #90 tabs 07/29/22 07/20/24 Rx release (Adult Low Dose Aspirin) ascorbic acid (vitamin C) 500 mg 500 mg PO DAILY 10/03/22 07/20/24 History capsule Walker #1 ea 06/03/23 07/20/24 Rx blood sugar diagnostic (OneTouch #100 strips 09/09/23 07/20/24 Rx Ultra Test strips) glimepiride 4 mg tablet 4 mg PO QAM #90 tabs 09/15/23 07/20/24 Rx fluoxetine 10 mg capsule 10 mg PO DAILY #90 caps 01/06/24 07/20/24 Rx metformin 1,000 mg tablet 1,000 mg PO BID #180 tabs 01/06/24 07/20/24 Rx lovastatin 40 mg tablet 40 mg PO QPM #90 tabs 03/05/24 07/20/24 Rx lisinopril 20 mg tablet 20 mg PO BID #180 tabs 07/16/24 07/20/24 Rx levothyroxine 125 mcg tablet 125 mcg PO DAILY 07/20/24 07/20/24 History Allergies Allergy/AdvReac Type Severity Reaction Status Date / Time No Known Allergies Allergy Verified 07/16/24 15:02 Vital Signs Vital Signs - 24 hr 07/25/24 12:00 07/25/24 16:00 07/25/24 16:00 Temperature 97.8 F Pulse Rate 79 66 67 Respiratory Rate 20 Blood Pressure 145/48 H Pulse Oximetry 100 Oxygen Delivery Fraction of Inspired Oxygen 07/25/24 20:00 07/25/24 20:00 07/26/24 00:00 Temperature 98.1 F Pulse Rate 67 68 67 Respiratory Rate 20 18 Blood Pressure 154/55 H Pulse Oximetry 100 98 Oxygen Delivery Room Air Fraction of Inspired Oxygen 21 07/26/24 00:00 07/26/24 04:00 07/26/24 08:00 Temperature 97.7 F Pulse Rate 65 62 63 Respiratory Rate 14 Blood Pressure 147/56 H Pulse Oximetry 94 Oxygen Delivery Fraction of Inspired Oxygen Exam Narrative: Patient is fully conscious alert oriented to self time place and person. Initially she was talking with her eyes closed but when requested she did open her eyes and talk to me. He knows the month and the year. She knows her current whereabouts. She was able to tell me 5 colors but unable to tell may names of 5 restaurants. She is able to spell the word honey backward and do sim ple calculations and follow 1 and two-step commands. She appeared appropriate during the course of conversation. No aphasia or dysarthria. Examination head and neck shows no evidence of external injuries however there is a left carotid bruit. cranial nerves pupils were equal reacting to light. Visual lopez and extraocular movements were intact. There is no facial asymmetry. Face sensation intact. Other cranials were normal limits. Motor system normal power and tone in both upper and lower limbs. Deep tendon reflexes were 0 to 1/4 and symmetric. Possible distal sensory loss in the lower limbs. No foot drop. Rapid alternating movement of the fingers were normal. No cogwheeling. No involuntary movements. Results Labs 07/26/24 05:32 07/26/24 05:32 Labs: Short CBC 07/26/24 Range/Units 05:32 WBC 10.9 H (4.5-10.0) K/mm3 Hgb 11.1 L (12.0-15.0) g/dL Hct 33.5 L (37.0-47.0) % Plt Count 221 (150-375) k/mm3 BMP 07/26/24 05:32 Sodium 129 L Potassium 4.2 Chloride 101 Carbon Dioxide 27 BUN 16 Creatinine 0.80 Glucose 100 Calcium 8.6 Liver Function 07/26/24 Range/Units 05:32 Total Bilirubin 1.0 (0.2-1.3) mg/dL AST 25 (14-36) U/L ALT 18 (6-35) U/L Alkaline Phosphatase 89 (38-126) U/L Albumin 2.2 L (3.5-5.1) g/dL
[2024-07-26] MEDS: ACETAMINOPHEN 325 MG TABLET 650 MG PO (11:18)
[2024-07-26] MEDS: LIDOCAINE 5% PATCH 1 PATCH TRANSDERM (11:18)
--- NOTE | 2024-07-26 11:30 | PM.IMPN ---
Progress Note: A&P Assessment and Plan (1) Bacterial UTI: Code(s): N39.0 - Urinary tract infection, site not specified; A49.9 - Bacterial infection, unspecified Status: Acute (2) Pneumonia: Qualifiers: Pneumonia type: due to unspecified organism Laterality: left Lung location: lower lobe of lung Qualified Code(s): J18.9 - Pneumonia, unspecified organism Code(s): J18.9 - Pneumonia, unspecified organism Status: Acute (3) Fall: Qualifiers: Encounter type: initial encounter Qualified Code(s): W19.XXXA - Unspecified fall, initial encounter Code(s): W19.XXXA - Unspecified fall, initial encounter Status: Acute (4) Elevated troponin: Code(s): R79.89 - Other specified abnormal findings of blood chemistry Status: Acute (5) Diastolic dysfunction: Code(s): I51.89 - Other ill-defined heart diseases Status: Acute (6) Diarrhea: Qualifiers: Diarrhea type: unspecified type Qualified Code(s): R19.7 - Diarrhea, unspecified Code(s): R19.7 - Diarrhea, unspecified Status: Acute (7) Acute hyponatremia: Code(s): E87.1 - Hypo-osmolality and hyponatremia Status: Acute (8) Acute uremia: Code(s): N19 - Unspecified kidney failure Status: Acute Plan 83-year-old female with past medical history of essential hypertension, hyperlipidemia, diabetes, diastolic dysfunction, mild pulmonary hypertension, moderate mitral valve regurgitation and hypothyroidism who presented to the ER after having intractable right shoulder pain after a fall. Imaging in the ER did not demonstrate evidence of fracture. Patient's daughter reported the staff that the patient has had increasing number of falls in the patient states that she lives in a split-level home. Imaging in the ER suggest patient may have pneumonia with associated leukocytosis and intermittent tachypnea. The patient's hemoglobin improved to 11.4 compared to prior values. 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 Patient reports just being generally fatigued and weak. She denies any dizziness, lightheadedness and denies sitting head or having any loss of consciousness. Imaging in the ER demonstrated no evidence of intracranial process, cervical fracture or fracture of the arm or shoulder. However did demonstrate marked osteoarthritis of the AC joint. The patient's family had reported the patient had been having diarrhea. The patient did not confirm the symptoms with me. She did report chronic low appetite and no desire to eat which she partially attributes to her mood. Patient presented with progressive weakness as noted above and multiple falls. She does demonstrate evidence of immune pneumonia on presentation. Blood culture also came back positive for Haemophilus influenzae x2. Worsening hyponatremia from baseline remains stable. Was also noted to be in AFib with RVR. Back to sinus rhythm was treated with amiodarone. Chads vas score 6 and was started on Eliquis. Bacteremia repeat blood culture no growth to date. Remains on IV ceftriaxone. Confusion: Continues to be an issue. CT head with no acute findings. ABG unremarkable. Ammonia normal. Chest x-ray with no acute findings. Check UA and urine culture which is pending. Started on gentle hydration. Neurology consultation. Will get brain MRI and EEG Right shoulder pain CT shoulder with no acute findings. Will get MRI shoulder to further evaluate. Pneumonia on ceftriaxone azithromycin. Multiple falls Elevated troponin Diastolic dysfunction Diarrhea Hyponatremia DVT prophylaxis on Eliquis Code status is do not resuscitate. Subjective Date/time seen: 07/26/24 11:30 Interval history: Patient remains confused. Still opens eyes on verbal commands and answers appropriately. Family at bedside. Labs reviewed. Review of Systems Review of Systems: All systems reviewed & are unremarkable except as noted in HPI and below (the history and physical exam.) Exam Narrative: GENERAL: Elderly, well-nourished, and in no acute distress. HEAD: Normocephalic, atraumatic. EYES: PERRLA and EOMI. ENT: Nares clear, no rhinorrhea or epistaxis. Mucous membranes moist. NECK: Supple. No adenopathy or masses. CHEST: No respiratory distress. Coarse breath sounds bilaterally No wheezes or rhonchi HEART: Regular rate and rhythm. No murmur heard. Normal peripheral pulses. ABDOMEN: Soft, nontender, nondistended, normal active bowel sounds. EXTREMITIES: Normal range of motion. No edema or obvious deformity. Right shoulder with local tenderness and limited range of motion SKIN: Warm, dry, no rash. NEURO: Somnolent confused looking No focal deficits. Oriented to time and person not to place CN II-XII grossly intact PSYCH: Lethargic Objective Data Vital Signs Vital Signs: Vital Signs - 24 hr 07/25/24 12:00 07/25/24 16:00 07/25/24 16:00 Temperature 97.8 F Pulse Rate 79 66 67 Respiratory Rate 20 Blood Pressure 145/48 H Pulse Oximetry 100 Oxygen Delivery Fraction of Inspired Oxygen 07/25/24 20:00 07/25/24 20:00 07/26/24 00:00 Temperature 98.1 F Pulse Rate 67 68 67 Respiratory Rate 20 18 Blood Pressure 154/55 H Pulse Oximetry 100 98 Oxygen Delivery Room Air Fraction of Inspired Oxygen 21 07/26/24 00:00 07/26/24 04:00 07/26/24 08:00 Temperature 97.7 F Pulse Rate 65 62 63 Respiratory Rate 14 Blood Pressure 147/56 H Pulse Oximetry 94 Oxygen Delivery Fraction of Inspired Oxygen Intake/Output Intake/Output: Intake & Output 07/23/24 07/24/24 07/25/24 07/26/24 23:59 23:59 23:59 23:59 Intake Total 830 1150 1770 0 Output Total 900 Balance -70 1150 1770 0 Meds/Results Medications: Active Medications Generic Name Dose Route Start Last Admin Trade Name Freq PRN Reason Stop Dose Admin Acetaminophen 650 mg 07/21/24 04:55 07/26/24 11:18 Acetaminophen 325 Mg Tablet PO 650 mg Q4H PRN Administration Pain Rated 1-3 Amiodarone HCl 200 mg 07/23/24 09:00 07/26/24 10:18 Amiodarone Hcl 200 Mg Tablet PO 200 mg DAILY JESSICA Administration Amlodipine Besylate 5 mg 07/23/24 09:00 07/26/24 10:17 Amlodipine Besylate 5 Mg Tablet PO 5 mg DAILY JESSICA Administration Apixaban 2.5 mg 07/21/24 21:00 07/26/24 10:17 Apixaban 2.5 Mg Tablet PO 2.5 mg Q12HR JESSICA Administration Ascorbic Acid 500 mg 07/21/24 09:00 07/26/24 10:18 Ascorbic Acid 500 Mg Tablet PO 500 mg DAILY JESSICA Administration Dextrose 12.5 gm 07/21/24 04:23 Dextrose 50% 25 Gm/50 Ml Syringe IV PUSH PRN PRN Hypoglycemia Protocol Fluoxetine HCl 10 mg 07/21/24 09:00 07/26/24 10:18 Fluoxetine Hcl 10 Mg Capsule PO 10 mg DAILY JESSICA Administration Glucagon 1 mg 07/21/24 04:23 Glucagon For Inj 1 Mg Vial IM PRN PRN Hypoglycemia Protocol Glucose 15 gm 07/21/24 04:23 Glucose Oral Gel 15 Gm Of Glucse In 37.5 Gm Tube PO PRN PRN Hypoglycemia Protocol Dextrose 1,000 mls @ 100 mls/hr 07/21/24 04:23 Dextrose 5% 1,000 Ml IVPB PRN PRN Hypoglycemia Protocol Ceftriaxone Sodium 2 gm in 100 mls @ 200 mls/hr 07/22/24 09:00 07/26/24 10:16 Rocephin 2 Gm/Ns 100 Ml IVPB 200 mls/hr DAILY JESSICA Administration Sodium Chloride 1,000 mls @ 75 mls/hr 07/25/24 09:40 07/26/24 03:34 Normal Saline Iv IV CONT 75 mls/hr .[id number] JESSICA Administration Insulin Aspart 3 - 6 units 07/21/24 08:00 07/26/24 10:14 Insulin Aspart (*Bkc) 100 Units/Ml SUB-Q Not Given TIDWM JESSICA Protocol Insulin Aspart 1 - 3 units 07/21/24 21:00 07/25/24 20:51 Insulin Aspart (*Bkc) 100 Units/Ml SUB-Q Not Given HS JESSICA Protocol Levothyroxine Sodium 125 mcg 07/21/24 06:30 07/26/24 06:34 Levothyroxine Sodium 125 Mcg Tablet PO 125 mcg DAILY@0630 JESSICA Administration Lidocaine 1 patch 07/21/24 09:00 07/26/24 11:18 Lidocaine 5% Patch TRANSDERM 1 patch DAILY JESSICA Administration Lisinopril 20 mg 07/21/24 09:00 07/26/24 10:17 Lisinopril 20 Mg Tablet PO 20 mg BID JESSICA Administration Lovastatin 40 mg 07/21/24 18:00 07/25/24 18:41 Lovastatin 20 Mg Tablet PO 40 mg QPM JESSICA Administration Multivitamins/Minerals 1 tablet 07/21/24 09:00 07/26/24 10:17 Opti-Gen Tab PO 1 tablet BID JESSICA Administration Radiology Results: ITS Impressions Shoulder X-Ray 07/20/24 16:39 IMPRESSION: 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 No acute osseous abnormality. Shoulder CT 07/24/24 16:59 IMPRESSION: No acute osseous finding in the right shoulder. Mild interstitial edema. Moderate right pleural effusion. Chest X-Ray 07/25/24 10:08 IMPRESSION: 1. Mild atelectasis at left lung base. 2. Cardiomegaly. Head CT 07/25/24 13:34 IMPRESSION: 1. Normal aging brain. Labs Labs: Laboratory Results - last 24 hr 07/25/24 07/25/24 07/25/24 11:37 17:13 20:31 WBC RBC Hgb Hct MCV MCH MCHC RDW Plt Count MPV Immature Gran % (Auto) Neut % (Auto) Lymph % (Auto) [place] % (Auto) Eos % (Auto) Baso % (Auto) Lymph # (Auto) [place] # (Auto) Eos # (Auto) Baso # (Auto) Abs Immat Gran (auto) Absolute Neuts (auto) Absolute Nucleated RBC Nucleated RBC % Sodium Potassium Chloride Carbon Dioxide Anion Gap BUN Creatinine Estim Creat Clear Calc Estimated GFR Glucose POC Capillary Glucose 147 H 148 H 126 H Calcium Magnesium Total Bilirubin AST ALT Alkaline Phosphatase Total Protein Albumin 07/26/24 07/26/24 05:32 07:36 WBC 10.9 H RBC 3.71 L Hgb 11.1 L Hct 33.5 L MCV 90.3 MCH 29.9 MCHC 33.1 RDW 14.3 Plt Count 221 MPV 9.7 Immature Gran % (Auto) 1.0 H Neut % (Auto) 79.4 H Lymph % (Auto) 9.6 L [place] % (Auto) 7.5 Eos % (Auto) 2.2 Baso % (Auto) 0.3 Lymph # (Auto) 1.05 [place] # (Auto) 0.8 H Eos # (Auto) 0.2 Baso # (Auto) 0.0 Abs Immat Gran (auto) 0.11 H Absolute Neuts (auto) 8.7 H Absolute Nucleated RBC 0.000 Nucleated RBC % 0.0 Sodium 129 L Potassium 4.2 Chloride 101 Carbon Dioxide 27 Anion Gap 1 L BUN 16 Creatinine 0.80 Estim Creat Clear Calc 47 Estimated GFR > 60 Glucose 100 POC Capillary Glucose 110 H Calcium 8.6 Magnesium 1.8 Total Bilirubin 1.0 AST 25 ALT 18 Alkaline Phosphatase 89 Total Protein 5.0 L Albumin 2.2 L
[2024-07-26 12:22] LABS: Glucose Point of Care 110 mg/dl (65-105)
[2024-07-26 12:31] LABS: Add Urine Microscopic? YES; Appearance Urine Clear (Clear); Bacteria Urine None Seen /hpf; Bilirubin Urine Negative (Negative); Blood Urine Negative (Negative); Color Urine Yellow (Yellow); Glucose Urine UA Negative (Negative); Ketones Urine Negative (Negative); Leukocyte Esterase Ur Trace LEU/UL (Negative); Need Manual Microscopic Reviewed; Nitrate Urine Negative (Negative); Non Pathogenic Casts 0-2; Protein Urine 1+ mg/dL (Negative); RBC Urine 0-2 /hpf (0-2); Squamous Epithelial Cell Urine Rare /hpf (Few); WBC Urine 0-5 /hpf (0-3)
[2024-07-26 13:48] LABS: Folic Acid 10.3 ng/mL (2.76->20); Vitamin B12 > 1000.0 pg/mL (239-931)
[2024-07-26 17:18] LABS: Glucose Point of Care 201 mg/dl (65-105)
[2024-07-26] MEDS: INSULIN ASPART (*BKC) 100 UNITS/ML SUB-Q (17:30)
[2024-07-26] MEDS: LOVASTATIN 20 MG TABLET 40 MG PO (17:30)
[2024-07-26 19:08] LABS: Pneumococcal Antigen Urine NOT DETECTED
[2024-07-27] VITALS (8 sets, daily range): BP systolic 145–162; BP diastolic 50–55; PULSE 60–74; RESP 14–20; TEMP 36.2–37.2; O2SAT 97
[2024-07-27 00:24] LABS: Glucose Point of Care 127 mg/dl (65-105)
[2024-07-27 00:49] LABS: Legionella pneumophila Ag Ur NOT DETECTED
[2024-07-27] MEDS: ACETAMINOPHEN 325 MG TABLET 650 MG PO (06:06)
[2024-07-27] MEDS: LEVOTHYROXINE SODIUM 125 MCG TABLET PO (06:06)
[2024-07-27 06:12] LABS: Basophils Percent Auto 0.2 % (0.2-1.2); Eosinophils Absolute Auto 0.3 K/mm3 (0-0.3); Eosinophils Percent Auto 2.6 % (0-4.4); Hematocrit 34.9 % (37.0-47.0); Hemoglobin 11.4 g/dL (12.0-15.0); Immature Granulocyte Absolute 0.08 K/mm3 (0.00-0.031); Immature Granulocyte Percent A 0.8 % (0-0.5); Lymphocytes Absolute Auto 0.84 K/mm3 (0.9-3.2); Lymphocytes Percent Auto 8.7 % (18.3-44.2); Mean Corpuscular HGB Conc 32.7 g/dl (32-36); Mean Corpuscular Hemoglobin 29.7 pg (26-34); Mean Corpuscular Volume 90.9 fl (80-100); Mean Platelet Volume 9.6 fl (7.4-10.4); Monocytes Absolute Auto 0.8 K/mm3 (0.1-0.6); Monocytes Percent Auto 7.7 % (2.6-8.5); Neutrophils Absolute Auto 7.8 K/mm3 (1.3-6.7); Platelet Count Result 257 k/mm3 (150-375); Red Blood Count 3.84 M/mm3 (4.2-5.4); Red Cell Distribution Width 14.2 % (11.5-14.5); White Blood Count 9.7 K/mm3 (4.5-10.0)
[2024-07-27 06:22] LABS: Alanine Aminotransferase 25 U/L (6-35); Albumin Level 2.2 g/dL (3.5-5.1); Alkaline Phosphatase 93 U/L (38-126); Anion Gap -1 mmol/L (4-12); Aspartate Amino Transferase 40 U/L (14-36); Bilirubin,Total 0.8 mg/dL (0.2-1.3); Blood Urea Nitrogen 16 mg/dL (7-17); Calcium 8.6 mg/dL (8.4-10.2); Carbon Dioxide 27 mmol/L (22-30); Chloride 104 mmol/L (98-107); Estimated CRCL calculation 53 ml/min; Estimated Glomerular Filt Rate > 60; Glucose 102 mg/dL (65-110); Magnesium 1.7 mg/dL (1.6-2.3); Potassium 4.2 mmol/L (3.4-5.0); Sodium 130 mmol/L (137-145)
--- NOTE | 2024-07-27 07:26 | PM.CNOR ---
Assessment and Plan Assessment and plan (1) Rotator cuff tear, right: Code(s): M75.101 - Unspecified rotator cuff tear or rupture of right shoulder, not specified as traumatic Status: Acute Plan patient is an 83-year-old female who was admitted to the hospital 1 week ago after 2 falls 1 3 days prior and 1 fall 2 days prior. The 1st fall she fell down some stairs and at that point was not complaining of her shoulder but the 2nd fall she fell out of a chair and after that she was complaining of severe pain in her right shoulder. Initial x-rays showed no fracture. CT scan showed no significant abnormality. MRI scan was performed yesterday which show evidence of large chronic retracted rotator cuff tear involving the supraspinatus tendon with moderate atrophy and moderate fatty infiltration of the supraspinatus muscle belly indicating that this tear is several years old at least. There is extension of the tear into the infraspinatus tendon without atrophy or fatty infiltration of the infraspinatus muscle belly. This indicates that the portion of the tear involving the infraspinatus may be acute. There is superior migration moderate the humeral head. No evidence of occult fracture noted. Patient was sleeping soundly when I visited this morning but I spoke to her daughter who provided the history. I have recommended that when I see her later this morning when she is more awake, if provocative maneuvers of the right shoulder reproduce her symptoms that we try a cortisone injection into the subacromial space. I explained this will not heal the tear of course but may provide symptomatic with and hopefully her symptoms can improve well with non operative treatment consisting of corticosteroid injection and physical therapy. She does have diabetes and the cortisone shot will likely increase her blood sugars for a few days. 12:30 p.m. Patient is awake. She just had an EEG performed. She states that she has severe pain and puts her left hand on top of her right shoulder indicating where her pain is. She had active elevation of the right shoulder to about 80? against gravity complaining of severe pain at this level. On strength testing she had mild weakness in external rotation with the arm at the side with moderate pain at the shoulder. She complains of moderate pain in the shoulder at rest. She denied any numbness to light touch testing of the right upper extremity and shoulder area. She reported some tenderness to palpation over the anterior superior rotator cuff. There is no redness swelling or warmth. The skin looked normal. 2+ radial artery pulse. With range of motion of her neck she exhibited full range of motion actively but she complained that some of the pain would go to her right ear from her shoulder raising the possibility that some of her pain may be coming from her neck. On reexamination she demonstrates full range of motion of her neck without guarding. She had no tenderness along the cervical spine. She has not had imaging of her cervical spine this hospitalization. She did have CT scan of her cervical spine in December of this year which showed no severe neural foraminal or central canal stenosis or fracture. Assessment and plan I think that it is most probable that her diffuse superior right shoulder pain is due to exacerbation of chronic rotator cuff tear right shoulder resulting from her fall out of a chair 9 days ago. I have explained to the patient that her MRI scan does show that she has a chronic rotator cuff tear and I have offered her a cortisone shot in the shoulder. I explained that there is rare risk of side effects. Her blood sugars again may go up for a few days. She would like to try that in the hopes of getting some relief. After ChloraPrep prep, 3 cc of Celestone Soluspan and 4 cc 1% lidocaine were injected into the subacromial space from a posterior approach without difficulty. Prior to the injection she rated her pain at 8/10. After moving her shoulder around she states that the pain was less and states it is now a 7/10. Hopefully she will have a rapid anti-inflammatory response to the Celestone Soluspan which is very fast acting. I will reexamine her tomorrow to see how she has progressed. If she does have significant improvement in her symptoms observation is appropriate. If she feels that her symptoms are unimproved we may need to consider imaging of her cervical spine. She does not show any guarding as 1 would expect with a cervical spine injury but may have cervical nerve root pain in the C5 distribution causing her distribution of pain potentially. 45 minutes were spent in total care of this patient today. History of Present Illness HPI Consult date: 07/27/24 Chief complaint: Pneumonia [facility] Past Medical History Medical History (Updated 07/27/24 @ 07:27 by Alfred Lema MD) Anxiety disorder, unspecified Benign essential HTN Coronary artery disease Depression Diabetes mellitus Diabetic nephropathy Diabetic peripheral neuropathy Diabetic polyneuropathy Diastolic dysfunction Femoral neck fracture Hypothyroidism Left carotid bruit Lumbar spondylosis Metabolic encephalopathy Mixed hyperlipidemia Moderate mitral valve regurgitation Multiple falls Pulmonary hypertension Right shoulder pain Type 2 diabetes mellitus without complications Surgical History Surgical History History of tubal ligation Hx of appendectomy Status post open reduction with internal fixation of fracture (~2021) Left wrist fracture and 5th metatarsal fracture Family History Family History Father Family history of cardiovascular disease Mother Family history of cardiovascular disease Diabetes mellitus Sibling Family history of malignant neoplasm of cervix Social History Social History Social History: Code status: DNR/DNI Surrogate decision maker: Faith Castro (daughter) Smoking packs per day: 0.5 Smoking cigarettes per day: 10.0 Years smoked: 35 Smoking pack-years: 17.50 Smoking status: Former smoker Second hand tobacco smoke exposure: No Additional smoking assessment comments: PT STATE SMOKED YEARS & YEARS AGO , UNALBE TO RECALL HOW MUCH OR HOW LONG Alcohol intake: never Substance use: never Do You Feel Safe in your Home?: Yes Lack of Transportation: No Lack of Food: Never True Current Housing: I Have Housing Concerned About Future Housing: No Difficulty Paying Gas/Electric Bills: No Difficulty Paying for Meds: No Currently Unemployed: No Education: High School Diploma/GED Difficulty w/ Childcare or Family Care: No Living arrangements: alone Occupation/Education: retired Gender identity (if verbalized by the patient): Female Spiritual care concerns: No Meds Home Medications and Allergies Home Medications Medication Instructions Recorded Confirmed Type vitamins A,C,[id number] 4,296 1 cap PO BID 03/13/22 07/20/24 History mcg-226 mg-90 mg capsule (PreserVision AREDS) aspirin 81 mg tablet,delayed 81 mg PO DAILY #90 tabs 07/29/22 07/20/24 Rx release (Adult Low Dose Aspirin) ascorbic acid (vitamin C) 500 mg 500 mg PO DAILY 10/03/22 07/20/24 History capsule Walker #1 ea 06/03/23 07/20/24 Rx blood sugar diagnostic (OneTouch #100 strips 09/09/23 07/20/24 Rx Ultra Test strips) glimepiride 4 mg tablet 4 mg PO QAM #90 tabs 09/15/23 07/20/24 Rx fluoxetine 10 mg capsule 10 mg PO DAILY #90 caps 01/06/24 07/20/24 Rx lovastatin 40 mg tablet 40 mg PO QPM #90 tabs 03/05/24 07/20/24 Rx lisinopril 20 mg tablet 20 mg PO BID #180 tabs 07/16/24 07/20/24 Rx levothyroxine 125 mcg tablet 125 mcg PO DAILY 07/20/24 07/20/24 History metformin 1,000 mg tablet 1,000 mg PO BID #180 tabs 07/27/24 Rx Allergies Allergy/AdvReac Type Severity Reaction Status Date / Time No Known Allergies Allergy Verified 07/16/24 15:02 Vital Signs Vital Signs - 24 hr 07/26/24 08:00 07/26/24 10:20 07/26/24 08:00 Temperature 36.5 C Pulse Rate 63 62 Respiratory Rate 14 Blood Pressure 147/56 H Pulse Oximetry 94 Oxygen Delivery Room Air 07/26/24 12:00 07/26/24 16:00 07/26/24 16:00 Temperature 36.7 C Pulse Rate 70 63 64 Respiratory Rate 15 Blood Pressure 151/54 H Pulse Oximetry 99 Oxygen Delivery 07/26/24 19:39 07/26/24 20:00 07/27/24 00:00 Temperature 36.4 C Pulse Rate 62 62 60 Respiratory Rate 20 Blood Pressure 155/54 H Pulse Oximetry 95 Oxygen Delivery 07/27/24 05:15 07/27/24 04:00 Temperature 36.6 C Pulse Rate 63 61 Respiratory Rate 20 Blood Pressure 160/55 H Pulse Oximetry 97 Oxygen Delivery Results Labs 07/27/24 05:49 07/27/24 05:49 Labs: Abnormal lab results 07/26/24 07/26/24 07/26/24 Range/Units 07:36 11:44 12:04 RBC (4.2-5.4) M/mm3 Hgb (12.0-15.0) g/dL Hct (37.0-47.0) % Immature Gran % (Auto) (0-0.5) % Neut % (Auto) (45.5-73.1) % Lymph % (Auto) (18.3-44.2) % Lymph # (Auto) (0.9-3.2) K/mm3 [place] # (Auto) (0.1-0.6) K/mm3 Abs Immat Gran (auto) (0.00-0.031) K/mm3 Absolute Neuts (auto) (1.3-6.7) K/mm3 Sodium (137-145) mmol/L Anion Gap (4-12) mmol/L POC Capillary Glucose 110 H 110 H (65-105) mg/dl AST (14-36) U/L Total Protein (6.3-8.2) g/dL Albumin (3.5-5.1) g/dL Vitamin B12 (239-931) pg/mL Urine Protein 1+ H (Negative) mg/dL Leukocyte Esterase Rfl Trace H (Negative) SEBASTIAN/UL 07/26/24 07/26/24 07/26/24 Range/Units 12:10 17:10 19:43 RBC (4.2-5.4) M/mm3 Hgb (12.0-15.0) g/dL Hct (37.0-47.0) % Immature Gran % (Auto) (0-0.5) % Neut % (Auto) (45.5-73.1) % Lymph % (Auto) (18.3-44.2) % Lymph # (Auto) (0.9-3.2) K/mm3 [place] # (Auto) (0.1-0.6) K/mm3 Abs Immat Gran (auto) (0.00-0.031) K/mm3 Absolute Neuts (auto) (1.3-6.7) K/mm3 Sodium (137-145) mmol/L Anion Gap (4-12) mmol/L POC Capillary Glucose 201 H 127 H (65-105) mg/dl AST (14-36) U/L Total Protein (6.3-8.2) g/dL Albumin (3.5-5.1) g/dL Vitamin B12 > 1000.0 H (239-931) pg/mL Urine Protein (Negative) mg/dL Leukocyte Esterase Rfl (Negative) SEBASTIAN/UL 07/27/24 Range/Units 05:49 RBC 3.84 L (4.2-5.4) M/mm3 Hgb 11.4 L (12.0-15.0) g/dL Hct 34.9 L (37.0-47.0) % Immature Gran % (Auto) 0.8 H (0-0.5) % Neut % (Auto) 80.0 H (45.5-73.1) % Lymph % (Auto) 8.7 L (18.3-44.2) % Lymph # (Auto) 0.84 L (0.9-3.2) K/mm3 [place] # (Auto) 0.8 H (0.1-0.6) K/mm3 Abs Immat Gran (auto) 0.08 H (0.00-0.031) K/mm3 Absolute Neuts (auto) 7.8 H (1.3-6.7) K/mm3 Sodium 130 L (137-145) mmol/L Anion Gap -1 L (4-12) mmol/L POC Capillary Glucose (65-105) mg/dl AST 40 H (14-36) U/L Total Protein 5.0 L (6.3-8.2) g/dL Albumin 2.2 L (3.5-5.1) g/dL Vitamin B12 (239-931) pg/mL Urine Protein (Negative) mg/dL Leukocyte Esterase Rfl (Negative) SEBASTIAN/UL H & H 07/20/24 07/21/24 07/23/24 Range/Units 16:29 04:24 04:08 Hgb 11.4 L D 11.4 L 12.4 (12.0-15.0) g/dL Hct 35.0 L 34.4 L 38.6 (37.0-47.0) % 07/24/24 07/25/24 07/26/24 Range/Units 05:07 04:54 05:32 Hgb 13.2 12.2 11.1 L (12.0-15.0) g/dL Hct 39.7 37.0 33.5 L (37.0-47.0) % 07/27/24 Range/Units 05:49 Hgb 11.4 L (12.0-15.0) g/dL Hct 34.9 L (37.0-47.0) % Coagulation 07/20/24 Range/Units 16:29 INR 1.6 All other labs normal.
[2024-07-27 08:12] LABS: Glucose Point of Care 114 mg/dl (65-105)
[2024-07-27] MEDS: LIDOCAINE 5% PATCH 1 PATCH TRANSDERM (08:37)
[2024-07-27] MEDS: lisinopriL 20 MG TABLET PO ×2 (08:38→17:16)
[2024-07-27] MEDS: AMIODARONE HCL 200 MG TABLET PO (08:38)
[2024-07-27] MEDS: amLODIPine BESYLATE 5 MG TABLET PO (08:39)
[2024-07-27] MEDS: FLUoxetine HCL 10 MG CAPSULE PO (08:39)
[2024-07-27] MEDS: ASCORBIC ACID 500 MG TABLET PO (08:39)
[2024-07-27] MEDS: cefTRIAXone 2 GM/NS 100 ML 2 GM/100 ML BAG IVPB ×2 (08:40→22:07)
[2024-07-27] MEDS: OPTI-GEN TAB 1 TABLET PO ×2 (08:40→17:16)
[2024-07-27] MEDS: APIXABAN 2.5 MG TABLET PO ×2 (09:27→22:07)
[2024-07-27 12:30] LABS: Glucose Point of Care 148 mg/dl (65-105)
--- NOTE | 2024-07-27 12:35 | PM.IMPN ---
Progress Note: A&P Assessment and Plan (1) Bacterial UTI: Code(s): N39.0 - Urinary tract infection, site not specified; A49.9 - Bacterial infection, unspecified Status: Acute (2) Pneumonia: Qualifiers: Pneumonia type: due to unspecified organism Laterality: left Lung location: lower lobe of lung Qualified Code(s): J18.9 - Pneumonia, unspecified organism Code(s): J18.9 - Pneumonia, unspecified organism Status: Acute (3) Fall: Qualifiers: Encounter type: initial encounter Qualified Code(s): W19.XXXA - Unspecified fall, initial encounter Code(s): W19.XXXA - Unspecified fall, initial encounter Status: Acute (4) Elevated troponin: Code(s): R79.89 - Other specified abnormal findings of blood chemistry Status: Acute (5) Diastolic dysfunction: Code(s): I51.89 - Other ill-defined heart diseases Status: Acute (6) Diarrhea: Qualifiers: Diarrhea type: unspecified type Qualified Code(s): R19.7 - Diarrhea, unspecified Code(s): R19.7 - Diarrhea, unspecified Status: Acute (7) Acute hyponatremia: Code(s): E87.1 - Hypo-osmolality and hyponatremia Status: Acute (8) Acute uremia: Code(s): N19 - Unspecified kidney failure Status: Acute Plan 83-year-old female with past medical history of essential hypertension, hyperlipidemia, diabetes, diastolic dysfunction, mild pulmonary hypertension, moderate mitral valve regurgitation and hypothyroidism who presented to the ER after having intractable right shoulder pain after a fall. Imaging in the ER did not demonstrate evidence of fracture. Patient's daughter reported the staff that the patient has had increasing number of falls in the patient states that she lives in a split-level home. Imaging in the ER suggest patient may have pneumonia with associated leukocytosis and intermittent tachypnea. The patient's hemoglobin improved to 11.4 compared to prior values. 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 Patient reports just being generally fatigued and weak. She denies any dizziness, lightheadedness and denies sitting head or having any loss of consciousness. Imaging in the ER demonstrated no evidence of intracranial process, cervical fracture or fracture of the arm or shoulder. However did demonstrate marked osteoarthritis of the AC joint. The patient's family had reported the patient had been having diarrhea. The patient did not confirm the symptoms with me. She did report chronic low appetite and no desire to eat which she partially attributes to her mood. Patient presented with progressive weakness as noted above and multiple falls. She does demonstrate evidence of immune pneumonia on presentation. Blood culture also came back positive for Haemophilus influenzae x2. Worsening hyponatremia from baseline remains stable. Was also noted to be in AFib with RVR. Back to sinus rhythm was treated with amiodarone. Chads vas score 6 and was started on Eliquis. Bacteremia repeat blood culture no growth to date. Remains on IV ceftriaxone. Confusion: Continues to be an issue. CT head with no acute findings. ABG unremarkable. Ammonia normal. Chest x-ray with no acute findings. UA is negative. Started on gentle hydration. Neurology consultation. brain MRI with no acute findings. slowly improvoing. off hydrocodone. Right shoulder pain CT shoulder with no acute findings. MRI shoulder woc with rotator cuff tear some of which is chronic. orthopedics on board. planned cortisone injection. Pneumonia on ceftriaxone azithromycin. Multiple falls Elevated troponin Diastolic dysfunction Diarrhea Hyponatremia DVT prophylaxis on Eliquis Code status is do not resuscitate. Subjective Date/time seen: 07/27/24 12:35 Interval history: patient more awake today. no fever, chills. labs reviewed. no fever, chills. patient denies any abdominal pain. right shoulder pain persist. Review of Systems Review of Systems: All systems reviewed & are unremarkable except as noted in HPI and below (the history and physical exam.) Exam Narrative: GENERAL: Elderly, well-nourished, and in no acute distress. HEAD: Normocephalic, atraumatic. EYES: PERRLA and EOMI. ENT: Nares clear, no rhinorrhea or epistaxis. Mucous membranes moist. NECK: Supple. No adenopathy or masses. CHEST: No respiratory distress. Coarse breath sounds bilaterally No wheezes or rhonchi HEART: Regular rate and rhythm. No murmur heard. Normal peripheral pulses. ABDOMEN: Soft, nontender, nondistended, normal active bowel sounds. EXTREMITIES: Normal range of motion. No edema or obvious deformity. Right shoulder with local tenderness and limited range of motion SKIN: Warm, dry, no rash. NEURO: more awake, conversant, oriented to time place and person. mild confusion persist. No focal deficits. CN II-XII grossly intact PSYCH: calm and cooperative Objective Data Vital Signs Vital Signs: Vital Signs - 24 hr 07/26/24 16:00 07/26/24 16:00 07/26/24 19:39 Temperature 98.1 F 97.6 F Pulse Rate 63 64 62 Respiratory Rate 15 20 Blood Pressure 151/54 H 155/54 H Pulse Oximetry 99 95 07/26/24 20:00 07/27/24 00:00 07/27/24 05:15 Temperature 97.9 F Pulse Rate 62 60 63 Respiratory Rate 20 Blood Pressure 160/55 H Pulse Oximetry 97 07/27/24 04:00 07/27/24 08:38 Temperature Pulse Rate 61 74 Respiratory Rate Blood Pressure Pulse Oximetry Intake/Output Intake/Output: Intake & Output 07/24/24 07/25/24 07/26/24 07/27/24 23:59 23:59 23:59 23:59 Intake Total 1150 1770 1692 580 Output Total 500 Balance 1150 1770 1692 80 Meds/Results Medications: Active Medications Generic Name Dose Route Start Last Admin Trade Name Freq PRN Reason Stop Dose Admin Acetaminophen 650 mg 07/21/24 04:55 07/27/24 06:06 Acetaminophen 325 Mg Tablet PO 650 mg Q4H PRN Administration Pain Rated 1-3 Amiodarone HCl 200 mg 07/23/24 09:00 07/27/24 08:38 Amiodarone Hcl 200 Mg Tablet PO 200 mg DAILY JESSICA Administration Amlodipine Besylate 5 mg 07/23/24 09:00 07/27/24 08:39 Amlodipine Besylate 5 Mg Tablet PO 5 mg DAILY JESSICA Administration Apixaban 2.5 mg 07/21/24 21:00 07/27/24 09:27 Apixaban 2.5 Mg Tablet PO 2.5 mg Q12HR JESSICA Administration Ascorbic Acid 500 mg 07/21/24 09:00 07/27/24 08:39 Ascorbic Acid 500 Mg Tablet PO 500 mg DAILY JESSICA Administration Dextrose 12.5 gm 07/21/24 04:23 Dextrose 50% 25 Gm/50 Ml Syringe IV PUSH PRN PRN Hypoglycemia Protocol Fluoxetine HCl 10 mg 07/21/24 09:00 07/27/24 08:39 Fluoxetine Hcl 10 Mg Capsule PO 10 mg DAILY JESSICA Administration Glucagon 1 mg 07/21/24 04:23 Glucagon For Inj 1 Mg Vial IM PRN PRN Hypoglycemia Protocol Glucose 15 gm 07/21/24 04:23 Glucose Oral Gel 15 Gm Of Glucse In 37.5 Gm Tube PO PRN PRN Hypoglycemia Protocol Dextrose 1,000 mls @ 100 mls/hr 07/21/24 04:23 Dextrose 5% 1,000 Ml IVPB PRN PRN Hypoglycemia Protocol Sodium Chloride 1,000 mls @ 75 mls/hr 07/25/24 09:40 07/26/24 20:17 Normal Saline Iv IV CONT 75 mls/hr .[id number] JESSICA Administration Ceftriaxone Sodium 2 gm in 100 mls @ 200 mls/hr 07/26/24 21:00 07/27/24 08:40 Rocephin 2 Gm/Ns 100 Ml IVPB 200 mls/hr Q12HR JESSICA Administration Insulin Aspart 3 - 6 units 07/21/24 08:00 07/27/24 12:27 Insulin Aspart (*Bkc) 100 Units/Ml SUB-Q Not Given TIDWM JESSICA Protocol Insulin Aspart 1 - 3 units 07/21/24 21:00 07/26/24 20:19 Insulin Aspart (*Bkc) 100 Units/Ml SUB-Q Not Given HS JESSICA Protocol Levothyroxine Sodium 125 mcg 07/21/24 06:30 07/27/24 06:06 Levothyroxine Sodium 125 Mcg Tablet PO 125 mcg DAILY@0630 JESSICA Administration Lidocaine 1 patch 07/21/24 09:00 07/27/24 08:37 Lidocaine 5% Patch TRANSDERM 1 patch DAILY JESSICA Administration Lisinopril 20 mg 07/21/24 09:00 07/27/24 08:38 Lisinopril 20 Mg Tablet PO 20 mg BID JESSICA Administration Lovastatin 40 mg 07/21/24 18:00 07/26/24 17:30 Lovastatin 20 Mg Tablet PO 40 mg QPM JESSICA Administration Multivitamins/Minerals 1 tablet 07/21/24 09:00 07/27/24 08:40 Opti-Gen Tab PO 1 tablet BID JESSICA Administration Radiology Results: ITS Impressions Shoulder X-Ray 07/20/24 16:39 IMPRESSION: 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 No acute osseous abnormality. Shoulder CT 07/24/24 16:59 IMPRESSION: No acute osseous finding in the right shoulder. Mild interstitial edema. Moderate right pleural effusion. Chest X-Ray 07/25/24 10:08 IMPRESSION: 1. Mild atelectasis at left lung base. 2. Cardiomegaly. Head CT 07/25/24 13:34 IMPRESSION: 1. Normal aging brain. Brain MRI 07/26/24 14:35 IMPRESSION: 1. Old lacunar infarct in the left basal ganglia. Shoulder MRI 07/26/24 14:40 IMPRESSION: 1. Full-thickness rotator cuff tear. 2. Mild glenohumeral joint chondrosis. 3. Severe acromioclavicular joint osteoarthritis. 4. Mild intra-articular biceps tendinopathy. 5. Small glenohumeral joint effusion and moderate subacromial/subdeltoid bursitis. Carotid Doppler Study 07/26/24 15:14 IMPRESSION: 1. <50% stenosis in the right internal carotid artery. 2. <50% stenosis in the left internal carotid artery. Labs Labs: Laboratory Results - last 24 hr 07/21/24 07/26/24 07/26/24 11:09 12:10 17:10 WBC RBC Hgb Hct MCV MCH MCHC RDW Plt Count MPV Immature Gran % (Auto) Neut % (Auto) Lymph % (Auto) [place] % (Auto) Eos % (Auto) Baso % (Auto) Lymph # (Auto) [place] # (Auto) Eos # (Auto) Baso # (Auto) Abs Immat Gran (auto) Absolute Neuts (auto) Absolute Nucleated RBC Nucleated RBC % Sodium Potassium Chloride Carbon Dioxide Anion Gap BUN Creatinine Estim Creat Clear Calc Estimated GFR Glucose POC Capillary Glucose 201 H Calcium Magnesium Total Bilirubin AST ALT Alkaline Phosphatase Total Protein Albumin Vitamin B12 > 1000.0 H Vitamin D 25-Hydroxy 19.0 Folate 10.3 Ur L.pneumophila Ag Not detected Urine Pneumococcal Ag Not detected 07/26/24 07/27/24 07/27/24 19:43 05:49 08:08 WBC 9.7 RBC 3.84 L Hgb 11.4 L Hct 34.9 L MCV 90.9 MCH 29.7 MCHC 32.7 RDW 14.2 Plt Count 257 MPV 9.6 Immature Gran % (Auto) 0.8 H Neut % (Auto) 80.0 H Lymph % (Auto) 8.7 L [place] % (Auto) 7.7 Eos % (Auto) 2.6 Baso % (Auto) 0.2 Lymph # (Auto) 0.84 L [place] # (Auto) 0.8 H Eos # (Auto) 0.3 Baso # (Auto) 0.0 Abs Immat Gran (auto) 0.08 H Absolute Neuts (auto) 7.8 H Absolute Nucleated RBC 0.000 Nucleated RBC % 0.0 Sodium 130 L Potassium 4.2 Chloride 104 Carbon Dioxide 27 Anion Gap -1 L BUN 16 Creatinine 0.70 Estim Creat Clear Calc 53 Estimated GFR > 60 Glucose 102 POC Capillary Glucose 127 H 114 H Calcium 8.6 Magnesium 1.7 Total Bilirubin 0.8 AST 40 H ALT 25 Alkaline Phosphatase 93 Total Protein 5.0 L Albumin 2.2 L Vitamin B12 Vitamin D 25-Hydroxy Folate Ur L.pneumophila Ag Urine Pneumococcal Ag 07/27/24 12:25 WBC RBC Hgb Hct MCV MCH MCHC RDW Plt Count MPV Immature Gran % (Auto) Neut % (Auto) Lymph % (Auto) [place] % (Auto) Eos % (Auto) Baso % (Auto) Lymph # (Auto) [place] # (Auto) Eos # (Auto) Baso # (Auto) Abs Immat Gran (auto) Absolute Neuts (auto) Absolute Nucleated RBC Nucleated RBC % Sodium Potassium Chloride Carbon Dioxide Anion Gap BUN Creatinine Estim Creat Clear Calc Estimated GFR Glucose POC Capillary Glucose 148 H Calcium Magnesium Total Bilirubin AST ALT Alkaline Phosphatase Total Protein Albumin Vitamin B12 Vitamin D 25-Hydroxy Folate Ur L.pneumophila Ag Urine Pneumococcal Ag
--- NOTE | 2024-07-27 14:09 | PCPTNOTE ---
Patient refused treatment this session due to patient wanting to rest at this time.
[2024-07-27 16:57] LABS: Glucose Point of Care 297 mg/dl (65-105)
[2024-07-27] MEDS: INSULIN ASPART (*BKC) 100 UNITS/ML SUB-Q ×2 (17:13→22:09)
[2024-07-27] MEDS: LOVASTATIN 20 MG TABLET 40 MG PO (17:16)
[2024-07-27 20:05] LABS: Glucose Point of Care 338 mg/dl (65-105)
[2024-07-28 05:31] VITALS: BP 149/60; PULSE 60; RESP 18; TEMP 36.6; O2SAT 98
[2024-07-28 05:57] LABS: Basophils Percent Auto 0.2 % (0.2-1.2); Hematocrit 35.8 % (37.0-47.0); Hemoglobin 11.8 g/dL (12.0-15.0); Immature Granulocyte Absolute 0.14 K/mm3 (0.00-0.031); Immature Granulocyte Percent A 1.1 % (0-0.5); Lymphocytes Percent Auto 3.9 % (18.3-44.2); Mean Corpuscular Hemoglobin 29.9 pg (26-34); Mean Corpuscular Volume 90.9 fl (80-100); Mean Platelet Volume 9.8 fl (7.4-10.4); Monocytes Absolute Auto 0.2 K/mm3 (0.1-0.6); Monocytes Percent Auto 1.8 % (2.6-8.5); Platelet Count Result 318 k/mm3 (150-375); Red Blood Count 3.94 M/mm3 (4.2-5.4); Red Cell Distribution Width 13.8 % (11.5-14.5); White Blood Count 12.9 K/mm3 (4.5-10.0)
[2024-07-28] MEDS: LEVOTHYROXINE SODIUM 125 MCG TABLET PO (05:58)
[2024-07-28 06:11] LABS: Alanine Aminotransferase 29 U/L (6-35); Albumin Level 2.6 g/dL (3.5-5.1); Alkaline Phosphatase 103 U/L (38-126); Anion Gap 1 mmol/L (4-12); Aspartate Amino Transferase 38 U/L (14-36); Bilirubin,Total 0.8 mg/dL (0.2-1.3); Blood Urea Nitrogen 20 mg/dL (7-17); Calcium 9.1 mg/dL (8.4-10.2); Carbon Dioxide 27 mmol/L (22-30); Chloride 100 mmol/L (98-107); Estimated CRCL calculation 47 ml/min; Estimated Glomerular Filt Rate > 60; Glucose 219 mg/dL (65-110); Magnesium 1.9 mg/dL (1.6-2.3); Potassium 4.7 mmol/L (3.4-5.0); Sodium 128 mmol/L (137-145)
--- NOTE | 2024-07-28 07:24 | PM.PNORT ---
Progress Note: A&P Assessment and Plan (1) Rotator cuff tear, right: Code(s): M75.101 - Unspecified rotator cuff tear or rupture of right shoulder, not specified as traumatic Status: Acute Assessment and Plan: Patient states that she noticed that her right shoulder bother her much less last night and is doing well and this morning she states that shoulder pain is much better. Her daughter was present this morning. She has movement of the shoulder with minimal discomfort today We can ask physical therapy to work with her using chronic rotator cuff tear protocol. Her glucose is elevated to 219 this morning which is higher than it had been running and I think this is due to the cortisone effect. This should subside over the next few days. I am happy to see her back on an as-needed basis. Subjective Subjective Date/Time Seen: 07/28/24 07:24 Objective Data Vital Signs Vital Signs: Vital Signs - 24 hr 07/27/24 08:38 07/27/24 08:04 07/27/24 12:02 Temperature Pulse Rate 74 60 61 Respiratory Rate Blood Pressure Pulse Oximetry Oxygen Delivery 07/27/24 16:00 07/27/24 20:03 07/27/24 20:00 Temperature 37.2 C 36.2 C L Pulse Rate 65 68 Respiratory Rate 14 18 Blood Pressure 145/50 H 162/52 H Pulse Oximetry 97 97 Oxygen Delivery Room Air 07/28/24 05:31 Temperature 36.6 C Pulse Rate 60 Respiratory Rate 18 Blood Pressure 149/60 H Pulse Oximetry 98 Oxygen Delivery Intake/Output Intake/Output: Intake & Output 07/25/24 07/26/24 07/27/24 07/28/24 23:59 23:59 23:59 23:59 Intake Total 1770 1692 1700 Output Total 500 0 Balance 1770 1692 1200 0 Meds/Results Medications: Active Medications Generic Name Dose Route Start Last Admin Trade Name Freq PRN Reason Stop Dose Admin Acetaminophen 650 mg 07/21/24 04:55 07/27/24 06:06 Acetaminophen 325 Mg Tablet PO 650 mg Q4H PRN Administration Pain Rated 1-3 Amiodarone HCl 200 mg 07/23/24 09:00 07/27/24 08:38 Amiodarone Hcl 200 Mg Tablet PO 200 mg DAILY JESSICA Administration Amlodipine Besylate 5 mg 07/23/24 09:00 07/27/24 08:39 Amlodipine Besylate 5 Mg Tablet PO 5 mg DAILY JESSICA Administration Apixaban 2.5 mg 07/21/24 21:00 07/27/24 22:07 Apixaban 2.5 Mg Tablet PO 2.5 mg Q12HR JESSICA Administration Ascorbic Acid 500 mg 07/21/24 09:00 07/27/24 08:39 Ascorbic Acid 500 Mg Tablet PO 500 mg DAILY JESSICA Administration Dextrose 12.5 gm 07/21/24 04:23 Dextrose 50% 25 Gm/50 Ml Syringe IV PUSH PRN PRN Hypoglycemia Protocol Fluoxetine HCl 10 mg 07/21/24 09:00 07/27/24 08:39 Fluoxetine Hcl 10 Mg Capsule PO 10 mg DAILY JESSICA Administration Glucagon 1 mg 07/21/24 04:23 Glucagon For Inj 1 Mg Vial IM PRN PRN Hypoglycemia Protocol Glucose 15 gm 07/21/24 04:23 Glucose Oral Gel 15 Gm Of Glucse In 37.5 Gm Tube PO PRN PRN Hypoglycemia Protocol Dextrose 1,000 mls @ 100 mls/hr 07/21/24 04:23 Dextrose 5% 1,000 Ml IVPB PRN PRN Hypoglycemia Protocol Ceftriaxone Sodium 2 gm in 100 mls @ 200 mls/hr 07/26/24 21:00 07/27/24 22:37 Rocephin 2 Gm/Ns 100 Ml IVPB Infused Q12HR JESSICA Infusion Insulin Aspart 3 - 6 units 07/21/24 08:00 07/27/24 17:13 Insulin Aspart (*Bkc) 100 Units/Ml SUB-Q 4 units TIDWM JESSICA Administration Protocol Insulin Aspart 1 - 3 units 07/21/24 21:00 07/27/24 22:09 Insulin Aspart (*Bkc) 100 Units/Ml SUB-Q 1 units HS JESSICA Administration Protocol Levothyroxine Sodium 125 mcg 07/21/24 06:30 07/28/24 05:58 Levothyroxine Sodium 125 Mcg Tablet PO 125 mcg DAILY@0630 JESSICA Administration Lidocaine 1 patch 07/21/24 09:00 07/27/24 08:37 Lidocaine 5% Patch TRANSDERM 1 patch DAILY JESSICA Administration Lisinopril 20 mg 07/21/24 09:00 07/27/24 17:16 Lisinopril 20 Mg Tablet PO 20 mg BID JESSICA Administration Lovastatin 40 mg 07/21/24 18:00 07/27/24 17:16 Lovastatin 20 Mg Tablet PO 40 mg QPM JESSICA Administration Multivitamins/Minerals 1 tablet 07/21/24 09:00 07/27/24 17:16 Opti-Gen Tab PO 1 tablet BID JESSICA Administration Radiology Results: ITS Impressions Shoulder X-Ray 07/20/24 16:39 IMPRESSION: 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 No acute osseous abnormality. Shoulder CT 07/24/24 16:59 IMPRESSION: No acute osseous finding in the right shoulder. Mild interstitial edema. Moderate right pleural effusion. Chest X-Ray 07/25/24 10:08 IMPRESSION: 1. Mild atelectasis at left lung base. 2. Cardiomegaly. Head CT 07/25/24 13:34 IMPRESSION: 1. Normal aging brain. Brain MRI 07/26/24 14:35 IMPRESSION: 1. Old lacunar infarct in the left basal ganglia. Shoulder MRI 07/26/24 14:40 IMPRESSION: 1. Full-thickness rotator cuff tear. 2. Mild glenohumeral joint chondrosis. 3. Severe acromioclavicular joint osteoarthritis. 4. Mild intra-articular biceps tendinopathy. 5. Small glenohumeral joint effusion and moderate subacromial/subdeltoid bursitis. Carotid Doppler Study 07/26/24 15:14 IMPRESSION: 1. <50% stenosis in the right internal carotid artery. 2. <50% stenosis in the left internal carotid artery. Labs Labs: Laboratory Results - last 24 hr 07/27/24 07/27/24 07/27/24 08:08 12:25 16:55 WBC RBC Hgb Hct MCV MCH MCHC RDW Plt Count MPV Immature Gran % (Auto) Neut % (Auto) Lymph % (Auto) [place] % (Auto) Eos % (Auto) Baso % (Auto) Lymph # (Auto) [place] # (Auto) Eos # (Auto) Baso # (Auto) Abs Immat Gran (auto) Absolute Neuts (auto) Absolute Nucleated RBC Nucleated RBC % Sodium Potassium Chloride Carbon Dioxide Anion Gap BUN Creatinine Estim Creat Clear Calc Estimated GFR Glucose POC Capillary Glucose 114 H 148 H 297 H Calcium Magnesium Total Bilirubin AST ALT Alkaline Phosphatase Total Protein Albumin 07/27/24 07/28/24 19:32 05:30 WBC 12.9 H RBC 3.94 L Hgb 11.8 L Hct 35.8 L MCV 90.9 MCH 29.9 MCHC 33.0 RDW 13.8 Plt Count 318 MPV 9.8 Immature Gran % (Auto) 1.1 H Neut % (Auto) 93.0 H Lymph % (Auto) 3.9 L [place] % (Auto) 1.8 L Eos % (Auto) 0.0 Baso % (Auto) 0.2 Lymph # (Auto) 0.50 L [place] # (Auto) 0.2 Eos # (Auto) 0.0 Baso # (Auto) 0.0 Abs Immat Gran (auto) 0.14 H Absolute Neuts (auto) 12.0 H Absolute Nucleated RBC 0.000 Nucleated RBC % 0.0 Sodium 128 L Potassium 4.7 Chloride 100 Carbon Dioxide 27 Anion Gap 1 L BUN 20 H Creatinine 0.80 Estim Creat Clear Calc 47 Estimated GFR > 60 Glucose 219 H POC Capillary Glucose 338 H Calcium 9.1 Magnesium 1.9 Total Bilirubin 0.8 AST 38 H ALT 29 Alkaline Phosphatase 103 Total Protein 6.0 L Albumin 2.6 L
[2024-07-28 08:50] LABS: Glucose Point of Care 197 mg/dl (65-105)
--- NOTE | 2024-07-28 09:01 | WPDNEUROLOGY ---
Neurology EEG Report General Information Date of Study: 07/27/24 TEST Eeg DIAGNOSIS confusion CONDITION OF RECORDING awake but confused. EEG NUMBER [id number] CLINICAL HISTORY Patient is confused and unable to give any particular history. EEG DESCRIPTION Background rhythm consists of 3 to 4 hertz per 2nd delta activity admixed with intermittent low-voltage 15 to 21 hertz per 2nd beta activity and multiple muscle artifacts. For calista posterior gradient noted. Photic stimulation not done. Hyperventilation not done. Non paroxysmal. Nonfocal. Nonlateralizing. IMPRESSION Abnormal record due to the absence of normal background rhythm and also due to the presence of bihemispheric slow activity without evidence of any paroxysmal discharge. These findings are suggestive of diffuse organic or metabolic encephalopathy without any evidence of focal lesion or any focal or diffuse seizure discharge. Clinical correlation recommended
[2024-07-28 09:03] VITALS: PULSE 60
[2024-07-28] MEDS: APIXABAN 2.5 MG TABLET PO ×2 (09:03→21:01)
[2024-07-28] MEDS: AMIODARONE HCL 200 MG TABLET PO (09:03)
[2024-07-28] MEDS: ASCORBIC ACID 500 MG TABLET PO (09:03)
[2024-07-28] MEDS: lisinopriL 20 MG TABLET PO ×2 (09:03→17:10)
[2024-07-28] MEDS: cefTRIAXone 2 GM/NS 100 ML 2 GM/100 ML BAG IVPB (09:03)
[2024-07-28] MEDS: amLODIPine BESYLATE 5 MG TABLET PO (09:03)
[2024-07-28] MEDS: FLUoxetine HCL 10 MG CAPSULE PO (09:04)
[2024-07-28] MEDS: OPTI-GEN TAB 1 TABLET PO ×2 (09:04→17:10)
[2024-07-28] MEDS: LIDOCAINE 5% PATCH 1 PATCH TRANSDERM (09:04)
--- NOTE | 2024-07-28 10:11 | PCNFU ---
Nutrition Follow-Up Complete: Unintentional weight loss related to reduced appetite and intake as evidenced by pt report PO intake greater than 50% of meals and supplements - Goal is not being met, intakes 0-25% with ~50-75% Glucerna supplements. Continue with progress to same goal Goal: Pt current nutrition is Diabetic consistent carb diet with Glucerna BID for additional 220 kcal and 10 g protein each Nutrition recommendation: No new nutrition recommendations. Continue with same nutrition care plan and orders. Agree with orders Last recorded weight is 75.8 kg. Bowel Motility: +1 BM 07/28/24 Labs Reviewed: Hgb 11.8, Hct 35.8, Alb 2.6, Na 128, BUN 20, Glu 219 Meds Noted: Lovenox Skin: No skin issues Additional Notes: Intakes remain poor. Drinking supplements. Continue with orders Monitor intake, wt, labs. follow up in 7 days
[2024-07-28 12:04] LABS: Glucose Point of Care 269 mg/dl (65-105)
[2024-07-28] MEDS: INSULIN ASPART (*BKC) 100 UNITS/ML SUB-Q ×3 (12:31→21:01)
[2024-07-28 14:00] VITALS: BP 124/49; PULSE 62; RESP 14; TEMP 36.6; O2SAT 98
[2024-07-28 16:54] LABS: Glucose Point of Care 232 mg/dl (65-105)
[2024-07-28] MEDS: LOVASTATIN 20 MG TABLET 40 MG PO (17:10)
--- NOTE | 2024-07-28 17:50 | PM.IMPN ---
Progress Note: A&P Assessment and Plan (1) Pneumonia: Qualifiers: Laterality: left Lung location: lower lobe of lung Pneumonia type: due to unspecified organism Qualified Code(s): J18.9 - Pneumonia, unspecified organism Code(s): J18.9 - Pneumonia, unspecified organism Status: Acute Assessment and Plan: Imaging in the ER suggest patient may have pneumonia with associated leukocytosis and intermittent tachypnea. Blood culture also came back positive for Haemophilus influenzae x2. Isolate was beta lactamase negative. Treated with Rocephin 1gm IV on 07/20 and changed to 2gm daily on 07/22. Advanced to Q12H dosing on 07/26. No fevers here. Repeat BCx negative. WBC up and down but was trending down since 07/25. WBC higher today felt related to the steroids She has been weaned to room air. Will transition to oral abx to complete a course. (2) PAF (paroxysmal atrial fibrillation): Code(s): I48.0 - Paroxysmal atrial fibrillation Status: Acute Assessment and Plan: Patient was noted to be in AFib with RVR. Cardiology consulted. Was treated with amiodarone. Chads vas score 6 and was started on Eliquis. Back in NSR She is a fall risk. PT/OT ordered. Continue oral Amio (3) Elevated troponin: Code(s): R79.89 - Other specified abnormal findings of blood chemistry Status: Acute Assessment and Plan: Trop was moderately elevated at 0.171. Cardiolgy aware and felt related to pneumonia. 07/21/24 Echo: EF 60-65%, mod LVH, grade I diastolic dysfunction, mod biatrial enlargement, mild AI/PI, mod MR/TR, RVSP 51 mmHg. Appreciate Cardiology input. (4) Acute hyponatremia: Code(s): E87.1 - Hypo-osmolality and hyponatremia Status: Acute Assessment and Plan: Sodium 129 on admission. Sodium has melonie low but stable 127-130 range. Urine sodium <5 and UCr 193 so suspect related to dehydration Cr was 1.1 but better now. BUN was 45 but down to normal (BUN slightly higher today related to steroids) She eats intermittently. Follow for now. (5) Rotator cuff tear, right: Code(s): M75.101 - Unspecified rotator cuff tear or rupture of right shoulder, not specified as traumatic Status: Acute Assessment and Plan: presented to the ER after having intractable right shoulder pain after a fall. Imaging in the ER did not demonstrate evidence of fracture. Patient's daughter reported the staff that the patient has had increasing number of falls in the patient states that she lives in a split-level home. Right shoulder MRI showing full-thickness rotator cuff tear. Please see report for details. Ortho consult and now s/p steroid injection. PT/OT (6) Diarrhea: Qualifiers: Diarrhea type: unspecified type Qualified Code(s): R19.7 - Diarrhea, unspecified Code(s): R19.7 - Diarrhea, unspecified Status: Acute Assessment and Plan: The patient's family had reported the patient had been having diarrhea. Patient does not confirm this and not having excess number of BMs here. (7) Fall: Qualifiers: Encounter type: initial encounter Qualified Code(s): W19.XXXA - Unspecified fall, initial encounter Code(s): W19.XXXA - Unspecified fall, initial encounter Status: Acute Assessment and Plan: As above. COntinue PT/OT (8) Confusion: Code(s): R41.0 - Disorientation, unspecified Status: Acute Assessment and Plan: Confusion: CT head with no acute findings. ABG unremarkable. Ammonia normal. UA is negative. Started on gentle hydration. Neurology consultation. brain MRI with no acute findings. Carotid doppler showing <50% stenosis in the bilateral ICA. Slowly improvoing. off hydrocodone. Follow Plan DVT prophylaxis on Eliquis Code status is do not resuscitate. Subjective Date/time seen: 07/28/24 17:50 Interval history: 83yo female with HTN, DM, pHTN, moderate MR and HLD here for right shoulder pain after a fall. Assuming care. Chart reviewed. She received a steroid injection to her right shoulder yesterday. Shoulder pain is 6/10 today. She is feeling better overall. No shoulder pain at rest. She has been up to the chair and walking to the bathroom. No chest pain or shortness of breath. Slight cough. Exam Narrative: AF 97.9 124/49 62 14 98% ra Gen - NARD HEENT -ear canals are obstructed by cerumen bilaterally. Chest -left base inspiratory crackles. CV - RRR S1/S2 Abd - Soft, NT/ND, Positive BS Ext -trace pedal edema. Negative Homans sign. Psych - Nml mood and affect Skin - Warm and dry Objective Data Vital Signs Vital Signs: Vital Signs - 24 hr 07/27/24 20:03 07/27/24 20:00 07/28/24 05:31 Temperature 97.1 F L 97.8 F Pulse Rate 68 60 Respiratory Rate 18 18 Blood Pressure 162/52 H 149/60 H Pulse Oximetry 97 98 Oxygen Delivery Room Air 07/28/24 09:03 07/28/24 09:20 07/28/24 14:00 Temperature 97.9 F Pulse Rate 60 62 Respiratory Rate 14 Blood Pressure 124/49 L Pulse Oximetry 98 Oxygen Delivery Room Air Intake/Output Intake/Output: Intake & Output 07/25/24 07/26/24 07/27/24 07/28/24 23:59 23:59 23:59 23:59 Intake Total 1770 1692 1700 480 Output Total 500 0 Balance 1770 1692 1200 480 Meds/Results Medications: Active Medications Generic Name Dose Route Start Last Admin Trade Name Freq PRN Reason Stop Dose Admin Acetaminophen 650 mg 07/21/24 04:55 07/27/24 06:06 Acetaminophen 325 Mg Tablet PO 650 mg Q4H PRN Administration Pain Rated 1-3 Amiodarone HCl 200 mg 07/23/24 09:00 07/28/24 09:03 Amiodarone Hcl 200 Mg Tablet PO 200 mg DAILY JESSICA Administration Amlodipine Besylate 5 mg 07/23/24 09:00 07/28/24 09:03 Amlodipine Besylate 5 Mg Tablet PO 5 mg DAILY JESSICA Administration Amoxicillin/Clavulanate Potassium 1 tablet 07/29/24 07:00 Amoxicillin/Clavulanate K 875-125 Mg Tab PO 08/04/24 22:01 Q8HR JESSICA Apixaban 2.5 mg 07/21/24 21:00 07/28/24 09:03 Apixaban 2.5 Mg Tablet PO 2.5 mg Q12HR JESSICA Administration Ascorbic Acid 500 mg 07/21/24 09:00 07/28/24 09:03 Ascorbic Acid 500 Mg Tablet PO 500 mg DAILY JESSICA Administration Dextrose 12.5 gm 07/21/24 04:23 Dextrose 50% 25 Gm/50 Ml Syringe IV PUSH PRN PRN Hypoglycemia Protocol Fluoxetine HCl 10 mg 07/21/24 09:00 07/28/24 09:04 Fluoxetine Hcl 10 Mg Capsule PO 10 mg DAILY JESSICA Administration Glucagon 1 mg 07/21/24 04:23 Glucagon For Inj 1 Mg Vial IM PRN PRN Hypoglycemia Protocol Glucose 15 gm 07/21/24 04:23 Glucose Oral Gel 15 Gm Of Glucse In 37.5 Gm Tube PO PRN PRN Hypoglycemia Protocol Dextrose 1,000 mls @ 100 mls/hr 07/21/24 04:23 Dextrose 5% 1,000 Ml IVPB PRN PRN Hypoglycemia Protocol Insulin Aspart 3 - 6 units 07/21/24 08:00 07/28/24 17:16 Insulin Aspart (*Bkc) 100 Units/Ml SUB-Q 3 units TIDWM JESSICA Administration Protocol Insulin Aspart 1 - 3 units 07/21/24 21:00 07/27/24 22:09 Insulin Aspart (*Bkc) 100 Units/Ml SUB-Q 1 units HS JESSICA Administration Protocol Levothyroxine Sodium 125 mcg 07/21/24 06:30 07/28/24 05:58 Levothyroxine Sodium 125 Mcg Tablet PO 125 mcg DAILY@0630 JESSICA Administration Lidocaine 1 patch 07/21/24 09:00 07/28/24 09:04 Lidocaine 5% Patch TRANSDERM 1 patch DAILY JESSICA Administration Lisinopril 20 mg 07/21/24 09:00 07/28/24 17:10 Lisinopril 20 Mg Tablet PO 20 mg BID JESSICA Administration Lovastatin 40 mg 07/21/24 18:00 07/28/24 17:10 Lovastatin 20 Mg Tablet PO 40 mg QPM JESSICA Administration Multivitamins/Minerals 1 tablet 07/21/24 09:00 07/28/24 17:10 Opti-Gen Tab PO 1 tablet BID JESSICA Administration Radiology Results: ITS Impressions Shoulder X-Ray 07/20/24 16:39 IMPRESSION: 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 No acute osseous abnormality. Shoulder CT 07/24/24 16:59 IMPRESSION: No acute osseous finding in the right shoulder. Mild interstitial edema. Moderate right pleural effusion. Chest X-Ray 07/25/24 10:08 IMPRESSION: 1. Mild atelectasis at left lung base. 2. Cardiomegaly. Head CT 07/25/24 13:34 IMPRESSION: 1. Normal aging brain. Brain MRI 12/02/24 14:35 IMPRESSION: 1. Old lacunar infarct in the left basal ganglia. Shoulder MRI 07/26/24 14:40 IMPRESSION: 1. Full-thickness rotator cuff tear. 2. Mild glenohumeral joint chondrosis. 3. Severe acromioclavicular joint osteoarthritis. 4. Mild intra-articular biceps tendinopathy. 5. Small glenohumeral joint effusion and moderate subacromial/subdeltoid bursitis. Carotid Doppler Study 07/26/24 15:14 IMPRESSION: 1. <50% stenosis in the right internal carotid artery. 2. <50% stenosis in the left internal carotid artery. Labs Labs: Laboratory Results - last 24 hr 07/27/24 07/28/24 07/28/24 19:32 05:30 08:40 WBC 12.9 H RBC 3.94 L Hgb 11.8 L Hct 35.8 L MCV 90.9 MCH 29.9 MCHC 33.0 RDW 13.8 Plt Count 318 MPV 9.8 Immature Gran % (Auto) 1.1 H Neut % (Auto) 93.0 H Lymph % (Auto) 3.9 L [place] % (Auto) 1.8 L Eos % (Auto) 0.0 Baso % (Auto) 0.2 Lymph # (Auto) 0.50 L [place] # (Auto) 0.2 Eos # (Auto) 0.0 Baso # (Auto) 0.0 Abs Immat Gran (auto) 0.14 H Absolute Neuts (auto) 12.0 H Absolute Nucleated RBC 0.000 Nucleated RBC % 0.0 Sodium 128 L Potassium 4.7 Chloride 100 Carbon Dioxide 27 Anion Gap 1 L BUN 20 H Creatinine 0.80 Estim Creat Clear Calc 47 Estimated GFR > 60 Glucose 219 H POC Capillary Glucose 338 H 197 H Calcium 9.1 Magnesium 1.9 Total Bilirubin 0.8 AST 38 H ALT 29 Alkaline Phosphatase 103 Total Protein 6.0 L Albumin 2.6 L 07/28/24 07/28/24 11:53 16:40 WBC RBC Hgb Hct MCV MCH MCHC RDW Plt Count MPV Immature Gran % (Auto) Neut % (Auto) Lymph % (Auto) [place] % (Auto) Eos % (Auto) Baso % (Auto) Lymph # (Auto) [place] # (Auto) Eos # (Auto) Baso # (Auto) Abs Immat Gran (auto) Absolute Neuts (auto) Absolute Nucleated RBC Nucleated RBC % Sodium Potassium Chloride Carbon Dioxide Anion Gap BUN Creatinine Estim Creat Clear Calc Estimated GFR Glucose POC Capillary Glucose 269 H 232 H Calcium Magnesium Total Bilirubin AST ALT Alkaline Phosphatase Total Protein Albumin
[2024-07-28] MEDS: ACETAMINOPHEN 325 MG TABLET 650 MG PO (18:36)
[2024-07-28 20:59] LABS: Glucose Point of Care 201 mg/dl (65-105)
[2024-07-28] MEDS: CARBAMIDE PEROXIDE 6.5% OT SOLN 15 ML BTL 5 DROP EACH EAR (21:01)
[2024-07-28 21:59] VITALS: BP 142/50; PULSE 64; RESP 18; TEMP 36.1; O2SAT 98
[2024-07-29] MEDS: APIXABAN 2.5 MG TABLET PO (01:32)
[2024-07-29 06:00] VITALS: BP 171/64; PULSE 63; RESP 18; TEMP 36.6; O2SAT 96
[2024-07-29] MEDS: LEVOTHYROXINE SODIUM 125 MCG TABLET PO (06:11)
[2024-07-29] MEDS: AMOXICILLIN/CLAVULANATE K 875-125 MG TAB 1 TABLET PO (06:11)
[2024-07-29 06:26] LABS: Glucose Point of Care 132 mg/dl (65-105)
[2024-07-29 06:29] LABS: Anion Gap 2 mmol/L (4-12); Blood Urea Nitrogen 24 mg/dL (7-17); Calcium 9.3 mg/dL (8.4-10.2); Carbon Dioxide 26 mmol/L (22-30); Chloride 101 mmol/L (98-107); Estimated CRCL calculation 42 ml/min; Estimated Glomerular Filt Rate 60; Glucose 152 mg/dL (65-110); Potassium 4.5 mmol/L (3.4-5.0); Sodium 129 mmol/L (137-145)
[2024-07-29 08:01] LABS: Glucose Point of Care 156 mg/dl (65-105)
[2024-07-29 08:57] VITALS: PULSE 67
[2024-07-29] MEDS: AMIODARONE HCL 200 MG TABLET PO (08:57)
[2024-07-29] MEDS: APIXABAN 5 MG TABLET PO (08:59)
[2024-07-29] MEDS: GLIMEPIRIDE 1 MG TABLET PO (08:59)
[2024-07-29] MEDS: OPTI-GEN TAB 1 TABLET PO (09:00)
[2024-07-29] MEDS: CHOLECALCIFEROL 1,000 UNITS TABLET 1000 UNITS PO (09:00)
[2024-07-29] MEDS: lisinopriL 20 MG TABLET PO (09:00)
[2024-07-29] MEDS: amLODIPine BESYLATE 5 MG TABLET PO (09:00)
[2024-07-29] MEDS: ASCORBIC ACID 500 MG TABLET PO (09:00)
[2024-07-29] MEDS: FLUoxetine HCL 10 MG CAPSULE PO (09:00)
[2024-07-29] MEDS: CARBAMIDE PEROXIDE 6.5% OT SOLN 15 ML BTL 5 DROP EACH EAR (09:01)
[2024-07-29] MEDS: LIDOCAINE 5% PATCH 1 PATCH TRANSDERM (09:14)
[2024-07-29 11:27] LABS: Glucose Point of Care 203 mg/dl (65-105)
--- NOTE | 2024-07-29 12:07 | PM.DS ---
DS: Admitting Diagnosis Discharge Date 07/29/24 Admitting Diagnosis Right shoulder pain after falling DS: Discharge Diagnosis Discharge Diagnosis (1) Pneumonia: Qualifiers: Pneumonia type: due to unspecified organism Laterality: left Lung location: lower lobe of lung Qualified Code(s): J18.9 - Pneumonia, unspecified organism Code(s): J18.9 - Pneumonia, unspecified organism Status: Acute (2) PAF (paroxysmal atrial fibrillation): Code(s): I48.0 - Paroxysmal atrial fibrillation Status: Acute (3) Elevated troponin: Code(s): R79.89 - Other specified abnormal findings of blood chemistry Status: Acute (4) Acute hyponatremia: Code(s): E87.1 - Hypo-osmolality and hyponatremia Status: Acute (5) Rotator cuff tear, right: Code(s): M75.101 - Unspecified rotator cuff tear or rupture of right shoulder, not specified as traumatic Status: Acute (6) Diarrhea: Qualifiers: Diarrhea type: unspecified type Qualified Code(s): R19.7 - Diarrhea, unspecified Code(s): R19.7 - Diarrhea, unspecified Status: Acute (7) Fall: Qualifiers: Encounter type: initial encounter Qualified Code(s): W19.XXXA - Unspecified fall, initial encounter Code(s): W19.XXXA - Unspecified fall, initial encounter Status: Acute (8) Confusion: Code(s): R41.0 - Disorientation, unspecified Status: Acute DS: Summary Hospital Course Reason for hospitalization: 83yo female with HTN, DM, pHTN, moderate MR and HLD here for right shoulder pain after a fall. Please see H&P for details. Hospital Course: Patient presnted with complaints of shoulder pain. Imaging in the ER suggested patient may have pneumonia. She had associated leukocytosis and intermittent tachypnea. Blood cultures collected and she was started on abx. BCx returned positive for Haemophilus influenzae x2. Isolate was beta lactamase negative. Treated with Rocephin 1gm IV on 07/20 and changed to 2gm daily on 07/22 then advanced to Q12H dosing on 07/26. No fevers here. Repeat BCx negative. WBC up and down but was trending down since 07/25. WBC higher on 07/28 but felt related to the shoulder steroid injection. She has been weaned to room air. She wsa transitioned to oral abx to complete a course. Patient was noted to be in AFib on admission. No hx of AFib. Cardiology consulted. She was treated with amiodarone. [id number] score 6 and was started on Eliquis. She converted to normal sinus rhythm. Head CT showing normal aging brain. Trop was moderately elevated at 0.171. Cardiology was aware and felt elevated Trop related to pneumonia. Echo showing EF 60-65%, mod LVH, grade I diastolic dysfunction, moderate biatrial enlargement, mild AI/PI, mod MR/TR and RVSP 51 mmHg. She is a fall risk. PT/OT ordered. Sodium 129 on admission. Sodium has melonie low but stable 127-130 range during her hospital course. Urine sodium <5 and UCr 193 so suspect related to dehydration. Cr was 1.1 but better now. BUN was 45 but trended to normal. Patient presented to the ER after having intractable right shoulder pain after a fall. Imaging in the ER did not demonstrate evidence of fracture. Patient's daughter reported to the staff that the patient has had increasing number of falls. Right shoulder MRI showing full-thickness rotator cuff tear. Please see report for details. Ortho consult and now s/p right shoulder steroid injection. Patient was having confusion. Head CT showing normal aging brain. ABG 7.45/34/67 on RA. Ammonia level negative. UA is negative for infection. She was started on gentle hydration. Neurology consulted. Brain MRI showing old lacunar infarct left basal ganglia. She is on ASA at home but held due to being on Eliquis and that she is a fall risk. We continued statin therapy. EEG showing abnormal record due to the absence of normal background rhythm and also due to the presence of bihemispheric slow activity without evidence of any paroxysmal discharge. These findings are suggestive of diffuse organic or metabolic encephalopathy without any evidence of focal lesion or any focal or diffuse seizure discharge. B12 and folate normal. TSH normal. Vit D level low. Vit D replacement ordered. Her mental status improved and is now AOx4. She overall did well and was able to be discharged on 07/29/24. Status at Discharge Cognitive/behavioral status at discharge: stable Time Spent with Patient Time attestation: Total time spent providing and/or coordinating discharge services: 35 minutes Time spent: Greater than 30 minutes Exam Narrative: AF 97.8 171/64 67 18 96% ra Gen - NARD Chest - lungs clear CV - RRR S1/S2 Abd - Soft, NT/ND, Positive BS Ext -trace pedal edema. Psych - Nml mood and affect. AOx4 Skin - Warm and dry DS: Data Data Completed and Pending Labs on day of discharge: Labs from last 24 hours 07/29/24 07/29/24 07/29/24 11:21 07:54 06:24 Sodium Potassium Chloride Carbon Dioxide Anion Gap BUN Creatinine Estim Creat Clear Calc Estimated GFR Glucose POC Capillary Glucose 203 H 156 H 132 H Calcium 07/29/24 07/28/24 07/28/24 05:33 20:56 16:40 Sodium 129 L Potassium 4.5 Chloride 101 Carbon Dioxide 26 Anion Gap 2 L BUN 24 H Creatinine 0.90 Estim Creat Clear Calc 42 Estimated GFR 60 Glucose 152 H POC Capillary Glucose 201 H 232 H Calcium 9.3 Discharge Plan Discharge Attending physician on discharge: Venkat Steiner Consulting providers: Darien Robertson; Ayden Causey; Alfred Lema Discharging Clinician: Venkat Steiner Anticipated Discharge Date/Time: 07/29/24 12:24 Patient Disposition: SNF Activity: as tolerated Diet: diabetic Discharge Instructions: Please check glucose before meals and before bed. Record for the doctor's review. Check blood pressure 1 to 2 times a day. Record for the doctor's review. Take precautions to avoid falls. Rise slowly from a lying or sitting position. Pause before standing or walking. Contact the doctor if the patient has any type of trauma, lightheadedness with standing or other worrisome symptoms. Avoid NSAIDs (ibuprofen, naproxen, Aleve). Tylenol is safe to take. Follow-up with the provider at the facility. Follow-up with orthopedics in 2-3 weeks. Please call for an appointment. Follow-up with cardiology in 3-4 weeks. Please call for an appointment. Follow-up with neurology as needed. Please call for an appointment. Thank you for using [facility] for your health care needs. Patient Instructions: Heart Failure (GEN), Pain Management (DC), High Troponin Levels (GEN) Stand Alone Forms: General Discharge Information Follow-up/Referrals: Julia Brandon DO [Primary Care Provider] - Call for Appointment Darien Robertson DO [Physician] - Call for Appointment Ayden Causey MD [Physician] - Other Alfred Lema MD [Physician] - Call for Appointment Discharge Medications: New amiodarone [Pacerone] 200 mg Tablet 200 mg PO DAILY Qty: 30 1RF cholecalciferol (vitamin D3) [Vitamin D3] 25 mcg (1,000 unit) Tablet 1,000 unit PO DAILY Qty: 30 1RF Eliquis 5 mg Tablet 5 mg PO Q12HR Qty: 60 1RF amoxicillin-pot clavulanate 875-125 mg tablet 1 tablet PO Q8H Qty: 20 0RF lidocaine [Lidoderm] 5 % Adhesive Patch,Medicated 1 patch transdermal DAILY Qty: 30 0RF Rx Instructions: to shoulder daily amlodipine [Norvasc] 5 mg Tablet 5 mg PO DAILY Qty: 30 1RF Debrox 6.5 % Drops 5 drp EACH EAR BID Qty: 15 0RF Rx Instructions: Bilateral ears x 5 days then rinse. Continued ascorbic acid (vitamin C) 500 mg capsule 500 mg PO DAILY (DME) Walker See Rx Instructions .Route .MEDSUPPLY Qty: 1 0RF Rx Instructions: Rx: Walker with Seat and hand brakes Dx: Gait Instability, Multiple falls Dispense: 1 unit DME: [facility]erV[facility] AREDS [phone] [id number] capsule 1 cap PO BID lisinopril 20 mg tablet 20 mg PO BID Qty: 180 1RF levothyroxine 125 mcg tablet 125 mcg PO DAILY (DME) OneTouch Ultra Test Strip See Rx Instructions .ROUTE .COMPLEX Qty: 100 3RF Dose Instruction: USE ONE STRIP IN METER ONCE DAILY Rx Instructions: test daily fluoxetine 10 mg capsule 10 mg PO DAILY Qty: 90 1RF Rx Instructions: TAKE 1 CAPSULE BY MOUTH DAILY lovastatin 40 mg tablet 40 mg PO QPM Qty: 90 1RF Changed glimepiride 4 mg tablet 2 mg PO QAM Qty: 90 3RF Rx Instructions: administer with breakfast Held metformin 1,000 mg tablet 1,000 mg PO BID Qty: 180 1RF Hold Instructions: HOLD - resume when okay with the provider Discontinued aspirin [Adult Low Dose Aspirin] 81 mg tablet,delayed release (DR/EC) 81 mg PO DAILY Qty: 90 3RF Hold Instructions: Resume on 01/27/24. Other Ambulatory Orders: Basic Metabolic Panel (Routine) Timeframe: 1 Week Location: Determined by Patient Ordered By: Venkat Steiner Date of admission: 07/23/24 13:09 Primary Care Provider: Julia Brandon Admitting Provider: Adali Moy Attending physician on admission: Adali Moy Condition: Improved Hospitalist MIPS Heart Failure (Exclusion) Patient has history of Heart Transplant or Left Ventricular Assistive Device?: No IF YES, STOP HERE Heart Failure (Qualifier) Patient has current or prior documentation of LVEF less than or equal to 40%, or mod/servere depressed LVSF?: No IF NO, STOP HERE
[2024-07-29] MEDS: INSULIN ASPART (*BKC) 100 UNITS/ML SUB-Q (12:30)
[2024-07-29 15:38] LABS: Methylmalonic Acid 290 nmol/L (85-423)
--- NOTE | 2024-08-02 09:45 | PC.NURSE ---
MMA is WNL at 290. Dr. Steiner aware.
== END 2024-07-29 14:30 | DRG 193 ==
LOC: ANHED 17:36 → ANHIMU 21:35 → ANH2MED 07-23 12:57
PROVIDERS: Internal Medicine; Internal Medicine Cardiovascular Disease; Internal Medicine Interventional Cardiology; Psychiatry & Neurology Neurology; Registered Nurse; Admitting Provider Internal Medicine; Emergency Provider Physician Assistant; PCP Family Medicine; Visit Provider Internal Medicine
DX: J18.9 Pneumonia, unspecified organism (principal); G93.41 Metabolic encephalopathy; E87.1 Hypo-osmolality and hyponatremia; I47.20 Ventricular tachycardia, unspecified; N39.0 Urinary tract infection, site not specified; W19.XXXA Unspecified fall, initial encounter; E11.42 Type 2 diabetes mellitus with diabetic polyneuropathy; E03.9 Hypothyroidism, unspecified; E78.2 Mixed hyperlipidemia; B96.3 Hemophilus influenzae [H. influenzae] as the cause of diseases classified elsewhere; E11.21 Type 2 diabetes mellitus with diabetic nephropathy; E11.65 Type 2 diabetes mellitus with hyperglycemia; E86.0 Dehydration; F41.9 Anxiety disorder, unspecified; F32.A Depression, unspecified; I34.0 Nonrheumatic mitral (valve) insufficiency; I27.20 Pulmonary hypertension, unspecified; I11.9 Hypertensive heart disease without heart failure; I48.0 Paroxysmal atrial fibrillation; M19.011 Primary osteoarthritis, right shoulder; M47.816 Spondylosis without myelopathy or radiculopathy, lumbar region; M75.101 Unspecified rotator cuff tear or rupture of right shoulder, not specified as traumatic; R29.6 Repeated falls; R32 Unspecified urinary incontinence; R79.89 Other specified abnormal findings of blood chemistry; R41.0 Disorientation, unspecified; Z66 Do not resuscitate; Z87.891 Personal history of nicotine dependence; Z86.73 Personal history of transient ischemic attack (TIA), and cerebral infarction without residual deficits; Z90.49 Acquired absence of other specified parts of digestive tract; Z79.82 Long term (current) use of aspirin; Z79.84 Long term (current) use of oral hypoglycemic drugs; Z20.822 Contact with and (suspected) exposure to COVID-19
CPT/HCPCS: 36415; 36600; 70450; 70553; 71045; 71046; 73030; 73200; 73221; 80048; 80053; 80061; 81001; 82140; 82306; 82570; 82607; 82746; 82805; 82948; 83605; 83735; 83880; 83921; 84300; 84443; 84484; 85018; 85025; 85027; 85610; 85730; 87040; 87077; 87086; 87449; 87637; 87899; 93005; 93306; 93880; 95816; 96361; 96365; 97110; 97161; 97166; 97530; 97535; 99285; A9270; A9577; G0378; J0282; J0456; J0696; J1650; J1815; J3475; J7030; J7040

== ENCOUNTER 2024-09-04 01:19 | Emergency (ER) | payer MEDICARE, SELFPAY ==
--- NOTE | ~2024-09-04 | CT_ITS ---
CT cervical spine wo con DATE: 09/04/2024 02:22 INDICATION: Fall TECHNIQUE: Axial images through the cervical spine. Sagittal and coronal reconstructions. Exam dose: 144.64 mGy-cm total exam DLP. COMPARISON: None FINDINGS: Normal alignment of the atlantoaxial joints. C1 and C2 are normally aligned and the odontoi d process is intact. No fracture or dislocation or locked facet or prevertebral soft tissue swelling. There is mild cervical spondylosis causing mild degenerative disc disease at C3-4, C4-5, C5-6, C6-7. There is degenerative spurring at the facet joints. Mild spurring is noted at the uncovertebral joint s at C4-5 and C5-6 primarily. The lung apices are clear. IMPRESSION: Mild cervical spondylosis; no fracture or dislocation or locked facet Reviewed, dictated and finalized at [facility]. Reviewed, dictated and finalized at location A. ING SYSTEM OPERATOR IMPRESSION: Mild cervical spondylosis; no fracture or dislocation or locked fac et
--- NOTE | ~2024-09-04 | CT_ITS ---
EXAMINATION: CT brain wo con DATE: 09/04/2024 02:22 INDICATION: Fall TECHNIQUE: Computed tomography (CT) of the head was performed without intravenous contrast. The mA wa s adjusted according to patient size. Iterative reconstruction technique was employed. Exam dose: 68 1.00 mGy-cm total exam DLP. COMPARISON: 07/26/2024 MRI brain 07/25/2024 CT brain FINDINGS: Vertebral artery and carotid siphon internal carotid artery calcifications. There is nonspecific diminished attenuation of the cerebral white matter, likely due to chronic small vessel ischemic changes. No intracranial mass lesion or hemorrhage or cerebrovascular accident. No midline shift or mass effec t. There is mildly prominent central and cortical cerebral atrophy including prominent temporal horns . Moderate cerebellar atrophy. No subdural or epidural hematoma. Orbital contents are unremarkable. The paranasal sinuses and mastoid air cells are normally developed and aerated. No fracture or bone destruction of the cranial vault. IMPRESSION: Cerebral atherosclerosis and chronic small vessel ischemic changes of the cerebral white matter Central and cortical cerebral and cerebellar atrophy No acute intracranial finding Reviewed, dictated and finalized at [facility]. Reviewed, dictated and finalized at location A. ER STAMP DIES INSPECTOR
--- NOTE | ~2024-09-04 | CT_ITS ---
EXAMINATION: CT lumbar spine wo con DATE: 09/04/2024 02:22 INDICATION: Fall TECHNIQUE: Computed tomography (CT) of the abdomen was performed without intravenous contrast. Automa jessica exposure control and iterative reconstruction technique were employed. Exam dose: 1381.60 mGy-cm total exam DLP. Lumbar spine COMPARISON: 06/07/2011 lumbar spine FINDINGS: 1.2 x 1.6 cm circumscribed lucency with sclerotic margin involving the L2 vertebral body; the feature s suggest benign process. 5.6 x 9.9 mm similar lucent lesion of L3 vertebral body. These are likely benign but if there is conc opal for possible active pathology, consider radionuclide bone scan. There is very severe degenerative disc disease with mild retrolisthesis at L1-2, L2-3 and L3-4. There is moderately severe degenerative disease L5-S1. There is very prominent degenerative change of the apophyseal joints of the lumbar spine, with associ ated grade 1 anterolisthesis at L4-5. No fracture or bone destruction or spondylolisthesis is noted otherwise. Degenerative change of the sacroiliac joints. Right bipolar hip prosthesis. Incidentally noted is prominent ascites. IMPRESSION: Severe lumbar spondylosis; no fracture is detected Reviewed, dictated and finalized at [facility]. Reviewed, dictated and finalized at location A. NICS SUPERVISOR
[2024-09-04 01:18] VITALS: BP 168/69; PULSE 86; RESP 14; TEMP 36.6; O2SAT 95
--- NOTE | 2024-09-04 01:27 | ED.FALL ---
HPI - Fall General Chief Complaint: Fall Stated Complaint: fall head injury History of Present Illness HPI Narrative: 83-year-old female with history of DM, hyperlipidemia, CHF, hypothyroidism presents to the ED via EMS from [facility] for a ground level fall. Patient states she got up from her bed use the bathroom and did not use her call light and fell. States she hit her head on the side of the bed but did not lose consciousness. Patient presents with a laceration to the back of her head, bleeding is controlled. She is anticoagulated on Eliquis. She presents with a C-collar in place. Her only complaint is lower back pain. Denies extremity injury, hip pain, headache. No bowel or bladder changes, no saddle anesthesia. Related Data Home Medications ?Medication ?Instructions ?Recorded ?Confirmed ?Last Taken ?Type vitamins A,C,G-peew-ytafeg 4,296 1 cap PO BID 03/13/22 09/01/24 Unknown History mcg-226 mg-90 mg capsule (PreserVision AREDS) ascorbic acid (vitamin C) 500 mg 500 mg PO DAILY 10/03/22 09/01/24 Unknown History capsule levothyroxine 125 mcg tablet 125 mcg PO DAILY 07/20/24 09/01/24 Unknown History Allergies Allergy/AdvReac Type Severity Reaction Status Date / Time No Known Allergies Allergy Verified 09/01/24 08:51 Review of Systems Review of Systems: All systems reviewed & are unremarkable except as noted in HPI and below PMFSH Past Medical History Medical History Right shoulder pain Coronary artery disease Left carotid bruit Diabetic polyneuropathy Diabetes mellitus Multiple falls Metabolic encephalopathy Lumbar spondylosis Femoral neck fracture Moderate mitral valve regurgitation Pulmonary hypertension Diastolic dysfunction Diabetic nephropathy Diabetic peripheral neuropathy Depression Hypothyroidism Anxiety disorder, unspecified Benign essential HTN Mixed hyperlipidemia Type 2 diabetes mellitus without complications Surgical History Surgical History Status post open reduction with internal fixation of fracture (~2021) Left wrist fracture and 5th metatarsal fracture History of tubal ligation Hx of appendectomy Family History Family History Father Family history of cardiovascular disease Mother Family history of cardiovascular disease Diabetes mellitus Sibling Family history of malignant neoplasm of cervix Social History Social History Social History: Code status: DNR/DNI Surrogate decision maker: Faith Castro (daughter) Smoking packs per day: 0.5 Smoking cigarettes per day: 10.0 Years smoked: 35 Smoking pack-years: 17.50 Smoking status: Former smoker Second hand tobacco smoke exposure: No Additional smoking assessment comments: PT STATE SMOKED YEARS & YEARS AGO , UNALBE TO RECALL HOW MUCH OR HOW LONG Alcohol intake: never Substance use: never Do You Feel Safe in your Home?: Yes Lack of Transportation: No Lack of Food: Never True Current Housing: I Have Housing Concerned About Future Housing: No Difficulty Paying Gas/Electric Bills: No Difficulty Paying for Meds: No Currently Unemployed: No Education: High School Diploma/GED Difficulty w/ Childcare or Family Care: No Living arrangements: alone Occupation/Education: retired Gender identity (if verbalized by the patient): Female Spiritual care concerns: No Exam Narrative: GENERAL: Well-appearing, well-nourished, and in no acute distress. HEAD: Normocephalic EYES: PERRLA and EOMI. ENT: Nares clear, no rhinorrhea or epistaxis. Mucous membranes moist. NECK: C-collar in place BACK: No midline thoracic spinous tenderness, crepitus, step-offs or deformities. Diffuse tenderness in the lumbar spine with no crepitus or deformities CHEST: Clear to auscultation. No respiratory distress. HEART: Regular rate and rhythm. No murmur heard. Normal peripheral pulses. ABDOMEN: Soft, nontender, nondistended, normal active bowel sounds. EXTREMITIES: Normal range of motion. 2+ pitting edema to bilateral lower extremities with no overlying erythema, no tenderness. No tenderness to upper lower extremities SKIN: Dried blood throughout the posterior scalp w/o identifiable laceration or abrasion NEURO: No focal deficits. Alert and oriented x3. Moving all extremities spontaneously. No saddle anesthesia, sensation intact throughout Course Vital Signs Vital signs: Vital Signs Temperature 98 F 09/04/24 01:18 Pulse Rate 86 09/04/24 01:18 Respiratory Rate 14 09/04/24 01:18 Blood Pressure 168/69 H 09/04/24 01:18 Pulse Oximetry 95 09/04/24 01:18 Oxygen Delivery Room Air 09/04/24 01:18 Temperature 98 F 09/04/24 01:18 Pulse Rate 86 09/04/24 01:18 Respiratory Rate 14 09/04/24 01:18 Blood Pressure 168/69 H 09/04/24 01:18 Pulse Oximetry 95 09/04/24 01:18 Oxygen Delivery Room Air 09/04/24 01:18 Procedures Laceration Laceration 1: Date: 09/04/24 Time: 03:23 Site: scalp Side (If applicable): left Size (cm): 3 Description: linear Depth: simple, single layer Local Anesthetic: lidocaine 1% and with epi Amount of anesthesia used (mL): 4 Pre-repair: wound explored, irrigated and irrigated extensively ====== Skin Level ====== Skin layer closed with: nylon Size (cm): 3-0 Number of sutures: 1 Technique: other (figure 8) ====== Subcutaneous Layer ====== ====== Muscle Layer ====== ====== Tendon Layer ====== MDM - Fall MDM Narrative Medical decision making narrative: 83-year-old female presents to the ED via EMS [facility] for a ground level mechanical fall that occurred prior to arrival. See HPI for further history. Vitals with elevated blood pressure, otherwise unremarkable. Exam significant for the above. Laceration irrigated extensively with normal saline and closed with a figure-eight suture with successful hemostasis. Tetanus updated in the ED. CT of the head shows no intracranial hemorrhage or significant mass effect or midline shift skull fracture. CT cervical spine shows no acute osseous findings no significant acute traumatic abnormal alignment involving the cervical spine. CT lumbar shows no acute osseous traumatic injury involving the lumbar spine stable grade 1 anterolisthesis of L4 on L5 compared to radiographs performed 09/07/2010. Patient family updated on workup. Placed removal in 7 days. Return precautions discussed. They are agreeable to plan verbalized understanding. Discharged in stable condition. Discharge Plan Discharge Clinical Impression: Head injury Qualifiers: Encounter type: initial encounter Qualified Code(s): S09.90XA - Unspecified injury of head, initial encounter Lumbar contusion Qualifiers: Encounter type: initial encounter Qualified Code(s): S30.0XXA - Contusion of lower back and pelvis, initial encounter Laceration of scalp Qualifiers: Encounter type: initial encounter Qualified Code(s): S01.01XA - Laceration without foreign body of scalp, initial encounter Cervical muscle strain Qualifiers: Encounter type: initial encounter Qualified Code(s): S16.1XXA - Strain of muscle, fascia and tendon at neck level, initial encounter Patient Disposition: NH Senior Living/Asst Living Condition: Stable Instructions: Antibiotic Form, Laceration (ED), Head Injury (ED) Additional Instructions: Your evaluated in the emergency department after a fall. The CT of your head, neck and low back showed no acute findings. The laceration on your head was closed with a stitch. Please get the stent removed in 7 days. Return to the emergency department if you develop vision changes, focal numbness or weakness, altered mental status, loss of consciousness, seizure, redness or drainage from the laceration, fever or other concerning symptoms. Patient Language: Greenlandic Prescriptions: No Action ascorbic acid (vitamin C) 500 mg capsule 500 mg PO DAILY (DME) Walker See Rx Instructions .Route .MEDSUPPLY Qty: 1 0RF Rx Instructions: Rx: Walker with Seat and hand brakes Dx: Gait Instability, Multiple falls Dispense: 1 unit DME: [facility] AR[facility] [phone] [id number] capsule 1 cap PO BID lisinopril 20 mg tablet 20 mg PO BID Qty: 180 1RF levothyroxine 125 mcg tablet 125 mcg PO DAILY amiodarone [Pacerone] 200 mg Tablet 200 mg PO DAILY Qty: 30 1RF amlodipine [Norvasc] 5 mg Tablet 5 mg PO DAILY Qty: 30 1RF Eliquis 5 mg Tablet 5 mg PO Q12HR Qty: 60 1RF Debrox 6.5 % Drops 5 drp EACH EAR BID Qty: 15 0RF Rx Instructions: Bilateral ears x 5 days then rinse. cholecalciferol (vitamin D3) [Vitamin D3] 25 mcg (1,000 unit) Tablet 1,000 unit PO DAILY Qty: 30 1RF amoxicillin-pot clavulanate 875-125 mg tablet 1 tablet PO Q8H Qty: 20 0RF lidocaine [Lidoderm] 5 % Adhesive Patch,Medicated 1 patch transdermal DAILY Qty: 30 0RF Rx Instructions: to shoulder daily glimepiride 4 mg tablet 2 mg PO QAM Qty: 90 3RF Rx Instructions: administer with breakfast (DME) OneTouch Ultra Test Strip See Rx Instructions .ROUTE .COMPLEX Qty: 100 3RF Dose Instruction: USE ONE STRIP IN METER ONCE DAILY Rx Instructions: test daily fluoxetine 10 mg capsule 10 mg PO DAILY Qty: 90 1RF Rx Instructions: TAKE 1 CAPSULE BY MOUTH DAILY metformin 1,000 mg tablet 1,000 mg PO BID Qty: 180 1RF lovastatin 40 mg tablet 40 mg PO QPM Qty: 90 1RF bumetanide 1 mg tablet 1 mg PO BID Qty: 180 1RF Follow-up/Referrals: Julia Brandon DO [Primary Care Provider] -
[2024-09-04] MEDS: TETANUS,DIPHTHERIA,AC PERTUSSIS ADULT (0.5 ML) BOOSTRIX IM (03:26)
[2024-09-04] MEDS: LIDO 1%/EPINEPHRINE 1:100,000 20 ML VIAL (03:26)
[2024-09-04 03:57] VITALS: BP 136/78; PULSE 78; RESP 16; O2SAT 98
== END 2024-09-04 03:58 ==
PROVIDERS: Emergency Provider Physician Assistant; PCP Family Medicine
DX: S09.90XA Unspecified injury of head, initial encounter (principal); S30.0XXA Contusion of lower back and pelvis, initial encounter; S01.01XA Laceration without foreign body of scalp, initial encounter; S16.1XXA Strain of muscle, fascia and tendon at neck level, initial encounter; W18.30XA Fall on same level, unspecified, initial encounter; E78.5 Hyperlipidemia, unspecified; E03.9 Hypothyroidism, unspecified; Z79.01 Long term (current) use of anticoagulants; E11.42 Type 2 diabetes mellitus with diabetic polyneuropathy; I25.10 Atherosclerotic heart disease of native coronary artery without angina pectoris; I50.30 Unspecified diastolic (congestive) heart failure; E78.2 Mixed hyperlipidemia; I11.0 Hypertensive heart disease with heart failure; Z87.891 Personal history of nicotine dependence; Z23 Encounter for immunization
CPT/HCPCS: 12002; 70450; 72125; 72131; 90471; 90715; 99284; J2004

== ENCOUNTER 2024-09-09 09:50 | Outpatient (RCR) | payer MEDICARE, SELFPAY ==
[2024-09-09 10:55] VITALS: BMI 24.3
== END 2024-10-29 13:51 | disposition home or self-care (01) ==
LOC: ANHWOC 09:50
PROVIDERS: PCP Family Medicine; Visit Provider Family Medicine
DX: L89.90 Pressure ulcer of unspecified site, unspecified stage (principal)
CPT/HCPCS: 99214; G0463